=== PATIENT | female | born 1960 | race Two or more races ===

== ENCOUNTER → 2024-05-11 | Outpatient (CLI) | payer OTHER, SELFPAY ==
[2024-05-11 16:36] LABS: Basophils # (Auto) 0.1 Thou/mm3 (0.0-0.2); Basophils % (Auto) 1 % (0-2.5); Eosinophils # (Auto) 0.2 Thou/mm3 (0.0-0.5); Eosinophils % (Auto) 2 % (0-10); Hematocrit 41.9 % (36.0-46.0); Hemoglobin 13.6 g/dL (12.0-16.0); Immature Granulocytes % (Auto) 1 % (0-0); Immature Granulocytes Auto 0.07 Thou/mm3 (0.00-0.00); Lymphocytes # (Auto) 2.7 Thou/mm3 (1.0-4.8); Lymphocytes % (Auto) 23 % (10-50); Mean Corpuscular HGB Conc 32.5 g/dl (31.0-37.0); Mean Corpuscular Hemoglobin 28.9 pg (25.0-35.0); Mean Corpuscular Volume 89 fL (80-100); Monocytes # (Auto) 1.1 Thou/mm3 (0.0-0.8); Monocytes % (Auto) 9 % (0-12); Neutrophils # (Auto) 7.7 Thou/mm3 (1.8-7.7); Neutrophils % (Auto) 65 % (37-80); Nucleated Red Blood Cell % 0 /100 WBC (0); RDW Standard Deviation 48.3 fL (36.4-46.3); Red Blood Count 4.71 Miln/mm3 (4.00-5.20); White Blood Count 11.8 Thou/mm3 (3.6-11.0)
[2024-05-11 16:53] LABS: Alanine Aminotransferase 29 U/L (10-49); Albumin, Serum 4.3 gm/dL (3.4-4.8); Albumin/Globulin Ratio 2.4 (1.2-2.2); Alkaline Phosphatase 124 U/L (46-116); Anion Gap 7 (7-16); Aspartate Amino Transferase 22 U/L (0-34); BUN/Creatinine Ratio 18 Ratio (12-20); Bilirubin,Total 0.4 mg/dL (0.3-1.2); Blood Urea Nitrogen 16 mg/dL (9-23); Carbon Dioxide 27.3 mMol/L (20.0-31.0); Chloride 108 mMol/L (98-107); Creatinine (Component) 0.9 mg/dL (0.6-1.3); Globulin 1.8 gm/dL (2.3-3.5); Glucose 113 mg/dL (74-106); Osmolality,Calculated 285 (275-295); Potassium 3.5 mMol/L (3.4-5.1); Sodium 142 mMol/L (136-145); Total Protein 6.1 gm/dL (5.7-8.2); eGFR > 60 See Note
[2024-05-11 17:01] LABS: Platelet Count 22 Thou/mm3 (140-440)
[2024-05-11 17:27] LABS: Slide Review Platelets confirmed
[2024-05-25 22:02] LABS: Alpha-1-Globulin 0.3 g/dL (0.2-0.3); Alpha-2-Globulin 0.6 g/dL (0.5-0.9); Beta-1-Globulin 0.4 g/dL (0.4-0.6); Beta-2-globulin 0.2 g/dL (0.2-0.5); Gamma Globulin 0.6 g/dL (0.8-1.7); Immunoglobulin A 72 mg/dL (70-320); Immunoglobulin G 684 mg/dL (600-1540)
[2024-05-26 06:43] LABS: Immunoglobulin M 44 mg/dL (50-300)
== END | disposition home or self-care (01) ==
LOC: SCTO 15:45
PROVIDERS: PCP Nurse Practitioner Family; Referring Provider Internal Medicine Hematology & Oncology; Visit Provider Internal Medicine Hematology & Oncology
DX: D69.6 Thrombocytopenia, unspecified (principal)
CPT/HCPCS: 36415; 80053; 82784; 84155; 84165; 85025; 86334

== ENCOUNTER → 2024-05-22 | Outpatient (CLI) | payer OTHER, SELFPAY ==
[2024-05-22 15:41] LABS: Basophils # (Auto) 0.1 Thou/mm3 (0.0-0.2); Basophils % (Auto) 1 % (0-2.5); Eosinophils # (Auto) 0.2 Thou/mm3 (0.0-0.5); Eosinophils % (Auto) 1 % (0-10); Hematocrit 41.9 % (36.0-46.0); Hemoglobin 13.6 g/dL (12.0-16.0); Immature Granulocytes % (Auto) 1 % (0-0); Immature Granulocytes Auto 0.16 Thou/mm3 (0.00-0.00); Lymphocytes # (Auto) 3.7 Thou/mm3 (1.0-4.8); Lymphocytes % (Auto) 26 % (10-50); Mean Corpuscular HGB Conc 32.5 g/dl (31.0-37.0); Mean Corpuscular Hemoglobin 29.6 pg (25.0-35.0); Mean Corpuscular Volume 91 fL (80-100); Monocytes # (Auto) 1.8 Thou/mm3 (0.0-0.8); Monocytes % (Auto) 13 % (0-12); Neutrophils # (Auto) 8.2 Thou/mm3 (1.8-7.7); Neutrophils % (Auto) 58 % (37-80); Nucleated Red Blood Cell % 0 /100 WBC (0); Platelet Count 167 Thou/mm3 (140-440); RDW Standard Deviation 52.7 fL (36.4-46.3); Red Blood Count 4.59 Miln/mm3 (4.00-5.20)
[2024-05-22 15:58] LABS: Alanine Aminotransferase 25 U/L (10-49); Albumin, Serum 4.2 gm/dL (3.4-4.8); Albumin/Globulin Ratio 2.6 (1.2-2.2); Alkaline Phosphatase 128 U/L (46-116); Anion Gap 9 (7-16); Aspartate Amino Transferase 19 U/L (0-34); BUN/Creatinine Ratio 24 Ratio (12-20); Bilirubin,Total 0.5 mg/dL (0.3-1.2); Blood Urea Nitrogen 22 mg/dL (9-23); Calcium 9.3 mg/dL (8.3-10.6); Calcium (Corrected) 9.3 mg/dL (8.5-10.1); Carbon Dioxide 28.4 mMol/L (20.0-31.0); Chloride 105 mMol/L (98-107); Creatinine (Component) 0.9 mg/dL (0.6-1.3); Globulin 1.6 gm/dL (2.3-3.5); Glucose 104 mg/dL (74-106); Osmolality,Calculated 286 (275-295); Potassium 3.9 mMol/L (3.4-5.1); Sodium 142 mMol/L (136-145); Total Protein 5.8 gm/dL (5.7-8.2); eGFR > 60 See Note
== END | disposition home or self-care (01) ==
LOC: SCTO 14:54
PROVIDERS: PCP Nurse Practitioner Family; Referring Provider Internal Medicine Hematology & Oncology; Visit Provider Internal Medicine Hematology & Oncology
DX: D69.3 Immune thrombocytopenic purpura (principal); D05.12 Intraductal carcinoma in situ of left breast
CPT/HCPCS: 36415; 80053; 85025

== ENCOUNTER → 2024-06-16 | Outpatient (CLI) | payer OTHER, SELFPAY ==
[2024-06-16 17:31] LABS: Basophils # (Auto) 0.1 Thou/mm3 (0.0-0.2); Basophils % (Auto) 1 % (0-2.5); Eosinophils # (Auto) 0.1 Thou/mm3 (0.0-0.5); Eosinophils % (Auto) 1 % (0-10); Hematocrit 40.9 % (36.0-46.0); Hemoglobin 13.5 g/dL (12.0-16.0); Immature Granulocytes % (Auto) 2 % (0-0); Immature Granulocytes Auto 0.22 Thou/mm3 (0.00-0.00); Lymphocytes # (Auto) 3.9 Thou/mm3 (1.0-4.8); Lymphocytes % (Auto) 31 % (10-50); Mean Corpuscular Hemoglobin 30.5 pg (25.0-35.0); Mean Corpuscular Volume 93 fL (80-100); Monocytes # (Auto) 1.6 Thou/mm3 (0.0-0.8); Monocytes % (Auto) 12 % (0-12); Neutrophils # (Auto) 6.7 Thou/mm3 (1.8-7.7); Neutrophils % (Auto) 53 % (37-80); Nucleated Red Blood Cell % 0 /100 WBC (0); Platelet Count 182 Thou/mm3 (140-440); RDW Standard Deviation 54.4 fL (36.4-46.3); Red Blood Count 4.42 Miln/mm3 (4.00-5.20); White Blood Count 12.6 Thou/mm3 (3.6-11.0)
[2024-06-16 17:49] LABS: Alanine Aminotransferase 14 U/L (10-49); Albumin, Serum 4.2 gm/dL (3.4-4.8); Albumin/Globulin Ratio 2.5 (1.2-2.2); Alkaline Phosphatase 111 U/L (46-116); Anion Gap 5 (7-16); Aspartate Amino Transferase 13 U/L (0-34); BUN/Creatinine Ratio 20 Ratio (12-20); Bilirubin,Total 0.4 mg/dL (0.3-1.2); Blood Urea Nitrogen 20 mg/dL (9-23); Calcium 8.8 mg/dL (8.3-10.6); Calcium (Corrected) 8.8 mg/dL (8.5-10.1); Chloride 107 mMol/L (98-107); Globulin 1.7 gm/dL (2.3-3.5); Glucose 102 mg/dL (74-106); Osmolality,Calculated 283 (275-295); Potassium 3.6 mMol/L (3.4-5.1); Sodium 141 mMol/L (136-145); Total Protein 5.9 gm/dL (5.7-8.2); eGFR > 60 See Note
== END | disposition home or self-care (01) ==
LOC: SCTO 15:28
PROVIDERS: PCP Nurse Practitioner Family; Referring Provider Internal Medicine Hematology & Oncology; Visit Provider Internal Medicine Hematology & Oncology
DX: D69.3 Immune thrombocytopenic purpura (principal); D05.12 Intraductal carcinoma in situ of left breast
CPT/HCPCS: 36415; 80053; 85025

== ENCOUNTER 2024-07-05 14:14 | Outpatient (RCR) | payer OTHER, MEDICARE, MEDICAID, SELFPAY ==
--- NOTE | 2024-07-05 15:31 | CTCFLWUP_ITS ---
Patient: LIZ KELLY : 1960 Page 2 of 2 FOLLOW UP NOTE DATE OF SERVICE: 07/05/2024 NAME: LIZ KELLY ACCOUNT: [id number] : 1960 AGE: 63 INTERVAL HISTORY: Patient is here for follow-up. She has completed bone marrow biopsy with a Dr. Mujica about a week earlier and is scheduled to discuss the results. Patient otherwise doing well and have no bleeding or bruising. ONCOLOGY HISTORY: DIAGNOSIS: Thrombocytopenia, unspecified [ICD10] D69.6; Intraductal carcinoma in situ of left breast [ICD10] D05 .12 DATE OF DIAGNOSIS: 03/08/2015 STAGE/TNM: TREATMENT HISTORY: Care?Plan Start?Date Cycle Day Intent Rituximab?375?mg/m*2?-?1st?Line?or?Rel,?Ref 06/17/2016 1 28 Curative?(primary) VENOfer?200mg?IV?wkly 03/18/2020 1 70 Palliative cyclophosphamide 06/03/2020 1 21 Palliative Rituximab?375mg/m*2?weekly?x?4?version?1 04/22/2022 1 7 Palliative Immune?Globulin?ITP?1?day 04/29/2023 1 28 Palliative Gammagard 09/22/2023 1 28 Palliative HISTORY OF PRESENT ILLNESS: Liz Kelly is a 63-year-old Hebrew-speaking female with history of ITP. 07/06/2014: She was diagnosed with ITP and treated with prednisone and responded well. 03/08/2015: Left breast mass excision. DCIS. Status post radiation therapy and 5 years of letrozole. 06/24/2016: Patient was treated with Rituxan due to relapse of her ITP. She received Rituxan from 2016 through 08/19/2016. Patient received a total of 8 doses. 01/12/2017: Due to relapse of her ITP patient had splenectomy. 06/24/2017 due to relapse of ITP she was started on Promacta 50 mg. Since then her platelet counts hav e been heavily fluctuating. Promacta was increased to 75 mg p.o. daily. 01/27/2018: Her platelet count was 914,000 02/04/2018 her platelet counts were decreased to 5. Patient started herself on prednisone 60 mg p.o. daily in addition to Promacta 75 mg p.o. daily 02/07/2018: Today her platelet count is l Less than 5. She has petechia on her chest as well as lower extremities. She has a small hematoma sub-submucosally on the right buccal area. Patient was admitted to the hospital. 04/26/2018: Oh 2 weeks ago patient had another relapse of her ITP while she was on Promacta 75 mg p.o. daily. Her platelet counts were less than 5000. She was admitted to the hospital treated with a platelet transf usion, IVIG as well as N-plate she received 2 injections 1 week apart and platelet counts have improved. After that she was discharged home. She is in the clinic today with repeat CBC drawn last night. Her platelet count is 17,000's. This afternoon she does have blood blisters in the mouth she also has feeding subcutaneous hemorrhages in the lower extr emities. Recent CT scans done on 04/09/2018 did not show any evidence of accessory spleens. However nuclear medicine liver and spleen study did show small splenule. 05/10/2018: Patient is in the clinic today with repeat CBC. She denies any bleeding from the nose gu ms blood in the urine or stool. She is currently on N-plate 75 mcg on a q. weekly regimen. She i s also on prednisone 40 mg p.o. daily. 06/01/2018:. Since last visit patient is tapered off on prednisone. Currently she is getting N-plat e 75 mcg subcu weekly. CBC drawn today showed her platelet counts to be 145,000. She complains of generalized body aches st uffiness in the ears as well as worsening tremors. Patient has tremors prior to endplate however they seem to be wor sening at this time. Patient is becoming more anxious. She denies any chest pain palpitations abdominal pain or le g cramps. 06/16/2018: Over the last 2 weeks her N-plate doses were decreased due to persistent dizziness as wel l as arthralgias and myalgias. Last week she had 65mcg subcu. Today she complains of persistent dizziness and pluggi ng of the ears which she attributes to endplate. She is also worried that she might have bled in the brain during h er hospital stay few weeks ago when she had severely low platelet count. Her platelet count today is 30,000. She denies any bleeding from nose gums blood in the urine or stool. 06/29/2018: Last week patient was admitted to the hospital with a platelet count of less than 5. She r eceived platelet transfusion, prednisone as well as IVIG. She responded very well and was discharged home. She is in the clinic today with repeat CBC drawn yesterday. She is currently taking prednisone 100 mg p.o. daily along with vickers toprazole. Her platelet count yesterday is 484,000. She denies any bleeding from the nose gums blood in the urine o r stool. Her last endplate injection was about 2 weeks ago. Patient was having all kinds of side effects from N-plate. She is approved for Fostamatinib by her insurance company. She is awaiting for the prescription to be mailed to her home . 07/21/2018: Patient has been taking Fostamatinib 100 mg p.o. twice daily for last 1 week. She stopped taking prednisone. She also saw Dr. Chadwick of [facility] on June 30, 2018 for possible laparoscopic surgery for the splenule. He is planning on doing the surgery in August. She had labs drawn on 2018. Platelet counts have improved to 65,000's. She denies any bleeding from the nose gums blood i n the urine or stool. Previously she had skin panel drawn on 06/22/2018 which showed her potassium to be 2.8. Currently she is on one potassium tablet p.o. daily. 06/16/2018: Fostamatinib 100 mg p.o. twice daily prescription written. 09/14/2017: Patient had accessory spleen removal at [facility]. 09/29/2018: Patient was started back on Romiplostim. She decided not to take the Fostamatinib due to what appears to be side effects. 10/06/2018?01/02/2019: Patient was treated with N-plate. Due to recurrent thrombocytopenia N-plate was discontinued. 01/07/2019: Promacta 62.5 mg p.o. daily restarted. 03/07/2019: Promacta discontinued due to recurrence of ITP. 02/16/2019: Patient was started on Imuran 50 mg p.o. twice daily. 07/18/2019: Platelet count 56,000's. Imuran increased 100 mg p.o. twice daily [place] [facility] [place]/25/2019: Platelet count 30,000. 07/26/2019: Imuran discontinued due to rash in the neck more so on the left side. 08/02/2019: Platelet count 494,000's. Currently patient is on prednisone 10 mg p.o. daily as well as Promacta 50 mg p.o. daily. 08/06/2019: Patient stopped taking prednisone. She continued on Promacta 50 mg p.o. daily. 08/09/2019: Platelet count 971,000. 08/14/2019: Platelet count 719,000. 08/21/2019: Platelet count 19,000. 08/24/2019: Platelet count less than 5. Her platelet counts dropped while she was on Promacta. Kenya portillo was admitted to the hospital received platelet transfusion, prednisone as well as IVIG. 09/04/2019: Platelet count 378,000. Patient is on prednisone 5 mg as well as Promacta 50 mg p.o. dayo y. 09/26/2019: Platelet count 181,000. Patient is on Promacta 75 mg p.o. daily and prednisone 10 mg p.o. daily. She is slowly tapering of the prednisone. 10/17/2019: Platelet count 11,000. 10/19/2019: Patient discontinued Promacta 75 mg p.o. daily and started avatrombopag 20 mg p.o. daily a long with tapering doses of prednisone. 10/27/2019: Platelet count 383,000. 11/16/2019: Patient had CBC drawn. Platelet count was 7000, WBC 8.3, hemoglobin 12.9. Patient was on avatrombopag. I have advised Ms. Kelly to go to the emergency room and platelet transfusion and I VIG infusion. 01/12/2020: Platelet count 6000, WBC 21.2, hemoglobin 11.0. Patient was treated with 2 units of plate lets as well as IVIG. 01/13/2020: EGD? 01/22/2020: WBC 19.2, hemoglobin 10.3, platelets 422,000. 01/22/2020: Patient started Imuran 50 mg p.o. twice daily. 02/19 2020 platelet count 41,000. Patient started prednisone 10 mg p.o. daily. 04/08/2020: CBC showed a platelet count of 47,000. Patient started taking prednisone 10 mg p.o. dayo y 04/16/2003. CBC done on 04/17/2020 showed her platelet count to be 251,000. 05/22/2020: Platelet count less than 5, WBC 5.8, hemoglobin 12.5. 05/23/2020: Imuran discontinued. 06/03/2020: In spite of recommendation to stop Imuran patient continued Imuran 100 mg p.o. daily. Amadou horn was also started taking prednisone 20 mg p.o. daily for last few days. Her platelet count was arou nd 168,000. I have advised her to continue taking the Imuran and slowly taper off the prednisone. 06/17/2020: Patient developed Covid infection with pneumonia. She was treated with 2 rounds of antib iotics. She was also treated with steroids for about 10 days. 07/09/2020: Platelet count 537,000, hemoglobin 11.4, WBC 6.7. 08/14/2020: Platelet count 235,000, hemoglobin 12.8, WBC 8.9. 08/19/2020: Patient decided to stop Imuran on her own. She did not inform our office that she is stopp ing prednisone. 09/30/2020: Platelet counts 21,000, hemoglobin 11.2, WBC 9.5. Patient decided to start Imuran 50 mg p .o. twice daily on her own. 10/15/2020: Platelet count 12,000. 12/29/2021: Platelet count 245,000, WBC 10.4, ANC 8.3, hemoglobin 13.4, MCV 105. 03/31/2022: Platelet count less than 5000, hemoglobin 13.8, MCV 101, WBC 6.3, LILLY 3.0. Ms. Kelly s topped taking Imuran. 04/22/2022 - 05/18/2022: Ms. Kelly was treated with 4 weekly doses of rituximab. 06/01/2022: Platelet count 81,000. 09/15/2022: Platelet count 208,000, WBC 6.9, ANC 2.3, hemoglobin 12.9. 12/10/2022: platelet count 191,000, WBC 6.2, ANC 2.9, hemoglobin 13.3 12/14/2022: MRI breast BI wo/w contrast 02/27/2023: Platelet count less than 5000. Ms. Kelly received 1 dose of IVIG 03/04/2023: Platelet count 190,000. 03/25/2023: CT scan of the abdomen with IV contrast negative for splenomegaly or accessory spleens. 04/14/2023: Platelet count 90,000. 04/26/2023: Platelet count 31,000, WBC 11.0, ANC 6.5, hemoglobin 12.9, MCV 95. 04/27/2023: Cellcept 1 g p.o. daily prescribed. 06/25/2023: Ms. Kelly received platelet transfusion. 07/07/2023: Ms. Kelly again received platelet transfusions. 08/19/2023: Platelet count is 154,000, WBC is 13.4, ANC 7.9, hemoglobin 14.2. 09/14/2023: Platelets less than 5000. 09/22/2023: Ms. Kelly received 26 g of IVIG. Platelet count on the day was 26,000. 09/30/2023: Platelet count 6000. Ms. Kelly received 2 units of platelets. 10/04/2023: Platelet count 172,000. 10/27/2023. Patient received IVIG infusion.. Platelet count 22,000. 11/02/2023: Platelet count 57,000. 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 benztropine - 1 mg 1 tab Daily 2. Cymbalta - 20 mg 1 Capsule Daily 3. dexAMETHasone - 20 mg 2 tab Daily 4. Flexeril - 5 mg 1 tab Three times a day 5. gabapentin - 600 mg 1 tab Three times a day 6. Norvasc - 10 mg Daily 7. pantoprazole - 40 mg 1 Daily 8. prednisone - 10 mg 1 - 4 tab Daily 9. Zocor - 20 mg 1 tab Every day before sleep Medications Last Reconciled by Ida Pleitez MA on 07/05/2024 ALLERGIES: PENICILLAMINE REVIEW OF SYSTEMS: A complete 14-point review of systems was performed and is negative except as noted in interval histo ry. PHYSICAL EXAMINATION: VITAL SIGNS: Temperature?99.1, B/P?162/84, Oxygen?Saturation?86% Weight?162.4?lbs PAIN: 0 - No pain ECOG Performance Status: 0 - Asymptomatic and fully active GENERAL APPEARANCE: Appears well, in no apparent distress, appropriately interactive. HEENT: Normocephalic, no temporal wasting, normal conjunctiva, no scleral icterus, normal hearing, li ps without lesions, neck normal range of motion. CARDIOVASCULAR: Not assessed. PULMONARY: Normal respiratory effort, no respiratory distress or use of accessory muscles, speaking i n full sentences, no tachypnea. EXTREMITIES: No pedal edema or cyanosis. SKIN: Normal skin appearance. NEUROLOGIC: Alert and oriented x4. PSHYCHIATRIC: Appropriate affect, mood normal, behavior normal, intact thought and speech. LABORATORY DATA: I have personally reviewed and interpreted each of the patient?s relevant lab tests, abnormal finding s are below: Date 07/05/24 ??LDH,?TOTAL?(Unit/L) 179 ASSESSMENT/PLAN: ITP Patient's CBC today revealed normal platelets at 167 Patient normally have a chronic thrombocytopenia Patient had a PET scan which is reviewed with her today. PET CT scan do not show any lymphadenopathy . There is a small 3 mm nodule which we will follow in 6 months. Patient is a non-smoker. Patient received last IVIG in October 2023 Patient received last rituximab which was weekly for total 12 doses in November 2023 In the past patient has receivedprednisone, splenectomy, rituximab, Nplate,Promacta, Fostamatinib and avatrombopag. Patient was not able to tolerate Imuran 100 mg p.o. twice daily. Patient is not on any therapy Advised to follow-up with the Dr. Mujica for her bone marrow biopsy results I will repeat labs and follow-up bone marrow biopsy in 4 weeks CBC standing orders placed Patient very well aware and counseled to do CBC if she has any bleeding bruising or any concern for l ow platelets ORDERS: Standing orders for CBC Obtain bone marrow biopsy results RETURN TO CLINIC: Video appointment in 4 weeks BILLING AND COMPLIANCE: I reviewed external records from providers outside my specialty as summarized above. I spent a total of 50 minutes on this patient?s care on the day of their visit excluding time spent related to any bi lled procedures. This time includes time spent with the patient as well as time spent documenting in the medical record, reviewing patients records and tests, obtaining history, placing orders, communi cating with other healthcare professionals, counseling the patient, family or caregiver, and/or care coordination for the diagnoses above. Electronically Signed by: Demetrius Ley MD T: 3:29 PM CC: Pavel?Izyz,? PCP: Trudi Danielle Referring: Trudi Danielle This document was completed utilizing speech recognition software. Grammatical errors, random word in sertions, pronoun errors, and incomplete sentences are an occasional consequence of this system due t o software limitations, ambient noise, and hardware issues. Any formal questions or concerns about th e content, text or information contained within the body of this dictation should be directly address ed to the provider for clarification.
== END 2024-07-21 23:59 | disposition home or self-care (01) ==
LOC: SCTC 14:14
PROVIDERS: PCP Nurse Practitioner Family; Referring Provider Nurse Practitioner Family; Visit Provider Internal Medicine Hematology & Oncology
DX: D69.3 Immune thrombocytopenic purpura (principal); Z86.000 Personal history of in-situ neoplasm of breast; R91.1 Solitary pulmonary nodule; Z90.81 Acquired absence of spleen
CPT/HCPCS: 99212; G0463

== ENCOUNTER → 2024-07-05 | Outpatient (CLI) | payer OTHER, MEDICARE, MEDICAID, SELFPAY ==
[2024-07-05 14:09] LABS: LDH (Lactate Dehydrogenase) 179 U/L (120-246)
[2024-07-14 06:57] LABS: Haptoglobin* 108 mg/dL (43-212)
== END | disposition home or self-care (01) ==
PROVIDERS: PCP Nurse Practitioner Family; Referring Provider Internal Medicine Hematology & Oncology; Visit Provider Internal Medicine Hematology & Oncology
DX: D05.12 Intraductal carcinoma in situ of left breast (principal); D69.3 Immune thrombocytopenic purpura
CPT/HCPCS: 36415; 83010; 83615

== ENCOUNTER → 2024-07-17 | Outpatient (BNVA) | payer OTHER, MEDICARE, MEDICAID, SELFPAY | END | disposition home or self-care (01) | PROVIDERS: PCP Nurse Practitioner Family; Referring Provider Nurse Practitioner Family; Visit Provider Urology | DX: R31.29 Other microscopic hematuria (principal); D69.6 Thrombocytopenia, unspecified; Z87.440 Personal history of urinary (tract) infections; I10 Essential (primary) hypertension; G20.A1 Parkinson's disease without dyskinesia, without mention of fluctuations; K21.9 Gastro-esophageal reflux disease without esophagitis | CPT/HCPCS: 81003; 99212; G0463 ==

== ENCOUNTER → 2024-08-01 | Outpatient (CLI) | payer OTHER, MEDICARE, MEDICAID, SELFPAY ==
[2024-08-01 15:38] LABS: Basophils # (Auto) 0.1 Thou/mm3 (0.0-0.2); Basophils % (Auto) 1 % (0-2.5); Eosinophils # (Auto) 0.2 Thou/mm3 (0.0-0.5); Eosinophils % (Auto) 3 % (0-10); Hematocrit 40.9 % (36.0-46.0); Hemoglobin 13.3 g/dL (12.0-16.0); Immature Granulocytes % (Auto) 0 % (0-0); Immature Granulocytes Auto 0.03 Thou/mm3 (0.00-0.00); Lymphocytes # (Auto) 2.2 Thou/mm3 (1.0-4.8); Lymphocytes % (Auto) 33 % (10-50); Mean Corpuscular HGB Conc 32.5 g/dl (31.0-37.0); Mean Corpuscular Hemoglobin 30.2 pg (25.0-35.0); Mean Corpuscular Volume 93 fL (80-100); Monocytes % (Auto) 14 % (0-12); Neutrophils # (Auto) 3.3 Thou/mm3 (1.8-7.7); Neutrophils % (Auto) 49 % (37-80); Nucleated Red Blood Cell % 0 /100 WBC (0); Platelet Count 95 Thou/mm3 (140-440); RDW Standard Deviation 51.8 fL (36.4-46.3); Red Blood Count 4.41 Miln/mm3 (4.00-5.20); White Blood Count 6.8 Thou/mm3 (3.6-11.0)
[2024-08-01 15:46] LABS: Alanine Aminotransferase 25 U/L (10-49); Albumin/Globulin Ratio 2.4 (1.2-2.2); Alkaline Phosphatase 122 U/L (46-116); Anion Gap 4 (7-16); Aspartate Amino Transferase 25 U/L (0-34); BUN/Creatinine Ratio 19 Ratio (12-20); Bilirubin,Total 0.4 mg/dL (0.3-1.2); Blood Urea Nitrogen 15 mg/dL (9-23); Calcium 9.1 mg/dL (8.3-10.6); Calcium (Corrected) 9.1 mg/dL (8.5-10.1); Carbon Dioxide 28.1 mMol/L (20.0-31.0); Chloride 113 mMol/L (98-107); Creatinine (Component) 0.8 mg/dL (0.6-1.3); Globulin 1.7 gm/dL (2.3-3.5); Glucose 105 mg/dL (74-106); Osmolality,Calculated 289 (275-295); Potassium 3.5 mMol/L (3.4-5.1); Sodium 145 mMol/L (136-145); Total Protein 5.7 gm/dL (5.7-8.2); eGFR > 60 See Note
[2024-08-08 15:34] LABS: Albumin 3.8 g/dL (3.8-4.8); Alpha-1-Globulin 0.3 g/dL (0.2-0.3); Alpha-2-Globulin 0.6 g/dL (0.5-0.9); Beta-1-Globulin 0.4 g/dL (0.4-0.6); Beta-2-globulin 0.3 g/dL (0.2-0.5); Gamma Globulin 0.5 g/dL (0.8-1.7); Immunoglobulin A 73 mg/dL (70-320); Immunoglobulin G 583 mg/dL (600-1540)
[2024-08-09 06:21] LABS: Immunoglobulin M 30 mg/dL (50-300); Protein, total, serum 5.8 g/dL (6.1-8.1)
== END | disposition home or self-care (01) ==
PROVIDERS: PCP Nurse Practitioner Family; Referring Provider Internal Medicine Hematology & Oncology; Visit Provider Internal Medicine Hematology & Oncology
DX: D69.6 Thrombocytopenia, unspecified (principal)
CPT/HCPCS: 36415; 80053; 82784; 84155; 84165; 85025; 86334

== ENCOUNTER → 2024-08-09 | Outpatient (CLI) | payer OTHER, MEDICARE, MEDICAID, SELFPAY ==
[2024-08-09 12:21] LABS: Basophils # (Auto) 0.1 Thou/mm3 (0.0-0.2); Basophils % (Auto) 1 % (0-2.5); Eosinophils # (Auto) 0.2 Thou/mm3 (0.0-0.5); Eosinophils % (Auto) 2 % (0-10); Hematocrit 40.2 % (36.0-46.0); Hemoglobin 13.4 g/dL (12.0-16.0); Immature Granulocytes % (Auto) 1 % (0-0); Immature Granulocytes Auto 0.05 Thou/mm3 (0.00-0.00); Lymphocytes # (Auto) 2.8 Thou/mm3 (1.0-4.8); Lymphocytes % (Auto) 32 % (10-50); Mean Corpuscular HGB Conc 33.3 g/dl (31.0-37.0); Mean Corpuscular Hemoglobin 30.7 pg (25.0-35.0); Mean Corpuscular Volume 92 fL (80-100); Monocytes # (Auto) 1.4 Thou/mm3 (0.0-0.8); Monocytes % (Auto) 17 % (0-12); Neutrophils # (Auto) 4.1 Thou/mm3 (1.8-7.7); Neutrophils % (Auto) 48 % (37-80); Nucleated Red Blood Cell % 0 /100 WBC (0); RDW Standard Deviation 50.4 fL (36.4-46.3); Red Blood Count 4.36 Miln/mm3 (4.00-5.20); White Blood Count 8.6 Thou/mm3 (3.6-11.0)
[2024-08-09 12:22] LABS: Glucose Estimated Average 111 mg/dL (80-131); Hemoglobin A1C 5.5 % Hgb (4.8-6.0)
[2024-08-09 12:23] LABS: Platelet Count 45 Thou/mm3 (140-440)
[2024-08-09 12:37] LABS: Alanine Aminotransferase 23 U/L (10-49); Albumin, Serum 3.9 gm/dL (3.4-4.8); Albumin/Globulin Ratio 2.3 (1.2-2.2); Alkaline Phosphatase 116 U/L (46-116); Anion Gap 9 (7-16); Aspartate Amino Transferase 30 U/L (0-34); BUN/Creatinine Ratio 21 Ratio (12-20); Bilirubin,Total 0.7 mg/dL (0.3-1.2); Blood Urea Nitrogen 15 mg/dL (9-23); Calcium 9.1 mg/dL (8.3-10.6); Calcium (Corrected) 9.2 mg/dL (8.5-10.1); Carbon Dioxide 26.3 mMol/L (20.0-31.0); Cardiac Risk Estimate 2.2 RATIO (3.7-5.6); Chloride 109 mMol/L (98-107); Cholesterol 165 mg/dL (132-200); Creatinine (Component) 0.7 mg/dL (0.6-1.3); Globulin 1.7 gm/dL (2.3-3.5); Glucose 98 mg/dL (74-106); HDL Cholesterol 74 mg/dL (40-60); LDL Cholesterol,Calculated 71 mg/dL (0-130); Osmolality,Calculated 287 (275-295); Potassium 4.1 mMol/L (3.4-5.1); Sodium 144 mMol/L (136-145); Thyroid Stimulating Hormone 0.71 uIU/mL (0.55-4.78); Total Protein 5.6 gm/dL (5.7-8.2); Triglycerides 99 mg/dL (30-150); eGFR > 60 See Note
[2024-08-09 13:57] LABS: Slide Review Platelets confirmed
== END | disposition home or self-care (01) ==
LOC: SCTO 11:23
PROVIDERS: PCP Nurse Practitioner Family; Referring Provider Internal Medicine Hematology & Oncology; Visit Provider Internal Medicine Hematology & Oncology
DX: F33.9 Major depressive disorder, recurrent, unspecified (principal); M54.50 Low back pain, unspecified; D05.12 Intraductal carcinoma in situ of left breast; D69.3 Immune thrombocytopenic purpura
CPT/HCPCS: 36415; 80053; 80061; 83036; 84443; 85025

== ENCOUNTER 2024-08-17 16:01 | Outpatient (RCR) | payer OTHER, MEDICARE, MEDICAID, SELFPAY | END 2024-08-18 23:59 | disposition home or self-care (01) | LOC: SCTC 16:01 | PROVIDERS: PCP Nurse Practitioner Family; Referring Provider Nurse Practitioner Family; Visit Provider Nurse Practitioner Family | DX: D69.3 Immune thrombocytopenic purpura (principal); R91.1 Solitary pulmonary nodule | CPT/HCPCS: 99212; G0463 ==

== ENCOUNTER → 2024-08-17 | Outpatient (CLI) | payer OTHER, MEDICARE, MEDICAID, SELFPAY ==
[2024-08-17 15:04] LABS: Basophils # (Auto) 0.1 Thou/mm3 (0.0-0.2); Basophils % (Auto) 1 % (0-2.5); Eosinophils # (Auto) 0.1 Thou/mm3 (0.0-0.5); Eosinophils % (Auto) 2 % (0-10); Hematocrit 39.7 % (36.0-46.0); Hemoglobin 13.1 g/dL (12.0-16.0); Immature Granulocytes % (Auto) 0 % (0-0); Immature Granulocytes Auto 0.03 Thou/mm3 (0.00-0.00); Lymphocytes % (Auto) 31 % (10-50); Mean Corpuscular Hemoglobin 30.4 pg (25.0-35.0); Mean Corpuscular Volume 92 fL (80-100); Monocytes # (Auto) 1.6 Thou/mm3 (0.0-0.8); Monocytes % (Auto) 17 % (0-12); Neutrophils # (Auto) 4.7 Thou/mm3 (1.8-7.7); Neutrophils % (Auto) 49 % (37-80); Nucleated Red Blood Cell % 0 /100 WBC (0); RDW Standard Deviation 49.3 fL (36.4-46.3); Red Blood Count 4.31 Miln/mm3 (4.00-5.20); White Blood Count 9.5 Thou/mm3 (3.6-11.0)
[2024-08-17 15:08] LABS: Platelet Count 59 Thou/mm3 (140-440)
[2024-08-17 15:39] LABS: Slide Review Platelets confirmed
== END | disposition home or self-care (01) ==
PROVIDERS: PCP Family Medicine; Referring Provider Nurse Practitioner Family; Visit Provider Nurse Practitioner Family
DX: D69.3 Immune thrombocytopenic purpura (principal); D05.12 Intraductal carcinoma in situ of left breast
CPT/HCPCS: 36415; 85025

== ENCOUNTER 2024-09-05 16:45 | Emergency (ER) | payer OTHER, MEDICARE, MEDICAID, SELFPAY ==
[2024-09-05] VITALS (8 sets, daily range): BP systolic 143–176; BP diastolic 82–91; PULSE 74–85; RESP 16–19; TEMP 36.6–36.8; O2SAT 95–98; BMI 25.7
--- NOTE | 2024-09-05 17:14 | PD.EDRME ---
Rapid Medical Screening Exam RME Arrival date/time: 09/05/24 16:45 63-year-old female with history of ITP and low platelets presents stating that her platelets are low patient had outpatient labs today Chief Complaint: General Adult/Misc Complain Time Seen by Provider: 09/05/24 17:07 Vital signs: Vital Signs Temperature 98.1 F 09/05/24 17:09 Pulse Rate 76 09/05/24 17:09 Respiratory Rate 16 09/05/24 17:09 Blood Pressure 143/82 H 09/05/24 17:09 Pulse Oximetry (%) 97 09/05/24 17:09 Oxygen Delivery Method Room Air 09/05/24 17:09
--- NOTE | 2024-09-05 20:08 | PD.EDADULT ---
ED General RME/HPI General Chief complaint: General Adult/Misc Complain Stated complaint: [facility] SENT PT DUE TO LOW PLATELETS Time Seen by Provider: 09/05/24 17:07 Arrival date/time: 09/05/24 16:45 RME / HPI RME / HPI narrative: 09/05/24 16:45 63-year-old female with history of ITP and low platelets presents stating that her platelets are low patient had outpatient labs today -------- Dr. Herrera?s Main ED Evaluation: 63yo female with a history of ITP presents to the ED for a chief complaint of abnormal labs. Patient states she had routine outpatient labs done today and received a call from the CTC stating her platelets were low, and was told to come in for evaluation. Patient denies any abnormal bruising or bleeding. She denies any hematuria, bloody/black stools or any other associated symptoms. Related Data Home Medications ?Medication ?Instructions ?Recorded ?Confirmed amlodipine 10 mg tablet (Norvasc) 10 mg PO QDAY #0 tabs 07/17/17 07/17/24 pantoprazole 40 mg tablet,delayed 40 mg PO DAILY 11/10/18 07/17/24 release gabapentin 600 mg tablet 600 mg PO TID 11/11/18 07/17/24 duloxetine 60 mg capsule,delayed 30 mg PO DAILY 01/12/20 07/17/24 release (Cymbalta) benztropine 0.5 mg tablet 0.5 mg PO QDAY 02/28/23 07/17/24 cyclobenzaprine 5 mg tablet 5 mg PO TID PRN Muscle Spasm 02/28/23 07/17/24 simvastatin 20 mg tablet (Zocor) 20 mg PO QPM 02/28/23 07/17/24 amoxicillin 500 mg tablet 500 mg PO TID 10/04/23 07/17/24 Previous Rx's ?Medication ?Instructions ?Recorded albuterol sulfate 90 mcg/actuation 2 puff inhalation QID PRN 06/27/20 aerosol inhaler shortness of breath or wheezing #18 grams Allergies Allergy/AdvReac Type Severity Reaction Status Date / Time Penicillins Allergy Severe RASH Verified 09/05/24 16:48 Review of Systems Review of Systems Systems Reviewed: All systems reviewed, normal except as documented Past Medical History Past Medical History NEUROLOGIC: Positive Neurological Disorders, Parkinson's Disease and Peripheral Neuropathy; Negative Seizures CARDIAC: Positive Cardiac Disorders, Heart Murmur and Hypertension; Negative Myocardial Infarction, Cardiac Arrhythmia, Atrial Fibrillation, Angina, Coronary Artery Disease, Atherosclerotic Heart Disease, Peripheral Vascular Disease, Hypercholesterolemia, Aneurysm, Congestive Heart Failure, Congenital Heart Disease, Valvular Heart Disease, Rheumatic Fever, Cardiomyopathy, Edema, Pericarditis, Cellulitis, Deep Vein Thrombosis, Hypotension or Varicose Veins RESPIRATORY: Positive Asthma, Bronchitis and Pneumonia; Negative Chronic Obstructive Pulmonary Disease (COPD) GASTROINTESTINAL: Positive Gastrointestinal Disorders, Gastrointestinal Bleed and Gastroesophageal Reflux Disease; Negative Hepatitis GENITOURINARY: Negative Genitourinary Disorders or Renal Disease REPRODUCTIVE: Positive Breast Cancer, Pelvic Inflammatory Disease and Uterine Prolapse MUSCULOSKELETAL: Positive Musculoskeletal Disorders, Arthritis and Rheumatoid Arthritis ENT: Positive Ear Infection; Negative Cataracts, Glaucoma, Blind, Retinal Detachment, Macular Degeneration or Deafness ENDOCRINE: Negative Endocrine Disorders, Diabetes Mellitus Type 1, Diabetes Mellitus Type 2, Hypoglycemia, Providence's Syndrome, Christiana's Disease, Hyperthyroidism, Hypothyroidism, Parathyroid Disease, Pituitary Disease, Systemic Lupus Erythematosus, Syndrome of Inappropriate Antidiuretic Hormone (SIADH), Adrenal Disease or Graves' Disease HEMATOLOGIC: Positive Blood Disorders and Clotting Problems; Negative Sickle Cell Disease PSYCHO/SOCIAL: Positive Depression and Anxiety OTHER HISTORY: Positive Autoimmune Disease, Shingles, Blood Transfusions, Radiation Therapy, Chicken Pox and Breast Cancer; Negative Blood Transfusion Reaction, Anesthesia Reactions, MRSA, VRSA, Vancomycin-Resistant Enterococci, Human Immunodeficiency Virus (HIV), Measles, Mumps, Rubella ([place] Measles), Pertussis or Clostridium Difficile Family History FAMILY HISTORY: Negative Family Psychiatric Problems, Family Respiratory Disorders, Family Cardiac Disorders, Family Gastrointestinal Problems, Family Cancer, Family Surgery or Family Anesthesia Reaction Surgical History SURGICAL: Positive Hysterectomy and Section; Negative Cardiac Surgery, Pacemaker, Endocrine Surgery, Ear Surgery, Tympanostomy Tube, Abdominal Surgery, Nephrectomy, Joint Replacement or Neurologic Surgery Social History SMOKING STATUS: Never smoker SECOND HAND EXPOSURE: No SUBSTANCE USE: does not use ED Exam Narrative Physical exam: GENERAL APPEARANCE: alert and oriented x 4, well-developed, well-nourished, no acute distress VITALS: All vitals were reviewed and the pulse ox is 97% on room air, which is normal according to my interpretation. HEENT: Normocephalic, atraumatic; pupils equal, round, reactive to light; EOMI; mucous membranes pink, moist; oropharynx clear NECK: Supple LUNGS: CTABL; no wheezes, no rales, no rhonchi HEART: Regular rate, regular rhythm; normal S1, S2; no murmurs ABDOMEN: non distended; normal BS; soft, no tenderness, no guarding, no rebound; no masses, no organomegaly, no hernia BACK: no CVA tenderness EXTREMITIES: atraumatic; no edema NEUROLOGIC: awake; alert and oriented x4; cranial nerves II-XII grossly intact; no focal sensory or motor deficits PSYCHIATRIC: appropriate mood and affect SKIN: warm, dry, normal color; no rashes Course Quality Measures none Orders Category Date Time Status IV [Insert IV] NOW Care 09/05/24 20:06 Active Transfuse,blood/blood products NOW Care 09/05/24 20:39 Active CBC Stat Lab 09/05/24 19:53 Completed PLATELETS [Pheresis Platelets] Stat Lab 09/05/24 17:36 Results Type and Screen Stat Lab 09/05/24 17:36 Results MethylPREDNISolone.* [SoluMEDROL Inj] 250 mg Med 09/05/24 20:15 Discontinued Sodium Chloride 0.9% [Ns] 100 ml IV X1 MethylPREDNISolone.* [SoluMEDROL Inj] 250 mg Med 09/05/24 20:45 Discontinued MethylPREDNISolone. [SoluMEDROL Inj] 500 mg Sodium Chloride 0.9% [Ns] 100 ml IV X1 Vital Signs Vital signs: Vital Signs Temperature 98.1 F 09/05/24 17:09 Pulse Rate 76 09/05/24 17:09 Respiratory Rate 16 09/05/24 17:09 Blood Pressure 143/82 H 09/05/24 17:09 Pulse Oximetry (%) 97 09/05/24 17:09 Oxygen Delivery Method Room Air 09/05/24 17:09 [facility] Patient data External records reviewed:: [facility] previous records (Per chart review, patient was seen here on 09/30/23 for chronic ITP.) Clinical information provided by:: patient Social determinants that could affect healthcare access:: none Patient has the following chronic illnesses:: ITP How is presenting disease/condition affected by chronic disease/condition?: caused by Evaluation data The following diagnostics were reviewed and interpreted by me:: lab results Lab and/or radiology exams considered but not ordered:: none Interpretation Summary: Outpatient CBC done today reviewed by me and showed the platelets are low at 5. Medications Medications considered but not ordered:: none Medication administrations:: Medication Administration History Discontinued Medications Methylprednisolone Sodium Succinate 250 mg/ Sodium Chloride 104 mls @ 208 mls/hr IV X1 ONE Stop: 09/05/24 20:44 Last Admin: 09/05/24 21:35 Dose: 208 mls/hr Documented By: RUBINA Methylprednisolone Sodium Succinate 250 mg/Methylprednisolone Sodium Succinate 500 mg/ Sodium Chloride 112 mls @ 224 mls/hr IV X1 ONE Stop: 09/05/24 21:14 Last Admin: 09/05/24 22:15 Dose: Not Given Documented By: RUBINA Non-Admin Reason: Discontinued see above Consultations Consultation(s) initiated? (list below): No Diagnosis Differential Diagnosis ED Complaint MDM: ITP, Thrombocytopenia without bleeding, Pancytopenia Most likely diagnosis given after review of the tests above:: Thrombocytopenia, Chronic idiopathic thrombocytopenic purpura Admission Indicated Admission indicated?: not indicated Explain why admission is indicated or not indicated:: No significant findings Admission Request Was there a request for admission?: No Disposition Plan Disposition Plan: Discharge Discharge Attestation Discharge Attestation: The patient and all family members were given an opportunity to ask questions and understood the discharge instructions. Discharge instructions specifically effects, indications for sooner follow up or return to the emergency department, and the expected course of current diagnosis. Patient condition: Stable Medical Decision Making MDM Narrative MDM Narrative: 2033: Spoke with Dr. 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 929: Spoke with the patient at bedside, who states she does not want the full 1g of Solumedrol as recommended by Dr. Christopher due to it making her feel anxious. Patient was informed of the risks and recommendations. She verbalized understanding. Solumedrol 250mg to be given. 0204: Repeat Plt Count is 118. Vital signs reviewed and patient re-evaluated. Stable for discharge. Discharge precautions discussed with patient who is amendable to plan. Scribe Attestation: 09/05/24 - Nikolas, Aminata Mata am scribing for and in the presence of Dr. Herrera. Differential Diagnosis Differential Diagnosis: ITP, Thrombocytopenia without bleeding, Pancytopenia Lab Data 09/06/24 01:15 Labs: Lab Results 09/05/24 09/06/24 Range/Units 17:36 01:15 WBC 10.9 (3.6-11.0) Thou/mm3 RBC 4.58 (4.00-5.20) Miln/mm3 Hgb 14.2 (12.0-16.0) g/dL Hct 43.0 (36.0-46.0) % MCV 94 (80-100) fL MCH 31.0 (25.0-35.0) pg MCHC 33.0 (31.0-37.0) g/dl RDW Std Deviation 47.1 H (36.4-46.3) fL Plt Count 118 L D (140-440) Thou/mm3 Neut % (Auto) 91 H (37-80) % Lymph % (Auto) 7 L (10-50) % [place] % (Auto) 1 (0-12) % Eos % (Auto) 0 (0-10) % Baso % (Auto) 0 (0-2.5) % Neut # (Auto) 10.0 H (1.8-7.7) Thou/mm3 Lymph # (Auto) 0.8 L (1.0-4.8) Thou/mm3 [place] # (Auto) 0.1 (0.0-0.8) Thou/mm3 Eos # (Auto) 0.0 (0.0-0.5) Thou/mm3 Baso # (Auto) 0.0 (0.0-0.2) Thou/mm3 Immature Gran # (Auto) 0.08 H (0.00-0.00) Thou/mm3 Absolute Nucleated RBC 0.00 (0.00-0.00) Thou/mm3 Immature Gran % 1 H (0-0) % Nucleated RBC % 0 (0) /100 WBC Blood Type B Positive Antibody Screen NEGATIVE Blood Bank Wristband ID Yes Blood Bank Comment PLATP Ready Discharge Plan Plan Patient Disposition: HOME (Self Care) Disposition Comment: Stable for discharge Patient condition on transfer: Stable Prescriptions/Referrals Prescriptions/Med Rec: No Action amoxicillin 500 mg tablet 500 mg PO TID amlodipine [Norvasc] 10 MG tablet 10 mg PO QDAY Qty: 0 albuterol sulfate 90 mcg/actuation HFA aerosol inhaler 2 puff inhalation QID PRN (Reason: shortness of breath or wheezing) Qty: 18 0RF pantoprazole 40 mg tablet,delayed release (DR/EC) 40 mg PO DAILY gabapentin 600 mg Tablet 600 mg PO TID duloxetine [Cymbalta] 60 mg Capsule,Delayed Release(Dr/Ec) 30 mg PO DAILY benztropine 0.5 mg Tablet 0.5 mg PO QDAY simvastatin [Zocor] 20 mg Tablet 20 mg PO QPM cyclobenzaprine 5 mg Tablet 5 mg PO TID PRN (Reason: Muscle Spasm) Referrals: Demetrius Ley MD [Physician] - In 1 week Problem List Clinical Impression: Thrombocytopenia, Chronic idiopathic thrombocytopenic purpura Patient/Caregiver Discharge Instructions Discharge Activity: activity as tolerated Education Materials: Thrombocytopenia, Discharge Instructions for Immune ... Additional Instructions: Please return to the emergency department if you have any worsening or any further medical problems and we will help you. Otherwise you should follow-up with your primary care doctor and your gear grinding machine operator within the next several days When you came to the ER this evening your platelet level was 5. Now your level is 118. Print Language: Kinyarwanda Stand Alone Forms: [facility] Award Info., Patient Portal Info Letter
--- NOTE | 2024-09-05 20:47 | PC.NURSE ---
Initial contract with pt. Awake, no distress notec. Ambulated to BR without any problem.
--- NOTE | 2024-09-05 21:28 | PC.NURSE ---
Pt refused Solumedrol [address] Herrera at bedside talking to pt with regards to dosage of solumedrol.
[2024-09-05] MEDS: METHYLPREDNISOLONE IV (21:35)
[2024-09-05] MEDS: SODIUM CHLORIDE 0.9% IV (21:35)
--- NOTE | 2024-09-05 22:22 | PC.NURSE ---
Called lab, shantelle no available, coming from [place] per lab.
--- NOTE | 2024-09-05 22:55 | PC.NURSE ---
Platelet infusing well, without adverse reaction noted.
[2024-09-06] VITALS: BP 154/85; PULSE 82; RESP 18; TEMP 36.9; O2SAT 98
[2024-09-06 00:22] VITALS: BP 154/80; PULSE 75; RESP 18; TEMP 36.9; O2SAT 98
--- NOTE | 2024-09-06 01:04 | PC.NURSE ---
Lab informed, platelet is done.
[2024-09-06 01:47] LABS: Basophils % (Auto) 0 % (0-2.5); Eosinophils % (Auto) 0 % (0-10); Hemoglobin 14.2 g/dL (12.0-16.0); Immature Granulocytes % (Auto) 1 % (0-0); Immature Granulocytes Auto 0.08 Thou/mm3 (0.00-0.00); Lymphocytes # (Auto) 0.8 Thou/mm3 (1.0-4.8); Lymphocytes % (Auto) 7 % (10-50); Mean Corpuscular Volume 94 fL (80-100); Monocytes # (Auto) 0.1 Thou/mm3 (0.0-0.8); Monocytes % (Auto) 1 % (0-12); Neutrophils % (Auto) 91 % (37-80); Nucleated Red Blood Cell % 0 /100 WBC (0); Platelet Count 118 Thou/mm3 (140-440); RDW Standard Deviation 47.1 fL (36.4-46.3); Red Blood Count 4.58 Miln/mm3 (4.00-5.20); White Blood Count 10.9 Thou/mm3 (3.6-11.0)
[2024-09-06 03:22] VITALS: BP 160/93; PULSE 93; RESP 18; O2SAT 96
== END 2024-09-06 03:23 | disposition home or self-care (01) ==
PROVIDERS: Emergency Provider Emergency Medicine
DX: D69.3 Immune thrombocytopenic purpura (principal)
CPT/HCPCS: 36415; 36430; 85025; 85049; 86850; 86900; 86901; 86965; 96365; 99285; J2919; J7050; P9035

== ENCOUNTER → 2024-09-05 | Outpatient (CLI) | payer OTHER, MEDICARE, MEDICAID, SELFPAY ==
[2024-09-05 15:33] LABS: Basophils # (Auto) 0.1 Thou/mm3 (0.0-0.2); Basophils % (Auto) 1 % (0-2.5); Eosinophils # (Auto) 0.2 Thou/mm3 (0.0-0.5); Eosinophils % (Auto) 2 % (0-10); Hematocrit 42.3 % (36.0-46.0); Hemoglobin 14.1 g/dL (12.0-16.0); Immature Granulocytes % (Auto) 1 % (0-0); Immature Granulocytes Auto 0.11 Thou/mm3 (0.00-0.00); Lymphocytes # (Auto) 3.2 Thou/mm3 (1.0-4.8); Lymphocytes % (Auto) 28 % (10-50); Mean Corpuscular HGB Conc 33.3 g/dl (31.0-37.0); Mean Corpuscular Hemoglobin 30.7 pg (25.0-35.0); Mean Corpuscular Volume 92 fL (80-100); Monocytes # (Auto) 1.4 Thou/mm3 (0.0-0.8); Monocytes % (Auto) 12 % (0-12); Neutrophils # (Auto) 6.6 Thou/mm3 (1.8-7.7); Neutrophils % (Auto) 57 % (37-80); Nucleated Red Blood Cell % 0 /100 WBC (0); RDW Standard Deviation 48.1 fL (36.4-46.3); Red Blood Count 4.59 Miln/mm3 (4.00-5.20); White Blood Count 11.7 Thou/mm3 (3.6-11.0)
[2024-09-05 15:39] LABS: Platelet Count 5 Thou/mm3 (140-440)
[2024-09-05 15:48] LABS: Alanine Aminotransferase 13 U/L (10-49); Albumin, Serum 3.9 gm/dL (3.4-4.8); Alkaline Phosphatase 115 U/L (46-116); Anion Gap 9 (7-16); Aspartate Amino Transferase 12 U/L (0-34); BUN/Creatinine Ratio 19 Ratio (12-20); Bilirubin,Total 0.4 mg/dL (0.3-1.2); Blood Urea Nitrogen 17 mg/dL (9-23); Calcium 9.1 mg/dL (8.3-10.6); Calcium (Corrected) 9.2 mg/dL (8.5-10.1); Chloride 107 mMol/L (98-107); Creatinine (Component) 0.9 mg/dL (0.6-1.3); Glucose 110 mg/dL (74-106); Osmolality,Calculated 287 (275-295); Potassium 3.8 mMol/L (3.4-5.1); Sodium 143 mMol/L (136-145); Total Protein 5.9 gm/dL (5.7-8.2); eGFR > 60 See Note
[2024-09-05 17:12] LABS: Slide Review Platelets confirmed
[2024-09-06 08:58] LABS: Path Review Blood Smear Sent to Pathologist
== END | disposition home or self-care (01) ==
LOC: SCTO 14:09
PROVIDERS: PCP Physician Assistant; Referring Provider Nurse Practitioner Family; Visit Provider Nurse Practitioner Family
DX: D05.12 Intraductal carcinoma in situ of left breast (principal); D69.3 Immune thrombocytopenic purpura; D69.6 Thrombocytopenia, unspecified
CPT/HCPCS: 36415; 80053; 85025

== ENCOUNTER → 2024-09-13 | Outpatient (CLI) | payer OTHER, MEDICARE, MEDICAID, SELFPAY ==
[2024-09-13 14:22] LABS: Basophils # (Auto) 0.1 Thou/mm3 (0.0-0.2); Basophils % (Auto) 0 % (0-2.5); Eosinophils # (Auto) 0.1 Thou/mm3 (0.0-0.5); Eosinophils % (Auto) 1 % (0-10); Hematocrit 42.4 % (36.0-46.0); Hemoglobin 14.4 g/dL (12.0-16.0); Immature Granulocytes % (Auto) 3 % (0-0); Lymphocytes # (Auto) 3.8 Thou/mm3 (1.0-4.8); Lymphocytes % (Auto) 22 % (10-50); Mean Corpuscular Volume 91 fL (80-100); Monocytes % (Auto) 12 % (0-12); Neutrophils # (Auto) 10.7 Thou/mm3 (1.8-7.7); Neutrophils % (Auto) 63 % (37-80); Nucleated Red Blood Cell % 0 /100 WBC (0); Platelet Count 267 Thou/mm3 (140-440); RDW Standard Deviation 48.1 fL (36.4-46.3); Red Blood Count 4.65 Miln/mm3 (4.00-5.20); White Blood Count 17.1 Thou/mm3 (3.6-11.0)
[2024-09-13 14:35] LABS: Alanine Aminotransferase 18 U/L (10-49); Albumin, Serum 3.9 gm/dL (3.4-4.8); Albumin/Globulin Ratio 2.2 (1.2-2.2); Alkaline Phosphatase 112 U/L (46-116); Anion Gap 9 (7-16); Aspartate Amino Transferase 15 U/L (0-34); BUN/Creatinine Ratio 26 Ratio (12-20); Bilirubin,Total 0.6 mg/dL (0.3-1.2); Blood Urea Nitrogen 26 mg/dL (9-23); Calcium 9.2 mg/dL (8.3-10.6); Calcium (Corrected) 9.3 mg/dL (8.5-10.1); Chloride 106 mMol/L (98-107); Globulin 1.8 gm/dL (2.3-3.5); Glucose 83 mg/dL (74-106); Osmolality,Calculated 286 (275-295); Potassium 3.4 mMol/L (3.4-5.1); Sodium 142 mMol/L (136-145); Total Protein 5.7 gm/dL (5.7-8.2); eGFR > 60 See Note
== END | disposition home or self-care (01) ==
PROVIDERS: PCP Family Medicine; Referring Provider Nurse Practitioner Family; Visit Provider Nurse Practitioner Family
DX: D69.3 Immune thrombocytopenic purpura (principal); D05.12 Intraductal carcinoma in situ of left breast
CPT/HCPCS: 36415; 80053; 85025

== ENCOUNTER → 2024-09-25 | Outpatient (CLI) | payer OTHER, MEDICARE, MEDICAID, SELFPAY ==
[2024-09-25 15:26] LABS: Basophils # (Auto) 0.1 Thou/mm3 (0.0-0.2); Basophils % (Auto) 0 % (0-2.5); Eosinophils # (Auto) 0.1 Thou/mm3 (0.0-0.5); Eosinophils % (Auto) 1 % (0-10); Hematocrit 43.6 % (36.0-46.0); Hemoglobin 14.6 g/dL (12.0-16.0); Immature Granulocytes % (Auto) 5 % (0-0); Immature Granulocytes Auto 0.81 Thou/mm3 (0.00-0.00); Lymphocytes # (Auto) 3.3 Thou/mm3 (1.0-4.8); Lymphocytes % (Auto) 21 % (10-50); Mean Corpuscular HGB Conc 33.5 g/dl (31.0-37.0); Mean Corpuscular Hemoglobin 31.3 pg (25.0-35.0); Mean Corpuscular Volume 93 fL (80-100); Monocytes # (Auto) 1.3 Thou/mm3 (0.0-0.8); Monocytes % (Auto) 8 % (0-12); Neutrophils # (Auto) 10.2 Thou/mm3 (1.8-7.7); Neutrophils % (Auto) 65 % (37-80); Nucleated Red Blood Cell % 0 /100 WBC (0); RDW Standard Deviation 50.5 fL (36.4-46.3); Red Blood Count 4.67 Miln/mm3 (4.00-5.20); White Blood Count 15.8 Thou/mm3 (3.6-11.0)
[2024-09-25 15:33] LABS: Platelet Count 69 Thou/mm3 (140-440)
[2024-09-25 15:36] LABS: Alanine Aminotransferase 24 U/L (10-49); Albumin/Globulin Ratio 2.1 (1.2-2.2); Alkaline Phosphatase 108 U/L (46-116); Anion Gap 11 (7-16); Aspartate Amino Transferase 20 U/L (0-34); BUN/Creatinine Ratio 29 Ratio (12-20); Bilirubin,Total 0.8 mg/dL (0.3-1.2); Blood Urea Nitrogen 26 mg/dL (9-23); Calcium 8.8 mg/dL (8.3-10.6); Calcium (Corrected) 8.8 mg/dL (8.5-10.1); Carbon Dioxide 23.5 mMol/L (20.0-31.0); Chloride 108 mMol/L (98-107); Creatinine (Component) 0.9 mg/dL (0.6-1.3); Globulin 1.9 gm/dL (2.3-3.5); Glucose 147 mg/dL (74-106); Osmolality,Calculated 290 (275-295); Potassium 4.4 mMol/L (3.4-5.1); Sodium 142 mMol/L (136-145); Total Protein 5.9 gm/dL (5.7-8.2); eGFR > 60 See Note
[2024-09-25 16:01] LABS: Slide Review Platelets confirmed
== END | disposition home or self-care (01) ==
LOC: SCTO 14:03
PROVIDERS: PCP Family Medicine; Referring Provider Nurse Practitioner Family; Visit Provider Nurse Practitioner Family
DX: D05.12 Intraductal carcinoma in situ of left breast (principal); D69.3 Immune thrombocytopenic purpura
CPT/HCPCS: 36415; 80053; 85025

== ENCOUNTER → 2024-10-05 | Outpatient (CLI) | payer OTHER, MEDICARE, MEDICAID, SELFPAY ==
[2024-10-11 06:27] LABS: IgG, Serum* 647 mg/dL (600-1540)
== END | disposition home or self-care (01) ==
LOC: SCTO 13:58
PROVIDERS: PCP Family Medicine; Referring Provider Nurse Practitioner Family; Visit Provider Nurse Practitioner Family
DX: D69.3 Immune thrombocytopenic purpura (principal); D05.12 Intraductal carcinoma in situ of left breast
CPT/HCPCS: 36415; 82784

== ENCOUNTER → 2024-10-24 | Outpatient (CLI) | payer OTHER, MEDICARE, MEDICAID, SELFPAY ==
[2024-10-24 12:20] LABS: Basophils # (Auto) 0.1 Thou/mm3 (0.0-0.2); Basophils % (Auto) 1 % (0-2.5); Eosinophils # (Auto) 0.1 Thou/mm3 (0.0-0.5); Eosinophils % (Auto) 1 % (0-10); Hematocrit 43.3 % (36.0-46.0); Hemoglobin 14.9 g/dL (12.0-16.0); Immature Granulocytes % (Auto) 8 % (0-0); Immature Granulocytes Auto 1.17 Thou/mm3 (0.00-0.00); Lymphocytes # (Auto) 2.2 Thou/mm3 (1.0-4.8); Lymphocytes % (Auto) 16 % (10-50); Mean Corpuscular HGB Conc 34.4 g/dl (31.0-37.0); Mean Corpuscular Hemoglobin 30.7 pg (25.0-35.0); Mean Corpuscular Volume 89 fL (80-100); Monocytes # (Auto) 1.2 Thou/mm3 (0.0-0.8); Monocytes % (Auto) 9 % (0-12); Neutrophils # (Auto) 9.5 Thou/mm3 (1.8-7.7); Neutrophils % (Auto) 66 % (37-80); Nucleated Red Blood Cell % 0 /100 WBC (0); RDW Standard Deviation 47.3 fL (36.4-46.3); Red Blood Count 4.86 Miln/mm3 (4.00-5.20); White Blood Count 14.3 Thou/mm3 (3.6-11.0)
[2024-10-24 12:22] LABS: Platelet Count 53 Thou/mm3 (140-440); Slide Review Platelets confirmed
[2024-10-24 12:32] LABS: Alanine Aminotransferase 17 U/L (10-49); Albumin, Serum 4.6 gm/dL (3.4-4.8); Albumin/Globulin Ratio 2.3 (1.2-2.2); Alkaline Phosphatase 99 U/L (46-116); Anion Gap 7 (7-16); Aspartate Amino Transferase 23 U/L (0-34); BUN/Creatinine Ratio 15 Ratio (12-20); Bilirubin,Total 0.5 mg/dL (0.3-1.2); Blood Urea Nitrogen 15 mg/dL (9-23); Calcium 9.5 mg/dL (8.3-10.6); Calcium (Corrected) 9.5 mg/dL (8.5-10.1); Carbon Dioxide 28.7 mMol/L (20.0-31.0); Chloride 106 mMol/L (98-107); Glucose 95 mg/dL (74-106); Osmolality,Calculated 283 (275-295); Potassium 3.5 mMol/L (3.4-5.1); Sodium 142 mMol/L (136-145); Total Protein 6.6 gm/dL (5.7-8.2); eGFR > 60 See Note
== END | disposition home or self-care (01) ==
LOC: SCTO 11:08
PROVIDERS: PCP Family Medicine; Referring Provider Nurse Practitioner Family; Visit Provider Nurse Practitioner Family
DX: D69.3 Immune thrombocytopenic purpura (principal); D05.12 Intraductal carcinoma in situ of left breast
CPT/HCPCS: 36415; 80053; 85025

== ENCOUNTER → 2024-11-07 | Outpatient (CLI) | payer OTHER, MEDICARE, MEDICAID, SELFPAY ==
[2024-11-07 14:47] LABS: Basophils # (Auto) 0.1 Thou/mm3 (0.0-0.2); Basophils % (Auto) 1 % (0-2.5); Eosinophils # (Auto) 0.1 Thou/mm3 (0.0-0.5); Eosinophils % (Auto) 1 % (0-10); Hematocrit 43.7 % (36.0-46.0); Hemoglobin 14.4 g/dL (12.0-16.0); Immature Granulocytes % (Auto) 10 % (0-0); Immature Granulocytes Auto 2.46 Thou/mm3 (0.00-0.00); Lymphocytes # (Auto) 3.2 Thou/mm3 (1.0-4.8); Lymphocytes % (Auto) 13 % (10-50); Mean Corpuscular Hemoglobin 30.8 pg (25.0-35.0); Mean Corpuscular Volume 94 fL (80-100); Monocytes # (Auto) 1.7 Thou/mm3 (0.0-0.8); Monocytes % (Auto) 7 % (0-12); Neutrophils % (Auto) 68 % (37-80); Nucleated Red Blood Cell % 0 /100 WBC (0); Platelet Count 150 Thou/mm3 (140-440); RDW Standard Deviation 52.1 fL (36.4-46.3); Red Blood Count 4.67 Miln/mm3 (4.00-5.20); White Blood Count 23.6 Thou/mm3 (3.6-11.0)
== END | disposition home or self-care (01) ==
PROVIDERS: PCP Family Medicine; Referring Provider Nurse Practitioner Family; Visit Provider Nurse Practitioner Family
DX: D05.12 Intraductal carcinoma in situ of left breast (principal); D69.3 Immune thrombocytopenic purpura
CPT/HCPCS: 36415; 85025

== ENCOUNTER 2024-11-10 08:00 | Outpatient (RCR) | payer OTHER, MEDICARE, MEDICAID, SELFPAY | END 2024-11-18 23:59 | disposition home or self-care (01) | LOC: SCTC 08:00 | PROVIDERS: PCP Family Medicine; Referring Provider Family Medicine; Visit Provider Radiology Therapeutic Radiology | DX: D69.3 Immune thrombocytopenic purpura (principal); Z86.000 Personal history of in-situ neoplasm of breast | CPT/HCPCS: 99212; G0463 ==

== ENCOUNTER → 2024-11-16 | Outpatient (CLI) | payer OTHER, MEDICARE, MEDICAID, SELFPAY ==
[2024-11-16 14:46] LABS: Basophils # (Auto) 0.1 Thou/mm3 (0.0-0.2); Basophils % (Auto) 1 % (0-2.5); Eosinophils # (Auto) 0.2 Thou/mm3 (0.0-0.5); Eosinophils % (Auto) 1 % (0-10); Hematocrit 42.7 % (36.0-46.0); Hemoglobin 14.4 g/dL (12.0-16.0); Immature Granulocytes % (Auto) 7 % (0-0); Immature Granulocytes Auto 1.27 Thou/mm3 (0.00-0.00); Lymphocytes # (Auto) 4.6 Thou/mm3 (1.0-4.8); Lymphocytes % (Auto) 24 % (10-50); Mean Corpuscular HGB Conc 33.7 g/dl (31.0-37.0); Mean Corpuscular Hemoglobin 30.8 pg (25.0-35.0); Mean Corpuscular Volume 91 fL (80-100); Monocytes # (Auto) 1.7 Thou/mm3 (0.0-0.8); Monocytes % (Auto) 9 % (0-12); Neutrophils # (Auto) 11.1 Thou/mm3 (1.8-7.7); Neutrophils % (Auto) 59 % (37-80); Nucleated Red Blood Cell % 0 /100 WBC (0); RDW Standard Deviation 50.2 fL (36.4-46.3); Red Blood Count 4.68 Miln/mm3 (4.00-5.20); White Blood Count 18.9 Thou/mm3 (3.6-11.0)
[2024-11-16 15:09] LABS: Platelet Count 39 Thou/mm3 (140-440)
[2024-11-16 15:11] LABS: Alanine Aminotransferase 19 U/L (10-49); Albumin, Serum 4.2 gm/dL (3.4-4.8); Albumin/Globulin Ratio 2.8 (1.2-2.2); Alkaline Phosphatase 91 U/L (46-116); Anion Gap 12 (7-16); Aspartate Amino Transferase 25 U/L (0-34); BUN/Creatinine Ratio 23 Ratio (12-20); Bilirubin,Total 0.6 mg/dL (0.3-1.2); Blood Urea Nitrogen 21 mg/dL (9-23); Chloride 107 mMol/L (98-107); Creatinine (Component) 0.9 mg/dL (0.6-1.3); Globulin 1.5 gm/dL (2.3-3.5); Glucose 88 mg/dL (74-106); Osmolality,Calculated 296 (275-295); Sodium 148 mMol/L (136-145); Total Protein 5.7 gm/dL (5.7-8.2); eGFR > 60 See Note
[2024-11-16 15:27] LABS: Slide Review Platelets confirmed
== END | disposition home or self-care (01) ==
LOC: SCTO 14:04
PROVIDERS: PCP Family Medicine; Referring Provider Nurse Practitioner Family; Visit Provider Nurse Practitioner Family
DX: D05.12 Intraductal carcinoma in situ of left breast (principal); D69.3 Immune thrombocytopenic purpura; D69.6 Thrombocytopenia, unspecified
CPT/HCPCS: 36415; 80053; 85025

== ENCOUNTER → 2024-11-29 | Outpatient (CLI) | payer OTHER, MEDICARE, MEDICAID, SELFPAY ==
[2024-11-29 13:13] LABS: Basophils # (Auto) 0.1 Thou/mm3 (0.0-0.2); Basophils % (Auto) 1 % (0-2.5); Eosinophils # (Auto) 0.3 Thou/mm3 (0.0-0.5); Eosinophils % (Auto) 3 % (0-10); Hematocrit 43.7 % (36.0-46.0); Hemoglobin 14.2 g/dL (12.0-16.0); Immature Granulocytes % (Auto) 4 % (0-0); Lymphocytes # (Auto) 2.6 Thou/mm3 (1.0-4.8); Lymphocytes % (Auto) 25 % (10-50); Mean Corpuscular HGB Conc 32.5 g/dl (31.0-37.0); Mean Corpuscular Hemoglobin 30.8 pg (25.0-35.0); Mean Corpuscular Volume 95 fL (80-100); Monocytes # (Auto) 1.6 Thou/mm3 (0.0-0.8); Monocytes % (Auto) 15 % (0-12); Neutrophils # (Auto) 5.5 Thou/mm3 (1.8-7.7); Neutrophils % (Auto) 53 % (37-80); Nucleated Red Blood Cell # 0.02 Thou/mm3 (0.00-0.00); Nucleated Red Blood Cell % 0 /100 WBC (0); Platelet Count 697 Thou/mm3 (140-440); RDW Standard Deviation 54.2 fL (36.4-46.3); Red Blood Count 4.61 Miln/mm3 (4.00-5.20); White Blood Count 10.5 Thou/mm3 (3.6-11.0)
[2024-12-04 19:49] LABS: Immunoglobulin A 80 mg/dL (70-320); Immunoglobulin G 547 mg/dL (600-1540)
[2024-12-05 07:07] LABS: Immunoglobulin M 31 mg/dL (50-300)
== END | disposition home or self-care (01) ==
LOC: SCTO 12:37
PROVIDERS: PCP Family Medicine; Referring Provider Nurse Practitioner Family; Visit Provider Nurse Practitioner Family
DX: D05.12 Intraductal carcinoma in situ of left breast (principal); D69.3 Immune thrombocytopenic purpura
CPT/HCPCS: 36415; 82784; 85025

== ENCOUNTER → 2024-12-07 | Outpatient (CLI) | payer OTHER, MEDICARE, MEDICAID, SELFPAY ==
[2024-12-07 15:45] LABS: Basophils # (Auto) 0.1 Thou/mm3 (0.0-0.2); Basophils % (Auto) 1 % (0-2.5); Eosinophils # (Auto) 0.3 Thou/mm3 (0.0-0.5); Eosinophils % (Auto) 2 % (0-10); Hematocrit 40.5 % (36.0-46.0); Hemoglobin 13.6 g/dL (12.0-16.0); Immature Granulocytes % (Auto) 1 % (0-0); Immature Granulocytes Auto 0.13 Thou/mm3 (0.00-0.00); Lymphocytes # (Auto) 2.8 Thou/mm3 (1.0-4.8); Lymphocytes % (Auto) 27 % (10-50); Mean Corpuscular HGB Conc 33.6 g/dl (31.0-37.0); Mean Corpuscular Hemoglobin 30.8 pg (25.0-35.0); Mean Corpuscular Volume 92 fL (80-100); Monocytes # (Auto) 1.8 Thou/mm3 (0.0-0.8); Monocytes % (Auto) 17 % (0-12); Neutrophils # (Auto) 5.4 Thou/mm3 (1.8-7.7); Neutrophils % (Auto) 51 % (37-80); Nucleated Red Blood Cell # 0.02 Thou/mm3 (0.00-0.00); Nucleated Red Blood Cell % 0 /100 WBC (0); Platelet Count 724 Thou/mm3 (140-440); RDW Standard Deviation 51.9 fL (36.4-46.3); Red Blood Count 4.42 Miln/mm3 (4.00-5.20); White Blood Count 10.6 Thou/mm3 (3.6-11.0)
== END | disposition home or self-care (01) ==
LOC: SCTO 14:38
PROVIDERS: PCP Family Medicine; Referring Provider Nurse Practitioner Family; Visit Provider Nurse Practitioner Family
DX: D05.12 Intraductal carcinoma in situ of left breast (principal); D69.3 Immune thrombocytopenic purpura; D69.6 Thrombocytopenia, unspecified
CPT/HCPCS: 36415; 85025

== ENCOUNTER 2024-12-12 18:10 | Emergency (ER) | payer OTHER, MEDICARE, MEDICAID, SELFPAY ==
[2024-12-12 18:12] VITALS: BMI 28.3
[2024-12-12 18:36] VITALS: BP 135/79; PULSE 100; RESP 18; TEMP 36.6; O2SAT 95
--- NOTE | 2024-12-12 18:46 | PD.EDRME ---
Rapid Medical Screening Exam E Arrival date/time: 12/12/24 18:10 64F with history of ITP and small breast cancer presents to ED with petechiae and spontaneous nosebleed. Chief Complaint: General Adult/Misc Complain Vital signs: Vital Signs Temperature 98 F 12/12/24 18:36 Pulse Rate 100 12/12/24 18:36 Respiratory Rate 18 12/12/24 18:36 Blood Pressure 135/79 H 12/12/24 18:36 Pulse Oximetry (%) 95 12/12/24 18:36 Oxygen Delivery Method Room Air 12/12/24 18:36
[2024-12-12 19:10] LABS: Basophils # (Auto) 0.1 Thou/mm3 (0.0-0.2); Basophils % (Auto) 1 % (0-2.5); Eosinophils # (Auto) 0.1 Thou/mm3 (0.0-0.5); Eosinophils % (Auto) 1 % (0-10); Hematocrit 41.7 % (36.0-46.0); Hemoglobin 13.9 g/dL (12.0-16.0); Immature Granulocytes % (Auto) 1 % (0-0); Immature Granulocytes Auto 0.07 Thou/mm3 (0.00-0.00); Lymphocytes # (Auto) 1.2 Thou/mm3 (1.0-4.8); Lymphocytes % (Auto) 11 % (10-50); Mean Corpuscular HGB Conc 33.3 g/dl (31.0-37.0); Mean Corpuscular Hemoglobin 30.5 pg (25.0-35.0); Mean Corpuscular Volume 91 fL (80-100); Monocytes # (Auto) 0.5 Thou/mm3 (0.0-0.8); Monocytes % (Auto) 5 % (0-12); Neutrophils # (Auto) 9.1 Thou/mm3 (1.8-7.7); Neutrophils % (Auto) 83 % (37-80); Nucleated Red Blood Cell % 0 /100 WBC (0); RDW Standard Deviation 50.1 fL (36.4-46.3); Red Blood Count 4.56 Miln/mm3 (4.00-5.20); White Blood Count 10.9 Thou/mm3 (3.6-11.0)
[2024-12-12 19:18] LABS: Partial Thromboplastin Time 28.4 Seconds (22.0-36.0); Prothrombin Time 10.9 Seconds (9.0-12.2)
[2024-12-12 19:19] LABS: Platelet Count < 5 Thou/mm3 (140-440)
[2024-12-12 19:23] LABS: Alanine Aminotransferase 30 U/L (10-49); Albumin, Serum 4.6 gm/dL (3.4-4.8); Albumin/Globulin Ratio 3.1 (1.2-2.2); Alkaline Phosphatase 89 U/L (46-116); Anion Gap 8 (7-16); Aspartate Amino Transferase 37 U/L (0-34); BUN/Creatinine Ratio 13 Ratio (12-20); Bilirubin,Total 0.5 mg/dL (0.3-1.2); Blood Urea Nitrogen 15 mg/dL (9-23); Calcium 10.1 mg/dL (8.3-10.6); Calcium (Corrected) 10.1 mg/dL (8.5-10.1); Carbon Dioxide 25.8 mMol/L (20.0-31.0); Chloride 107 mMol/L (98-107); Creatinine (Component) 1.2 mg/dL (0.6-1.3); Estimated Creatinine Clearance 45.7 mL/min (>60); Globulin 1.5 gm/dL (2.3-3.5); Glucose 131 mg/dL (74-106); Osmolality,Calculated 284 (275-295); Potassium 3.9 mMol/L (3.4-5.1); Sodium 141 mMol/L (136-145); Total Protein 6.1 gm/dL (5.7-8.2); eGFR 50 See Note
[2024-12-12 20:19] LABS: Slide Review Platelets confirmed
[2024-12-12 22:12] VITALS: BP 171/118; PULSE 85; RESP 16; TEMP 36.6; O2SAT 98
--- NOTE | 2024-12-12 22:25 | PC.NURSE ---
THIS RN INFORMED PROVIDER YESENIA PATIENT PLATELET LEVEL <5 CRITICAL REPORT FROM LAB. LAB WANTING TO KNOW IF PLATELETS WERE NEEDING TO BE ORDERED FOR PATIENT. PER PROVIDER I HAVENT SEEN THE PATIENT OR LOOKED THROUGH HER CHART TO ORDER ANYTHING . NO ORDERS RECEIVED FROM PROVIDER.
--- NOTE | 2024-12-12 23:40 | PC.NURSE ---
PATIENT EXPRESSING CONCERN FOR WEIGHT TIME TO THIS RN. THIS RN INFORMED PROVIDER YESENIA OF PATIENTS CONCERN OF WEIGHT TIME. NO ORDERS RECEIVED FROM PROVIDER YESENIA.
[2024-12-13] VITALS (11 sets, daily range): BP systolic 138–181; BP diastolic 79–107; PULSE 79–112; RESP 16–19; TEMP 36.3–37.1; O2SAT 94–98
--- NOTE | 2024-12-13 01:20 | PC.NURSE ---
THIS RN ENTERED PATIENT ROOM TO ANSWER CALL LIGHT. PER PATIENT DO YOU KNOW HOW MUCH LONGER THE DOCTOR IS GOING TO BE? I HAVE BEEN WAITING HOURS TO BE SEEN AND I AM WORRIED THAT I AM VERY SICK. . THIS RN INFORMED THE PATIENT THAT PROVIDER YESENIA HAS BEEN NOTIFIED OF PATIENTS LAB RESULTS AND EXPRESSING CONCERN FOR WAIT TIME. PER PATIENT I AM AT THE POINT WHERE I AM WORRIED FOR MY LIFE THAT I AM NOT BEING HELPED AND SOMETHING BAD IS GOING TO HAPPEN TO ME. IF I SIT HERE ANOTHER THREE HOURS WHAT IS GOING TO HAPPEN TO ME AM I GOING TO OR IS SOMETHING BAD GOING TO HAPPEN TO ME? . THIS RN INFORMED PATIENT THAT I HAVE NO KNOWLEDGE AND CANNOT PREDICT WHAT WILL OCCUR IN THREE HOURS. PER PATIENT OKAY I AM GOING TO WRITE TO MY FAMILY AND LET THEM KNOW I AM NOT BEING ATTENDED AND IF SOMETHING HAPPENS TO ME IT IS BECAUSE YOU GUYS ARE NOT DOING ANYTHING FOR ME. . THIS RN INFORMED THE PATIENT SHE HAS THE RIGHT TO INFORM WHOEVER SHE WOULD LIKE OF HER CONCERNS. PATIENT RESPONDED YOU ARE THE NURSE. YOU ARE SUPPOSED TO BE HELPING ME. YOU ARE THE MIDDLE MAN BETWEEN THE DOCTOR AND I . THIS RN INFORMED THE PATIENT THAT I HAVE NOTIFIED THE PROVIDER OF THE PATIENTS LAB RESULTS AND THAT SHE HAS PREVIOUSLY EXPRESSED CONCERNS OF WAIT TIMES AND CARE RECEIVING A [facility]. HOWEVER THIS RN DOES NOT HAVE CONTROL OVER THE DOCTORS DECISION OF WHEN SHE WILL ENTER THE ROOM. THIS RN REASSURED PATIENT THAT THE PROVIDER WILL BE INFORMED AGAIN OF PATIENTS CONCERN.
--- NOTE | 2024-12-13 01:32 | PC.NURSE ---
THIS RN INFORMED PATIENT YESENIA OF PATIENT EXPRESSING CONCERNS OF CARE BEING RECEIVED AND WAIT TIMES. PER PROVIDER I AM IN THE PATIENTS CHART RIGHT NOW. I WILL GO SEE HER. . NO ORDERS RECEIVED FROM PROVIDER.
[2024-12-13] MEDS: SODIUM CHLORIDE 0.9% IV (01:56)
[2024-12-13] MEDS: METHYLPREDNISOLONE IV (01:56)
--- NOTE | 2024-12-13 02:22 | PD.EDEPIST ---
ED Epistaxis RME/HPI General Chief complaint: General Adult/Misc Complain Stated complaint: PETECHIAE ALL OVER ARMS, NOSE BLEEDS Arrival date/time: 12/12/24 18:10 RME / HPI RME / HPI Narrative: 12/12/24 18:10 64F with history of ITP and small breast cancer presents to ED with petechiae and spontaneous nosebleed. 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 She was seen by Dr. Camara for her ITP, but is now seen by Dr. Ley. Patient was advised when she has petechiae to come to ED for platelet transfusion. No other concerns or complaints expressed at this time. Related Data Home Medications ?Medication ?Instructions ?Recorded ?Confirmed amlodipine 10 mg tablet (Norvasc) 10 mg PO QDAY #0 tabs 07/17/17 07/17/24 pantoprazole 40 mg tablet,delayed 40 mg PO DAILY 11/10/18 07/17/24 release gabapentin 600 mg tablet 600 mg PO TID 11/11/18 07/17/24 duloxetine 60 mg capsule,delayed 30 mg PO DAILY 01/12/20 07/17/24 release (Cymbalta) benztropine 0.5 mg tablet 0.5 mg PO QDAY 02/28/23 07/17/24 cyclobenzaprine 5 mg tablet 5 mg PO TID PRN Muscle Spasm 02/28/23 07/17/24 simvastatin 20 mg tablet (Zocor) 20 mg PO QPM 02/28/23 07/17/24 amoxicillin 500 mg tablet 500 mg PO TID 10/04/23 07/17/24 Previous Rx's ?Medication ?Instructions ?Recorded albuterol sulfate 90 mcg/actuation 2 puff inhalation QID PRN 06/27/20 aerosol inhaler shortness of breath or wheezing #18 grams Allergies Allergy/AdvReac Type Severity Reaction Status Date / Time Penicillins Allergy Severe RASH Verified 12/12/24 18:14 Past Medical History Past Medical History NEUROLOGIC: Positive Neurological Disorders, Parkinson's Disease and Peripheral Neuropathy RESPIRATORY: Positive Asthma, Bronchitis and Pneumonia GASTROINTESTINAL: Positive Gastrointestinal Disorders, Gastrointestinal Bleed and Gastroesophageal Reflux Disease REPRODUCTIVE: Positive Breast Cancer, Pelvic Inflammatory Disease and Uterine Prolapse MUSCULOSKELETAL: Positive Musculoskeletal Disorders, Arthritis and Rheumatoid Arthritis ENT: Positive Ear Infection HEMATOLOGIC: Positive Blood Disorders and Clotting Problems PSYCHO/SOCIAL: Positive Depression and Anxiety OTHER HISTORY: Positive Autoimmune Disease, Shingles, Blood Transfusions, Radiation Therapy, Chicken Pox and Breast Cancer Surgical History SURGICAL: Positive Hysterectomy and Section ED Exam Narrative Physical exam: GENERAL APPEARANCE: alert and oriented x 4, well-developed, well-nourished, no acute distress VITALS: All vitals were reviewed and the pulse ox is 96% on room air, which is normal according to my interpretation. HEENT: Normocephalic, atraumatic; pupils equal, round, reactive to light; EOMI; mucous membranes pink, moist; oropharynx clear NECK: Supple LUNGS: CTABL; no wheezes, no rales, no rhonchi HEART: Regular rate, regular rhythm; normal S1, S2; no murmurs ABDOMEN: non distended; normal BS; soft, no tenderness, no guarding, no rebound; no masses, no organomegaly, no hernia BACK: no CVA tenderness EXTREMITIES: atraumatic; no edema NEUROLOGIC: awake; alert and oriented x4; cranial nerves II-XII grossly intact; no focal sensory or motor deficits PSYCHIATRIC: appropriate mood and affect SKIN: warm, dry, no rash, diffused petechiae, no sign of active bleeding Course Quality Measures none Orders Category Date Time Status Transfuse,blood/blood products NOW Care 12/13/24 01:38 Active CBC Stat Lab 12/12/24 18:53 Completed CMP [Comprehensive Metabolic Panel] Stat Lab 12/12/24 18:53 Completed INR [Prothrombin Time with INR] Stat Lab 12/12/24 18:53 Completed PTT [Partial Thromboplastin Time] Stat Lab 12/12/24 18:53 Completed Pheresis Platelets Stat Lab 12/13/24 01:32 Results Type and Screen Stat Lab 12/12/24 19:49 Results MethylPREDNISolone. [SoluMEDROL Inj] 1,000 mg Med 12/13/24 01:45 Discontinued Sodium Chloride 0.9% [Ns] 100 ml IV X1 MethylPREDNISolone.* [SoluMEDROL Inj] Med 12/13/24 01:33 Discontinued 1,000 mg IVP X1 ONE Vital Signs Vital signs: Vital Signs Temperature 98 F 12/12/24 18:36 Pulse Rate 100 12/12/24 18:36 Respiratory Rate 18 12/12/24 18:36 Blood Pressure 135/79 H 12/12/24 18:36 Pulse Oximetry (%) 95 12/12/24 18:36 Oxygen Delivery Method Room Air 12/12/24 18:36 Epistaxis MDM Narrative MDM Narrative:: Scribe Attestation: I, Jessica Martinez, am scribing for and in the presence of Dr. Crabtree. Provider Notation: Although this document has been carefully reviewed, there may still be some phonetic and other typographical errors.? These errors are purely grammatical due to imperfections in the software program and should not be construed in any way to? compromise the substance of the patient's medical care during this visit. Patient data External records reviewed:: [facility] previous records (Reviewed prior ED records from 09/05/24. Patient was seen for Chronic idiopathic thrombocytopenic purpura.) Clinical information provided by:: patient Social determinants that could affect healthcare access:: none Patient has the following chronic illnesses:: Parkinson's Disease, Peripheral Neuropathy, Asthma, Gastrointestinal Bleed, Gastroesophageal Reflux Disease, Breast Cancer, Pelvic Inflammatory Disease and Uterine Prolapse, Arthritis, Rheumatoid Arthritis, Chronic idiopathic thrombocytopenic purpura, Depression and Anxiety How is presenting disease/condition affected by chronic disease/condition?: exacerbated by Evaluation data The following diagnostics were reviewed and interpreted by me:: lab results Lab and/or radiology exams considered but not ordered:: None Interpretation Summary: See above. Medications / Prescriptions Medications or Prescriptions considered but not ordered:: None Medication administrations:: Medication Administration History Discontinued Medications Methylprednisolone Sodium Succinate 1,000 mg/ Sodium Chloride 116 mls @ 232 mls/hr IV X1 ONE Stop: 12/13/24 02:14 Last Infusion: 12/13/24 02:46 Dose: Infused Documented By: Admin: 12/13/24 01:56 Dose: 232 mls/hr Documented By: CORDELIA Methylprednisolone Sodium Succinate (Methylprednisolone Sod Succ 62.5 Mg/Ml 2ml Vial) 1,000 mg IVP X1 ONE Stop: 12/13/24 01:34 Last Admin: 12/13/24 01:56 Dose: Not Given Documented By: TIFFANIE Non-Admin Reason: Cancelled by Provider See above if any. Consultations Consultation(s) initiated? (list below): No Diagnosis Epistaxis Differential Diagnosis: nasal bone fracture, anterior epistaxis, posterior epistaxis and other Most likely diagnosis given after review of the tests above:: Thrombocytopenia Admission Indicated Admission indicated?: not indicated Explain why admission is indicated or not indicated:: Does not meet admission criteria. Admission Request Was there a request for admission?: No Disposition Plan Disposition Plan: Discharge Discharge Attestation Discharge Attestation: The patient and all family members were given an opportunity to ask questions and understood the discharge instructions. Discharge instructions specifically effects, indications for sooner follow up or return to the emergency department, and the expected course of current diagnosis. Patient condition: Stable Discharge Plan Plan Patient Disposition: HOME (Self Care) Prescriptions/Referrals Prescriptions/Med Rec: No Action amoxicillin 500 mg tablet 500 mg PO TID amlodipine [Norvasc] 10 MG tablet 10 mg PO QDAY Qty: 0 albuterol sulfate 90 mcg/actuation HFA aerosol inhaler 2 puff inhalation QID PRN (Reason: shortness of breath or wheezing) Qty: 18 0RF pantoprazole 40 mg tablet,delayed release (DR/EC) 40 mg PO DAILY gabapentin 600 mg Tablet 600 mg PO TID duloxetine [Cymbalta] 60 mg Capsule,Delayed Release(Dr/Ec) 30 mg PO DAILY benztropine 0.5 mg Tablet 0.5 mg PO QDAY simvastatin [Zocor] 20 mg Tablet 20 mg PO QPM cyclobenzaprine 5 mg Tablet 5 mg PO TID PRN (Reason: Muscle Spasm) Referrals: No Primary/Family,Physician [Primary Care Provider] - In 1 week Problem List Clinical Impression: Thrombocytopenia Patient/Caregiver Discharge Instructions Print Language: Dutch Stand Alone Forms: [facility] Award Info., Patient Portal Info Letter
--- NOTE | 2024-12-13 07:26 | PC.NURSE ---
Report received from pm nurse, patient lying in rney queitly, with platlets running via 20g to right forearm, patient denies adverse affects, skin is warm dry and pink, patient to er with c/o petechiae that started yest. morning, patient states that's when i know my platlets are low patient also c/o 5/10 generalized h/a and states it is tolerable at this time. Patient has 2nd unit of platelets running and states that is all she usually gets, informed patient that provider orders a 3rd unit, patient states she does not want the 3rd unit, patient educated on risks if she does not get 3rd unit and patient verbalized understating and states i will talk with my Dr, and she can tell me what to do will notify provider. Patient has no other needs at this time.
== END 2024-12-13 08:35 | disposition left against medical advice (07) ==
PROVIDERS: Physician Assistant; Emergency Provider Emergency Medicine
DX: D69.3 Immune thrombocytopenic purpura (principal)
CPT/HCPCS: 36415; 36430; 80053; 85025; 85610; 85730; 86850; 86900; 86901; 86965; 96374; 99285; J2919; J7050; P9035

== ENCOUNTER 2024-12-13 15:30 | Outpatient (RCR) | payer OTHER, MEDICARE, MEDICAID, SELFPAY | END 2024-12-18 23:59 | disposition home or self-care (01) | LOC: SCTC 15:30 | PROVIDERS: PCP Family Medicine; Referring Provider Nurse Practitioner Family; Visit Provider Nurse Practitioner Family | DX: D69.6 Thrombocytopenia, unspecified (principal); Z86.000 Personal history of in-situ neoplasm of breast; Z90.12 Acquired absence of left breast and nipple; Z92.3 Personal history of irradiation | CPT/HCPCS: 99212; G0463 ==

== ENCOUNTER → 2024-12-19 | Outpatient (CLI) | payer OTHER, MEDICARE, MEDICAID, SELFPAY ==
[2024-12-19 15:54] LABS: Basophils # (Auto) 0.1 Thou/mm3 (0.0-0.2); Basophils % (Auto) 1 % (0-2.5); Eosinophils # (Auto) 0.1 Thou/mm3 (0.0-0.5); Eosinophils % (Auto) 1 % (0-10); Hematocrit 41.4 % (36.0-46.0); Hemoglobin 13.9 g/dL (12.0-16.0); Immature Granulocytes Auto 1.58 Thou/mm3 (0.00-0.00); Lymphocytes # (Auto) 4.2 Thou/mm3 (1.0-4.8); Lymphocytes % (Auto) 22 % (10-50); Mean Corpuscular HGB Conc 33.6 g/dl (31.0-37.0); Mean Corpuscular Hemoglobin 30.6 pg (25.0-35.0); Mean Corpuscular Volume 91 fL (80-100); Monocytes # (Auto) 2.6 Thou/mm3 (0.0-0.8); Monocytes % (Auto) 13 % (0-12); Neutrophils # (Auto) 10.5 Thou/mm3 (1.8-7.7); Neutrophils % (Auto) 55 % (37-80); Nucleated Red Blood Cell # 0.06 Thou/mm3 (0.00-0.00); Nucleated Red Blood Cell % 0 /100 WBC (0); Platelet Count 219 Thou/mm3 (140-440); RDW Standard Deviation 52.3 fL (36.4-46.3); Red Blood Count 4.54 Miln/mm3 (4.00-5.20); White Blood Count 19.2 Thou/mm3 (3.6-11.0)
[2024-12-27 06:18] LABS: IgG, Serum* 592 mg/dL (600-1540)
== END | disposition home or self-care (01) ==
LOC: SCTO 14:11
PROVIDERS: PCP Family Medicine; Referring Provider Nurse Practitioner Family; Visit Provider Nurse Practitioner Family
DX: D69.3 Immune thrombocytopenic purpura (principal); D05.12 Intraductal carcinoma in situ of left breast
CPT/HCPCS: 36415; 82784; 85025

== ENCOUNTER → 2025-01-02 | Outpatient (CLI) | payer OTHER, MEDICARE, MEDICAID, SELFPAY ==
[2025-01-02 15:40] LABS: Basophils # (Auto) 0.1 Thou/mm3 (0.0-0.2); Basophils % (Auto) 1 % (0-2.5); Eosinophils # (Auto) 0.4 Thou/mm3 (0.0-0.5); Eosinophils % (Auto) 5 % (0-10); Hematocrit 36.6 % (36.0-46.0); Hemoglobin 12.2 g/dL (12.0-16.0); Immature Granulocytes Auto 0.06 Thou/mm3 (0.00-0.00); Lymphocytes # (Auto) 2.2 Thou/mm3 (1.0-4.8); Lymphocytes % (Auto) 24 % (10-50); Mean Corpuscular HGB Conc 33.3 g/dl (31.0-37.0); Mean Corpuscular Hemoglobin 31.0 pg (25.0-35.0); Mean Corpuscular Volume 93 fL (80-100); Monocytes # (Auto) 1.2 Thou/mm3 (0.0-0.8); Monocytes % (Auto) 12 % (0-12); Neutrophils # (Auto) 5.5 Thou/mm3 (1.8-7.7); Neutrophils % (Auto) 59 % (37-80); Nucleated Red Blood Cell # 0.00 Thou/mm3 (0.00-0.00); Nucleated Red Blood Cell % 0 /100 WBC (0); Platelet Count 431 Thou/mm3 (140-440); RDW Standard Deviation 53.7 fL (36.4-46.3); Red Blood Count 3.93 Miln/mm3 (4.00-5.20); White Blood Count 9.4 Thou/mm3 (3.6-11.0)
[2025-01-02 15:48] LABS: Alanine Aminotransferase 17 U/L (10-49); Albumin, Serum 3.9 gm/dL (3.4-4.8); Albumin/Globulin Ratio 2.0 (1.2-2.2); Alkaline Phosphatase 94 U/L (46-116); Anion Gap 11 (7-16); Aspartate Amino Transferase 22 U/L (0-34); BUN/Creatinine Ratio 14 Ratio (12-20); Bilirubin,Total 0.4 mg/dL (0.3-1.2); Blood Urea Nitrogen 13 mg/dL (9-23); Calcium 8.7 mg/dL (8.3-10.6); Calcium (Corrected) 8.8 mg/dL (8.5-10.1); Carbon Dioxide 25.4 mMol/L (20.0-31.0); Chloride 111 mMol/L (98-107); Creatinine (Component) 0.9 mg/dL (0.6-1.3); Globulin 2.0 gm/dL (2.3-3.5); Glucose 126 mg/dL (74-106); Osmolality,Calculated 294 (275-295); Potassium 4.1 mMol/L (3.4-5.1); Sodium 147 mMol/L (136-145); Total Protein 5.9 gm/dL (5.7-8.2); eGFR > 60 See Note
== END | disposition home or self-care (01) ==
LOC: SCTO 14:16
PROVIDERS: PCP Family Medicine; Referring Provider Nurse Practitioner Family; Visit Provider Nurse Practitioner Family
DX: D69.3 Immune thrombocytopenic purpura (principal); D05.12 Intraductal carcinoma in situ of left breast
CPT/HCPCS: 36415; 80053; 85025

== ENCOUNTER → 2025-01-08 | Outpatient (CLI) | payer OTHER, MEDICARE, MEDICAID, SELFPAY ==
--- NOTE | 2025-01-08 15:00 | XR_ITS ---
Examination: CT chest with intravenous contrast CT chest without intravenous contrast 2-D reconstructions Date and time of exam:January 08, 2025 1516 hours, comparison PET/CT scan April 20, 2024 INDICATIONS: Diagnosis intermittent thrombocytopenia purpura CTDI:vol (mGy) 22.6 DLP: (mGycm) 8.52 Technique: Multiple axial sections of the thorax have been obtained. 3 mm slice thickness, from the hemidiaphragms to above the apices of the lungs. Mediastinal and lung density settings have been obtained. Intravenous contrast administered 60 cc Isovue-370. Noncontrast images have also been obtained. 2-D sagittal coronal images obtained. Low dose protocols were performed. One or more of the following dose reduction techniques were used; automated exposure control, adjustment of the mA and/or KV according to patient size, use of iterative reconstruction technique. Findings: 8 mm left thyroid nodule No thoracic aortic aneurysmal dilatation No pulmonary artery filling defects No paratracheal tracheobronchial or bronchopulmonary adenopathy 4 mm pulmonary nodule right upper lobe image 101 2 mm pulmonary nodule right upper lobe image 125 2 mm pulmonary nodule right upper lobe image 127 4 mm pulmonary nodule right upper lobe image 172 No pneumonia or pulmonary edema No visualized liver lesion Spleen is not identified Contracted gallbladder Moderate osteopenia IMPRESSION: 8 mm left thyroid nodule No mediastinal lymphadenopathy Multiple subcentimeter pulmonary nodules, with this study as baseline recommend 6 month follow-up CT chest without contrast
== END | disposition home or self-care (01) ==
PROVIDERS: PCP Family Medicine; Referring Provider Nurse Practitioner Family; Visit Provider Nurse Practitioner Family
DX: E04.1 Nontoxic single thyroid nodule (principal); R91.8 Other nonspecific abnormal finding of lung field
CPT/HCPCS: 71270; A4649; Q9967

== ENCOUNTER 2025-01-11 15:43 | Outpatient (RCR) | payer OTHER, MEDICARE, MEDICAID, SELFPAY | END 2025-01-18 23:59 | disposition home or self-care (01) | LOC: SCTC 15:43 | PROVIDERS: PCP Family Medicine; Referring Provider Family Medicine; Visit Provider Nurse Practitioner Family | DX: D69.6 Thrombocytopenia, unspecified (principal); E04.1 Nontoxic single thyroid nodule; R91.8 Other nonspecific abnormal finding of lung field; Z86.000 Personal history of in-situ neoplasm of breast; Z90.12 Acquired absence of left breast and nipple; Z92.3 Personal history of irradiation | CPT/HCPCS: 99212; G0463 ==

== ENCOUNTER → 2025-01-11 | Outpatient (CLI) | payer OTHER, MEDICARE, MEDICAID, SELFPAY ==
[2025-01-11 14:17] LABS: Basophils # (Auto) 0.1 Thou/mm3 (0.0-0.2); Basophils % (Auto) 1 % (0-2.5); Eosinophils # (Auto) 0.4 Thou/mm3 (0.0-0.5); Eosinophils % (Auto) 5 % (0-10); Hematocrit 40.7 % (36.0-46.0); Hemoglobin 13.5 g/dL (12.0-16.0); Immature Granulocytes Auto 0.15 Thou/mm3 (0.00-0.00); Lymphocytes # (Auto) 2.4 Thou/mm3 (1.0-4.8); Lymphocytes % (Auto) 26 % (10-50); Mean Corpuscular HGB Conc 33.2 g/dl (31.0-37.0); Mean Corpuscular Hemoglobin 31.3 pg (25.0-35.0); Mean Corpuscular Volume 94 fL (80-100); Monocytes # (Auto) 1.3 Thou/mm3 (0.0-0.8); Monocytes % (Auto) 15 % (0-12); Neutrophils # (Auto) 4.8 Thou/mm3 (1.8-7.7); Neutrophils % (Auto) 52 % (37-80); Nucleated Red Blood Cell # 0.00 Thou/mm3 (0.00-0.00); Nucleated Red Blood Cell % 0 /100 WBC (0); RDW Standard Deviation 53.4 fL (36.4-46.3); Red Blood Count 4.32 Miln/mm3 (4.00-5.20); White Blood Count 9.1 Thou/mm3 (3.6-11.0)
[2025-01-11 14:34] LABS: Platelet Count 22 Thou/mm3 (140-440)
[2025-01-11 14:35] LABS: Alanine Aminotransferase 32 U/L (10-49); Albumin, Serum 4.2 gm/dL (3.4-4.8); Albumin/Globulin Ratio 2.1 (1.2-2.2); Alkaline Phosphatase 90 U/L (46-116); Anion Gap 11 (7-16); Aspartate Amino Transferase 40 U/L (0-34); BUN/Creatinine Ratio 14 Ratio (12-20); Bilirubin,Total 0.4 mg/dL (0.3-1.2); Blood Urea Nitrogen 14 mg/dL (9-23); Calcium 9.2 mg/dL (8.3-10.6); Calcium (Corrected) 9.2 mg/dL (8.5-10.1); Carbon Dioxide 25.5 mMol/L (20.0-31.0); Chloride 110 mMol/L (98-107); Creatinine (Component) 1.0 mg/dL (0.6-1.3); Globulin 2.0 gm/dL (2.3-3.5); Glucose 121 mg/dL (74-106); Osmolality,Calculated 292 (275-295); Potassium 3.8 mMol/L (3.4-5.1); Sodium 146 mMol/L (136-145); Total Protein 6.2 gm/dL (5.7-8.2); eGFR > 60 See Note
[2025-01-11 14:37] LABS: Collection Type, Urine Clean Catch
[2025-01-11 14:39] LABS: Slide Review Platelets confirmed
[2025-01-11 15:09] LABS: Bilirubin,Urine Negative (Negative); Blood,Urine 1+ (Negative); Clarity,Urine Clear (Clear/Hazy); Color,Urine Yellow (Lt Yel-Yel); Glucose, Urine Negative (Negative); Hyaline Casts,Urine < 1 /hpf (0-1); Ketones,Urine Negative (Negative); Leukocyte Esterase,Urine Positive (Negative); Nitrite,Urine Negative (Negative); PH,Urine 6.0 (5.0-7.0); Protein,Urine Negative (Neg - Trace); RBC,Urine 3 /hpf (0-3); Specific Gravity,Urine 1.013 (1.001-1.035); Squamous Epithelial Cell,Urine 7 /hpf (0-5); Urobilinogen,Urine Negative mg/dL (0.0-1.0); WBC,Urine 18 /hpf (0-5)
== END | disposition home or self-care (01) ==
LOC: COPL 13:52
PROVIDERS: PCP Family Medicine; Referring Provider Urology; Visit Provider Nurse Practitioner Family
DX: R31.1 Benign essential microscopic hematuria (principal); D05.12 Intraductal carcinoma in situ of left breast; D69.3 Immune thrombocytopenic purpura
CPT/HCPCS: 36415; 80053; 81001; 85025

== ENCOUNTER → 2025-01-15 | Outpatient (BNVA) | payer OTHER, MEDICARE, MEDICAID, SELFPAY | END | disposition home or self-care (01) | PROVIDERS: PCP Nurse Practitioner Family; Referring Provider Nurse Practitioner Family; Visit Provider Urology | DX: R32 Unspecified urinary incontinence (principal); D69.6 Thrombocytopenia, unspecified; E66.9 Obesity, unspecified; Z68.28 Body mass index [BMI] 28.0-28.9, adult; G20.A1 Parkinson's disease without dyskinesia, without mention of fluctuations; K21.9 Gastro-esophageal reflux disease without esophagitis | CPT/HCPCS: 81003; 99212; G0463 ==

== ENCOUNTER → 2025-01-30 | Outpatient (CLI) | payer OTHER, MEDICARE, MEDICAID, SELFPAY ==
[2025-01-30 16:42] LABS: Basophils # (Auto) 0.1 Thou/mm3 (0.0-0.2); Basophils % (Auto) 1 % (0-2.5); Eosinophils # (Auto) 0.3 Thou/mm3 (0.0-0.5); Eosinophils % (Auto) 3 % (0-10); Hematocrit 39.6 % (36.0-46.0); Hemoglobin 12.9 g/dL (12.0-16.0); Immature Granulocytes Auto 0.10 Thou/mm3 (0.00-0.00); Lymphocytes # (Auto) 1.9 Thou/mm3 (1.0-4.8); Lymphocytes % (Auto) 16 % (10-50); Mean Corpuscular HGB Conc 32.6 g/dl (31.0-37.0); Mean Corpuscular Hemoglobin 31.0 pg (25.0-35.0); Mean Corpuscular Volume 95 fL (80-100); Monocytes # (Auto) 2.2 Thou/mm3 (0.0-0.8); Monocytes % (Auto) 19 % (0-12); Neutrophils # (Auto) 7.1 Thou/mm3 (1.8-7.7); Neutrophils % (Auto) 61 % (37-80); Nucleated Red Blood Cell # 0.02 Thou/mm3 (0.00-0.00); Nucleated Red Blood Cell % 0 /100 WBC (0); RDW Standard Deviation 53.7 fL (36.4-46.3); Red Blood Count 4.16 Miln/mm3 (4.00-5.20); White Blood Count 11.8 Thou/mm3 (3.6-11.0)
[2025-01-30 16:58] LABS: Platelet Count < 5 Thou/mm3 (140-440)
[2025-01-30 17:04] LABS: Alanine Aminotransferase 22 U/L (10-49); Albumin, Serum 3.9 gm/dL (3.4-4.8); Albumin/Globulin Ratio 2.2 (1.2-2.2); Alkaline Phosphatase 81 U/L (46-116); Anion Gap 9 (7-16); Aspartate Amino Transferase 32 U/L (0-34); BUN/Creatinine Ratio 11 Ratio (12-20); Bilirubin,Total 0.4 mg/dL (0.3-1.2); Blood Urea Nitrogen 10 mg/dL (9-23); Calcium 8.9 mg/dL (8.3-10.6); Calcium (Corrected) 9.0 mg/dL (8.5-10.1); Carbon Dioxide 24.2 mMol/L (20.0-31.0); Chloride 109 mMol/L (98-107); Creatinine (Component) 0.9 mg/dL (0.6-1.3); Globulin 1.8 gm/dL (2.3-3.5); Glucose 93 mg/dL (74-106); Osmolality,Calculated 282 (275-295); Potassium 3.3 mMol/L (3.4-5.1); Sodium 142 mMol/L (136-145); Thyroid Stimulating Hormone 1.04 uIU/mL (0.55-4.78); Total Protein 5.7 gm/dL (5.7-8.2); eGFR > 60 See Note
[2025-01-30 18:52] LABS: Slide Review Platelets confirmed
== END | disposition home or self-care (01) ==
LOC: COPL 15:06
PROVIDERS: Referring Provider Internal Medicine Hematology & Oncology; Visit Provider Internal Medicine Hematology & Oncology
DX: D69.3 Immune thrombocytopenic purpura (principal); D35.2 Benign neoplasm of pituitary gland; D05.12 Intraductal carcinoma in situ of left breast
CPT/HCPCS: 36415; 80053; 84443; 85025; 86880

== ENCOUNTER → 2025-02-08 | Outpatient (CLI) | payer OTHER, MEDICARE, MEDICAID, SELFPAY ==
--- NOTE | 2025-02-08 09:30 | XR_ITS ---
Examination: Thyroid sonography complete TECHNIQUE: Grayscale sonographic images thyroid lobes Date and time: February 08, 2025 0930 hours INDICATIONS: 8mm thyroid nodule, left thyroid on CT examination January 08, 2025 FINDINGS: Right thyroid 4.9 cm Multiple thyroid nodules, the largest in the lower poles 8 x 8 mm Left thyroid 4.8 cm Multiple thyroid nodules, the largest in the midpole 11 x 11 mm lower pole left by 11 mm IMPRESSION: Multiple thyroid nodules
[2025-02-08 09:57] LABS: Quantiferon-TB* See Sep Rpt
== END | disposition home or self-care (01) ==
LOC: CDIM 09:18 → COPL 09:47
PROVIDERS: Referring Provider Nurse Practitioner Family; Visit Provider Radiology Diagnostic Radiology
DX: E04.1 Nontoxic single thyroid nodule (principal); D69.3 Immune thrombocytopenic purpura; D35.2 Benign neoplasm of pituitary gland; D05.12 Intraductal carcinoma in situ of left breast
CPT/HCPCS: 76536; 86480

== ENCOUNTER → 2025-02-13 | Outpatient (CLI) | payer OTHER, MEDICARE, MEDICAID, SELFPAY ==
[2025-02-13 15:17] LABS: Basophils # (Auto) 0.1 Thou/mm3 (0.0-0.2); Basophils % (Auto) 1 % (0-2.5); Eosinophils # (Auto) 0.5 Thou/mm3 (0.0-0.5); Eosinophils % (Auto) 4 % (0-10); Hematocrit 41.2 % (36.0-46.0); Hemoglobin 13.6 g/dL (12.0-16.0); Immature Granulocytes Auto 0.23 Thou/mm3 (0.00-0.00); Lymphocytes # (Auto) 2.5 Thou/mm3 (1.0-4.8); Lymphocytes % (Auto) 20 % (10-50); Mean Corpuscular HGB Conc 33.0 g/dl (31.0-37.0); Mean Corpuscular Hemoglobin 31.4 pg (25.0-35.0); Mean Corpuscular Volume 95 fL (80-100); Monocytes # (Auto) 1.8 Thou/mm3 (0.0-0.8); Monocytes % (Auto) 15 % (0-12); Neutrophils # (Auto) 7.3 Thou/mm3 (1.8-7.7); Neutrophils % (Auto) 59 % (37-80); Nucleated Red Blood Cell # 0.00 Thou/mm3 (0.00-0.00); Nucleated Red Blood Cell % 0 /100 WBC (0); Platelet Count 111 Thou/mm3 (140-440); RDW Standard Deviation 55.8 fL (36.4-46.3); Red Blood Count 4.33 Miln/mm3 (4.00-5.20); White Blood Count 12.4 Thou/mm3 (3.6-11.0)
[2025-02-13 15:32] LABS: Alanine Aminotransferase 23 U/L (10-49); Albumin, Serum 4.2 gm/dL (3.4-4.8); Albumin/Globulin Ratio 2.1 (1.2-2.2); Alkaline Phosphatase 107 U/L (46-116); Anion Gap 13 (7-16); Aspartate Amino Transferase 34 U/L (0-34); BUN/Creatinine Ratio 11 Ratio (12-20); Bilirubin,Total 0.4 mg/dL (0.3-1.2); Blood Urea Nitrogen 11 mg/dL (9-23); Calcium 10.1 mg/dL (8.3-10.6); Calcium (Corrected) 10.1 mg/dL (8.5-10.1); Carbon Dioxide 25.2 mMol/L (20.0-31.0); Chloride 110 mMol/L (98-107); Creatinine (Component) 1.0 mg/dL (0.6-1.3); Globulin 2.0 gm/dL (2.3-3.5); Glucose 139 mg/dL (74-106); Osmolality,Calculated 295 (275-295); Potassium 4.0 mMol/L (3.4-5.1); Sodium 148 mMol/L (136-145); Total Protein 6.2 gm/dL (5.7-8.2); eGFR > 60 See Note
== END | disposition home or self-care (01) ==
LOC: COPL 14:29
PROVIDERS: Referring Provider Internal Medicine Hematology & Oncology; Visit Provider Internal Medicine Hematology & Oncology
DX: D69.3 Immune thrombocytopenic purpura (principal); D35.2 Benign neoplasm of pituitary gland
CPT/HCPCS: 36415; 80053; 85025

== ENCOUNTER → 2025-02-21 | Outpatient (CLI) | payer OTHER, MEDICARE, MEDICAID, SELFPAY ==
[2025-02-21 14:41] LABS: Basophils # (Auto) 0.1 Thou/mm3 (0.0-0.2); Basophils % (Auto) 1 % (0-2.5); Eosinophils # (Auto) 0.3 Thou/mm3 (0.0-0.5); Eosinophils % (Auto) 3 % (0-10); Hematocrit 41.4 % (36.0-46.0); Hemoglobin 13.5 g/dL (12.0-16.0); Immature Granulocytes Auto 0.13 Thou/mm3 (0.00-0.00); Lymphocytes # (Auto) 3.1 Thou/mm3 (1.0-4.8); Lymphocytes % (Auto) 32 % (10-50); Mean Corpuscular HGB Conc 32.6 g/dl (31.0-37.0); Mean Corpuscular Hemoglobin 31.0 pg (25.0-35.0); Mean Corpuscular Volume 95 fL (80-100); Monocytes # (Auto) 1.2 Thou/mm3 (0.0-0.8); Monocytes % (Auto) 12 % (0-12); Neutrophils # (Auto) 4.8 Thou/mm3 (1.8-7.7); Neutrophils % (Auto) 50 % (37-80); Nucleated Red Blood Cell # 0.00 Thou/mm3 (0.00-0.00); Nucleated Red Blood Cell % 0 /100 WBC (0); Platelet Count 132 Thou/mm3 (140-440); RDW Standard Deviation 54.4 fL (36.4-46.3); Red Blood Count 4.36 Miln/mm3 (4.00-5.20); White Blood Count 9.6 Thou/mm3 (3.6-11.0)
[2025-02-21 14:55] LABS: Alanine Aminotransferase 27 U/L (10-49); Albumin, Serum 4.1 gm/dL (3.4-4.8); Albumin/Globulin Ratio 2.0 (1.2-2.2); Alkaline Phosphatase 105 U/L (46-116); Anion Gap 14 (7-16); Aspartate Amino Transferase 40 U/L (0-34); BUN/Creatinine Ratio 16 Ratio (12-20); Bilirubin,Total 0.3 mg/dL (0.3-1.2); Blood Urea Nitrogen 14 mg/dL (9-23); Calcium 10.2 mg/dL (8.3-10.6); Calcium (Corrected) 10.2 mg/dL (8.5-10.1); Carbon Dioxide 26.5 mMol/L (20.0-31.0); Chloride 110 mMol/L (98-107); Creatinine (Component) 0.9 mg/dL (0.6-1.3); Globulin 2.1 gm/dL (2.3-3.5); Glucose 134 mg/dL (74-106); Osmolality,Calculated 300 (275-295); Potassium 3.9 mMol/L (3.4-5.1); Sodium 150 mMol/L (136-145); Total Protein 6.2 gm/dL (5.7-8.2); eGFR > 60 See Note
== END | disposition home or self-care (01) ==
LOC: COPL 13:46
PROVIDERS: Referring Provider Internal Medicine Hematology & Oncology; Visit Provider Internal Medicine Hematology & Oncology
DX: D69.3 Immune thrombocytopenic purpura (principal); D05.12 Intraductal carcinoma in situ of left breast
CPT/HCPCS: 36415; 80053; 85025

== ENCOUNTER → 2025-02-28 | Outpatient (CLI) | payer OTHER, MEDICARE, MEDICAID, SELFPAY ==
--- NOTE | 2025-02-28 14:56 | XR_ITS ---
Examination: PA lateral chest 2 views TECHNIQUE: Upright PA lateral chest 2 views Date and time: February 28, 2025 1506 hours, comparison 02/27/2023 INDICATIONS: Coughing 3 weeks, TB screening. FINDINGS: Breast implants overlie the lower lung zones Normal heart size Scarring in the lingular segment No pneumonia or pulmonary edema IMPRESSION: No pneumonia or pulmonary edema No radiographic findings of tuberculosis
[2025-02-28 16:51] LABS: Basophils # (Auto) 0.1 Thou/mm3 (0.0-0.2); Basophils % (Auto) 0 % (0-2.5); Eosinophils # (Auto) 0.2 Thou/mm3 (0.0-0.5); Eosinophils % (Auto) 1 % (0-10); Hematocrit 35.5 % (36.0-46.0); Hemoglobin 11.8 g/dL (12.0-16.0); Immature Granulocytes Auto 0.18 Thou/mm3 (0.00-0.00); Lymphocytes # (Auto) 2.2 Thou/mm3 (1.0-4.8); Lymphocytes % (Auto) 15 % (10-50); Mean Corpuscular HGB Conc 33.2 g/dl (31.0-37.0); Mean Corpuscular Hemoglobin 30.5 pg (25.0-35.0); Mean Corpuscular Volume 92 fL (80-100); Monocytes # (Auto) 2.4 Thou/mm3 (0.0-0.8); Monocytes % (Auto) 16 % (0-12); Neutrophils # (Auto) 9.9 Thou/mm3 (1.8-7.7); Neutrophils % (Auto) 66 % (37-80); Nucleated Red Blood Cell # 0.00 Thou/mm3 (0.00-0.00); Nucleated Red Blood Cell % 0 /100 WBC (0); Platelet Count 341 Thou/mm3 (140-440); RDW Standard Deviation 51.5 fL (36.4-46.3); Red Blood Count 3.87 Miln/mm3 (4.00-5.20); White Blood Count 15.0 Thou/mm3 (3.6-11.0)
[2025-02-28 17:01] LABS: Alanine Aminotransferase 26 U/L (10-49); Albumin, Serum 4.1 gm/dL (3.4-4.8); Albumin/Globulin Ratio 1.9 (1.2-2.2); Alkaline Phosphatase 143 U/L (46-116); Anion Gap 11 (7-16); Aspartate Amino Transferase 39 U/L (0-34); BUN/Creatinine Ratio 11 Ratio (12-20); Bilirubin,Total 0.5 mg/dL (0.3-1.2); Blood Urea Nitrogen 9 mg/dL (9-23); Calcium 9.2 mg/dL (8.3-10.6); Calcium (Corrected) 9.2 mg/dL (8.5-10.1); Carbon Dioxide 26.5 mMol/L (20.0-31.0); Chloride 105 mMol/L (98-107); Creatinine (Component) 0.8 mg/dL (0.6-1.3); Globulin 2.2 gm/dL (2.3-3.5); Glucose 105 mg/dL (74-106); Osmolality,Calculated 281 (275-295); Potassium 3.2 mMol/L (3.4-5.1); Sodium 142 mMol/L (136-145); Total Protein 6.3 gm/dL (5.7-8.2); eGFR > 60 See Note
== END | disposition home or self-care (01) ==
LOC: CDIM 15:06 → COPL 15:10
PROVIDERS: Referring Provider Internal Medicine Hematology & Oncology; Visit Provider Radiology Diagnostic Radiology
DX: D69.3 Immune thrombocytopenic purpura (principal); Z22.7 Latent tuberculosis; D05.12 Intraductal carcinoma in situ of left breast
CPT/HCPCS: 36415; 71046; 80053; 85025

== ENCOUNTER 2025-04-19 12:13 | Inpatient (IN) | payer MEDICARE, OTHER, MEDICAID, SELFPAY ==
[2025-04-19 12:14] VITALS: BMI 27.4
[2025-04-19 12:23] VITALS: BP 126/78; PULSE 105; RESP 18; TEMP 36.6; O2SAT 98
--- NOTE | 2025-04-19 12:59 | PD.EDNV ---
Nausea/Vomit./Diarrhea-RME/HPI General Chief complaint: Nausea/Vomiting/Diarrhea Stated complaint: N/V/D X1 DAY Time Seen by Provider: 04/19/25 12:25 Arrival date/time: 04/19/25 12:13 RME / HPI RME / HPI Narrative: See [facility] for Dr. Mckee's HPI documentation. Related Data Home Medications ?Medication ?Instructions ?Recorded ?Confirmed amlodipine 10 mg tablet (Norvasc) 10 mg PO QDAY #0 tabs 07/17/17 01/15/25 pantoprazole 40 mg tablet,delayed 40 mg PO DAILY 11/10/18 01/15/25 release gabapentin 600 mg tablet 600 mg PO TID 11/11/18 01/15/25 duloxetine 60 mg capsule,delayed 30 mg PO DAILY 01/12/20 01/15/25 release (Cymbalta) benztropine 0.5 mg tablet 0.5 mg PO QDAY 02/28/23 01/15/25 cyclobenzaprine 5 mg tablet 5 mg PO TID PRN Muscle Spasm 02/28/23 01/15/25 simvastatin 20 mg tablet (Zocor) 20 mg PO QPM 02/28/23 01/15/25 amoxicillin 500 mg tablet 500 mg PO TID 10/04/23 01/15/25 Previous Rx's ?Medication ?Instructions ?Recorded albuterol sulfate 90 mcg/actuation 2 puff inhalation QID PRN 06/27/20 aerosol inhaler shortness of breath or wheezing #18 grams Allergies Allergy/AdvReac Type Severity Reaction Status Date / Time Penicillins Allergy Severe RASH Verified 01/15/25 14:30 Review of Systems Review of Systems Systems Reviewed: All systems reviewed, normal except as documented Past Medical History Past Medical History NEUROLOGIC: Positive Neurological Disorders, Parkinson's Disease and Peripheral Neuropathy CARDIAC: Positive Cardiac Disorders RESPIRATORY: Positive Asthma, Bronchitis and Pneumonia GASTROINTESTINAL: Positive Gastrointestinal Disorders, Gastrointestinal Bleed and Gastroesophageal Reflux Disease REPRODUCTIVE: Positive Breast Cancer, Pelvic Inflammatory Disease and Uterine Prolapse MUSCULOSKELETAL: Positive Musculoskeletal Disorders, Arthritis and Rheumatoid Arthritis ENT: Positive Ear Infection HEMATOLOGIC: Positive Blood Disorders and Clotting Problems PSYCHO/SOCIAL: Positive Depression and Anxiety OTHER HISTORY: Positive Autoimmune Disease, Shingles, Blood Transfusions, Radiation Therapy, Chicken Pox and Breast Cancer Surgical History SURGICAL: Positive Hysterectomy and Section Social History SMOKING STATUS: Never smoker SECOND HAND EXPOSURE: No SUBSTANCE USE: does not use ED Exam Narrative Physical exam: See [facility] for Dr. Mckee's physical exam documentation. Course Quality Measures none Orders Category Date Time Status Bedside COVID-19 Antigen Test NOW Care 04/19/25 13:[address] Screening NOW Care 04/19/25 15:27 Active Saline [Insert IV] NOW Care 04/19/25 15:31 Active Straight [In and Out Catheter] X1 Care 04/19/25 15:[address] abdomen pelvis w con Stat Exams 04/19/25 15:[address] abdomen pelvis wo con Stat Exams 04/19/25 13:01 Completed US gall bladder Stat Exams 04/19/25 13:01 Completed XR chest 1V portable Stat Exams 04/19/25 13:01 Completed Amylase Stat Lab 04/19/25 13:43 Completed BNP [B-Type Natriuretic Peptide] Stat Lab 04/19/25 13:43 Completed Bilirubin,Direct Stat Lab 04/19/25 13:43 Completed Blood Culture (Lab) Stat Lab 04/19/25 16:30 Received CBC Stat Lab 04/19/25 13:43 Completed CMP [Comprehensive Metabolic Panel] Stat Lab 04/19/25 13:43 Completed CRP [C-Reactive Protein] Stat Lab 04/19/25 15:50 Completed Influenza A & B Rapid Panel Stat Lab 04/19/25 12:59 Ordered Lactate (Lactic Acid) Stat Lab 04/19/25 15:50 Completed Lipase Stat Lab 04/19/25 13:43 Completed Magnesium Stat Lab 04/19/25 13:43 Completed Procalcitonin Stat Lab 04/19/25 15:50 Completed Sed Rate (ESR) Stat Lab 04/19/25 13:43 Completed UA, C/S IF [Urinalysis, C/S if Indicated] Stat Lab 04/19/25 17:05 Received ACETAMINOPHEN w/COD 300-30 [Tylenol w/Cod #3] Med 04/19/25 13:00 Discontinued 1 tab PO X1 ONE Morphine* Inj Med 04/19/25 15:31 Discontinued 4 mg IV X1 ONE Ondansetron Inj [Zofran Inj] Med 04/19/25 15:31 Discontinued 4 mg IVP X1 ONE Ondansetron Odt [Zofran Odt] Med 04/19/25 13:00 Discontinued 4 mg PO X1 ONE Sodium Chloride 0.9% 1000 ml [Ns] 1,000 ml Med 04/19/25 15:31 Discontinued IV 999 mls/hr Vital Signs Vital signs: Vital Signs Temperature 98 F 04/19/25 12:23 Pulse Rate 105 H 04/19/25 12:23 Respiratory Rate 18 04/19/25 12:23 Blood Pressure 126/78 04/19/25 12:23 Pulse Oximetry (%) 98 04/19/25 12:23 Oxygen Delivery Method Room Air 04/19/25 12:23 Pulse ox is 98% on room air which is adequate. Nausea/Vomiting/Diarrhea MDM Narrative MDM Narrative:: This section includes all my notes and documentations, including HPI, PE, and ED course. Miki Mckee MD HPI: 64 year old female here with nausea, vomiting, diarrhea, and abdominal pain since yesterday. No fever. No urinary symptoms. No hematemesis or coffee-ground emesis. No rectal bleeding or tarry stools. No other complaints. ROS: All negative except as documented in HPI. Physical Exam: General: Alert and oriented. Appears uncomfortable. Eyes: Conjunctivae and lids clear. ENT: No nasal congestion. Neck: Supple. Heart: RRR. Lungs: No respiratory distress. Good air movement. No rhonchi, wheezing, rales. Abdomen: Soft with equivocal diffuse tenderness, difficult to localize. Normal bowel sounds. No distension. No rebound or guarding. Back: No CVA tenderness. Skin: Warm and dry. Neuro: Alert and oriented X 3. I reviewed EMS and residential notes. I reviewed all diagnostic test results: My interpretation of the chest x-ray is equivocal infiltrates. My review of the CT abdomen/pelvis report is significant edema in the lower mesentery, recommended repeat CT with IV contrast. My review of the US gallbladder report is: Gallbladder sludge. Blood tests remarkable for WBC 20.3. UA pending. COVID-negative. Influenza pending. At this point, diagnoses include: Abdominal pain Treatment here included: IVF Zofran 4 mg IV Morphine 4 mg IV She felt much better. At 6 PM on 04/19/2025, the care of the patient was transferred to Dr. Sanchez. Miki Mckee MD Patient data External records reviewed:: [facility] previous records Clinical information provided by:: patient Social determinants that could affect healthcare access:: none Patient has the following chronic illnesses:: Chronic idiopathic thrombocytopenic purpura How is presenting disease/condition affected by chronic disease/condition?: uneffected by Evaluation data The following diagnostics were reviewed and interpreted by me:: lab results and radiology exam(s) Lab and/or radiology exams considered but not ordered:: None Interpretation Summary: I reviewed all diagnostic test results: My interpretation of the chest x-ray is equivocal infiltrates. My review of the CT abdomen/pelvis report is significant edema in the lower mesentery, recommended repeat CT with IV contrast. My review of the US gallbladder report is: Gallbladder sludge. Blood tests remarkable for WBC 20.3. UA pending. COVID-negative. Influenza pending. Medications / Prescriptions Medications / Prescriptions considered but not ordered:: None Medication administrations:: Medication Administration History Discontinued Medications Acetaminophen/Codeine Phosphate (Acetaminophen W/Cod 300-30 Tablet) 1 tab PO X1 ONE Stop: 04/19/25 13:01 Last Admin: 04/19/25 13:37 Dose: 1 tab Documented By: IVÁN Sodium Chloride (Ns) 1,000 mls @ 999 mls/hr IV .Q1H1M ONE Stop: 04/19/25 16:31 Last Admin: 04/19/25 17:05 Dose: 999 mls/hr Documented By: ZOYA Morphine Sulfate (Morphine Sulf Inj 4 Mg/Ml Vial) 4 mg IV X1 ONE Stop: 04/19/25 15:32 Last Admin: 04/19/25 17:05 Dose: 4 mg Documented By: ZOYA Ondansetron HCl (Ondansetron Odt 4 Mg Tabrap) 4 mg PO X1 ONE; Protocol Stop: 04/19/25 13:01 Last Admin: 04/19/25 13:36 Dose: 4 mg Documented By: IVÁN Ondansetron HCl (Ondansetron Inj 2 Mg/Ml Inj 2 Ml) 4 mg IVP X1 ONE; Protocol Stop: 04/19/25 15:32 Last Admin: 04/19/25 17:06 Dose: 4 mg Documented By: JA Treatment here included: IVF Zofran 4 mg IV Morphine 4 mg IV Consultations Consultation(s) initiated? (list below): No Diagnosis Nausea Differential Diagnosis: gastroenteritis, drug-induced nausea and vomiting and dehydration Most likely diagnosis given after review of the tests above:: Abdominal pain with unclear etiology, complete diagnostic tests pending. Admission Indicated Admission indicated?: not indicated Explain why admission is indicated or not indicated:: Complete diagnostic tests pending. Admission Request Was there a request for admission?: No Disposition Plan Disposition Plan: other (specify) (Care transferred to Dr. Sanchez at 6PM on 04/19/2025 ) Discharge Plan Prescriptions/Referrals Prescriptions/Med Rec: No Action amoxicillin 500 mg tablet 500 mg PO TID amlodipine [Norvasc] 10 MG tablet 10 mg PO QDAY Qty: 0 albuterol sulfate 90 mcg/actuation HFA aerosol inhaler 2 puff inhalation QID PRN (Reason: shortness of breath or wheezing) Qty: 18 0RF pantoprazole 40 mg tablet,delayed release (DR/EC) 40 mg PO DAILY gabapentin 600 mg Tablet 600 mg PO TID duloxetine [Cymbalta] 60 mg Capsule,Delayed Release(Dr/Ec) 30 mg PO DAILY benztropine 0.5 mg Tablet 0.5 mg PO QDAY simvastatin [Zocor] 20 mg Tablet 20 mg PO QPM cyclobenzaprine 5 mg Tablet 5 mg PO TID PRN (Reason: Muscle Spasm) Referrals: Hina Lopez, [employer]IC [Primary Care Provider] - In 1 week Problem List Clinical Impression: Abdominal pain Patient/Caregiver Discharge Instructions Print Language: Welsh
--- NOTE | 2025-04-19 13:01 | XR_ITS ---
EXAMINATION: PA chest single view TECHNIQUE: Upright PA chest single view Date and time: April 19, 2025, 1337 hours, comparison 02/28/2025 INDICATION: Shortness of breath chest pain beginning today. FINDINGS: Normal heart size Suspicious for early pneumonia left base Right lung clear The osseous structures are intact IMPRESSION: Suspicious for early pneumonia right base
--- NOTE | 2025-04-19 13:01 | XR_ITS ---
Examination: Abdomen sonogram, Limited Date and time of exam: April 19, 2025, 1243 hours INDICATIONS: Right upper abdominal pain beginning 2 days ago Technique: Real-time urbina scale transabdominal sonographic images of the upper abdomen obtained. Findings: Gallbladder sludge No gallstones Gallbladder wall 0.40 cm no edema Common bile duct 0.5 cm Pancreatic head 2.7 cm Liver 13.9 cm fatty infiltration Normal hepatopetal portal venous flow Patent IVC IMPRESSION: Gallbladder sludge, negative for gallstones Borderline thickening gallbladder wall, clinical correlation advised, consider HIDA scan or MRCP follow-up as clinically warranted
--- NOTE | 2025-04-19 13:01 | XR_ITS ---
Examination: CT abdomen and pelvis without contrast. Coronal 3-D reconstructions. Sagittal 2-D reconstructions. Date and time of exam: April 19, 2025, 1327 hours, compared to PET/CT scan April 20, 2024, CT chest January 08, 2025 INDICATIONS: Upper abdominal pain nausea and vomiting today, diagnosis thrombocytopenia. , Multiple pulmonary nodules on CT chest January 08, 2025 CTDI: vol (mGy): 9.36 DLP: (mGycm): 508 Technique: Axial images of the abdomen have been obtained, 3 mm slice thickness Intravenous contrast material has not been administered. Low dose protocols were performed. One or more of the following dose reduction techniques were used; automated exposure control, adjustment of the mA and/or KV according to patient size, use of iterative reconstruction technique. Findings: No visualized liver lesion Spleen is not visualized No extrahepatic biliary tract dilatation Normal pancreas No gallstones No adrenal mass No hydronephrosis Atrophic left kidney Significant edema in the lower mesentery, coronal image 53 Partial visualization of possible normal appendix coronal image 66 Colonic diverticulosis Atrophic uterus Free fluid in the pelvis IMPRESSION: Significant edema in the lower mesentery Recommend repeating the study with intravenous contrast
[2025-04-19] MEDS: ONDANSETRON ODT 4 MG TABRAP PO (13:36)
[2025-04-19] MEDS: ACETAMINOPHEN w/COD 300-30 TABLET 1 TAB PO (13:37)
[2025-04-19 14:10] LABS: Basophils # (Auto) 0.1 Thou/mm3 (0.0-0.2); Basophils % (Auto) 0 % (0-2.5); Eosinophils # (Auto) 0.0 Thou/mm3 (0.0-0.5); Eosinophils % (Auto) 0 % (0-10); Hematocrit 40.6 % (36.0-46.0); Hemoglobin 12.9 g/dL (12.0-16.0); Immature Granulocytes Auto 0.09 Thou/mm3 (0.00-0.00); Lymphocytes # (Auto) 1.7 Thou/mm3 (1.0-4.8); Lymphocytes % (Auto) 8 % (10-50); Mean Corpuscular HGB Conc 31.8 g/dl (31.0-37.0); Mean Corpuscular Hemoglobin 29.2 pg (25.0-35.0); Mean Corpuscular Volume 92 fL (80-100); Monocytes # (Auto) 2.5 Thou/mm3 (0.0-0.8); Monocytes % (Auto) 12 % (0-12); Neutrophils # (Auto) 16.1 Thou/mm3 (1.8-7.7); Neutrophils % (Auto) 79 % (37-80); Nucleated Red Blood Cell # 0.00 Thou/mm3 (0.00-0.00); Nucleated Red Blood Cell % 0 /100 WBC (0); Platelet Count 675 Thou/mm3 (140-440); RDW Standard Deviation 53.1 fL (36.4-46.3); Red Blood Count 4.42 Miln/mm3 (4.00-5.20); White Blood Count 20.3 Thou/mm3 (3.6-11.0)
[2025-04-19 14:26] LABS: B-Type Natriuretic Peptide 66 pg/mL (0-100)
[2025-04-19 14:28] LABS: Alanine Aminotransferase 14 U/L (10-49); Albumin, Serum 4.5 gm/dL (3.4-4.8); Albumin/Globulin Ratio 2.3 (1.2-2.2); Alkaline Phosphatase 132 U/L (46-116); Amylase 37 U/L (30-118); Anion Gap 11 (7-16); Aspartate Amino Transferase 25 U/L (0-34); BUN/Creatinine Ratio 13 Ratio (12-20); Bilirubin,Direct 0.2 mg/dL (0.0-0.3); Bilirubin,Total 0.7 mg/dL (0.3-1.2); Blood Urea Nitrogen 10 mg/dL (9-23); Calcium 9.2 mg/dL (8.3-10.6); Calcium (Corrected) 9.2 mg/dL (8.5-10.1); Carbon Dioxide 24.6 mMol/L (20.0-31.0); Chloride 106 mMol/L (98-107); Creatinine (Component) 0.8 mg/dL (0.6-1.3); Estimated Creatinine Clearance 67.5 mL/min (>60); Globulin 2.0 gm/dL (2.3-3.5); Glucose 117 mg/dL (74-106); Lipase 22 U/L (12-53); Magnesium 1.6 mg/dL (1.6-2.6); Osmolality,Calculated 283 (275-295); Potassium 3.7 mMol/L (3.4-5.1); Sodium 142 mMol/L (136-145); Total Protein 6.5 gm/dL (5.7-8.2); eGFR > 60 See Note
[2025-04-19 15:04] VITALS: BP 147/79; PULSE 93; RESP 21; TEMP 36.7; O2SAT 93
--- NOTE | 2025-04-19 15:27 | XR_ITS ---
Examination: CT abdomen with intravenous contrast CT pelvis with intravenous contrast 2-D coronal reconstructions 2-D sagittal reconstructions Date and time of exam: April 19, 2025, 1830 hours, comparison April 19, [address] abdomen/pelvis study INDICATIONS: Upper abdominal pain nausea vomiting and diarrhea today. CTDI: vol (mGy) 8.64 DLP: (mGycm) 457 Technique: Multiple axial sections of the abdomen and pelvis have been obtained. 64 slice high-resolution scanner used. 3 mm axial sections have been obtained, post intravenous injection 60 cc Isovue-370 2-D sagittal, coronal reconstructions obtained. Low dose protocols were performed. One or more of the following dose reduction techniques were used; automated exposure control, adjustment of the mA and/or KV according to patient size, use of iterative reconstruction technique. Findings: No visualized liver lesion No definite gallstones No common hepatic duct common bile duct stones No pancreatic mass or peripancreatic edema No adrenal mass No renal or ureteral calculi, no hydronephrosis Mild free fluid throughout the abdomen and moderate free fluid in the pelvis with fluid versus edema in the mesentery, axial image 145 Multiple abnormal small bowel loops, for instance axial image 173, with significant wall thickening, edema Uterus is not enlarged Minimal thickening of the urinary bladder wall IMPRESSION: Markedly abnormal small bowel loops with significant wall thickening and edema, with free fluid mild in the abdomen, significant mesenteric edema and moderate free fluid in the pelvis, differential would include severe enteritis such as Crohn's disease, ischemic small bowel Clinical correlation advised, recommend surgical consultation
[2025-04-19 16:01] VITALS: BP 147/73; PULSE 90; RESP 14; TEMP 36.7; O2SAT 96
[2025-04-19 16:11] LABS: Lactate (Lactic Acid) 1.6 mMol/L (0.4-2.0)
[2025-04-19 16:28] LABS: Sed Rate (ESR) 26 mm/hr (0-30)
[2025-04-19 16:50] LABS: C-Reactive Protein 5.1 mg/dL (0.0-0.9); Procalcitonin 0.15 ng/ml (0.0-0.49)
[2025-04-19] MEDS: MORPHINE SULF INJ 4 MG/ML VIAL IV (17:05)
[2025-04-19] MEDS: SODIUM CHLORIDE 0.9% 1000 ML 1,000 ML 999 ML IV (17:05)
[2025-04-19] MEDS: ONDANSETRON INJ 2 MG/ML INJ 2 ML 4 MG IVP (17:06)
[2025-04-19 17:13] LABS: Collection Type, Urine Clean Catch
[2025-04-19 17:31] LABS: Bilirubin,Urine Negative (Negative); Blood,Urine 1+ (Negative); Clarity,Urine Clear (Clear/Hazy); Color,Urine Yellow (Lt Yel-Yel); Culture Indicated,Urine Not Indicated; Glucose, Urine Trace (Negative); Hyaline Casts,Urine < 1 /hpf (0-1); Ketones,Urine Trace (Negative); Leukocyte Esterase,Urine Positive (Negative); Nitrite,Urine Negative (Negative); PH,Urine 6.0 (5.0-7.0); Protein,Urine 1+ (Neg - Trace); RBC,Urine 9 /hpf (0-3); Specific Gravity,Urine 1.024 (1.001-1.035); Squamous Epithelial Cell,Urine 6 /hpf (0-5); Urobilinogen,Urine Negative mg/dL (0.0-1.0); WBC,Urine 8 /hpf (0-5)
--- NOTE | 2025-04-19 18:10 | EDNOTE_ITS ---
Emergency Room Addendum <Aminata Mata - Last Filed: 04/19/25 19:25> Addendum Narrative: 1800: Care assumed from Dr. Mckee, the previous shift emergency physician. Past medical, surgical, social and family history reviewed. Vitals and home medications reviewed. Results and treatment plan discussed. I will assume the care of the patient at this time and will follow the patient. Please refer to the emergency department record for history and examination from initial visit. RADIOLOGY RESULTS: [facility] Report Signed Patient: STACY KELLY. Record#: [id number] Birthdate: 1960 Age/Sex: 64 / F Location: [facility] Attending Dr: Ordering Physician: Miki Mckee MD Date of Service: 04/19/25 Procedure(s): CT abdomen pelvis w con Accession Number(s): [id number] cc: Miki Mckee MD; Dov Jenkins MD; Hina Lopez NP~ Examination: CT abdomen with intravenous contrast CT pelvis with intravenous contrast 2-D coronal reconstructions 2-D sagittal reconstructions Date and time of exam: April 19, 2025, 1830 hours, comparison April 19, [address] abdomen/pelvis study INDICATIONS: Upper abdominal pain nausea vomiting and diarrhea today. CTDI: vol (mGy) 8.64 DLP: (mGycm) 457 Technique: Multiple axial sections of the abdomen and pelvis have been obtained. 64 slice high-resolution scanner used. 3 mm axial sections have been obtained, post intravenous injection 60 cc Isovue-370 2-D sagittal, coronal reconstructions obtained. Low dose protocols were performed. One or more of the following dose reduction techniques were used; automated exposure control, adjustment of the mA and/or KV according to patient size, use of iterative reconstruction technique. Findings: No visualized liver lesion No definite gallstones No common hepatic duct common bile duct stones No pancreatic mass or peripancreatic edema No adrenal mass No renal or ureteral calculi, no hydronephrosis Mild free fluid throughout the abdomen and moderate free fluid in the pelvis with fluid versus edema in the mesentery, axial image 145 Multiple abnormal small bowel loops, for instance axial image 173, with significant wall thickening, edema Uterus is not enlarged Minimal thickening of the urinary bladder wall IMPRESSION: Markedly abnormal small bowel loops with significant wall thickening and edema, with free fluid mild in the abdomen, significant mesenteric edema and moderate free fluid in the pelvis, differential would include severe enteritis such as Crohn's disease, ischemic small bowel Clinical correlation advised, recommend surgical consultation Dictated By: Dov Jenkins MD Signed By: <Electronically signed by Dov Jenkins MD in [place]> 04/19/251911 <Tj Sanchez, DO - Last Filed: 04/19/25 20:15> Addendum Narrative: 1800: Care assumed from Dr. Mckee, the previous shift emergency physician. Past medical, surgical, social and family history reviewed. Vitals and home medications reviewed. Results and treatment plan discussed. I will assume the care of the patient at this time and will follow the patient. Please refer to the emergency department record for history and examination from initial visit. RADIOLOGY RESULTS: [facility] Report Signed Patient: STACY KELLY. Record#: [id number] Birthdate: 1960 Age/Sex: 64 / F Location: [facility] Attending Dr: Ordering Physician: Miki Mckee MD Date of Service: 04/19/25 Procedure(s): CT abdomen pelvis w con Accession Number(s): [id number] cc: Miki Mckee MD; Dov Jenkins MD; Hina Lopez NP~ Examination: CT abdomen with intravenous contrast CT pelvis with intravenous contrast 2-D coronal reconstructions 2-D sagittal reconstructions Date and time of exam: April 19, 2025, 1830 hours, comparison April 19, [address] abdomen/pelvis study INDICATIONS: Upper abdominal pain nausea vomiting and diarrhea today. CTDI: vol (mGy) 8.64 DLP: (mGycm) 457 Technique: Multiple axial sections of the abdomen and pelvis have been obtained. 64 slice high-resolution scanner used. 3 mm axial sections have been obtained, post intravenous injection 60 cc Isovue-370 2-D sagittal, coronal reconstructions obtained. Low dose protocols were performed. One or more of the following dose reduction techniques were used; automated exposure control, adjustment of the mA and/or KV according to patient size, use of iterative reconstruction technique. Findings: No visualized liver lesion No definite gallstones No common hepatic duct common bile duct stones No pancreatic mass or peripancreatic edema No adrenal mass No renal or ureteral calculi, no hydronephrosis Mild free fluid throughout the abdomen and moderate free fluid in the pelvis with fluid versus edema in the mesentery, axial image 145 Multiple abnormal small bowel loops, for instance axial image 173, with significant wall thickening, edema Uterus is not enlarged Minimal thickening of the urinary bladder wall IMPRESSION: Markedly abnormal small bowel loops with significant wall thickening and edema, with free fluid mild in the abdomen, significant mesenteric edema and moderate free fluid in the pelvis, differential would include severe enteritis such as Crohn's disease, ischemic small bowel Clinical correlation advised, recommend surgical consultation Dictated By: Dov Jenkins MD Signed By: <Electronically signed by Dov Jenkins MD in [place]> 04/19/251911 Patient was signed out to me. White count was 20,300. Lactic acid level is not elevated. I went to examine the patient and the patient had mid abdominal tenderness without rebound. CT scan done of the abdomen pelvis with IV contrast showed evidence for enteritis and possible small bowel ischemia. I spoke with general surgeon and presented the case to Dr. Francois who was not impressed with the possibility of bowel ischemia. This is based on the patient not looking toxic with a nonelevated lactic acid level and a physical exam not compatible with ischemic bowel. I spoke with GI specialist, Dr. Najera who agrees with admission to the hospital. He asked that the patient be started on antibiotics. He recommended Zosyn. I could not place the patient on Zosyn because the patient has a penicillin allergy, penicillin causes a rash. Instead of Zosyn, the patient was given Rocephin 1 g IV and Flagyl 500 mg IV. I discussed this case with hospitalist and the patient will be admitted to the hospital for further treatment and evaluation.
[2025-04-19 18:29] LABS: Influenza A Ag Negative; Influenza B Ag Negative
[2025-04-19 18:44] VITALS: BP 130/87; PULSE 101; RESP 14; TEMP 36.7; O2SAT 98
[2025-04-19 19:11] VITALS: BP 135/75; PULSE 92; RESP 15; TEMP 36.7; O2SAT 98
[2025-04-19] MEDS: cefTRIAXone/D5w 1gm IV premix 1 GM/50 ML BAG IV (20:04)
[2025-04-19] MEDS: metroNIDAZOLE/NS 500 MG IVPB 500 MG/100 ML BAG 100 MG IV (20:07)
[2025-04-19 20:39] LABS: Lactate (Lactic Acid) 1.1 mMol/L (0.4-2.0)
[2025-04-19 20:40] LABS: Sed Rate (ESR) 19 mm/hr (0-30)
[2025-04-19] MEDS: CIPROFLOXACIN/D5w 400 MG IVPB 400 MG/200 ML BAG 200 MG IV (22:43)
[2025-04-20] VITALS (9 sets, daily range): BP systolic 135–147; BP diastolic 61–91; PULSE 60–105; RESP 16–18; TEMP 36.1–36.8; O2SAT 94–99; BMI 28.5
--- NOTE | 2025-04-20 00:06 | PD.RESHP ---
Documentation for date of: 04/20/25 [facility] History of Present Illness Chief complaint: Diarrhea History of present illness: This is a 64-year-old female with past medical history of hypertension, hyperlipidemia, ITP presented to the ED with complaints of diarrhea, abdominal pain and nausea. She has been having nonbloody diarrhea approximately 20 episodes going on for 2 days associated with severe abdominal pain. She she describes pain as cramping type in the umbilical and left lumbar regions 8 out of 10 on pain scale. She endorses nausea but denies any vomiting, melena, chest pain, chest tightness, shortness of breath, urinary frequency, urgency, any travel, any outside food intake. Today ED visit vitals: Initial BP 126/78, NH 158, respiratory rate 18, temperature 98F, saturating 98% on room air. Pertinent lab findings are leukocytosis which WBC 20.3, platelets 675, absolute neutrophil count 16.1, ALP 132, C-reactive protein 5.1, lactic acid normal urine leukocyte esterase positive, urine WBC 8. Imaging findings CT abdomen marked thickening and edema of small bowel, significant mesenteric edema and moderate free fluid in pelvis DDx Crohn's versus ischemic small bowel Ultrasound of gallbladder?gallbladder sludge and borderline thickening of gallbladder wall. Chest x-ray showing suspicious for early signs of pneumonia in the left base . Past medical and surgical history: History of breast cancer and underwent lumpectomy, history of pituitary mass and underwent removal, splenectomy, appendectomy, shingles takes gabapentin, GERD takes pantoprazole 40 mg every day Allergy history: Allergic to penicillin gets hives around her neck when she takes 20 Social history: Denies alcohol, smoking or any other drug usage Family history: Noncontributory Review of Systems Review of Systems Systems Reviewed: All systems reviewed, normal except as documented Exam Vital Signs Temp Pulse Resp BP Pulse Ox O2 Del Method 98.1 F 92 15 135/75 H 98 Room Air 04/19/25 19:11 04/19/25 19:11 04/19/25 19:11 04/19/25 19:11 04/19/25 19:11 04/19/25 19:11 Narrative Exam GENERAL: NAD, AAOx3 HEENT: Moist mucosa. Eyes open, symmetrical, & clear CARDIO: Rapid Regular rhythm Noted. No Murmurs. PULM: No noted coughing/dyspnea CTA B/L, no R/W/R GI: Abdomen diffusely Tender, guarding on palpation over the umbilical and left lumbar region SKIN/MSK/EXT: No wounds/rashes/amputations, no pain on palpation.. Pedal pulses present B/L NEURO: AAOx3, no focal neuro deficits, able to move all 4 extremities Results: Labs 04/20/25 04:43 04/20/25 04:43 Labs: Short CBC 04/19/25 Range/Units 13:43 WBC 20.3 H (3.6-11.0) Thou/mm3 Hgb 12.9 (12.0-16.0) g/dL Hct 40.6 (36.0-46.0) % Plt Count 675 H (140-440) Thou/mm3 BMP 04/19/25 13:43 Sodium 142 Potassium 3.7 Chloride 106 Carbon Dioxide 24.6 BUN 10 Creatinine 0.8 Glucose 117 H Calcium 9.2 Liver Function 04/19/25 Range/Units 13:43 Total Bilirubin 0.7 (0.3-1.2) mg/dL Direct Bilirubin 0.2 (0.0-0.3) mg/dL AST 25 (0-34) U/L ALT 14 (10-49) U/L Alkaline Phosphatase 132 H (46-116) U/L Albumin 4.5 (3.4-4.8) gm/dL Urine 04/19/25 Range/Units 17:05 Urine Color Yellow (Lt Yel-Yel) Urine Clarity Clear (Clear/Hazy) Urine pH 6.0 (5.0-7.0) Ur Specific [place] 1.024 (1.001-1.035) Urine Protein 1+ A (Neg - Trace) Urine Glucose (UA) Trace (Negative) Quality Measures Quality Measures VTE prophylaxis Advance care planning discussed with:: patient Medications Home Medications and Allergies Home Medications ?Medication ?Instructions ?Recorded ?Confirmed ?Type amlodipine 10 mg tablet (Norvasc) 10 mg PO QDAY #0 tabs 07/17/17 04/20/25 History pantoprazole 40 mg tablet,delayed 40 mg PO DAILY 11/10/18 04/20/25 History release gabapentin 600 mg tablet 600 mg PO TID 11/11/18 04/20/25 History duloxetine 60 mg capsule,delayed 30 mg PO DAILY 01/12/20 04/20/25 History release (Cymbalta) cyclobenzaprine 5 mg tablet 5 mg PO TID PRN Muscle Spasm 02/28/23 04/20/25 History avatrombopag 20 mg tablet 20 mg PO QDAY 04/20/25 04/20/25 History (Doptelet (10 tab pack)) duloxetine 30 mg capsule,delayed 30 mg PO QDAY 04/20/25 04/20/25 History release simvastatin 20 mg tablet (Zocor) 20 mg PO QDAY 04/20/25 04/20/25 History Allergies Allergy/AdvReac Type Severity Reaction Status Date / Time Penicillins Allergy Severe RASH Verified 01/15/25 14:30 Visit Medications Acetaminophen (Acetaminophen 325 Mg Tablet) 650 mg PO Q6H PRN PRN Reason: Fever >101.5 Stop: 05/19/25 21:50 Acetaminophen (Acetaminophen 325 Mg Tablet) 650 mg PO Q6H PRN PRN Reason: PAIN SCALE 1-3 (mild Stop: 05/19/25 21:50 Ciprofloxacin/Dextrose (Cipro Ivpb) 400 mg in 200 mls @ 200 mls/hr IV Q12HR JOYA Stop: 04/26/25 21:44 Last Admin: 04/19/25 22:41 Dose: Not Given Metronidazole (Flagyl 500 Mg Iv) 500 mg in 100 mls @ 200 mls/hr IV Q8HR JOYA Stop: 04/26/25 21:44 Morphine Sulfate (Morphine Sulf Inj 4 Mg/Ml Vial) 2 mg IVP Q4H PRN PRN Reason: Pain Scale 4-10 (Severe Stop: 04/24/25 21:50 Ondansetron HCl (Ondansetron Inj 2 Mg/Ml Inj 2 Ml) 4 mg IVP Q6H PRN; Protocol PRN Reason: NAUSEA OR VOMITING Stop: 05/19/25 21:50 Discontinued Medications Acetaminophen/Codeine Phosphate (Acetaminophen W/Cod 300-30 Tablet) 1 tab PO X1 ONE Stop: 04/19/25 13:01 Last Admin: 04/19/25 13:37 Dose: 1 tab Sodium Chloride (Ns) 1,000 mls @ 999 mls/hr IV .Q1H1M ONE Stop: 04/19/25 16:31 Last Infusion: 04/19/25 18:18 Dose: Infused Ceftriaxone Sodium/Dextrose (Rocephin/D5w 1gm Iv Premix) 1 gm in 50 mls @ 100 mls/hr IV X1 ONE Stop: 04/19/25 20:24 Last Infusion: 04/19/25 20:41 Dose: Infused Metronidazole (Flagyl 500 Mg Iv) 500 mg in 100 mls @ 100 mls/hr IV X1 ONE Stop: 04/19/25 20:54 Last Infusion: 04/19/25 20:41 Dose: Infused Ciprofloxacin/Dextrose (Cipro Ivpb) 400 mg in 200 mls @ 200 mls/hr IV X1 ONE Stop: 04/19/25 23:44 Last Admin: 04/19/25 22:43 Dose: 200 mls/hr Morphine Sulfate (Morphine Sulf Inj 4 Mg/Ml Vial) 4 mg IV X1 ONE Stop: 04/19/25 15:32 Last Admin: 04/19/25 17:05 Dose: 4 mg Ondansetron HCl (Ondansetron Odt 4 Mg Tabrap) 4 mg PO X1 ONE; Protocol Stop: 04/19/25 13:01 Last Admin: 04/19/25 13:36 Dose: 4 mg Ondansetron HCl (Ondansetron Inj 2 Mg/Ml Inj 2 Ml) 4 mg IVP X1 ONE; Protocol Stop: 04/19/25 15:32 Last Admin: 04/19/25 17:06 Dose: 4 mg Assessment & Plan Plan This is a 64-year-old female with past medical history of hypertension, hyperlipidemia, ITP presented to the ED with complaints of diarrhea, abdominal pain and nausea. She was admitted for findings suggestive of inflammatory versus ischemic small bowel. # Enteritis # R/O ischemic small bowel # Acute diarrhea with intractable abdominal pain 20 episodes of nonbloody diarrhea, severe cramping abdominal pain umbilical and left lumbar area. Diffusely tender and guarding on umbilical and left lumbar palpation WBC 22.3, ANC 16.1, CRP 5.1 CT abdomen showing thickening and edema of small bowel, significant mesenteric edema and moderate free fluid in pelvis DDx Crohn's versus ischemic small bowel. ?Given ceftriaxone and metronidazole, 1 L of NS in ED ?Starting on Ringer lactate at 75 cc/h for her diarrhea. ?Starting on antibiotic ciprofloxacin 400 mg every 12 hours and metronidazole 500 mg every 8 hours to cover gram-negative bacteremia ? IV morphine 2 mg every 4 hours for her severe abdominal pain ?N.p.o. as per Dr. Najera's orders. ?I talked with Dr. Najera and ordered another lab test around 1 AM on 04/20 to see how her labs are trending. ?IV Zofran 4 mg every 4 hours for nausea ?Follow-up with blood culture, stool studies, C. difficile studies # GERD Takes pantoprazole 40 mg at her home ?Continue to monitor # Elevated ALP Gallbladder showing sludge but no stones. ?Continue to monitor # Hx of ITP # History of shingles Continue her home medication gabapentin ?Continue to monitor Discussed this case with my senior Dr. Harp and my attending Dr.Alhalaibeh Ford Johnson MD PGY1 Attending Provider Attestation/Addendum After examination of the patient and review of the clinical data I feel that this patient needs admission to the hospital for further treatment/evaluation. Plan of care discussed with patient and is in agreement. I Aliyah Balderas MD, attest that I was physically present for park portions of evaluation, and examined patient, labs and imagings and plan of care were discussed with IM residents team, and I agree with the findings and plans documented above.
--- NOTE | 2025-04-20 00:21 | PC.NURSE ---
REPORT GIVEN TO FLOOR MASON ELENA
[2025-04-20] MEDS: ACETAMINOPHEN 325 MG TABLET 650 MG PO (00:58)
[2025-04-20] MEDS: RINGERS LACTATED 1000 ML 1,000 ML 75 ML IV ×2 (00:59→14:34)
[2025-04-20 01:42] LABS: Anion Gap 8 (7-16); BUN/Creatinine Ratio 13 Ratio (12-20); Blood Urea Nitrogen 9 mg/dL (9-23); Calcium 8.8 mg/dL (8.3-10.6); Carbon Dioxide 24.5 mMol/L (20.0-31.0); Chloride 107 mMol/L (98-107); Creatinine (Component) 0.7 mg/dL (0.6-1.3); Estimated Creatinine Clearance 78.6 mL/min (>60); Glucose 127 mg/dL (74-106); Osmolality,Calculated 278 (275-295); Potassium 3.6 mMol/L (3.4-5.1); Sodium 139 mMol/L (136-145); eGFR > 60 See Note
--- NOTE | 2025-04-20 04:36 | PC.NURSE ---
dr diaz notified of pt having occasional pac's. Pt is asymptomatic, no new orders at this time.
[2025-04-20] MEDS: metroNIDAZOLE/NS 500 MG IVPB 500 MG/100 ML BAG 200 MG IV ×3 (05:24→22:04)
[2025-04-20] MEDS: ONDANSETRON INJ 2 MG/ML INJ 2 ML 4 MG IVP ×2 (05:44→20:12)
[2025-04-20 06:33] LABS: Basophils # (Auto) 0.1 Thou/mm3 (0.0-0.2); Basophils % (Auto) 0 % (0-2.5); Eosinophils # (Auto) 0.0 Thou/mm3 (0.0-0.5); Eosinophils % (Auto) 0 % (0-10); Hematocrit 38.0 % (36.0-46.0); Hemoglobin 12.3 g/dL (12.0-16.0); Immature Granulocytes Auto 0.18 Thou/mm3 (0.00-0.00); Lymphocytes # (Auto) 1.9 Thou/mm3 (1.0-4.8); Lymphocytes % (Auto) 7 % (10-50); Mean Corpuscular HGB Conc 32.4 g/dl (31.0-37.0); Mean Corpuscular Hemoglobin 30.1 pg (25.0-35.0); Mean Corpuscular Volume 93 fL (80-100); Monocytes # (Auto) 3.0 Thou/mm3 (0.0-0.8); Monocytes % (Auto) 12 % (0-12); Neutrophils # (Auto) 20.1 Thou/mm3 (1.8-7.7); Neutrophils % (Auto) 80 % (37-80); Nucleated Red Blood Cell # 0.00 Thou/mm3 (0.00-0.00); Nucleated Red Blood Cell % 0 /100 WBC (0); Platelet Count 636 Thou/mm3 (140-440); RDW Standard Deviation 54.0 fL (36.4-46.3); Red Blood Count 4.09 Miln/mm3 (4.00-5.20); White Blood Count 25.2 Thou/mm3 (3.6-11.0)
[2025-04-20 06:41] LABS: INR 1.1 (0.9-1.3); Prothrombin Time 11.4 Seconds (9.0-12.2)
[2025-04-20 07:10] LABS: Alanine Aminotransferase 9 U/L (10-49); Albumin, Serum 3.9 gm/dL (3.4-4.8); Albumin/Globulin Ratio 2.3 (1.2-2.2); Alkaline Phosphatase 105 U/L (46-116); Anion Gap 12 (7-16); Aspartate Amino Transferase 16 U/L (0-34); BUN/Creatinine Ratio 13 Ratio (12-20); Bilirubin,Total 0.6 mg/dL (0.3-1.2); Blood Urea Nitrogen 9 mg/dL (9-23); Calcium 8.8 mg/dL (8.3-10.6); Calcium (Corrected) 8.9 mg/dL (8.5-10.1); Carbon Dioxide 22.9 mMol/L (20.0-31.0); Cardiac Risk Estimate 2.1 RATIO (3.7-5.6); Chloride 106 mMol/L (98-107); Cholesterol 192 mg/dL (132-200); Creatinine (Component) 0.7 mg/dL (0.6-1.3); Estimated Creatinine Clearance 78.6 mL/min (>60); Globulin 1.7 gm/dL (2.3-3.5); Glucose 112 mg/dL (74-106); HDL Cholesterol 90 mg/dL (40-60); LDL Cholesterol,Calculated 91 mg/dL (0-130); Magnesium 1.5 mg/dL (1.6-2.6); Osmolality,Calculated 280 (275-295); Phosphorous 3.0 mg/dL (2.4-5.1); Potassium 3.1 mMol/L (3.4-5.1); Sodium 141 mMol/L (136-145); Thyroid Stimulating Hormone 1.96 uIU/mL (0.55-4.78); Total Protein 5.6 gm/dL (5.7-8.2); Triglycerides 56 mg/dL (30-150); eGFR > 60 See Note
[2025-04-20] MEDS: PANTOPRAZOLE 40 MG TABLET PO (08:05)
[2025-04-20] MEDS: CIPROFLOXACIN/D5w 400 MG IVPB 400 MG/200 ML BAG 200 MG IV ×2 (08:08→20:12)
[2025-04-20] MEDS: DULoxetine HCL 30 MG CAPSULE PO (08:08)
[2025-04-20] MEDS: MORPHINE SULF INJ 4 MG/ML VIAL 2 MG IVP ×3 (08:09→20:26)
[2025-04-20] MEDS: POTASSIUM CHLORIDE 10% 20 MEQ/15 ML UDC 40 MEQ PO (09:37)
--- NOTE | 2025-04-20 10:56 | PD.IDPROG ---
Subjective Subjective Interval history: had tb yrs ago in [place]. was treated. imaging noted. no resp sx noted. only abd sx Exam Vital Signs Temp Pulse Resp BP Pulse Ox O2 Del Method 96.9 F 86 18 136/88 H 95 Room Air 04/20/25 08:00 04/20/25 08:00 04/20/25 08:00 04/20/25 08:00 04/20/25 08:00 04/20/25 08:00 Narrative Exam exam benign. no resp findings. abd benign. Objective - Internal Medicine Labs 04/20/25 04:43 04/20/25 04:43 Labs: Laboratory Results - last 24 hr 04/19/25 04/19/25 04/19/25 13:43 15:50 17:05 WBC 20.3 H RBC 4.42 Hgb 12.9 Hct 40.6 MCV 92 MCH 29.2 MCHC 31.8 RDW Std Deviation 53.1 H Plt Count 675 H Neut % (Auto) 79 Lymph % (Auto) 8 L [place] % (Auto) 12 Eos % (Auto) 0 Baso % (Auto) 0 Neut # (Auto) 16.1 H Lymph # (Auto) 1.7 [place] # (Auto) 2.5 H Eos # (Auto) 0.0 Baso # (Auto) 0.1 Immature Gran # (Auto) 0.09 H Absolute Nucleated RBC 0.00 Immature Gran % 0 Nucleated RBC % 0 ESR 26 PT INR Sodium 142 Potassium 3.7 Chloride 106 Carbon Dioxide 24.6 Anion Gap 11 BUN 10 Creatinine 0.8 Estim Creat Clear Calc 67.5 eGFR > 60 BUN/Creatinine Ratio 13 Glucose 117 H Calculated Osmolality 283 Lactic Acid 1.6 Calcium 9.2 Corrected Calcium 9.2 Phosphorus Magnesium 1.6 Total Bilirubin 0.7 Direct Bilirubin 0.2 AST 25 ALT 14 Alkaline Phosphatase 132 H C-Reactive Prot, Quant 5.1 H B-Natriuretic Peptide 66 Total Protein 6.5 Albumin 4.5 Globulin 2.0 L Albumin/Globulin Ratio 2.3 H Triglycerides Cholesterol LDL Cholesterol, Calc HDL Cholesterol Cholesterol/HDL Ratio Amylase 37 Lipase 22 Procalcitonin 0.15 TSH Ur Collection Type Clean Catch Urine Color Yellow Urine Clarity Clear Urine pH 6.0 Ur Specific [place] 1.024 Urine Protein 1+ A Urine Glucose (UA) Trace Urine Ketones Trace Urine Blood 1+ A Urine Nitrite Negative Urine Bilirubin Negative Urine Urobilinogen (Auto) Negative Ur Leukocyte Esterase Positive Urine RBC 9 H Urine WBC 8 H Ur Squamous Epith Cells 6 H Urine Bacteria None Hyaline Casts < 1 Ur Culture Indicated? Not Indicated Influenza A (Rapid) Influenza B (Rapid) 04/19/25 04/19/25 04/20/25 17:40 20:20 01:12 WBC RBC Hgb Hct MCV MCH MCHC RDW Std Deviation Plt Count Neut % (Auto) Lymph % (Auto) [place] % (Auto) Eos % (Auto) Baso % (Auto) Neut # (Auto) Lymph # (Auto) [place] # (Auto) Eos # (Auto) Baso # (Auto) Immature Gran # (Auto) Absolute Nucleated RBC Immature Gran % Nucleated RBC % ESR 19 PT INR Sodium 139 Potassium 3.6 Chloride 107 Carbon Dioxide 24.5 Anion Gap 8 BUN 9 Creatinine 0.7 Estim Creat Clear Calc 78.6 eGFR > 60 BUN/Creatinine Ratio 13 Glucose 127 H Calculated Osmolality 278 Lactic Acid 1.1 Calcium 8.8 Corrected Calcium Phosphorus Magnesium Total Bilirubin Direct Bilirubin AST ALT Alkaline Phosphatase C-Reactive Prot, Quant B-Natriuretic Peptide Total Protein Albumin Globulin Albumin/Globulin Ratio Triglycerides Cholesterol LDL Cholesterol, Calc HDL Cholesterol Cholesterol/HDL Ratio Amylase Lipase Procalcitonin TSH Ur Collection Type Urine Color Urine Clarity Urine pH Ur Specific [place] Urine Protein Urine Glucose (UA) Urine Ketones Urine Blood Urine Nitrite Urine Bilirubin Urine Urobilinogen (Auto) Ur Leukocyte Esterase Urine RBC Urine WBC Ur Squamous Epith Cells Urine Bacteria Hyaline Casts Ur Culture Indicated? Influenza A (Rapid) Negative Influenza B (Rapid) Negative 04/20/25 04:43 WBC 25.2 H RBC 4.09 Hgb 12.3 Hct 38.0 MCV 93 MCH 30.1 MCHC 32.4 RDW Std Deviation 54.0 H Plt Count 636 H D Neut % (Auto) 80 Lymph % (Auto) 7 L [place] % (Auto) 12 Eos % (Auto) 0 Baso % (Auto) 0 Neut # (Auto) 20.1 H Lymph # (Auto) 1.9 [place] # (Auto) 3.0 H Eos # (Auto) 0.0 Baso # (Auto) 0.1 Immature Gran # (Auto) 0.18 H Absolute Nucleated RBC 0.00 Immature Gran % 1 H Nucleated RBC % 0 ESR PT 11.4 INR 1.1 Sodium 141 Potassium 3.1 L D Chloride 106 Carbon Dioxide 22.9 Anion Gap 12 BUN 9 Creatinine 0.7 Estim Creat Clear Calc 78.6 eGFR > 60 BUN/Creatinine Ratio 13 Glucose 112 H Calculated Osmolality 280 Lactic Acid Calcium 8.8 Corrected Calcium 8.9 Phosphorus 3.0 Magnesium 1.5 L Total Bilirubin 0.6 Direct Bilirubin AST 16 ALT 9 L Alkaline Phosphatase 105 D C-Reactive Prot, Quant B-Natriuretic Peptide Total Protein 5.6 L Albumin 3.9 D Globulin 1.7 L Albumin/Globulin Ratio 2.3 H Triglycerides 56 Cholesterol 192 LDL Cholesterol, Calc 91 HDL Cholesterol 90 H Cholesterol/HDL Ratio 2.1 L Amylase Lipase Procalcitonin TSH 1.96 Ur Collection Type Urine Color Urine Clarity Urine pH Ur Specific [place] Urine Protein Urine Glucose (UA) Urine Ketones Urine Blood Urine Nitrite Urine Bilirubin Urine Urobilinogen (Auto) Ur Leukocyte Esterase Urine RBC Urine WBC Ur Squamous Epith Cells Urine Bacteria Hyaline Casts Ur Culture Indicated? Influenza A (Rapid) Influenza B (Rapid) Assessment & Plan A&P Narrative old tb treated yrs ago in [place] abd sx only at this time if cx neg then po rx ok as soon as 48hr after admit. will see wednesday if still here. diarrhea, resolved per pt. Time Spent With Patient Time: Total time spent is greater than 50% in coordination of care (as documented) at patient's floor/unit and/or counseling patient:
--- NOTE | 2025-04-20 11:10 | PC.SS ---
Liz Johnson is a 64-year-old female admitted to [facility] for Diarrhea. SS conducted bedside contact with the patient to complete initial assessment and to discuss discharge planning. Role and reason explained. Patient confirmed demographic information. Patient identifies son Gato Johnson [phone] as her surrogate decision maker. Pt states she is able to complete all ADL?s independently. No need for DME. Pts PCP Dr. Lopez (last visit was 2 weeks ago). Pharmacy of choice is [facility]. Discharge options discussed and the pt wishes to return home.? Family will provide transportation upon DC. No further intervention required at this time, social studies department chair would be available to address any further concerns. DC Plan: Home Contact: Son Address: Confirmed on face sheet PCP: John
--- NOTE | 2025-04-20 12:32 | ESCONSULT_ITS ---
HPI Data of Consult Requesting Physician: Aliyah Balderas MD Admitting Provider: Aliyah Balderas MD Attending Provider: Aliyah Balderas MD Primary Care Provider: Hina Lopez NP Consult Narrative Reason for consult: abdominal pain History of present illness: Ms. Johnson is a 64-year-old woman with past medical history of hypertension, hyperlipidemia, ITP (Followed by remy and alexandra de paz), presented to the ED with complaints of diarrhea, abdominal pain and nausea. She has been having nonbloody diarrhea approximately 20 +episodes going on for 2 days associated with severe abdominal pain that started after dinner. She she describes pain as pressure rather than cramping-esque in the umbilical and lower abdomen. Last BM 04/19 @ 7 PM (described as watery) ROS She endorses nausea but denies any vomiting, melena, chest pain, chest tightness, shortness of breath, urinary frequency, urgency, any travel, any outside food intake. ( she reports having chicken with chile for lunch ) Past medical and surgical history: History of breast cancer and underwent lumpectomy, history of pituitary mass and underwent removal, splenectomy, appendectomy, shingles takes gabapentin, GERD takes pantoprazole 40 mg every day Allergy history: Allergic to penicillin gets hives around her neck when she takes 20 Social history: Denies alcohol, smoking or any other drug usage Family history: Noncontributory ED Course Today ED visit vitals: Initial BP 126/78, MI 158, respiratory rate 18, temperature 98F, saturating 98% on room air. Pertinent lab findings are leukocytosis which WBC 20.3, platelets 675, absolute neutrophil count 16.1, ALP 132, C-reactive protein 5.1, lactic acid normal urine leukocyte esterase positive, urine WBC 8. Imaging findings CT abdomen marked thickening and edema of small bowel, significant mesenteric edema and moderate free fluid in pelvis DDx Crohn's versus ischemic small bowel Ultrasound of gallbladder?gallbladder sludge and borderline thickening of gallbladder wall. Chest x-ray showing suspicious for early signs of pneumonia in the left base . cc:: cc: Aliyah Balderas MD Exam Vital Signs Temp Pulse Resp BP Pulse Ox O2 Del Method 96.9 F 86 18 136/88 H 95 Room Air 04/20/25 08:00 04/20/25 08:00 04/20/25 08:00 04/20/25 08:00 04/20/25 08:00 04/20/25 08:00 Narrative Exam GENERAL: no acute distress, AAO x3, comfortably laying in bed HEENT: Head AT/ NC. Mucous membranes moist. PERRL. NECK: Supple, no lymphadenopathy, no carotid bruits. CARDIOVASCULAR: RRR. Normal S1/S2, No m/r/g. trace edema lower extremities RESPIRATORY: CTAB. No wheezing, rhonchi, crackles. GASTROINTESTINAL: Abdomen moderately obese, firm but soft, non tender no palpable masses. Bowel sounds present, Lower and mid epigastric tenderness. no reboud no guarding. MUSCULOSKELETAL:? No cyanosis or edema, no visible joint swelling. NEUROLOGICAL: CN II-XII grossly intact. No focal deficits. Sensation intact, symmetric. PSYCHIATRIC: Awake and alert, not agitated, normal mood and affect. SKIN: No obvious rashes, no jaundice, normal turgor, no abnormal bruising noted on visual inspection. Results Labs 04/20/25 04:43 04/20/25 04:43 Labs: Short CBC 04/19/25 04/20/25 Range/Units 13:43 04:43 WBC 20.3 H 25.2 H (3.6-11.0) Thou/mm3 Hgb 12.9 12.3 (12.0-16.0) g/dL Hct 40.6 38.0 (36.0-46.0) % Plt Count 675 H 636 H D (140-440) Thou/mm3 BMP 04/19/25 04/20/25 04/20/25 13:43 01:12 04:43 Sodium 142 139 141 Potassium 3.7 3.6 3.1 L D Chloride 106 107 106 Carbon Dioxide 24.6 24.5 22.9 BUN 10 9 9 Creatinine 0.8 0.7 0.7 Glucose 117 H 127 H 112 H Calcium 9.2 8.8 8.8 Liver Function 04/19/25 04/20/25 Range/Units 13:43 04:43 Total Bilirubin 0.7 0.6 (0.3-1.2) mg/dL Direct Bilirubin 0.2 (0.0-0.3) mg/dL AST 25 16 (0-34) U/L ALT 14 9 L (10-49) U/L Alkaline Phosphatase 132 H 105 D (46-116) U/L Albumin 4.5 3.9 D (3.4-4.8) gm/dL Urine 04/19/25 Range/Units 17:05 Urine Color Yellow (Lt Yel-Yel) Urine Clarity Clear (Clear/Hazy) Urine pH 6.0 (5.0-7.0) Ur Specific [place] 1.024 (1.001-1.035) Urine Protein 1+ A (Neg - Trace) Urine Glucose (UA) Trace (Negative) Quality Measures Quality Measures VTE prophylaxis Advance care planning discussed with:: patient Medications Home Medications and Allergies Home Medications ?Medication ?Instructions ?Recorded ?Confirmed ?Type amlodipine 10 mg tablet (Norvasc) 10 mg PO QDAY #0 tab s 07/17/17 04/20/25 History pantoprazole 40 mg tablet,delayed 40 mg PO DAILY 11/1004/20/25 History release gabapentin 600 mg tablet 600 mg PO TID 11/11/1804/20 History duloxetine 60 mg capsule,delayed 30 mg PO DAILY 04/20/25 History release (Cymbalta) cyclobenzaprine 5 mg tablet 5 mg PO TID PRN [place] [place] sm 02/28/23 04/20/25 History avatrombopag 20 mg tablet 20 mg PO QDAY 04/20/2504/20 History (Doptelet (10 tab pack)) duloxetine 30 mg capsule,delayed 30 mg PO QDAY 5 04/20/25 History release simvastatin 20 mg tablet (Zocor) 20 mg PO QDAY 5 04/20/25 History Allergies Allergy/AdvReac Type Severity Reaction Status Date / Time Penicillins Allergy Severe RASH Verified 01/15/25 14:30 Visit Medications Acetaminophen (Acetaminophen 325 Mg Tablet) 650 mg PO Q6H PRN PRN Reason: Fever >101.5 Stop: 05/19/25 21:50 Acetaminophen (Acetaminophen 325 Mg Tablet) 650 mg PO Q6H PRN PRN Reason: PAIN SCALE 1-3 (mild Stop: 05/19/25 21:50 Last Admin: 04/20/25 00:58 Dose: 650 mg Amlodipine Besylate (Amlodipine Besylate 5 Mg Tablet) 10 mg PO QDAY JOYA Stop: 05/20/25 08:59 Last Admin: 04/20/25 08:08 Dose: Not Given Atorvastatin Calcium (Atorvastatin Calcium 10 Mg Tablet) 10 mg PO QDAY [facility]; Protocol Stop: 05/20/25 08:59 Last Admin: 04/20/25 08:08 Dose: Not Given Cyclobenzaprine HCl (Cyclobenzaprine 5 Mg Tablet) 5 mg PO TID PRN PRN Reason: Muscle Spasm Stop: 05/20/25 02:46 Duloxetine HCl (Duloxetine Hcl 30 Mg Capsule) 30 mg PO DAILY [facility] Stop: 05/20/25 08:59 Last Admin: 04/20/25 08:08 Dose: 30 mg Gabapentin (Gabapentin 300 Mg Capsule) 600 mg PO TID [facility] Stop: 05/20/25 05:59 Last Admin: 04/20/25 05:22 Dose: Not Given Metronidazole (Flagyl 500 Mg Iv) 500 mg in 100 mls @ 200 mls/hr IV Q8HR [facility] Stop: 04/27/25 05:59 Last Admin: 04/20/25 05:24 Dose: 200 mls/hr Lactated Ringer's (Lactated Ringers) 1,000 mls @ 75 mls/hr IV .[id number] [facility] Stop: 04/21/25 03:23 Last Admin: 04/20/25 00:59 Dose: 75 mls/hr Ciprofloxacin/Dextrose (Cipro Ivpb) 400 mg in 200 mls @ 200 mls/hr IV Q12HR [facility] Stop: 04/27/25 08:59 Last Admin: 04/20/25 08:08 Dose: 200 mls/hr Morphine Sulfate (Morphine Sulf Inj 4 Mg/Ml Vial) 2 mg IVP Q4H PRN PRN Reason: Pain Scale 4-10 (Severe Stop: 04/24/25 21:50 Last Admin: 04/20/25 08:09 Dose: 2 mg Ondansetron HCl (Ondansetron Inj 2 Mg/Ml Inj 2 Ml) 4 mg IVP Q6H PRN; Protocol PRN Reason: NAUSEA OR VOMITING Stop: 05/19/25 21:50 Last Admin: 04/20/25 05:44 Dose: 4 mg Pantoprazole Sodium (Pantoprazole 40 Mg Tablet) 40 mg PO DAILY [facility] Stop: 05/20/25 08:59 Last Admin: 04/20/25 08:05 Dose: 40 mg Discontinued Medications Acetaminophen/Codeine Phosphate (Acetaminophen W/Cod 300-30 Tablet) 1 tab PO X1 ONE Stop: 04/19/25 13:01 Last Admin: 04/19/25 13:37 Dose: 1 tab Sodium Chloride (Ns) 1,000 mls @ 999 mls/hr IV .Q1H1M ONE Stop: 04/19/25 16:31 Last Infusion: 04/19/25 18:18 Dose: Infused Ceftriaxone Sodium/Dextrose (Rocephin/D5w 1gm Iv Premix) 1 gm in 50 mls @ 100 mls/hr IV X1 ONE Stop: 04/19/25 20:24 Last Infusion: 04/19/25 20:41 Dose: Infused Metronidazole (Flagyl 500 Mg Iv) 500 mg in 100 mls @ 100 mls/hr IV X1 ONE Stop: 04/19/25 20:54 Last Infusion: 04/19/25 20:41 Dose: Infused Ciprofloxacin/Dextrose (Cipro Ivpb) 400 mg in 200 mls @ 200 mls/hr IV Q12HR JOYA Stop: 04/26/25 21:44 Last Admin: 04/19/25 22:41 Dose: Not Given Ciprofloxacin/Dextrose (Cipro Ivpb) 400 mg in 200 mls @ 200 mls/hr IV X1 ONE Stop: 04/19/25 23:44 Last Infusion: 04/20/25 00:12 Dose: Infused Morphine Sulfate (Morphine Sulf Inj 4 Mg/Ml Vial) 4 mg IV X1 ONE Stop: 04/19/25 15:32 Last Admin: 04/19/25 17:05 Dose: 4 mg Non-Formulary Medication (Avatrombopag [Doptelet (10 Tab Pack)]) 20 mg PO QDAY JOYA Stop: 05/20/25 08:59 Ondansetron HCl (Ondansetron Odt 4 Mg Tabrap) 4 mg PO X1 ONE; Protocol Stop: 04/19/25 13:01 Last Admin: 04/19/25 13:36 Dose: 4 mg Ondansetron HCl (Ondansetron Inj 2 Mg/Ml Inj 2 Ml) 4 mg IVP X1 ONE; Protocol Stop: 04/19/25 15:32 Last Admin: 04/19/25 17:06 Dose: 4 mg Potassium Chloride (Potassium Chloride 20 Meq Tabcr) 40 meq PO X1 ONE Stop: 04/20/25 08:54 Last Admin: 04/20/25 09:38 Dose: 40 meq Potassium Chloride (Potassium Chloride 10% 20 Meq/15 Ml Udc) 40 meq PO X1 ONE Stop: 04/20/25 08:54 Last Admin: 04/20/25 09:37 Dose: 40 meq Sodium Chloride (Sodium Chloride Rt 10% 15 Ml Nebu) 5 ml INH X1 ONE Stop: 04/20/25 10:16 Assessment & Plan Plan Ms. Johnson is a 64 year old woman with a hx of hypertension, hyperlipidemia, ITP (followed by Remy and Alexandra de paz) presented to the ED with complaints of diarrhea, abdominal pain and nausea. She has been having nonbloody diarrhea approximately 20 episodes going on for 2 days associated with severe abdominal pain, found to have leukocytosis uptrending to 25, ESR downtrending, and CTAP with thickening of small bowel and mesenteric edema c/f crohns vs ischemic small bowel. abdominal pain improving with fasting. #? Infectious diarrhea #? Ischemic small bowel vs Inflammatory (less likely) vs diverticulitis consider unit secretary vs osmotic diarrhea etiologies, consider medication induced 20 episodes of nonbloody diarrhea, severe cramping abdominal pain umbilical and left lumbar area, now improved with fasting mildly tender and no guarding on umbilical and left lumbar palpation, patient had large diverticulas on 2018 colonoscopy, no blood in the stool however. 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 Given ceftriaxone and metronidazole, 1 L of NS in ED - IV Fluids - IV abx (cipro - IV zofran for nausea - Follow-up with blood culture, stool studies, C. difficil studies - calprotectin (send out) - continue to monitor wbc, and hold off on colonoscopy at this time, favor infectious etiology - clear liquid diet #Hx of TB, ID consulted (not active infection) #GERD #Elevated ALP #?Cholecystitis # ITP # Hypomagnesemia, hypokalemia #urinary incontinence s/p sling (follows with donald) - managment per primary team. Plan discussed with Dr. Reinaldo Holt MD PGY1 Attending Provider Attestation/Addendum Patient evaluated laboratory data and imaging studies reviewed Went over the findings of my internal medicine resident Differential diagnosis include infectious enterocolitis versus inflammatory bowel disease unlikely small bowel ischemia because of the normal bicarbonate and no evidence of any lactic acidosis Patient improving on broad-spectrum antibiotics Hold off doing any invasive GI workup at the moment Will continue to follow Advance to clear liquid diet Complete stool analysis Thank you very much for the opportunity to participate in the care of this patient
--- NOTE | 2025-04-20 13:06 | ESCONSULT_ITS ---
RE: STACY KELLY : 1960 DATE OF CONSULTATION: 04/20/2025 REFERRING PHYSICIAN: Aliyah Balderas MD REASON FOR CONSULTATION: History of TB and with nausea, vomiting, and diarrhea. HISTORY OF PRESENT ILLNESS: There are no other health problems. She has history of TB about 40 years ago when in [place] and was treated there. She has a positive QuantiFERON from a couple of weeks ago. Not sure why it was done. She is 7 para 4. QuantiFERONs stay positive for life so repeating the test is usually a waste of time. So if someone has been treated previously for TB, we do not usually retreat them. QuantiFERONs are not expected to become negative. PAST SURGICAL HISTORY: Includes prior appendectomy and prior . ALLERGIES: PENICILLIN. IMMUNIZATIONS: Last tetanus is about a couple of years ago. She does take a flu shot every year. She has had 4 COVID vaccines and has had pneumococcal vaccination at 63 years of age. FAMILY HISTORY: Noncontributory. SOCIAL HISTORY: She lives at home with her and possibly a son. There is no alcohol or tobacco use at home. PHYSICAL EXAMINATION: The general exam is benign. The patient has a benign abdomen. She does report some diarrhea that seems to have abated. And there is no findings noted otherwise. Rest of her exam is benign. ASSESSMENT: Nonspecific abdominal pain with history of diarrhea that has resolved and leukocytosis. RECOMMENDATIONS: The patient can be transitioned to oral therapy once blood cultures are negative for 48 hours. Usually, we wait about 48 hours on those. If they are negative then I would go ahead but please note that the QuantiFERON will stay positive for life, so repeating that further does not make much sense and there is no need for me to see her in clinic. Her chest imaging is benign. She has no respiratory symptoms. There is no cough or hemoptysis. Her abdominal pain and other symptoms do not seem to be related to any signs of abdominal TB. DT: 11:19:46 TT: 12:08:00 Ref: [id number] - TID: [id number] MTDD
[2025-04-20] MEDS: GABAPENTIN 300 MG CAPSULE 600 MG PO (14:19)
--- NOTE | 2025-04-20 14:28 | PC.NURSE ---
Patient refusing all PO meds since this morning. She is okay with pain medication because its through the vein
--- NOTE | 2025-04-20 14:35 | PC.SS ---
Rounding: Pending colonoscopy, and [place] consult/reccs, on IV ABX
[2025-04-20] MEDS: SODIUM CHLORIDE RT 10% 15 ML NEBU 5 ML INH ×2 (14:54→21:15)
--- NOTE | 2025-04-20 16:41 | PD.RESPRO ---
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 Patient examinded at bedside note to have diffuse abdominal tenderness 5/10. Patient deneid hematochezia or melena in stool. 10 episodes of watery diarrhea over the last two days. Antibiotic use 1 month ago for UTI. Denied history of Crohns or UC disease but given history of auto-immune disease can not be ruled out. denied eating undercook chicken. Patient denied chest pain or shortness of breath. Keep patinet NPO. Pending gastroenterology final recommendations. Exam Vital Signs Temp Pulse Resp BP Pulse Ox O2 Del Method 97.2 F 74 18 144/90 H 99 Room Air 04/20/25 12:00 04/20/25 14:55 04/20/25 14:55 04/20/25 12:00 04/20/25 14:55 04/20/25 12:00 Narrative Exam General Appearance: Alert & Oriented X3, well-nourished female who is lying in bed in no acute distress HEENT: Skull symmetrical and atraumatic. Conjunctivae pin and moist. Pupils equal, round, reactive to light and accommodation (PERRL). External ear without lesion or discharge. Straight, nares patient, mucosa pink, no discharge. No thyroid nodule appreciated. No cervical lymphadenopathy. Cardio: Normal Rate and Rhythm with S1 and S2 heart sounds. No murmurs or extra heart sounds auscultated. No bruits on carotid auscultation. No peripheral edema or cyanosis. Lungs: Symmetric with good expansion. Chest and back non-tender. Breath sounds vesicular without crackles, wheezing or rhonchi Abdomen: Diffuse mild tenderness w/ guarding specifically in left lower quadrant, non distended, and hypoactive bowel sounds. Neuro: Alert, cooperative, oriented to person, place, and time. Speech clear. CN grossly intact. Upper motor strength 5/5 and Lower motor strength 5/5. Sensation intact. Objective Labs 04/21/25 05:44 04/21/25 05:44 Labs: Laboratory Results - last 24 hr 04/19/25 04/19/25 04/19/25 15:50 17:05 17:40 WBC RBC Hgb Hct MCV MCH MCHC RDW Std Deviation Plt Count Neut % (Auto) Lymph % (Auto) [place] % (Auto) Eos % (Auto) Baso % (Auto) Neut # (Auto) Lymph # (Auto) [place] # (Auto) Eos # (Auto) Baso # (Auto) Immature Gran # (Auto) Absolute Nucleated RBC Immature Gran % Nucleated RBC % ESR PT INR Sodium Potassium Chloride Carbon Dioxide Anion Gap BUN Creatinine Estim Creat Clear Calc eGFR BUN/Creatinine Ratio Glucose Calculated Osmolality Lactic Acid Calcium Corrected Calcium Phosphorus Magnesium Total Bilirubin AST ALT Alkaline Phosphatase C-Reactive Prot, Quant 5.1 H Total Protein Albumin Globulin Albumin/Globulin Ratio Triglycerides Cholesterol LDL Cholesterol, Calc HDL Cholesterol Cholesterol/HDL Ratio Procalcitonin 0.15 TSH Ur Collection Type Clean Catch Urine Color Yellow Urine Clarity Clear Urine pH 6.0 Ur Specific [place] 1.024 Urine Protein 1+ A Urine Glucose (UA) Trace Urine Ketones Trace Urine Blood 1+ A Urine Nitrite Negative Urine Bilirubin Negative Urine Urobilinogen (Auto) Negative Ur Leukocyte Esterase Positive Urine RBC 9 H Urine WBC 8 H Ur Squamous Epith Cells 6 H Urine Bacteria None Hyaline Casts < 1 Ur Culture Indicated? Not Indicated Influenza A (Rapid) Negative Influenza B (Rapid) Negative 04/19/25 04/20/25 04/20/25 20:20 01:12 04:43 WBC 25.2 H RBC 4.09 Hgb 12.3 Hct 38.0 MCV 93 MCH 30.1 MCHC 32.4 RDW Std Deviation 54.0 H Plt Count 636 H D Neut % (Auto) 80 Lymph % (Auto) 7 L [place] % (Auto) 12 Eos % (Auto) 0 Baso % (Auto) 0 Neut # (Auto) 20.1 H Lymph # (Auto) 1.9 [place] # (Auto) 3.0 H Eos # (Auto) 0.0 Baso # (Auto) 0.1 Immature Gran # (Auto) 0.18 H Absolute Nucleated RBC 0.00 Immature Gran % 1 H Nucleated RBC % 0 ESR 19 PT 11.4 INR 1.1 Sodium 139 141 Potassium 3.6 3.1 L D Chloride 107 106 Carbon Dioxide 24.5 22.9 Anion Gap 8 12 BUN 9 9 Creatinine 0.7 0.7 Estim Creat Clear Calc 78.6 78.6 eGFR > 60 > 60 BUN/Creatinine Ratio 13 13 Glucose 127 H 112 H Calculated Osmolality 278 280 Lactic Acid 1.1 Calcium 8.8 8.8 Corrected Calcium 8.9 Phosphorus 3.0 Magnesium 1.5 L Total Bilirubin 0.6 AST 16 ALT 9 L Alkaline Phosphatase 105 D C-Reactive Prot, Quant Total Protein 5.6 L Albumin 3.9 D Globulin 1.7 L Albumin/Globulin Ratio 2.3 H Triglycerides 56 Cholesterol 192 LDL Cholesterol, Calc 91 HDL Cholesterol 90 H Cholesterol/HDL Ratio 2.1 L Procalcitonin TSH 1.96 Ur Collection Type Urine Color Urine Clarity Urine pH Ur Specific [place] Urine Protein Urine Glucose (UA) Urine Ketones Urine Blood Urine Nitrite Urine Bilirubin Urine Urobilinogen (Auto) Ur Leukocyte Esterase Urine RBC Urine WBC Ur Squamous Epith Cells Urine Bacteria Hyaline Casts Ur Culture Indicated? Influenza A (Rapid) Influenza B (Rapid) Quality Measures Quality Measures VTE prophylaxis Advance care planning discussed with:: patient Assessment & Plan Assessment Current Active Medications: Generic Name Dose Route Start Last Admin Trade Name Freq PRN Reason Stop Dose Admin Acetaminophen 650 mg 04/19/25 21:51 Acetaminophen 325 Mg Tablet PO 05/19/25 21:50 Q6H PRN Fever >101.5 Acetaminophen 650 mg 04/19/25 21:51 04/20/25 00:58 Acetaminophen 325 Mg Tablet PO 05/19/25 21:50 650 mg Q6H PRN Administration PAIN SCALE 1-3 (mild Amlodipine Besylate 10 mg 04/20/25 09:00 04/20/25 08:08 Amlodipine Besylate 5 Mg Tablet PO 05/20/25 08:59 Not Given QDAY JOYA Atorvastatin Calcium 10 mg 04/20/25 09:00 04/20/25 08:08 Atorvastatin Calcium 10 Mg Tablet PO 05/20/25 08:59 Not Given QDAY [facility] Protocol Cyclobenzaprine HCl 5 mg 04/20/25 02:47 Cyclobenzaprine 5 Mg Tablet PO 05/20/25 02:46 TID PRN Muscle Spasm Duloxetine HCl 30 mg 04/20/25 09:00 04/20/25 08:08 Duloxetine Hcl 30 Mg Capsule PO 05/20/25 08:59 30 mg DAILY JOYA Administration Gabapentin 600 mg 04/20/25 06:00 04/20/25 14:19 Gabapentin 300 Mg Capsule PO 05/20/25 05:59 600 mg TID JOYA Administration Metronidazole 500 mg in 100 mls @ 200 mls/hr 04/20/25 06:00 04/20/25 14:19 Flagyl 500 Mg Iv IV 04/27/25 05:59 200 mls/hr Q8HR JOYA Administration Lactated Ringer's 1,000 mls @ 75 mls/hr 04/20/25 00:44 04/20/25 14:34 Lactated Ringers IV 04/21/25 03:23 75 mls/hr .[id number] JOYA Administration Ciprofloxacin/Dextrose 400 mg in 200 mls @ 200 mls/hr 04/20/25 09:00 04/20/25 08:08 Cipro Ivpb IV 04/27/25 08:59 200 mls/hr Q12HR JOYA Administration Morphine Sulfate 2 mg 04/19/25 21:51 04/20/25 14:33 Morphine Sulf Inj 4 Mg/Ml Vial IVP 04/24/25 21:50 2 mg Q4H PRN Administration Pain Scale 4-10 (Severe Ondansetron HCl 4 mg 04/19/25 21:51 04/20/25 05:44 Ondansetron Inj 2 Mg/Ml Inj 2 Ml IVP 05/19/25 21:50 4 mg Q6H PRN Administration NAUSEA OR VOMITING Protocol Pantoprazole Sodium 40 mg 04/20/25 09:00 04/20/25 08:05 Pantoprazole 40 Mg Tablet PO 05/20/25 08:59 40 mg DAILY JOYA Administration Plan Patient is a 64 year old female who was admitted overnight with past medical history of Hypertension, hyperlipidemia, history Immune Thrombocytopenia s/p splenectomy, Raynaud's Disease w/ peripheral neuropathy, GERD, history of diverticulosis, 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 #Enteritis #Diarrhea #Leukocytosis #Infractable Abdominal Pain #Diffuse Edema of Small Loops #hx of Diveritculosis Patient presented with inflammation of the small bowel loops with 20 episodes of nonbloody diarrhea over the last two days. Paitent denied blood in stool. Concern for infectious process given elevated leukocytosis vs inflammatory bowel disease given history of autoimmune disease vs malignancy vs ischemic bowel less likely as physical exam was not out of porportion and lactic acid within normal limits WBC 22.3, ANC 16.1, CRP 5.1 CT abdomen showing thickening and edema of small bowel, significant mesenteric edema and moderate free fluid in pelvis PLan: ?N.p.o. per recommendation of Gastroenteroloy -ceftriaxone and metronidazole, 1 L of NS in ED 04/19/2025 -Ciprofloxacin 400 mg BID and Metronidazole 500 mg TID IV 04/20/2025 ? IV morphine 2 mg every 4 hours for her severe abdominal pain ?IV Zofran 4 mg every 4 hours for nausea ?Follow-up with blood culture, stool studies, C. difficile studies -Gastroenterology consulted, appreciate recommendations, Dr. Najera. # GERD Takes pantoprazole 40 mg at her home ?Continue to monitor # Elevated ALP Less likely secondary to cholectystisis and given inflammation likely reactive Plan ?Continue to monitor AST/ALP # ITP s/p splenectomy ?Continue to monitor #Raynaud's Disease w/ peripheral neuropathy Patient has a past medical of raynaud's plan -Continue Gabapentin 600 mg TID - The patient's plan was discussed with attending Dr. Mike Salmeron MD PGY2 Internal Medicine Attending Provider Attestation/Addendum I have seen and examined the patient. I was physically present for the park portions of the services provided including history, physical exam, diagnosis, treatment plans and orders. I agree with assessment and plan of care as documented by residents. Patient is a 64 years old female with past medical history of hypertension, hyperlipidemia, ITP who presented to the ED with complaint of diarrhea, abdominal pain and nausea. She was then admitted overnight for management of enteritis, rule out ischemic small bowel, intractable abdominal pain and diarrhea. At bedside this morning, patient states that she continues to have abdominal pain. She has been having more than 10 episodes of watery diarrhea over the last 2 days, had antibiotic use 1 month ago. Continues to be on IV ceftriaxone and metronidazole. Gastroenterology following closely, patient had colonoscopy done in 12/2018 with large diverticulitis and large hemorrhoids, recommended to continue with IV fluid, IV antibiotic and follow-up on stool studies. Patient initially was n.p.o., later on started on clear liquid diet. Antiemetics on board. Even though this this note was carefully revised there may still be minor errors in dx board operator due to voice recognition software. Bryce Mckeon MD
--- NOTE | 2025-04-20 17:18 | PC.NURSE ---
Patient has had no bowel movements while on my shift. I will hand off the specimen collection to power and recovery shift engineer RN and notify them of AF[employer] sputum checks.
[2025-04-20 21:29] LABS: Sed Rate (ESR) 33 mm/hr (0-30)
--- NOTE | 2025-04-20 21:30 | PC.RT ---
Sptum indcution attempted using hypertonic 10% 5ml. Tx given but pt could not produce sputum
[2025-04-20 23:01] LABS: C-Reactive Protein 21.3 mg/dL (0.0-0.9)
[2025-04-21] VITALS (8 sets, daily range): BP systolic 127–146; BP diastolic 65–99; PULSE 84–124; RESP 16–19; TEMP 35.9–36.6; O2SAT 92–98
[2025-04-21] MEDS: CALCIUM CARBONATE 600 MG TABLET PO (00:40)
[2025-04-21] MEDS: MORPHINE SULF INJ 4 MG/ML VIAL 2 MG IVP ×3 (01:25→13:43)
[2025-04-21] MEDS: ONDANSETRON INJ 2 MG/ML INJ 2 ML 4 MG IVP ×2 (02:17→08:19)
[2025-04-21] MEDS: metroNIDAZOLE/NS 500 MG IVPB 500 MG/100 ML BAG 200 MG IV ×3 (05:25→22:14)
[2025-04-21 06:16] LABS: Basophils # (Auto) 0.0 Thou/mm3 (0.0-0.2); Basophils % (Auto) 0 % (0-2.5); Eosinophils # (Auto) 0.0 Thou/mm3 (0.0-0.5); Eosinophils % (Auto) 0 % (0-10); Hematocrit 46.7 % (36.0-46.0); Hemoglobin 15.2 g/dL (12.0-16.0); Immature Granulocytes Auto 0.40 Thou/mm3 (0.00-0.00); Lymphocytes # (Auto) 1.0 Thou/mm3 (1.0-4.8); Lymphocytes % (Auto) 3 % (10-50); Mean Corpuscular HGB Conc 32.5 g/dl (31.0-37.0); Mean Corpuscular Hemoglobin 29.5 pg (25.0-35.0); Mean Corpuscular Volume 91 fL (80-100); Monocytes # (Auto) 2.9 Thou/mm3 (0.0-0.8); Monocytes % (Auto) 9 % (0-12); Neutrophils # (Auto) 28.9 Thou/mm3 (1.8-7.7); Neutrophils % (Auto) 87 % (37-80); Nucleated Red Blood Cell # 0.00 Thou/mm3 (0.00-0.00); Nucleated Red Blood Cell % 0 /100 WBC (0); Platelet Count 661 Thou/mm3 (140-440); RDW Standard Deviation 53.1 fL (36.4-46.3); Red Blood Count 5.16 Miln/mm3 (4.00-5.20); White Blood Count 33.3 Thou/mm3 (3.6-11.0)
[2025-04-21] MEDS: Magnesium Sulfate 4 GM Ivpb 4 GM/50 ML BAG IV (06:24)
[2025-04-21 07:06] LABS: Albumin, Serum 4.2 gm/dL (3.4-4.8); Albumin/Globulin Ratio 2.3 (1.2-2.2); Alkaline Phosphatase 117 U/L (46-116); Aspartate Amino Transferase 17 U/L (0-34); BUN/Creatinine Ratio 10 Ratio (12-20); Bilirubin,Total 0.5 mg/dL (0.3-1.2); Blood Urea Nitrogen 8 mg/dL (9-23); Calcium 9.4 mg/dL (8.3-10.6); Calcium (Corrected) 9.4 mg/dL (8.5-10.1); Carbon Dioxide 19.9 mMol/L (20.0-31.0); Creatinine (Component) 0.8 mg/dL (0.6-1.3); Estimated Creatinine Clearance 68.8 mL/min (>60); Globulin 1.8 gm/dL (2.3-3.5); Glucose 147 mg/dL (74-106); Magnesium 1.6 mg/dL (1.6-2.6); Phosphorous 3.7 mg/dL (2.4-5.1); Total Protein 6.0 gm/dL (5.7-8.2); eGFR > 60 See Note
[2025-04-21 07:20] LABS: Alanine Aminotransferase 7 U/L (10-49); Anion Gap 15 (7-16); Chloride 105 mMol/L (98-107); Osmolality,Calculated 280 (275-295); Potassium 3.7 mMol/L (3.4-5.1); Sodium 140 mMol/L (136-145)
[2025-04-21] MEDS: PANTOPRAZOLE 40 MG TABLET PO (08:20)
[2025-04-21] MEDS: CIPROFLOXACIN/D5w 400 MG IVPB 400 MG/200 ML BAG 200 MG IV ×2 (08:22→21:08)
[2025-04-21 08:48] LABS: INR 1.1 (0.9-1.3); Prothrombin Time 11.7 Seconds (9.0-12.2)
[2025-04-21] MEDS: RINGERS LACTATED 1000 ML 1,000 ML 75 ML IV (09:31)
--- NOTE | 2025-04-21 11:07 | XR_ITS ---
Examination: Abdomen AP single view Technique: AP portable supine abdomen, single view Exam date and time: April 21, 2025, 1125 hours INDICATIONS: Abdominal pain and distention this week. FINDINGS: Multiple air distended small bowel loops in the central abdomen Moderate air and stool in the right colon. Surgical clips upper left abdomen. No free air. IMPRESSION: Small bowel obstruction pattern
[2025-04-21 12:15] LABS: Lactate (Lactic Acid) 3.5 mMol/L (0.4-2.0)
--- NOTE | 2025-04-21 13:26 | ESPR_ITS ---
<Statement entered by Anthony Jones MD - 04/21/25 15:28> Patient is seen and examined at bedside. No acute overnight events. Reported that her diarrheal episodes resolved and no more diarrheal episodes since 2 days, but noted to have abdominal discomfort and vomitings. Vitals are stable. On physical examination, noted to have mild abdominal distention. X-ray abdomen was done and patient was found to have small bowel obstruction pattern. Labs done today showed elevated WBC, platelets and hemoglobin, likely dehydration from poor oral intake. Lactate was ordered and found to be elevated at 3.5. Patient was started on IV fluids, LR at 100 mL/h. Will continue to trend lactate levels. General surgeon, Dr. Francois is consulted and will appreciate his recommendations. NG tube was placed and connected to low intermittent suction. Small bowel series ordered. Contact and droplet precautions are taken off as the patient does not have any more diarrhea episodes and does not suspected to have any TB. Will continue current treatment. # SBO # Lactic acidosis -? Bowel ischemia # Enteritis, resolving # Leukocytosis # History of hypertension # ITP s/p splenectomy # Raynaud's disease with peripheral neuropathy # GERD I have personally seen and examined the patient, agree with residents assessment and plan Patient plan of care was discussed with the attending physician, Dr. Mike Jones, PGY2 Documentation for date of: 04/21/25 Subjective Subjective Interval history: Patient seen and examined at bedside this morning. Reports abdominal pain localized to the lower abdomen, slightly less severe than yesterday but still persistent and associated with abdominal bloating. She vomited dark-colored material overnight and again this morning. Has had no bowel movements or flatus for 2 days. Continues to feel nauseated despite receiving IV antiemetics. Denies chest pain, shortness of breath, dizziness, or dysuria. No new rashes. Reports coldness and mild pain at IV site (likely magnesium infusion) consistent with her history of Raynaud?s disease. KUB performed this morning showed small bowel obstruction pattern. NG tube placed to low intermittent suction. Lactic acid increased to 3.5. General Surgery (Dr. Francois) notified and recommended a small bowel series prior to evaluation. Exam Vital Signs Temp Pulse Resp BP Pulse Ox O2 Del Method 97.0 F 110 H 18 138/94 H 98 Nasal Cannula 04/21/25 08:00 04/21/25 08:21 04/21/25 08:00 04/21/25 08:21 04/21/25 08:00 04/21/25 08:00 Narrative Exam General: Awake, alert, mildly uncomfortable but cooperative. HEENT: MMM, no scleral icterus. Cardiac: Tachycardic, regular rhythm, no murmurs. Respiratory: Clear to auscultation bilaterally, no rales/wheezes. Abdomen: Mildly distended and bloated, diffusely tender, worst in lower quadrants. Guarding present, no rebound. Bowel sounds hypoactive. Extremities: No edema, pulses intact, hands cold to touch (Raynaud?s). Neuro: AOx3, speech clear, no focal deficits. Objective Labs 04/21/25 05:44 04/21/25 05:44 Labs: Laboratory Results - last 24 hr 04/20/25 04/20/25 04/21/25 11:25 21:17 05:44 WBC 33.3 H D RBC 5.16 Hgb 15.2 D Hct 46.7 H MCV 91 MCH 29.5 MCHC 32.5 RDW Std Deviation 53.1 H Plt Count 661 H Neut % (Auto) 87 H Lymph % (Auto) 3 L [place] % (Auto) 9 Eos % (Auto) 0 Baso % (Auto) 0 Neut # (Auto) 28.9 H Lymph # (Auto) 1.0 [place] # (Auto) 2.9 H Eos # (Auto) 0.0 Baso # (Auto) 0.0 Immature Gran # (Auto) 0.40 H Absolute Nucleated RBC 0.00 Immature Gran % 1 H Nucleated RBC % 0 ESR 33 H PT INR Sodium 140 Potassium 3.7 D Chloride 105 Carbon Dioxide 19.9 L Anion Gap 15 BUN 8 L Creatinine 0.8 Estim Creat Clear Calc 68.8 eGFR > 60 BUN/Creatinine Ratio 10 L Glucose 147 H Calculated Osmolality 280 Lactic Acid Calcium 9.4 Corrected Calcium 9.4 Phosphorus 3.7 Magnesium 1.6 Total Bilirubin 0.5 AST 17 ALT 7 L Alkaline Phosphatase 117 H C-Reactive Prot, Quant 21.3 H Total Protein 6.0 Albumin 4.2 Globulin 1.8 L Albumin/Globulin Ratio 2.3 H TB Test (QFT) Cancelled 04/21/25 04/21/25 07:14 11:58 WBC RBC Hgb Hct MCV MCH MCHC RDW Std Deviation Plt Count Neut % (Auto) Lymph % (Auto) [place] % (Auto) Eos % (Auto) Baso % (Auto) Neut # (Auto) Lymph # (Auto) [place] # (Auto) Eos # (Auto) Baso # (Auto) Immature Gran # (Auto) Absolute Nucleated RBC Immature Gran % Nucleated RBC % ESR PT 11.7 INR 1.1 Sodium Potassium Chloride Carbon Dioxide Anion Gap BUN Creatinine Estim Creat Clear Calc eGFR BUN/Creatinine Ratio Glucose Calculated Osmolality Lactic Acid 3.5 H Calcium Corrected Calcium Phosphorus Magnesium Total Bilirubin AST ALT Alkaline Phosphatase C-Reactive Prot, Quant Total Protein Albumin Globulin Albumin/Globulin Ratio TB Test (QFT) Quality Measures Quality Measures VTE prophylaxis Advance care planning discussed with:: patient Assessment & Plan Assessment Current Active Medications: Generic Name Dose Route Start Last Admin Trade Name Freq PRN Reason Stop Dose Admin Acetaminophen 650 mg 04/19/25 21:51 Acetaminophen 325 Mg Tablet PO 05/19/25 21:50 Q6H PRN Fever >101.5 Acetaminophen 650 mg 04/19/25 21:51 04/20/25 00:58 Acetaminophen 325 Mg Tablet PO 05/19/25 21:50 650 mg Q6H PRN Administration PAIN SCALE 1-3 (mild Amlodipine Besylate 10 mg 04/20/25 09:00 04/21/25 08:21 Amlodipine Besylate 5 Mg Tablet PO 05/20/25 08:59 10 mg QDAY JOYA Administration Atorvastatin Calcium 10 mg 04/20/25 09:00 04/21/25 08:22 Atorvastatin Calcium 10 Mg Tablet PO 05/20/25 08:59 Not Given QDAY [facility] Protocol Cyclobenzaprine HCl 5 mg 04/20/25 02:47 Cyclobenzaprine 5 Mg Tablet PO 05/20/25 02:46 TID PRN Muscle Spasm Duloxetine HCl 30 mg 04/20/25 09:00 04/21/25 08:22 Duloxetine Hcl 30 Mg Capsule PO 05/20/25 08:59 Not Given DAILY JOYA Metronidazole 500 mg in 100 mls @ 200 mls/hr 04/20/25 06:00 04/21/25 05:25 Flagyl 500 Mg Iv IV 04/27/25 05:59 200 mls/hr Q8HR JOYA Administration Ciprofloxacin/Dextrose 400 mg in 200 mls @ 200 mls/hr 10/31/25 09:00 04/21/25 08:22 Cipro Ivpb IV 04/27/25 08:59 200 mls/hr Q12HR JOYA Administration Lactated Ringer's 1,000 mls @ 75 mls/hr 04/21/25 08:52 04/21/25 09:31 Lactated Ringers IV 04/21/25 22:11 75 mls/hr .[id number] Administration Morphine Sulfate 2 mg 04/19/25 21:51 04/21/25 06:24 Morphine Sulf Inj 4 Mg/Ml Vial IVP 04/24/25 21:50 2 mg Q4H PRN Administration Pain Scale 4-10 (Severe Ondansetron HCl 4 mg 04/19/25 21:51 04/21/25 08:19 Ondansetron Inj 2 Mg/Ml Inj 2 Ml IVP 05/19/25 21:50 4 mg Q6H PRN Administration NAUSEA OR VOMITING Protocol Pantoprazole Sodium 40 mg 04/20/25 09:00 04/21/25 08:20 Pantoprazole 40 Mg Tablet PO 05/20/25 08:59 40 mg DAILY JOYA Administration Plan 64-year-old female with PMH of HTN, HLD, ITP s/p splenectomy, Raynaud?s, GERD, and DCIS s/p lumpectomy, admitted for intractable abdominal pain and diarrhea with CT showing small bowel thickening and mesenteric edema. Now with new SBO pattern and rising lactate, concerning for possible evolving ischemic small bowel. # Small Bowel Obstruction # Possible Ischemic Component KUB showed SBO pattern, ongoing vomiting, no BM or flatus for 2 days, lactate 3.5, rising WBC 33.3. CT two days ago already raised concern for ischemic small bowel. NG tube now in place with LIS. Plan: * Spoke with Dr. Francois (General Surgery)-> requested small bowel series prior to evaluation. * Ordered small bowel series. * NPO * Continue NGT to LIS, document output. * Maintain NPO, IV LR 75 cc/h for hydration. * Continue IV Cipro 400 mg BID and IV Flagyl 500 mg TID. * Trend lactate q4h and repeat BMP and CBC in AM. * Monitor abdominal exam for peritonitis or worsening distension. # Enteritis # Infectious vs Inflammatory Initially admitted with diffuse enteritis and diarrhea; infectious vs inflammatory etiology. Now complicated by obstruction; diarrhea has resolved. Plan: * Continue IV antibiotics as above. * Continue IV fluids and electrolyte replacement. * Stool studies, C. diff, calprotectin pending. * GI (Dr. Najera) following. # ITP s/p Splenectomy Platelets elevated (661). Plan: * Continue to monitor CBC daily. # Raynaud?s Disease w/ Peripheral Neuropathy Reports cold, painful hands. Plan: * Discontinue Gabapentin as patient has been refusing. * Keep extremities warm; monitor IV site discomfort. # GERD Plan: Continue Pantoprazole 40 mg daily. Health Maintenance Diet: NPO Fluids: LR 75 cc/h DVT prophylaxis: Heparin SQ GI prophylaxis: Pantoprazole Code Status: Full Consults: GI (Dr. Najera), ID (Dr. Avalos), Surgery (Dr. Francois) ----- Plan discussed with attending physician Dr. Mckeon and senior resident Dr. Robert Ruiz MD PGY-1 Internal Medicine Attending Provider Attestation/Addendum I have seen and examined the patient. I was physically present for the park portions of the services provided including history, physical exam, diagnosis, treatment plans and orders. I agree with assessment and plan of care as documented by residents. Patient seen and examined at bedside this morning. States that she has not had any bowel movement since arrival in the hospital. To have abdominal pain improved compared to presentation. Nausea and vomiting. Any passage of gas. Patient had positive QuantiFERON test which was obtained last month but she stated she already had tuberculosis 1 time ago and was treated for it. We will discontinue isolation, since patient does not have any bowel movement anymore, we will remove isolation for C. difficile as well. Started on pantoprazole for heartburn. X-ray KUB was obtained, which showed small bowel pattern, also noted to have elevated WBC, tachycardia and lactic acidosis. There was concern for bowel ischemia the abdomen/pelvis obtained during presentation, will obtain general surgery consult. Continues to be on IV fluids, IV antibiotics. Even though this this note was carefully revised there may still be minor errors in substation manager due to voice recognition software. Bryce Mckeon MD
--- NOTE | 2025-04-21 14:46 | XR_ITS ---
EXAMINATION: AP chest single view TECHNIQUE: AP portable semiupright chest single view Date and time: April 212024, 1534 hours, comparison April 19, 2025 INDICATIONS: Post orogastric tube placement. FINDINGS: Orogastric tube is coiled in the upper esophagus Mild prominence left ventricle Atelectasis versus pneumonia left base Atelectasis right upper lobe Prominent osteopenia IMPRESSION: Recommend removing the orogastric tube completely and reinserting
[2025-04-21 15:12] LABS: Reflex Lactate? Y
--- NOTE | 2025-04-21 16:19 | PD.IMPROG ---
Documentation for date of: 04/21/25 Subjective Subjective Interval history: Abdominal x-ray shows small bowel obstructive pattern with air-fluid levels NGT in place for intermittent suction Diarrhea has resolved Lactic acid 3.5 WBC count is 33.3 Patient does complain of abdominal pain Exam Vital Signs Temp Pulse Resp BP Pulse Ox O2 Del Method 97.3 F 114 H 19 137/66 H 96 Room Air 04/21/25 12:00 04/21/25 12:00 04/21/25 12:00 04/21/25 12:00 04/21/25 12:00 04/21/25 12:00 Objective Labs 04/21/25 05:44 04/21/25 05:44 Labs: Laboratory Results - last 24 hr 04/20/25 04/20/25 04/21/25 11:25 21:17 05:44 WBC 33.3 H D RBC 5.16 Hgb 15.2 D Hct 46.7 H MCV 91 MCH 29.5 MCHC 32.5 RDW Std Deviation 53.1 H Plt Count 661 H Neut % (Auto) 87 H Lymph % (Auto) 3 L [place] % (Auto) 9 Eos % (Auto) 0 Baso % (Auto) 0 Neut # (Auto) 28.9 H Lymph # (Auto) 1.0 [place] # (Auto) 2.9 H Eos # (Auto) 0.0 Baso # (Auto) 0.0 Immature Gran # (Auto) 0.40 H Absolute Nucleated RBC 0.00 Immature Gran % 1 H Nucleated RBC % 0 ESR 33 H PT INR Sodium 140 Potassium 3.7 D Chloride 105 Carbon Dioxide 19.9 L Anion Gap 15 BUN 8 L Creatinine 0.8 Estim Creat Clear Calc 68.8 eGFR > 60 BUN/Creatinine Ratio 10 L Glucose 147 H Calculated Osmolality 280 Lactic Acid Calcium 9.4 Corrected Calcium 9.4 Phosphorus 3.7 Magnesium 1.6 Total Bilirubin 0.5 AST 17 ALT 7 L Alkaline Phosphatase 117 H C-Reactive Prot, Quant 21.3 H Total Protein 6.0 Albumin 4.2 Globulin 1.8 L Albumin/Globulin Ratio 2.3 H TB Test (QFT) Cancelled 04/21/25 04/21/25 07:14 11:58 WBC RBC Hgb Hct MCV MCH MCHC RDW Std Deviation Plt Count Neut % (Auto) Lymph % (Auto) [place] % (Auto) Eos % (Auto) Baso % (Auto) Neut # (Auto) Lymph # (Auto) [place] # (Auto) Eos # (Auto) Baso # (Auto) Immature Gran # (Auto) Absolute Nucleated RBC Immature Gran % Nucleated RBC % ESR PT 11.7 INR 1.1 Sodium Potassium Chloride Carbon Dioxide Anion Gap BUN Creatinine Estim Creat Clear Calc eGFR BUN/Creatinine Ratio Glucose Calculated Osmolality Lactic Acid 3.5 H Calcium Corrected Calcium Phosphorus Magnesium Total Bilirubin AST ALT Alkaline Phosphatase C-Reactive Prot, Quant Total Protein Albumin Globulin Albumin/Globulin Ratio TB Test (QFT) Impressions Impression: Enteritis infectious versus inflammatory Small bowel obstruction pattern most likely due to edema of the small bowel Lactic acidosis Plan N.p.o. NGT to intermittent suction Trend CMP and lactate level Surgery on board Assessment & Plan A&P Narrative old tb treated yrs ago [place] abd sx only at this time if cx neg then po rx ok as soon as 48hr after admit. will see wednesday if still here. diarrhea, resolved per pt. Time Spent With Patient Time: Total time spent is greater than 50% in coordination of care (as documented) at patient's floor/unit and/or counseling patient:
[2025-04-21 16:50] LABS: Lactic Acid, 3 HR 4.7 mMol/L (0.4-2.0)
--- NOTE | 2025-04-21 17:09 | PC.NURSE ---
Dr Najera here to see pt., no new oders received.
--- NOTE | 2025-04-21 17:55 | XR_ITS ---
Examination: CTA abdomen, with intravenous contrast. CTA pelvis, with intravenous contrast. 2-D sagittal and coronal reconstructions. 3-D reconstructions. Date and time of exam: Examination: CTA chest, with intravenous contrast. CTA abdomen, with intravenous contrast. CTA pelvis, with intravenous contrast. 2-D sagittal and coronal reconstructions. 3-D reconstructions. Date and time of exam: ., 2024, 1944 hours INDICATIONS: Abdominal pain and diarrhea today, clinical diagnosis of bowel ischemia CTDI vol (mgy) 24.1 DLP (MGycm) 615 Technique: Multiple CTA images, 2.0 mm slice thickness, obtained abdomen, pelvis, with the high-resolution 64 slice scanner. 100 cc Isovue-370 is administered intravenously. Sagittal and coronal 2-D reconstructions are obtained. 3-D reconstructions, angiographic images are obtained. 3-D postprocessing, including vascular maximum intensity projections. Low dose protocols were performed. One or more of the following dose reduction techniques were used; automated exposure control, adjustment of the mA and/or KV according to patient size, use of iterative reconstruction technique. 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
--- NOTE | 2025-04-21 18:17 | PD.SURCONS ---
HPI Consult details Consult date: 04/21/25 Reason for consultation narrative: Abdominal pain History of present illness: 64-year-old female with history of hypertension, hyperlipidemia, ITP status post splenectomy, DCIS status post breast lumpectomy presented with abdominal pain and diarrhea. Her symptoms started 3 days ago and has been getting progressively worse. Upon presentation a CT scan was obtained that revealed edema of small bowel with some inflammation around the mesentery and mild fluid in the abdomen suspicious for inflammatory bowel disease. She was started on antibiotic and admitted for further management. Currently patient states that her diarrhea has improved and her abdominal pain is slightly better. Repeat CT scan was obtained and revealed dilated loops of small bowel concerning for small bowel obstruction, an NG tube was placed. Review of Systems Constitutional Constitutional: Denies chills, Denies fever(s) and Denies weight loss Cardiovascular Cardiovascular: Denies chest pain Respiratory Respiratory: Denies cough Gastrointestinal Gastrointestinal: Reports abdominal pain and Reports loose stools Hematologic/Lymphatic Hematologic/Lymphatic: Denies easy bleeding and Denies easy bruising Past Medical History Surgical History OTHER SURGICAL HX: Appendectomy, splenectomy, , partial mastectomy, breast implants, abdominoplasty, excision pituitary adenoma Social History SMOKING STATUS: Never smoker SUBSTANCE USE: does not use ALCOHOL: Never Meds Home Medications and Allergies Home Medications ?Medication ?Instructions ?Recorded ?Confirmed ?Type amlodipine 10 mg tablet (Norvasc) 10 mg PO QDAY #0 tabs 07/17/17 04/20/25 History pantoprazole 40 mg tablet,delayed 40 mg PO DAILY 11/10/18 04/20/25 History release gabapentin 600 mg tablet 600 mg PO TID 11/11/18 04/20/25 History duloxetine 60 mg capsule,delayed 30 mg PO DAILY 01/12/20 04/20/25 History release (Cymbalta) cyclobenzaprine 5 mg tablet 5 mg PO TID PRN Muscle Spasm 02/28/23 04/20/25 History avatrombopag 20 mg tablet 20 mg PO QDAY 04/20/25 04/20/25 History (Doptelet (10 tab pack)) duloxetine 30 mg capsule,delayed 30 mg PO QDAY 04/20/25 04/20/25 History release simvastatin 20 mg tablet (Zocor) 20 mg PO QDAY 04/20/25 04/20/25 History Allergies Allergy/AdvReac Type Severity Reaction Status Date / Time Penicillins Allergy Severe RASH Verified 01/15/25 14:30 Exam Vital Signs Temp Pulse Resp BP Pulse Ox O2 Del Method 97.3 F 107 H 19 137/66 H 96 Room Air 04/21/25 12:00 04/21/25 16:00 04/21/25 12:00 04/21/25 12:00 04/21/25 12:00 04/21/25 12:00 Constitutional Constitutional: no acute distress Routine Abdominal Exam Comments: Soft and not distended. TTP over right side of the abdomen, no rebound tenderness or peritonitis at this time Results Results: Laboratory Laboratory results: results reviewed Results: Imaging CT scan - abdomen: report reviewed and image reviewed CT scan - pelvis: report reviewed and image reviewed Assessment & Plan Additional Assessment Additional comments: SBO likely due SB inflammation, not likely to have ischemic bowel Plan Keep NPO with NGT and obtain SBS. Continue IV antibiotics.
[2025-04-21] MEDS: HYDROmorphone INJ 2 MG/ML VIAL 1 MG IVP ×2 (18:19→22:53)
[2025-04-21 18:43] LABS: Albumin, Serum 4.0 gm/dL (3.4-4.8); Anion Gap 17 (7-16); BUN/Creatinine Ratio 12 Ratio (12-20); Blood Urea Nitrogen 19 mg/dL (9-23); Calcium 9.3 mg/dL (8.3-10.6); Calcium (Corrected) 9.3 mg/dL (8.5-10.1); Carbon Dioxide 19.3 mMol/L (20.0-31.0); Chloride 104 mMol/L (98-107); Creatinine (Component) 1.6 mg/dL (0.6-1.3); Estimated Creatinine Clearance 34.4 mL/min (>60); Glucose 183 mg/dL (74-106); Osmolality,Calculated 286 (275-295); Phosphorous 4.7 mg/dL (2.4-5.1); Potassium 5.2 mMol/L (3.4-5.1); Sodium 140 mMol/L (136-145); eGFR 35 See Note
--- NOTE | 2025-04-21 19:59 | XR_ITS ---
EXAMINATION: AP chest single view TECHNIQUE:AP portable upright chest single view Date and time: April 21, 2025, 1826 hours INDICATIONS: Post orogastric tube placement FINDINGS: Orogastric tube in the stomach satisfactory position Pneumonia left base Atelectasis right midlung Mild prominence left ventricle IMPRESSION: Orogastric tube in the stomach satisfactory position
[2025-04-21] MEDS: SODIUM CHLORIDE 0.9% 1000 ML 1,000 ML 100 ML IV (20:01)
--- NOTE | 2025-04-21 20:38 | EKG_ITS ---
[facility] Test Date: 2025-04-21 Pat Name: STACY KELLY [facility] Slip Feeder: [id number] : 1960 Requested By: Yuli Harp Order Number: [id number] Reading MD: Yuli Harp Measurements Intervals [place] Rate: 106 P: 22 [place]: 137 QRS: -9 QRSD: 92 T: -3 QT: 332 QTc: 442 Interpretive Statements SINUS TACHYCARDIA POSSIBLE LEFT ATRIAL ENLARGEMENT POSSIBLE LEFT VENTRICULAR HYPERTROPHY NONSPECIFIC T-WAVE ABNORMALITY Compared to ECG 01/03/2024 14:31:33 Sinus rhythm no longer present T-wave abnormality still present /store/S0/[id number].pdf
[2025-04-21 20:53] LABS: Lactate (Lactic Acid) 3.1 mMol/L (0.4-2.0)
[2025-04-21 20:54] LABS: Base Excess, Venous -5 (-3-3); O2 Saturation, Venous 64 % (96-97); PCO2, Venous 38 mmHg (36-56); PO2, Venous 35 mmHg (15-58); pH, Venous 7.35 (7.33-7.66)
--- NOTE | 2025-04-21 21:19 | PD.SURPROG ---
Documentation for date of: 04/21/25 Subjective Subjective Narrative: Patient is seen and examined. She is resting comfortably, she states that her pain is improving Exam Vital Signs Temp Pulse Resp BP Pulse Ox O2 Del Method 97.8 F 96 19 141/99 H 94 L Room Air 04/21/25 20:00 04/21/25 20:00 04/21/25 20:00 04/21/25 20:00 04/21/25 20:00 04/21/25 20:00 Constitutional Constitutional: no acute distress Routine Abdominal Exam Comments: Abdomen is soft and nondistended. She has tenderness to palpation on the right sided abdomen with guarding, she does not have evidence of diffuse peritonitis at this time Assessment & Plan Assessment Additional comments: CT scan reviewed, celiac axis and SMA arteries appear to be patent, her lactic acid is improving, and exam does not show evidence of diffuse peritonitis at this time Plan Continue NG tube compression, n.p.o. with IV fluid resuscitation and continue IV antibiotics
[2025-04-21] MEDS: SODIUM CHLORIDE 0.9% 1000 ML 1,000 ML 125 ML IV (21:49)
[2025-04-21] MEDS: ALBUTEROL/IPRATROPIUM (Duoneb) RT SOL 3 ML NEBU 5 ML INH (23:46)
[2025-04-21 23:51] LABS: Reflex Lactate? Y
[2025-04-22] VITALS (18 sets, daily range): BP systolic 95–148; BP diastolic 53–87; PULSE 68–117; RESP 14–22; TEMP 36.1–36.6; O2SAT 91–100
[2025-04-22 01:01] LABS: Lactic Acid, 3 HR 3.0 mMol/L (0.4-2.0)
[2025-04-22 03:39] LABS: Lactate (Lactic Acid) 3.0 mMol/L (0.4-2.0)
[2025-04-22] MEDS: HYDROmorphone INJ 2 MG/ML VIAL 1 MG IVP ×3 (04:12→21:36)
[2025-04-22] MEDS: metroNIDAZOLE/NS 500 MG IVPB 500 MG/100 ML BAG 200 MG IV ×3 (05:02→21:25)
[2025-04-22] MEDS: SODIUM CHLORIDE 0.9% 1000 ML 1,000 ML 125 ML IV (05:31)
[2025-04-22 06:24] LABS: Basophils # (Auto) 0.0 Thou/mm3 (0.0-0.2); Basophils % (Auto) 0 % (0-2.5); Eosinophils # (Auto) 0.0 Thou/mm3 (0.0-0.5); Eosinophils % (Auto) 0 % (0-10); Hematocrit 44.5 % (36.0-46.0); Hemoglobin 14.6 g/dL (12.0-16.0); Immature Granulocytes Auto 0.20 Thou/mm3 (0.00-0.00); Lymphocytes # (Auto) 0.7 Thou/mm3 (1.0-4.8); Lymphocytes % (Auto) 3 % (10-50); Mean Corpuscular HGB Conc 32.8 g/dl (31.0-37.0); Mean Corpuscular Hemoglobin 29.3 pg (25.0-35.0); Mean Corpuscular Volume 89 fL (80-100); Monocytes # (Auto) 3.0 Thou/mm3 (0.0-0.8); Monocytes % (Auto) 13 % (0-12); Neutrophils # (Auto) 18.8 Thou/mm3 (1.8-7.7); Neutrophils % (Auto) 83 % (37-80); Nucleated Red Blood Cell # 0.00 Thou/mm3 (0.00-0.00); Nucleated Red Blood Cell % 0 /100 WBC (0); Platelet Count 440 Thou/mm3 (140-440); RDW Standard Deviation 52.6 fL (36.4-46.3); Red Blood Count 4.98 Miln/mm3 (4.00-5.20); White Blood Count 22.7 Thou/mm3 (3.6-11.0)
[2025-04-22 06:37] LABS: Reflex Lactate? Y
[2025-04-22 07:12] LABS: Alanine Aminotransferase 7 U/L (10-49); Albumin, Serum 3.8 gm/dL (3.4-4.8); Albumin/Globulin Ratio 2.0 (1.2-2.2); Alkaline Phosphatase 90 U/L (46-116); Anion Gap 13 (7-16); Aspartate Amino Transferase 27 U/L (0-34); BUN/Creatinine Ratio 9 Ratio (12-20); Bilirubin,Total 0.4 mg/dL (0.3-1.2); Blood Urea Nitrogen 18 mg/dL (9-23); Calcium 8.6 mg/dL (8.3-10.6); Calcium (Corrected) 8.8 mg/dL (8.5-10.1); Carbon Dioxide 18.8 mMol/L (20.0-31.0); Chloride 106 mMol/L (98-107); Creatinine (Component) 2.1 mg/dL (0.6-1.3); Estimated Creatinine Clearance 26.2 mL/min (>60); Globulin 1.9 gm/dL (2.3-3.5); Glucose 144 mg/dL (74-106); Magnesium 2.3 mg/dL (1.6-2.6); Osmolality,Calculated 280 (275-295); Phosphorous 5.1 mg/dL (2.4-5.1); Potassium 4.9 mMol/L (3.4-5.1); Sodium 138 mMol/L (136-145); Total Protein 5.7 gm/dL (5.7-8.2); eGFR 26 See Note
[2025-04-22 07:55] LABS: Lactic Acid, 3 HR 2.5 mMol/L (0.4-2.0)
[2025-04-22 08:14] LABS: INR 1.1 (0.9-1.3); Prothrombin Time 11.9 Seconds (9.0-12.2)
[2025-04-22] MEDS: DULoxetine HCL 30 MG CAPSULE PO (09:28)
[2025-04-22] MEDS: CIPROFLOXACIN/D5w 400 MG IVPB 400 MG/200 ML BAG 200 MG IV ×2 (09:29→20:03)
--- NOTE | 2025-04-22 09:42 | ESPR_ITS ---
Documentation for date of: 04/22/25 Subjective Subjective Narrative: Patient is seen and examined. This morning her pain has increased, she has had increased output from the NG tube that appears brown feculent in appearance. She has not passed flatus or bowel movement and she has been tachycardic Exam Vital Signs Temp Pulse Resp BP Pulse Ox O2 Del Method 97.6 F 109 H 19 148/78 H 91 L Room Air 04/22/25 08:00 04/22/25 09:28 04/22/25 08:00 04/22/25 09:28 04/22/25 08:00 04/22/25 08:00 Constitutional Constitutional: no acute distress Routine Abdominal Exam Comments: Abdomen is mildly distended and firm. She has tenderness to palpation throughout the abdomen with peritonitis Assessment & Plan Assessment Additional comments: Abdominal pain with worsening clinical course Plan Will take patient to the operating room for exploratory laparotomy, possible bowel resection possible ostomy. Risks include but not limited to infection, bleeding, injury to bowel, surround neurovascular structures, abdominal sepsis and or abdominal abscess, need for further procedure and or operation, pneumonia, blood clot, heart attack, stroke and discussed with the patient via recoating machine operator. Benefits and alternatives explained to her, all her questions answered, she agreed and consented to proceed with the operation.
--- NOTE | 2025-04-22 11:43 | ESOP_ITS ---
Date of Procedure 04/22/25 Pre Op Diagnosis Small bowel obstruction Post Op Diagnosis Acute segmental infarction of small bowel Procedure Exploratory laparotomy, partial small bowel resection with anastomosis Findings Infarcted and necrotic approximately 50 cm of distal ileum with significant edema of the mesentery Procedure Description Patient brought into the operating room in supine position. After administration of general endotracheal anesthesia, patient's abdomen prepped and draped in standard surgical manner. A laparotomy incision was made from mid epigastrium, to the right and around the umbilicus and extended to below the umbilicus. Dissection was deepened into soft tissue. Patient appeared to have running suture of Prolene from previous operation, was unclear whether a mesh was placed or not during her abdominoplasty. Anterior abdominal fascia was divided. Upon entering the abdominal cavity yellowish fluid encountered that was suctioned and irrigated. Upon further inspection patient was noted to have necrotic small bowel. The small bowel was eviscerated, proximal small bowel was dilated. Approximately 50 cm of distal ileum, approximately 30 cm proximal to ileocecal junction was necrotic and infarcted. Proximal and distal to the area of infarction where healthy appearing bowel was noted the small bowel was divided. The mesentery was significantly inflamed. The mesentery was ligated with Enseal harmonic device. A [id number], functional end-to-end anastomosis was created between the 2 ends of small bowel. Enterotomy sites were closed with running 2-0 Vicryl and reinforced with 3-0 silk suture in Lembert fashion. The mesenteric defect was closed with interrupted [id number] sutures using 3-0 silk. Abdomen and pelvis copiously and thoroughly washed and irrigated, all the fluids were suctioned and the suction fluid returned clear. The large bowel was inspected, patient was noted to have some left-sided diverticular disease however no obvious tumors or any masses noted. The anterior surface of the liver was palpated, noted to be smooth without nodules or any lesions. Anterior abdominal fascia was closed with running 0 PDS as well as interrupted sutures with #1 Vicryl. The wound was washed and irrigated the incision was closed with marjorie. Sterile dressings applied. Abdominal binder placed. Patient tolerated the procedure well. She was extubated, breathing spontaneously without difficulty and was transferred to postanesthesia care in stable condition. Instruments, needles and sponge counts were reported to be correct x 2. Anesthesia GETA and local Pathology / specimen Other (Partial distal ileum) Estimated Blood Loss 50 Condition Stable Disposition PACU Surgeon Camila Francois MD Surgical Staff Operation Date: 04/22/25 11:15 Case Staff BULL WHEEL WORKER: Yoni Boswell RNtube sizer and cutter operator: Flower Calixto
--- NOTE | 2025-04-22 11:49 | SUR.PHASEI ---
received pt and report from MASON Wellington and OLIVIA Aguilar. Pt arousable to voice. NG tube in place to left nare, green/brown drainage noted in tubing. Dressing to abd in place, no drainage noted. abd binder in place. IV x2 in place, no s/s of infiltration or redness to site. 16 f F/C in place with tea colored urine in urine bag. vss
--- NOTE | 2025-04-22 12:05 | SUR.PHASEI ---
pt recovering well, vss, dressing remains cdi, ng tube still place.
--- NOTE | 2025-04-22 12:12 | SUR.PHASEI ---
received order from Dr. Francois for ivf
[2025-04-22] MEDS: SODIUM CHLORIDE 0.45 % 1,000 ML 100 ML IV (12:15)
--- NOTE | 2025-04-22 12:24 | SUR.PHASEI ---
pt receovering well. Dressing remains CDI, f/c drainage at min, IV x2 intact - no s/s of infiltration or redness, vss, pt denies pain at this time. abd binder in place. Report given to MASON Martino. Pt ready to transfer to room
--- NOTE | 2025-04-22 13:42 | ESPR_ITS ---
<Statement entered by Anthony Jones MD - 04/22/25 15:19> Patient is seen and examined at bedside today. No acute overnight events. Overnight, patient got a CT angio of abdomen and pelvis and noted to have abnormal small bowel loops, fluid distended with significant edema in the mesentery and free fluid throughout the abdomen and pelvis with suspected ischemic small bowel. Also noted to have 7.6 cm right lobe liver lesion with suspected possible hepatic metastasis. Overnight, patient had NG tube in situ and is connected to low intermittent suction and noted to have 200 mL of output since yesterday. Patient is still complaining of abdominal pain with tenderness mainly located in the right lower quadrant. Vitals are stable. Labs done this morning showed WBC 22.7 which is downtrending, lactate improved to 2.5. General surgeon, Dr. Francois is following the patient and recommended exploratory laparotomy in view of worsening clinical findings. Noted to have ischemic small bowel and 50 cm of terminal ileum is removed. Will do pain management and monitor for bowel movements. I have personally seen and examined the patient, agree with residents assessment and plan Patient plan of care was discussed with the attending physician, Dr. Mike Jones, PGY2 Documentation for date of: 04/22/25 Subjective Subjective Interval history: Patient seen and examined at bedside today. No acute overnight events. Overnight, patient underwent CT angiogram of abdomen and pelvis, which showed abnormal small bowel loops fluid-distended with significant mesenteric edema and free fluid throughout the abdomen and pelvis, raising concern for ischemic small bowel. Also noted was a 7.6 cm right hepatic lobe lesion concerning for possible hepatic metastasis. Patient had NG tube connected to low intermittent suction with ~200 mL dark output since yesterday. She continues to complain of abdominal pain with tenderness localized to the right lower quadrant. Vitals stable. Labs this morning show WBC 22.7 (downtrending from 33.3) and lactate improved to 2.5. General Surgery (Dr. Francois) following closely and, in view of worsening clinical findings, proceeded with exploratory laparotomy, intraoperatively confirming ischemic small bowel with resection of 50 cm of terminal ileum. Postoperatively, patient remains hemodynamically stable. Plan for pain management and close monitoring for bowel function recovery. Exam Vital Signs Temp Pulse Resp BP Pulse Ox O2 Del Method O2 Flow Rate 96.9 F 96 17 109/64 91 L Oxy Mask 4 11/02/25 12:37 04/22/25 12:37 04/22/25 12:37 04/22/25 12:37 04/22/25 12:37 04/22/25 12:37 04/22/25 12:20 Narrative Exam General: Awake, alert, mildly uncomfortable but cooperative. HEENT: MMM, no scleral icterus. Cardiac: Tachycardic, regular rhythm, no murmurs. Respiratory: Clear to auscultation bilaterally, no rales/wheezes. Abdomen: Mildly distended and bloated, diffusely tender, worst in lower quadrants. Guarding present, no rebound. Bowel sounds hypoactive. Extremities: No edema, pulses intact, hands cold to touch (Raynaud?s). Neuro: AOx3, speech clear, no focal deficits. Objective Labs 04/22/25 06:03 04/22/25 06:03 Labs: Laboratory Results - last 24 hr 04/21/25 04/21/25 04/21/25 00:42 16:19 20:40 WBC RBC Hgb Hct MCV MCH MCHC RDW Std Deviation Plt Count Neut % (Auto) Lymph % (Auto) [place] % (Auto) Eos % (Auto) Baso % (Auto) Neut # (Auto) Lymph # (Auto) [place] # (Auto) Eos # (Auto) Baso # (Auto) Immature Gran # (Auto) Absolute Nucleated RBC Immature Gran % Nucleated RBC % PT INR VBG pH 7.35 VBG pCO2 38 VBG pO2 35 VBG O2 Sat (Linda) 64 L VBG Base Excess -5 L Sodium 140 Potassium 5.2 H D Chloride 104 Carbon Dioxide 19.3 L Anion Gap 17 H BUN 19 Creatinine 1.6 H D Estim Creat Clear Calc 34.4 L eGFR 35 L BUN/Creatinine Ratio 12 Glucose 183 H Calculated Osmolality 286 Lactic Acid 3.0 H 4.7 H* 3.1 H Calcium 9.3 Corrected Calcium 9.3 Phosphorus 4.7 Magnesium Total Bilirubin AST ALT Alkaline Phosphatase Total Protein Albumin 4.0 Globulin Albumin/Globulin Ratio 04/22/25 04/22/25 04/22/25 03:25 06:03 07:29 WBC 22.7 H D RBC 4.98 Hgb 14.6 Hct 44.5 MCV 89 MCH 29.3 MCHC 32.8 RDW Std Deviation 52.6 H Plt Count 440 D Neut % (Auto) 83 H Lymph % (Auto) 3 L [place] % (Auto) 13 H Eos % (Auto) 0 Baso % (Auto) 0 Neut # (Auto) 18.8 H Lymph # (Auto) 0.7 L [place] # (Auto) 3.0 H Eos # (Auto) 0.0 Baso # (Auto) 0.0 Immature Gran # (Auto) 0.20 H Absolute Nucleated RBC 0.00 Immature Gran % 1 H Nucleated RBC % 0 PT 11.9 INR 1.1 VBG pH VBG pCO2 VBG pO2 VBG O2 Sat (Linda) VBG Base Excess Sodium 138 Potassium 4.9 Chloride 106 Carbon Dioxide 18.8 L Anion Gap 13 BUN 18 Creatinine 2.1 H D Estim Creat Clear Calc 26.2 L eGFR 26 L BUN/Creatinine Ratio 9 L Glucose 144 H Calculated Osmolality 280 Lactic Acid 3.0 H 2.5 H Calcium 8.6 Corrected Calcium 8.8 Phosphorus 5.1 Magnesium 2.3 Total Bilirubin 0.4 AST 27 ALT 7 L Alkaline Phosphatase 90 D Total Protein 5.7 Albumin 3.8 Globulin 1.9 L Albumin/Globulin Ratio 2.0 ABG Interpretation ABG results: 04/21/25 20:40 VBG pH 7.35 VBG pCO2 38 VBG pO2 35 VBG Base Excess -5 L Quality Measures Quality Measures VTE prophylaxis Advance care planning discussed with:: patient Assessment & Plan Assessment Current Active Medications: Generic Name Dose Route Start Last Admin Trade Name Freq PRN Reason Stop Dose Admin Amlodipine Besylate 10 mg 04/20/25 09:00 04/22/25 09:28 Amlodipine Besylate 5 Mg Tablet PO 05/20/25 08:59 10 mg QDAY JOYA Administration Atorvastatin Calcium 10 mg 04/22/25 21:00 Atorvastatin Calcium 10 Mg Tablet PO 05/20/25 08:59 HS JOYA Protocol Cyclobenzaprine HCl 5 mg 04/20/25 02:47 Cyclobenzaprine 5 Mg Tablet PO 05/20/25 02:46 TID PRN Muscle Spasm Duloxetine HCl 30 mg 04/20/25 09:00 04/22/25 09:28 Duloxetine Hcl 30 Mg Capsule PO 05/20/25 08:59 30 mg DAILY JOYA Administration Hydromorphone HCl 1 mg 04/21/25 18:00 04/22/25 04:12 Hydromorphone Inj 2 Mg/Ml Vial IVP 04/26/25 17:59 1 mg Q4HR PRN Administration Pain 6-10 Metronidazole 500 mg in 100 mls @ 200 mls/hr 04/20/25 06:00 04/22/25 13:21 Flagyl 500 Mg Iv IV 04/27/25 05:59 200 mls/hr Q8HR JOYA Administration Ciprofloxacin/Dextrose 400 mg in 200 mls @ 200 mls/hr 04/20/25 09:00 04/22/25 09:29 Cipro Ivpb IV 04/27/25 08:59 200 mls/hr Q12HR JOYA Administration Acetaminophen 1,000 mg in 100 mls @ 250 mls/hr 04/22/25 10:41 Ofirmev Inj IV 04/23/25 10:40 Q6HR PRN PAIN 1-6 (mild-mod Sodium Chloride 1,000 mls @ 100 mls/hr 04/22/25 12:13 04/22/25 12:15 Ns 0.45% IV 05/22/25 12:12 100 mls/hr .Q10H JOYA Administration Ondansetron HCl 4 mg 04/22/25 10:41 Ondansetron Inj 2 Mg/Ml Inj 2 Ml IVP 05/22/25 10:40 Q6HR PRN NAUSEA OR VOMITING Protocol Pantoprazole Sodium 40 mg 04/22/25 09:00 04/22/25 09:30 Pantoprazole Inj 40 Mg Vial IVP 05/22/25 08:59 40 mg QDAY JOYA Administration Plan 64-year-old female with PMH of HTN, HLD, ITP s/p splenectomy, Raynaud?s, GERD, and DCIS s/p lumpectomy, admitted for enteritis complicated by SBO and ischemic small bowel, now s/p exploratory laparotomy with 50 cm terminal ileum resection. # Ischemic Small Bowel # SBO # S/p Exploratory Laparotomy Now postoperative day 0, stable. Lactate improving, WBC downtrending, ongoing abdominal tenderness. Plan: * Continue NPO. * Maintain NGT to LIS, monitor output. * Continue IV Ciprofloxacin 400 mg BID and IV Metronidazole 500 mg TID. * Continue IV fluids * Pain control: IV hydromorphine PRN; monitor for ileus or worsening distension. * Monitor for return of bowel function. * Dr. Francois (Surgery) following for postoperative management. * Canceled small bowel series and stool studies post-resection. # SARBJIT Creatinine increased from 1.6 -> 2.1; Likely multifactorial: could be prerenal from volume depletion/third spacing and intrinsic contrast-induced nephropathy after two contrast studies. Plan: * Continue IV fluids; monitor renal trend closely. * Avoid nephrotoxins and additional contrast. * Adjust antibiotic dosing for renal function. * Strict I&O. * Repeat BMP in AM. # ITP s/p Splenectomy Platelets elevated (661). Plan: * Continue to monitor CBC daily. # Raynaud?s Disease w/ Peripheral Neuropathy Reports cold, painful hands. Plan: * Discontinue Gabapentin as patient has been refusing. * Keep extremities warm; monitor IV site discomfort. # GERD Plan: Continue Pantoprazole 40 mg daily. Health Maintenance Diet: NPO Fluids: Half NS 100 mL/hr DVT prophylaxis: Heparin SQ GI prophylaxis: Pantoprazole Code Status: Full Consults: GI (Dr. Najera), ID (Dr. Avalos), Surgery (Dr. Francois) ----- Plan discussed with attending physician Dr. Mckeon and senior resident Dr. Robert Ruiz MD PGY-1 Internal Medicine Attending Provider Attestation/Addendum I have seen and examined the patient. I was physically present for the park portions of the services provided including history, physical exam, diagnosis, treatment plans and orders. I agree with assessment and plan of care as documented by residents. Patient seen and examined at bedside this morning. Continues to complain of abdominal pain. Tenderness seem to be worsening, mostly on lower abdomen with rebound tenderness. Abdomen also appears more formed compared to yesterday. Patient continues to be tachycardic. WBC count and lactic acidosis has been improving. CTA abdomen/pelvis continues to show a small bowel obstruction pattern but did not find any mesenteric ischemia. NG tube has been producing brown feculent material. Patient underwent exploratory laparotomy and partial small bowel resection with anastomosis with general surgery. Was found to have infarcted and necrotic approximately 50 cm of distal ileum with significant edema of the mesentery. Continues to be on IV antibiotics. Even though this this note was carefully revised there may still be minor errors in web production manager due to voice recognition software. Bryce Mckeon MD
[2025-04-22 13:58] LABS: Lactate (Lactic Acid) 2.2 mMol/L (0.4-2.0)
[2025-04-22] MEDS: ACETAMINOPHEN IVPB 1,000 MG/100 ML VIAL 250 MG IV (16:04)
--- NOTE | 2025-04-22 16:51 | PD.IMPROG ---
Documentation for date of: 04/22/25 Subjective Subjective Interval history: Patient evaluated Status post exploratory laparotomy resection of the infarcted small bowel with primary anastomosis Exam Vital Signs Temp Pulse Resp BP Pulse Ox O2 Del Method O2 Flow Rate 97.6 F 117 H 18 117/74 93 L Oxy Mask 4 04/22/25 16:00 04/22/25 16:00 04/22/25 16:00 04/22/25 16:00 04/22/25 16:00 04/22/25 16:00 04/22/25 12:20 Objective Labs 04/22/25 06:03 04/22/25 06:03 Labs: Laboratory Results - last 24 hr 04/21/25 04/21/25 04/21/25 00:42 16:19 20:40 WBC RBC Hgb Hct MCV MCH MCHC RDW Std Deviation Plt Count Neut % (Auto) Lymph % (Auto) [place] % (Auto) Eos % (Auto) Baso % (Auto) Neut # (Auto) Lymph # (Auto) [place] # (Auto) Eos # (Auto) Baso # (Auto) Immature Gran # (Auto) Absolute Nucleated RBC Immature Gran % Nucleated RBC % PT INR VBG pH 7.35 VBG pCO2 38 VBG pO2 35 VBG O2 Sat (Linda) 64 L VBG Base Excess -5 L Sodium 140 Potassium 5.2 H D Chloride 104 Carbon Dioxide 19.3 L Anion Gap 17 H BUN 19 Creatinine 1.6 H D Estim Creat Clear Calc 34.4 L eGFR 35 L BUN/Creatinine Ratio 12 Glucose 183 H Calculated Osmolality 286 Lactic Acid 3.0 H 3.1 H Calcium 9.3 Corrected Calcium 9.3 Phosphorus 4.7 Magnesium Total Bilirubin AST ALT Alkaline Phosphatase Total Protein Albumin 4.0 Globulin Albumin/Globulin Ratio 04/22/25 04/22/25 04/22/25 03:25 06:03 07:29 WBC 22.7 H D RBC 4.98 Hgb 14.6 Hct 44.5 MCV 89 MCH 29.3 MCHC 32.8 RDW Std Deviation 52.6 H Plt Count 440 D Neut % (Auto) 83 H Lymph % (Auto) 3 L [place] % (Auto) 13 H Eos % (Auto) 0 Baso % (Auto) 0 Neut # (Auto) 18.8 H Lymph # (Auto) 0.7 L [place] # (Auto) 3.0 H Eos # (Auto) 0.0 Baso # (Auto) 0.0 Immature Gran # (Auto) 0.20 H Absolute Nucleated RBC 0.00 Immature Gran % 1 H Nucleated RBC % 0 PT 11.9 INR 1.1 VBG pH VBG pCO2 VBG pO2 VBG O2 Sat (Linda) VBG Base Excess Sodium 138 Potassium 4.9 Chloride 106 Carbon Dioxide 18.8 L Anion Gap 13 BUN 18 Creatinine 2.1 H D Estim Creat Clear Calc 26.2 L eGFR 26 L BUN/Creatinine Ratio 9 L Glucose 144 H Calculated Osmolality 280 Lactic Acid 3.0 H 2.5 H Calcium 8.6 Corrected Calcium 8.8 Phosphorus 5.1 Magnesium 2.3 Total Bilirubin 0.4 AST 27 ALT 7 L Alkaline Phosphatase 90 D Total Protein 5.7 Albumin 3.8 Globulin 1.9 L Albumin/Globulin Ratio 2.0 04/22/25 13:41 WBC RBC Hgb Hct MCV MCH MCHC RDW Std Deviation Plt Count Neut % (Auto) Lymph % (Auto) [place] % (Auto) Eos % (Auto) Baso % (Auto) Neut # (Auto) Lymph # (Auto) [place] # (Auto) Eos # (Auto) Baso # (Auto) Immature Gran # (Auto) Absolute Nucleated RBC Immature Gran % Nucleated RBC % PT INR VBG pH VBG pCO2 VBG pO2 VBG O2 Sat (Linda) VBG Base Excess Sodium Potassium Chloride Carbon Dioxide Anion Gap BUN Creatinine Estim Creat Clear Calc eGFR BUN/Creatinine Ratio Glucose Calculated Osmolality Lactic Acid 2.2 H Calcium Corrected Calcium Phosphorus Magnesium Total Bilirubin AST ALT Alkaline Phosphatase Total Protein Albumin Globulin Albumin/Globulin Ratio Impressions Impression: Small bowel obstruction due to small bowel ischemia requiring exploratory laparotomy with surgical resection of the infarcted small intestine and primary anastomosis Continue current management ABG Interpretation ABG results: 04/21/25 20:40 VBG pH 7.35 VBG pCO2 38 VBG pO2 35 VBG Base Excess -5 L Assessment & Plan A&P Narrative old tb treated yrs ago in [place] abd sx only at this time if cx neg then po rx ok as soon as 48hr after admit. will see wednesday if still here. diarrhea, resolved per pt. Time Spent With Patient Time: Total time spent is greater than 50% in coordination of care (as documented) at patient's floor/unit and/or counseling patient:
[2025-04-22 16:58] LABS: Reflex Lactate? Y
[2025-04-22 17:40] LABS: Lactic Acid, 3 HR 3.0 mMol/L (0.4-2.0)
[2025-04-23] VITALS (8 sets, daily range): BP systolic 90–139; BP diastolic 60–77; PULSE 86–119; RESP 17–94; TEMP 36.6–36.9; O2SAT 91–95; BMI 28.3
[2025-04-23] MEDS: SODIUM CHLORIDE 0.45 % 1,000 ML 100 ML IV (00:17)
[2025-04-23] MEDS: metroNIDAZOLE/NS 500 MG IVPB 500 MG/100 ML BAG 200 MG IV ×3 (05:05→22:10)
[2025-04-23 06:18] LABS: Basophils # (Auto) 0.1 Thou/mm3 (0.0-0.2); Basophils % (Auto) 0 % (0-2.5); Eosinophils # (Auto) 0.0 Thou/mm3 (0.0-0.5); Eosinophils % (Auto) 0 % (0-10); Hematocrit 34.5 % (36.0-46.0); Hemoglobin 11.5 g/dL (12.0-16.0); Immature Granulocytes Auto 0.47 Thou/mm3 (0.00-0.00); Lymphocytes # (Auto) 1.0 Thou/mm3 (1.0-4.8); Lymphocytes % (Auto) 4 % (10-50); Mean Corpuscular HGB Conc 33.3 g/dl (31.0-37.0); Mean Corpuscular Hemoglobin 29.8 pg (25.0-35.0); Mean Corpuscular Volume 89 fL (80-100); Monocytes # (Auto) 3.4 Thou/mm3 (0.0-0.8); Monocytes % (Auto) 13 % (0-12); Neutrophils # (Auto) 20.7 Thou/mm3 (1.8-7.7); Neutrophils % (Auto) 81 % (37-80); Nucleated Red Blood Cell # 0.07 Thou/mm3 (0.00-0.00); Nucleated Red Blood Cell % 0 /100 WBC (0); Platelet Count 492 Thou/mm3 (140-440); RDW Standard Deviation 53.1 fL (36.4-46.3); Red Blood Count 3.86 Miln/mm3 (4.00-5.20); White Blood Count 25.6 Thou/mm3 (3.6-11.0)
[2025-04-23 06:26] LABS: Path Review Blood Smear Sent to Pathologist
[2025-04-23 06:45] LABS: Alanine Aminotransferase < 7 U/L (10-49); Albumin, Serum 3.1 gm/dL (3.4-4.8); Albumin/Globulin Ratio 2.1 (1.2-2.2); Alkaline Phosphatase 70 U/L (46-116); Anion Gap 13 (7-16); Aspartate Amino Transferase 17 U/L (0-34); BUN/Creatinine Ratio 10 Ratio (12-20); Bilirubin,Total 0.3 mg/dL (0.3-1.2); Blood Urea Nitrogen 31 mg/dL (9-23); Calcium 7.6 mg/dL (8.3-10.6); Calcium (Corrected) 8.3 mg/dL (8.5-10.1); Carbon Dioxide 17.3 mMol/L (20.0-31.0); Chloride 107 mMol/L (98-107); Creatinine (Component) 3.2 mg/dL (0.6-1.3); Estimated Creatinine Clearance 17.2 mL/min (>60); Globulin 1.5 gm/dL (2.3-3.5); Glucose 124 mg/dL (74-106); Magnesium 1.9 mg/dL (1.6-2.6); Osmolality,Calculated 281 (275-295); Phosphorous 5.4 mg/dL (2.4-5.1); Potassium 4.7 mMol/L (3.4-5.1); Sodium 137 mMol/L (136-145); Total Protein 4.6 gm/dL (5.7-8.2); eGFR 15 See Note
[2025-04-23] MEDS: HYDROmorphone INJ 2 MG/ML VIAL 1 MG IVP ×2 (07:51→19:38)
--- NOTE | 2025-04-23 08:22 | PD.SURPROG ---
Documentation for date of: 04/23/25 Subjective Subjective Narrative: Patient is seen and examined. She is complaining of incisional pain, controlled with pain medication. She denies nausea or vomiting Exam Vital Signs Temp Pulse Resp BP Pulse Ox O2 Del Method O2 Flow Rate 98.4 F 104 H 20 115/68 92 L Room Air 2 04/23/25 07:00 04/23/25 07:00 04/23/25 07:00 04/23/25 07:00 04/23/25 07:00 04/23/25 07:00 04/22/25 23:23 Constitutional Constitutional: no acute distress Routine Abdominal Exam Comments: Abdomen is soft and mildly distended. No bowel sounds noted today. Incision with dressings clean, dry and intact Assessment & Plan Assessment Additional comments: Postop day #1 status post exploratory laparotomy with partial small bowel resection Plan Keep NPO. Clamp NG tube continue IV fluids. Increase ambulation PROCEDURES: Procedures Exploratory laparotomy, partial small bowel resection with anastomosis
--- NOTE | 2025-04-23 08:56 | ESPR_ITS ---
Subjective Subjective Interval history: day 3-4 cirpo and flagyl, abd issues noted. hx of tb noted. abd tb much less likely, Exam Vital Signs Temp Pulse Resp BP Pulse Ox O2 Del Method O2 Flow Rate 98.4 F 104 H 20 115/68 92 L Room Air 2 04/23/25 07:00 04/23/25 07:00 04/23/25 07:00 04/23/25 07:00 04/23/25 07:00 04/23/25 07:00 04/22/25 23:23 Narrative Exam limited eval today Objective - Internal Medicine Labs 04/23/25 05:26 04/23/25 05:26 Labs: Laboratory Results - last 24 hr 04/22/25 04/22/25 04/23/25 13:41 17:25 05:26 WBC 25.6 H RBC 3.86 L Hgb 11.5 L D Hct 34.5 L MCV 89 MCH 29.8 MCHC 33.3 RDW Std Deviation 53.1 H Plt Count 492 H D Neut % (Auto) 81 H Lymph % (Auto) 4 L [place] % (Auto) 13 H Eos % (Auto) 0 Baso % (Auto) 0 Neut # (Auto) 20.7 H Lymph # (Auto) 1.0 [place] # (Auto) 3.4 H Eos # (Auto) 0.0 Baso # (Auto) 0.1 Immature Gran # (Auto) 0.47 H Absolute Nucleated RBC 0.07 H Immature Gran % 2 H Nucleated RBC % 0 Smear Path Review Sent to Pathologist Sodium 137 Potassium 4.7 Chloride 107 Carbon Dioxide 17.3 L Anion Gap 13 BUN 31 H Creatinine 3.2 H D Estim Creat Clear Calc 17.2 L eGFR 15 L BUN/Creatinine Ratio 10 L Glucose 124 H Calculated Osmolality 281 Lactic Acid 2.2 H 3.0 H Calcium 7.6 L Corrected Calcium 8.3 L Phosphorus 5.4 H Magnesium 1.9 Total Bilirubin 0.3 AST 17 ALT < 7 L Alkaline Phosphatase 70 D Total Protein 4.6 L Albumin 3.1 L D Globulin 1.5 L Albumin/Globulin Ratio 2.1 ABG Interpretation ABG results: 04/21/25 20:40 VBG pH 7.35 VBG pCO2 38 VBG pO2 35 VBG Base Excess -5 L Assessment & Plan A&P Narrative old tb treated yrs ago in [place] abd sx only at this time if cx neg then po rx ok as soon as 48hr after admit. will review brefly on wed flagyl and quinolones are the same iv and po. usual rx is 5d post op ( stop it trial)surgery was Sunday 04/22 so rx thru 04/27 Time Spent With Patient Time: Total time spent is greater than 50% in coordination of care (as documented) at patient's floor/unit and/or counseling patient:
[2025-04-23] MEDS: CIPROFLOXACIN/D5w 400 MG IVPB 400 MG/200 ML BAG 200 MG IV (09:36)
[2025-04-23] MEDS: ALBUMIN HUMAN-KJDA 25% IVPB 25 GM/100 ML BTL IV ×2 (09:36→16:47)
[2025-04-23] MEDS: SODIUM CHLORIDE 0.9% 1000 ML 1,000 ML 125 ML IV ×2 (12:01→19:29)
--- NOTE | 2025-04-23 12:08 | PC.SS ---
SS follow up note; Patient had surgery yesterday, Patient is on IV fluids. Patient will discharge home when medically cleared.
[2025-04-23 12:11] LABS: Lactate (Lactic Acid) 1.8 mMol/L (0.4-2.0)
[2025-04-23 12:36] LABS: Albumin, Serum 3.5 gm/dL (3.4-4.8); Anion Gap 12 (7-16); BUN/Creatinine Ratio 12 Ratio (12-20); Blood Urea Nitrogen 38 mg/dL (9-23); Calcium 7.5 mg/dL (8.3-10.6); Calcium (Corrected) 7.9 mg/dL (8.5-10.1); Carbon Dioxide 16.4 mMol/L (20.0-31.0); Chloride 107 mMol/L (98-107); Creatinine (Component) 3.2 mg/dL (0.6-1.3); Estimated Creatinine Clearance 17.2 mL/min (>60); Glucose 122 mg/dL (74-106); Osmolality,Calculated 280 (275-295); Phosphorous 5.2 mg/dL (2.4-5.1); Potassium 3.9 mMol/L (3.4-5.1); Sodium 135 mMol/L (136-145); eGFR 15 See Note
--- NOTE | 2025-04-23 13:36 | ESPR_ITS ---
<Statement entered by Anthony Jones MD - 04/23/25 17:14> Patient is seen and examined at bedside. Denies any other complaints. Not passing flatus or stool as of now. Noted to have mild abdominal pain but that is well-controlled per patient. Reported that he had 1 episode of vomiting and subsided later. Labs done this morning showed worsening leukocytosis which could be reactive from surgery, worsening renal functions which could be due to contrast. Will continue to monitor renal functions, antibiotics, pain management. I have personally seen and examined the patient, agree with residents assessment and plan Patient plan of care was discussed with the attending physician, Dr. Mike Jones, PGY2 Documentation for date of: 04/23/25 Subjective Subjective Interval history: Patient seen and examined at bedside this morning. Overnight, no acute events were reported. Patient denies fever or chills. Reports incisional pain, which is improving and well-controlled with Dilaudid. No nausea or vomiting. NG tube was clamped overnight due to lack of output. Encouraged ambulation this morning per surgical recommendations. Patient appears clinically improved, alert, and comfortable. No evidence of peritonitis or hemodynamic instability. Exam Vital Signs Temp Pulse Resp BP Pulse Ox O2 Del Method O2 Flow Rate 98.3 F 108 H 20 106/60 92 L Room Air 2 04/23/25 11:04/23/25 11:00 04/23/25 11:04/23/25 11:00 04/23/25 11:04/23/25 11:04/22/25 23:23 Narrative Exam General: Awake, alert, appears comfortable, no acute distress. Cardiac: Tachycardic, regular rhythm, no murmurs. Respiratory: Clear to auscultation bilaterally, no rales/wheezes. Abdomen: Soft, mildly distended. Tenderness near incision, no rebound or guarding. Dressing clean, dry, and intact. No signs of peritonitis. No bowel sounds appreciated. Extremities: No edema, pulses palpable. Neuro: AO?3, speech clear, no focal deficits. Objective Labs 04/24/25 05:48 04/24/25 05:48 Labs: Laboratory Results - last 24 hr 04/22/25 04/22/25 04/23/25 13:41 17:25 05:26 WBC 25.6 H RBC 3.86 L Hgb 11.5 L D Hct 34.5 L MCV 89 MCH 29.8 MCHC 33.3 RDW Std Deviation 53.1 H Plt Count 492 H D Neut % (Auto) 81 H Lymph % (Auto) 4 L [place] % (Auto) 13 H Eos % (Auto) 0 Baso % (Auto) 0 Neut # (Auto) 20.7 H Lymph # (Auto) 1.0 [place] # (Auto) 3.4 H Eos # (Auto) 0.0 Baso # (Auto) 0.1 Immature Gran # (Auto) 0.47 H Absolute Nucleated RBC 0.07 H Immature Gran % 2 H Nucleated RBC % 0 Smear Path Review Sent to Pathologist Sodium 137 Potassium 4.7 Chloride 107 Carbon Dioxide 17.3 L Anion Gap 13 BUN 31 H Creatinine 3.2 H D Estim Creat Clear Calc 17.2 L eGFR 15 L BUN/Creatinine Ratio 10 L Glucose 124 H Calculated Osmolality 281 Lactic Acid 2.2 H 3.0 H Calcium 7.6 L Corrected Calcium 8.3 L Phosphorus 5.4 H Magnesium 1.9 Total Bilirubin 0.3 AST 17 ALT < 7 L Alkaline Phosphatase 70 D Total Protein 4.6 L Albumin 3.1 L D Globulin 1.5 L Albumin/Globulin Ratio 2.1 04/23/25 11:59 WBC RBC Hgb Hct MCV MCH MCHC RDW Std Deviation Plt Count Neut % (Auto) Lymph % (Auto) [place] % (Auto) Eos % (Auto) Baso % (Auto) Neut # (Auto) Lymph # (Auto) [place] # (Auto) Eos # (Auto) Baso # (Auto) Immature Gran # (Auto) Absolute Nucleated RBC Immature Gran % Nucleated RBC % Smear Path Review Sodium 135 L Potassium 3.9 D Chloride 107 Carbon Dioxide 16.4 L Anion Gap 12 BUN 38 H Creatinine 3.2 H Estim Creat Clear Calc 17.2 L eGFR 15 L BUN/Creatinine Ratio 12 Glucose 122 H Calculated Osmolality 280 Lactic Acid 1.8 Calcium 7.5 L Corrected Calcium 7.9 L Phosphorus 5.2 H Magnesium Total Bilirubin AST ALT Alkaline Phosphatase Total Protein Albumin 3.5 Globulin Albumin/Globulin Ratio ABG Interpretation ABG results: 04/21/25 20:40 VBG pH 7.35 VBG pCO2 38 VBG pO2 35 VBG Base Excess -5 L Quality Measures Quality Measures VTE prophylaxis Advance care planning discussed with:: patient Assessment & Plan Assessment Current Active Medications: Generic Name Dose Route Start Last Admin Trade Name Freq PRN Reason Stop Dose Admin Albumin Human 25 gm 04/23/25 08:30 04/23/25 09:36 Albumin Human-Kjda 25% Ivpb 25 Gm/100 Ml Btl IV 04/26/25 08:29 25 gm Q8H JOYA Administration Amlodipine Besylate 10 mg 04/20/25 09:00 04/23/25 09:34 Amlodipine Besylate 5 Mg Tablet PO 05/20/25 08:59 Not Given QDAY JOYA Atorvastatin Calcium 10 mg 04/22/25 21:00 04/22/25 20:12 Atorvastatin Calcium 10 Mg Tablet PO 05/20/25 08:59 Not Given HS JOYA Protocol Cyclobenzaprine HCl 5 mg 04/20/25 02:47 Cyclobenzaprine 5 Mg Tablet PO 05/20/25 02:46 TID PRN Muscle Spasm Duloxetine HCl 30 mg 04/20/25 09:00 04/23/25 09:34 Duloxetine Hcl 30 Mg Capsule PO 05/20/25 08:59 Not Given DAILY JOYA Hydromorphone HCl 1 mg 04/23/25 07:42 04/23/25 07:51 Hydromorphone Inj 2 Mg/Ml Vial IVP 04/26/25 17:59 1 mg Q4HR PRN Administration Pain 7-10 Metronidazole 500 mg in 100 mls @ 200 mls/hr 04/20/25 06:00 04/23/25 05:05 Flagyl 500 Mg Iv IV 04/27/25 05:59 200 mls/hr Q8HR JOYA Administration Ciprofloxacin/Dextrose 400 mg in 200 mls @ 200 mls/hr 04/20/25 09:00 04/23/25 09:36 Cipro Ivpb IV 04/27/25 08:59 200 mls/hr Q12HR JOYA Administration Sodium Chloride 1,000 mls @ 125 mls/hr 04/23/25 11:52 04/23/25 12:01 Ns IV 05/23/25 11:51 125 mls/hr .Q8H JOYA Administration Ondansetron HCl 4 mg 04/22/25 10:41 Ondansetron Inj 2 Mg/Ml Inj 2 Ml IVP 05/22/25 10:40 Q6HR PRN NAUSEA OR VOMITING Protocol Pantoprazole Sodium 40 mg 04/22/25 09:00 04/23/25 09:35 Pantoprazole Inj 40 Mg Vial IVP 05/22/25 08:59 40 mg QDAY JOYA Administration Plan 64-year-old female with PMH of HTN, HLD, ITP s/p splenectomy, Raynaud?s, GERD, and DCIS s/p lumpectomy, admitted for enteritis complicated by SBO and ischemic small bowel, now POD#1 s/p exploratory laparotomy and partial small bowel resection with anastomosis. # Ischemic Small Bowel # SBO # S/p Exploratory Laparotomy POD#1. Pain controlled, afebrile, no peritonitis. Abdomen soft and mildly distended. No NGT output overnight, tube clamped per surgery. WBC remains elevated 25.6 but lactic acid normalized (2.2 -> 3.0-> 1.8), suggesting improved perfusion and no ongoing ischemia. Plan: * Continue NPO. * Clamp NGT as per surgery; monitor for nausea, vomiting, or distension ? unclamp if symptomatic or if emesis occurs. * Continue IV NS 125 cc/h for hydration and perfusion support. * Continue IV Ciprofloxacin 400 mg BID and IV Metronidazole 500 mg TID per surgical team. * Encourage early ambulation and incentive spirometry. * Pain control with IV Dilaudid PRN; monitor for oversedation. * General Surgery (Dr. Francois) following for post-op management. # SARBJIT Creatinine 3.2 (from 2.1) likely due to combination of prerenal factors, contrast exposure from two recent studies, and postoperative stress. Plan: * Continue IV NS 125 mL per hour * Strict I&O; monitor urine output hourly. * Avoid nephrotoxins. * Renally adjust antibiotics. * Repeat BMP in AM; consider nephrology consult if worsening. # Postoperative Ileus No bowel sounds, mild distension, no flatus or BM. Plan: * Continue NPO and early ambulation. * Minimize opioids if tolerated. * Monitor for return of bowel function. # Lactic Acidosis (resolved) Normalized to 1.8. Plan: Continue monitoring q12h; maintain adequate hydration and oxygenation. # ITP s/p Splenectomy Platelets elevated (492). Plan: * Continue to monitor CBC daily. # Raynaud?s Disease w/ Peripheral Neuropathy Reports cold, painful hands. Plan: * Discontinue Gabapentin as patient has been refusing. * Keep extremities warm; monitor IV site discomfort. # GERD Plan: Continue Pantoprazole 40 mg daily. Health Maintenance Diet: NPO Fluids: NS 125 mL/hr DVT prophylaxis: Heparin SQ GI prophylaxis: Pantoprazole Code Status: Full Consults: GI (Dr. Najera), ID (Dr. Avalos), Surgery (Dr. Francois) ----- Plan discussed with attending physician Dr. Mckeon and senior resident Dr. Robert Ruiz MD PGY-1 Internal Medicine Attending Provider Attestation/Addendum I have seen and examined the patient. I was physically present for the park portions of the services provided including history, physical exam, diagnosis, treatment plans and orders. I agree with assessment and plan of care as documented by residents. Even though this this note was carefully revised there may still be minor errors in electroencephalograph technologist due to voice recognition software. Bryce Mckeon MD
[2025-04-23] MEDS: ONDANSETRON INJ 2 MG/ML INJ 2 ML 4 MG IVP (16:47)
--- NOTE | 2025-04-23 17:21 | ESPR_ITS ---
Documentation for date of: 04/23/25 Subjective Subjective Interval history: Status post resection of the distal 50 cm of the necrotic ischemic ileum No nausea vomiting Afebrile No passage of bowel movement Has incisional pain Exam Vital Signs Temp Pulse Resp BP Pulse Ox O2 Del Method O2 Flow Rate 98.3 F 108 H 20 106/60 92 L Room Air 2 04/23/25 11:00 04/23/25 11:00 04/23/25 11:00 04/23/25 11:00 04/23/25 11:00 04/23/25 11:00 04/22/25 23:23 Objective Labs 04/23/25 05:26 04/23/25 11:59 Labs: Laboratory Results - last 24 hr 04/22/25 04/23/25 04/23/25 17:25 05:26 11:59 WBC 25.6 H RBC 3.86 L Hgb 11.5 L D Hct 34.5 L MCV 89 MCH 29.8 MCHC 33.3 RDW Std Deviation 53.1 H Plt Count 492 H D Neut % (Auto) 81 H Lymph % (Auto) 4 L [place] % (Auto) 13 H Eos % (Auto) 0 Baso % (Auto) 0 Neut # (Auto) 20.7 H Lymph # (Auto) 1.0 [place] # (Auto) 3.4 H Eos # (Auto) 0.0 Baso # (Auto) 0.1 Immature Gran # (Auto) 0.47 H Absolute Nucleated RBC 0.07 H Immature Gran % 2 H Nucleated RBC % 0 Smear Path Review Sent to Pathologist Sodium 137 135 L Potassium 4.7 3.9 D Chloride 107 107 Carbon Dioxide 17.3 L 16.4 L Anion Gap 13 12 BUN 31 H 38 H Creatinine 3.2 H D 3.2 H Estim Creat Clear Calc 17.2 L 17.2 L eGFR 15 L 15 L BUN/Creatinine Ratio 10 L 12 Glucose 124 H 122 H Calculated Osmolality 281 280 Lactic Acid 3.0 H 1.8 Calcium 7.6 L 7.5 L Corrected Calcium 8.3 L 7.9 L Phosphorus 5.4 H 5.2 H Magnesium 1.9 Total Bilirubin 0.3 AST 17 ALT < 7 L Alkaline Phosphatase 70 D Total Protein 4.6 L Albumin 3.1 L D 3.5 Globulin 1.5 L Albumin/Globulin Ratio 2.1 Impressions Impression: Small bowel ischemia s/p resection and primary anastomosis Continue supportive postoperative care ABG Interpretation ABG results: 04/21/25 20:40 VBG pH 7.35 VBG pCO2 38 VBG pO2 35 VBG Base Excess -5 L Assessment & Plan A&P Narrative old tb treated y[place] ago [place] abd sx only at this time if cx neg then po rx ok as soon as 48hr after admit. will review brefly on wed flagyl and quinolones are the same iv and po. usual rx is 5d post op ( stop it trial)surgery was Sunday 04/22 so rx thru 04/27 Time Spent With Patient Time: Total time spent is greater than 50% in coordination of care (as documented) at patient's floor/unit and/or counseling patient:
[2025-04-24] VITALS (14 sets, daily range): BP systolic 118–154; BP diastolic 70–86; PULSE 96–120; RESP 18–22; TEMP 36.3–37.4; O2SAT 91–97
[2025-04-24] MEDS: ALBUMIN HUMAN-KJDA 25% IVPB 25 GM/100 ML BTL IV ×3 (00:21→17:06)
[2025-04-24] MEDS: SODIUM CHLORIDE 0.9% 1000 ML 1,000 ML 125 ML IV (04:26)
[2025-04-24] MEDS: metroNIDAZOLE/NS 500 MG IVPB 500 MG/100 ML BAG 200 MG IV ×3 (06:19→21:09)
[2025-04-24 06:26] LABS: Basophils # (Auto) 0.1 Thou/mm3 (0.0-0.2); Basophils % (Auto) 0 % (0-2.5); Eosinophils # (Auto) 0.1 Thou/mm3 (0.0-0.5); Eosinophils % (Auto) 0 % (0-10); Hematocrit 29.0 % (36.0-46.0); Hemoglobin 9.4 g/dL (12.0-16.0); Immature Granulocytes Auto 1.27 Thou/mm3 (0.00-0.00); Lymphocytes # (Auto) 1.4 Thou/mm3 (1.0-4.8); Lymphocytes % (Auto) 5 % (10-50); Mean Corpuscular HGB Conc 32.4 g/dl (31.0-37.0); Mean Corpuscular Hemoglobin 29.2 pg (25.0-35.0); Mean Corpuscular Volume 90 fL (80-100); Monocytes # (Auto) 3.6 Thou/mm3 (0.0-0.8); Monocytes % (Auto) 14 % (0-12); Neutrophils # (Auto) 20.1 Thou/mm3 (1.8-7.7); Neutrophils % (Auto) 76 % (37-80); Nucleated Red Blood Cell # 0.08 Thou/mm3 (0.00-0.00); Nucleated Red Blood Cell % 0 /100 WBC (0); Platelet Count 469 Thou/mm3 (140-440); RDW Standard Deviation 53.7 fL (36.4-46.3); Red Blood Count 3.22 Miln/mm3 (4.00-5.20); White Blood Count 26.6 Thou/mm3 (3.6-11.0)
[2025-04-24] MEDS: HYDROmorphone INJ 2 MG/ML VIAL 1 MG IVP ×2 (06:27→18:00)
[2025-04-24 06:56] LABS: Alanine Aminotransferase < 7 U/L (10-49); Albumin, Serum 4.4 gm/dL (3.4-4.8); Albumin/Globulin Ratio 3.4 (1.2-2.2); Alkaline Phosphatase 58 U/L (46-116); Anion Gap 15 (7-16); Aspartate Amino Transferase 17 U/L (0-34); BUN/Creatinine Ratio 17 Ratio (12-20); Bilirubin,Total 0.4 mg/dL (0.3-1.2); Blood Urea Nitrogen 38 mg/dL (9-23); Calcium 8.7 mg/dL (8.3-10.6); Calcium (Corrected) 8.7 mg/dL (8.5-10.1); Carbon Dioxide 16.8 mMol/L (20.0-31.0); Chloride 110 mMol/L (98-107); Creatinine (Component) 2.2 mg/dL (0.6-1.3); Estimated Creatinine Clearance 25.0 mL/min (>60); Globulin 1.3 gm/dL (2.3-3.5); Glucose 96 mg/dL (74-106); Magnesium 2.4 mg/dL (1.6-2.6); Osmolality,Calculated 292 (275-295); Phosphorous 5.2 mg/dL (2.4-5.1); Potassium 3.8 mMol/L (3.4-5.1); Sodium 142 mMol/L (136-145); Total Protein 5.7 gm/dL (5.7-8.2); eGFR 24 See Note
[2025-04-24] MEDS: ONDANSETRON INJ 2 MG/ML INJ 2 ML 4 MG IVP (08:29)
--- NOTE | 2025-04-24 09:01 | XR_ITS ---
EXAMINATION: AP chest single view TECHNIQUE: AP portable semiupright chest single view Date and time: April 24, 2025, 10:14 a.m. INDICATIONS: Congestion shortness of breath today. FINDINGS: Pneumonia in the left mid and lower lung zone Mild prominence cardiac contour Subsegmental atelectasis right lower lung zone Orogastric tube in the stomach satisfactory position IMPRESSION: Significant left lung pneumonia
[2025-04-24] MEDS: CIPROFLOXACIN/D5w 200 MG IVPB 200 MG/100 ML BAG 100 MG IV (09:44)
[2025-04-24] MEDS: FUROSEMIDE INJ 10 MG/ML 4ML VIAL 40 MG IVP (09:51)
[2025-04-24] MEDS: ACETYLCYSTEINE RT SOL 10% 4 ML NEBU 3 ML INH (09:54)
[2025-04-24] MEDS: ALBUTEROL/IPRATROPIUM (Duoneb) RT SOL 3 ML NEBU INH ×4 (09:54→22:11)
--- NOTE | 2025-04-24 13:16 | PD.SURPROG ---
Documentation for date of: 04/24/25 Subjective Subjective Narrative: Patient is seen and examined. Her pain is well-controlled. She had an episode of emesis, NG tube was connected to suction Exam Vital Signs Temp Pulse Resp BP Pulse Ox O2 Del Method O2 Flow Rate 97.4 F 120 H 20 134/73 H 96 Oxy Mask 3 04/24/25 11:33 04/24/25 11:33 04/24/25 11:33 04/24/25 11:33 04/24/25 11:33 04/24/25 11:33 04/24/25 11:33 Constitutional Constitutional: no acute distress Routine Abdominal Exam Comments: Abdomen is soft and mildly distended. She has hypoactive bowel sounds. Incision with dressings clean, dry and intact Assessment & Plan Assessment Additional comments: Postop day #2 status post exploratory laparotomy with partial small bowel resection. X-ray revealed pneumonia Plan Continue IV antibiotics. NG tube to suction. Patient is advised to increase ambulation and use incentive spirometer. PROCEDURES: Procedures Exploratory laparotomy, partial small bowel resection with anastomosis
[2025-04-24] MEDS: METOCLOPRAMIDE INJ 5 MG/ML VIAL 2 ML 10 MG IVP ×2 (14:15→17:06)
[2025-04-24] MEDS: LEVOFLOXACIN/D5W 500 MG IVPB 500 MG/100 ML BAG 100 MG IV (14:16)
--- NOTE | 2025-04-24 14:34 | ESPR_ITS ---
<Statement entered by Laila Noe MD - 04/25/25 07:53> Patient was seen and examined by me personally. I have directly supervised and reviewed documentation by the team resident and agree with its findings with any exceptions or additional findings as below. Plan of care was discussed with the attending, Dr. Mckeon. Laila Noe, PGY-3 Documentation for date of: 04/24/25 Subjective Subjective Interval history: Patient seen and examined at bedside this morning, postoperative day #2 following exploratory laparotomy with partial small bowel resection and anastomosis for ischemic bowel. This morning, nursing reported oxygen desaturation to 89% and audible crackles. Patient was placed on OxyMask for supplemental oxygen. IV fluids were held pending reassessment. On evaluation, patient reports shortness of breath and congestion with thick phlegm, but denies chest pain or fever. Reports vomiting this morning, treated with antiemetic. Abdominal pain persists but is controlled with Dilaudid. She has not passed gas or had a bowel movement yet. On auscultation, lungs are crackly bilaterally with congestion, abdomen mildly tender at incision, soft, nondistended, no peritonitis. Exam Vital Signs Temp Pulse Resp BP Pulse Ox O2 Del Method O2 Flow Rate 97.4 F 120 H 20 134/73 H 96 Oxy Mask 3 04/24/25 11:33 04/24/25 11:33 04/24/25 11:33 04/24/25 11:33 04/24/25 11:33 04/24/25 11:04/24/25 11:33 Narrative Exam General: Awake, alert, mildly dyspneic but cooperative. Cardiac: Tachycardic, regular rhythm, no murmurs. Respiratory: Bilateral crackles and coarse breath sounds at lung bases, no wheezes; productive cough with thick sputum. Abdomen: Soft, mildly distended, tenderness at incision site, no rebound or guarding. Incision dressing clean, dry, intact. Extremities: No edema, pulses palpable. Neuro: AO?3, no focal deficits. Objective Labs 04/25/25 02:34 04/25/25 02:34 Labs: Laboratory Results - last 24 hr 04/24/25 05:48 WBC 26.6 H RBC 3.22 L Hgb 9.4 L D Hct 29.0 L MCV 90 MCH 29.2 MCHC 32.4 RDW Std Deviation 53.7 H Plt Count 469 H Neut % (Auto) 76 Lymph % (Auto) 5 L [place] % (Auto) 14 H Eos % (Auto) 0 Baso % (Auto) 0 Neut # (Auto) 20.1 H Lymph # (Auto) 1.4 [place] # (Auto) 3.6 H Eos # (Auto) 0.1 Baso # (Auto) 0.1 Immature Gran # (Auto) 1.27 H Absolute Nucleated RBC 0.08 H Immature Gran % 5 H Nucleated RBC % 0 Sodium 142 Potassium 3.8 Chloride 110 H Carbon Dioxide 16.8 L Anion Gap 15 BUN 38 H Creatinine 2.2 H D Estim Creat Clear Calc 25.0 L eGFR 24 L BUN/Creatinine Ratio 17 Glucose 96 Calculated Osmolality 292 Calcium 8.7 Corrected Calcium 8.7 Phosphorus 5.2 H Magnesium 2.4 Total Bilirubin 0.4 AST 17 ALT < 7 L Alkaline Phosphatase 58 Total Protein 5.7 Albumin 4.4 D Globulin 1.3 L Albumin/Globulin Ratio 3.4 H ABG Interpretation ABG results: 04/21/25 20:40 VBG pH 7.35 VBG pCO2 38 VBG pO2 35 VBG Base Excess -5 L Quality Measures Quality Measures VTE prophylaxis Advance care planning discussed with:: patient Assessment & Plan Assessment Current Active Medications: Generic Name Dose Route Start Last Admin Trade Name Freq PRN Reason Stop Dose Admin Albumin Human 25 gm 04/23/25 08:30 04/24/25 09:43 Albumin Human-Kjda 25% Ivpb 25 Gm/100 Ml Btl IV 04/26/25 08:29 25 gm Q8H JOYA Administration Albuterol/Ipratropium 3 ml 04/24/25 11:00 04/24/25 10:23 Albuterol/Ipratropium (Duoneb) Rt Tonya 3 Ml Nebu INH 05/24/25 10:59 Not Given Q4HRRT JOYA Amlodipine Besylate 10 mg 04/20/25 09:00 04/24/25 09:53 Amlodipine Besylate 5 Mg Tablet PO 05/20/25 08:59 Not Given QDAY JOYA Atorvastatin Calcium 10 mg 04/22/25 21:00 04/23/25 21:00 Atorvastatin Calcium 10 Mg Tablet PO 05/20/25 08:59 Not Given HS JOYA Protocol Cyclobenzaprine HCl 5 mg 04/20/25 02:47 Cyclobenzaprine 5 Mg Tablet PO 05/20/25 02:46 TID PRN Muscle Spasm Duloxetine HCl 30 mg 04/20/25 09:00 04/24/25 09:45 Duloxetine Hcl 30 Mg Capsule PO 05/20/25 08:59 Not Given DAILY JOYA Hydromorphone HCl 1 mg 04/23/25 07:42 04/24/25 06:27 Hydromorphone Inj 2 Mg/Ml Vial IVP 04/26/25 17:59 1 mg Q4HR PRN Administration Pain 7-10 Metronidazole 500 mg in 100 mls @ 200 mls/hr 04/20/25 06:00 04/24/25 13:14 Flagyl 500 Mg Iv IV 04/27/25 05:59 200 mls/hr Q8HR JOYA Administration Levofloxacin/Dextrose 500 mg in 100 mls @ 100 mls/hr 04/24/25 13:15 04/24/25 14:16 Levaquin Ivpb IV 05/01/25 13:14 100 mls/hr QDAY JOYA Administration Potassium Acetate 40 meq/ 2,030 mls @ 35 mls/hr 04/24/25 18:00 Multivitamins/Minerals 10 ml/ IV 04/25/25 17:59 Amino Acids .Q24H JOYA Metoclopramide HCl 10 mg 04/24/25 13:15 04/24/25 14:15 Metoclopramide Inj 5 Mg/Ml Vial 2 Ml IVP 05/24/25 13:14 10 mg Q6HR JOYA Administration Protocol Ondansetron HCl 4 mg 04/22/25 10:41 04/24/25 08:29 Ondansetron Inj 2 Mg/Ml Inj 2 Ml IVP 05/22/25 10:40 4 mg Q6HR PRN Administration NAUSEA OR VOMITING Protocol Pantoprazole Sodium 40 mg 04/22/25 09:00 04/24/25 09:44 Pantoprazole Inj 40 Mg Vial IVP 05/22/25 08:59 40 mg QDAY JOYA Administration Plan 64-year-old female with PMH of HTN, HLD, ITP s/p splenectomy, Raynaud?s, GERD, and DCIS s/p lumpectomy, admitted for enteritis complicated by ischemic small bowel, now POD#2 s/p exploratory laparotomy with small bowel resection and anastomosis, presenting with new hypoxia, pulmonary crackles, and vomiting. # Hypoxia # Pulmonary Congestion # Left Lung Pneumonia Likely due to postoperative pulmonary edema vs aspiration pneumonia. CXR shows significant left lower lobe pneumonia with pleural effusion, likely explaining O2 desaturation and crackles. Vomiting this morning increases risk of aspiration. Plan: * Stat chest X-ray shows pneumonia, so switched from Cipro to Levofloxacin 500 mg IV q24h for broader coverage. * Continue OxyMask and titrate to keep O2 >92%. * Lasix 40 mg IV once for suspected fluid overload; monitor urine output and BP. * Start Duoneb (ipratropium/albuterol) nebulizer q6h PRN for congestion. * Incentive spirometry at bedside * Elevate head of bed, maintain aspiration precautions. * Monitor O2 saturation continuously, titrate OxyMask as needed. # Acute Blood Loss Anemia Hgb dropped from 11.5 -> 9.4; may reflect hemodilution vs occult postoperative bleeding. No external bleeding noted. Plan: * Repeat H&H at 2 PM. * Transfuse 1 unit PRBC if Hgb <9 or further drop. * Monitor vitals and abdominal girth for internal bleeding. * Continue serial CBCs. # Ischemic Small Bowel # SBO # S/p Exploratory Laparotomy POD#2. Pain controlled, afebrile, no peritonitis. NGT on LIS with 4 black output Plan: * Continue NPO. * Continue IV Levofloxacin 500 mg q24h for coverage of both enteric and pulmonary concerns. * Continue pain control with Dilaudid PRN. * Encourage ambulation and incentive spirometry per surgical orders. * Monitor abdominal exam q4h. * Surgery (Dr. Francois) following for postoperative care. # SARBJIT Cr improved to 2.2 (from 3.2). Etiology multifactorial; contrast-induced + prerenal. Plan: * Continue to hold fluids temporarily due to pulmonary congestion. * Monitor I&O closely. * Avoid nephrotoxic medications. * Renally adjust antibiotics as appropriate. * Repeat BMP in AM. # Postoperative Ileus No bowel sounds, mild distension, no flatus or BM. Plan: * Continue NPO and early ambulation. * Minimize opioids if tolerated. * Monitor for return of bowel function. # Lactic Acidosis (resolved) Normalized to 1.8. Plan: Continue monitoring q12h; maintain adequate hydration and oxygenation. # ITP s/p Splenectomy Platelets elevated (492). Plan: * Continue to monitor CBC daily. # Raynaud?s Disease w/ Peripheral Neuropathy Reports cold, painful hands. Plan: * Discontinue Gabapentin as patient has been refusing. * Keep extremities warm; monitor IV site discomfort. # GERD Plan: Continue Pantoprazole 40 mg daily. Health Maintenance Diet: NPO Fluids: Albumin DVT prophylaxis: Heparin SQ GI prophylaxis: Pantoprazole Code Status: Full Consults: GI (Dr. Najera), ID (Dr. Avalos), Surgery (Dr. Francois) ----- Plan discussed with attending physician Dr. Mckeon and senior resident Dr. Robert Ruiz MD PGY-1 Internal Medicine Attending Provider Attestation/Addendum I have seen and examined the patient. I was physically present for the park portions of the services provided including history, physical exam, diagnosis, treatment plans and orders. I agree with assessment and plan of care as documented by residents. Patient seen and examined at bedside this morning. Overnight, patient had decreased oxygen saturation and was started on OxyMask. Chest x-ray was obtained shows significant left lung pneumonia and congestion. Started on Lasix 40 mg IV x 1 and switched her ciprofloxacin to Levaquin. Continues to have some abdominal pain but controlled with analgesics. Complained of nausea and had an episode of vomiting. NG tube was reconnected to suction, had significant output. Discussed with general surgery, agreed on awaiting 1 more day before considering TPN if patient continues to be unable to tolerate diet. We will continue to encourage ambulation and incentive spirometry. Even though this this note was carefully revised there may still be minor errors in helper shear operator due to voice recognition software. Bryce Mckeon MD
[2025-04-24 16:57] LABS: Hematocrit 26.4 % (36.0-46.0)
[2025-04-24 17:19] LABS: Hemoglobin 8.7 g/dL (12.0-16.0)
--- NOTE | 2025-04-24 17:45 | PC.PT ---
Patient is safe to stand pivot transfer to a bedside commode with 1 staff assist. RN made aware.
--- NOTE | 2025-04-24 18:51 | ESPR_ITS ---
Documentation for date of: 04/24/25 Subjective Subjective Interval history: Episode of vomiting requiring NGT suction Exam Vital Signs Temp Pulse Resp BP Pulse Ox O2 Del Method O2 Flow Rate 99.2 F 101 H 19 118/75 95 Oxy Mask 2 04/24/25 16:20 04/24/25 18:04 04/24/25 18:04 04/24/25 16:20 04/24/25 18:04 04/24/25 16:20 04/24/25 18:04 Objective Labs 04/24/25 16:20 04/24/25 05:48 Labs: Laboratory Results - last 24 hr 04/24/25 04/24/25 05:48 16:20 WBC 26.6 H RBC 3.22 L Hgb 9.4 L D 8.7 L Hct 29.0 L 26.4 L MCV 90 MCH 29.2 MCHC 32.4 RDW Std Deviation 53.7 H Plt Count 469 H Neut % (Auto) 76 Lymph % (Auto) 5 L [place] % (Auto) 14 H Eos % (Auto) 0 Baso % (Auto) 0 Neut # (Auto) 20.1 H Lymph # (Auto) 1.4 [place] # (Auto) 3.6 H Eos # (Auto) 0.1 Baso # (Auto) 0.1 Immature Gran # (Auto) 1.27 H Absolute Nucleated RBC 0.08 H Immature Gran % 5 H Nucleated RBC % 0 Sodium 142 Potassium 3.8 Chloride 110 H Carbon Dioxide 16.8 L Anion Gap 15 BUN 38 H Creatinine 2.2 H D Estim Creat Clear Calc 25.0 L eGFR 24 L BUN/Creatinine Ratio 17 Glucose 96 Calculated Osmolality 292 Calcium 8.7 Corrected Calcium 8.7 Phosphorus 5.2 H Magnesium 2.4 Total Bilirubin 0.4 AST 17 ALT < 7 L Alkaline Phosphatase 58 Total Protein 5.7 Albumin 4.4 D Globulin 1.3 L Albumin/Globulin Ratio 3.4 H Impressions Impression: Status post exploratory laparotomy Postoperative vomiting requiring NGT suction ABG Interpretation ABG results: 04/21/25 20:40 VBG pH 7.35 VBG pCO2 38 VBG pO2 35 VBG Base Excess -5 L Assessment & Plan A&P Narrative old tb treated y[place] ago [place] abd sx only at this time if cx neg then po rx ok as soon as 48hr after admit. will review brefly on wed flagyl and quinolones are the same iv and po. usual rx is 5d post op ( stop it trial)surgery was Sunday 04/22 so rx thru 04/27 Time Spent With Patient Time: Total time spent is greater than 50% in coordination of care (as documented) at patient's floor/unit and/or counseling patient:
--- NOTE | 2025-04-24 21:54 | PC.NURSE ---
called blood bank tech re follow of prbc 1 unit ordered- Per blood bank tech type and screen does not match prbc ordered. rn reordered 1 unit prbc to match with type and screen.
[2025-04-25] VITALS (13 sets, daily range): BP systolic 128–188; BP diastolic 78–103; PULSE 97–126; RESP 18–22; TEMP 36.2–37.4; O2SAT 93–100
[2025-04-25] MEDS: METOCLOPRAMIDE INJ 5 MG/ML VIAL 2 ML 10 MG IVP ×5 (00:19→23:46)
[2025-04-25] MEDS: ALBUMIN HUMAN-KJDA 25% IVPB 25 GM/100 ML BTL IV ×4 (00:23→23:45)
[2025-04-25] MEDS: HYDROmorphone INJ 2 MG/ML VIAL 1 MG IVP ×5 (01:24→23:45)
[2025-04-25 03:03] LABS: Hematocrit 29.2 % (36.0-46.0); Hemoglobin 9.8 g/dL (12.0-16.0)
[2025-04-25] MEDS: ONDANSETRON INJ 2 MG/ML INJ 2 ML 4 MG IVP ×2 (03:03→10:10)
[2025-04-25] MEDS: ALBUTEROL/IPRATROPIUM (Duoneb) RT SOL 3 ML NEBU INH ×5 (03:18→23:19)
[2025-04-25 03:59] LABS: Basophils # (Auto) 0.2 Thou/mm3 (0.0-0.2); Basophils % (Auto) 1 % (0-2.5); Eosinophils # (Auto) 0.1 Thou/mm3 (0.0-0.5); Eosinophils % (Auto) 0 % (0-10); Hematocrit 29.3 % (36.0-46.0); Hemoglobin 9.9 g/dL (12.0-16.0); Immature Granulocytes Auto 1.49 Thou/mm3 (0.00-0.00); Lymphocytes # (Auto) 1.1 Thou/mm3 (1.0-4.8); Lymphocytes % (Auto) 5 % (10-50); Mean Corpuscular HGB Conc 33.8 g/dl (31.0-37.0); Mean Corpuscular Hemoglobin 29.4 pg (25.0-35.0); Mean Corpuscular Volume 87 fL (80-100); Monocytes # (Auto) 2.9 Thou/mm3 (0.0-0.8); Monocytes % (Auto) 13 % (0-12); Neutrophils # (Auto) 17.6 Thou/mm3 (1.8-7.7); Neutrophils % (Auto) 75 % (37-80); Nucleated Red Blood Cell # 0.09 Thou/mm3 (0.00-0.00); Nucleated Red Blood Cell % 0 /100 WBC (0); Platelet Count 456 Thou/mm3 (140-440); RDW Standard Deviation 51.5 fL (36.4-46.3); Red Blood Count 3.37 Miln/mm3 (4.00-5.20); White Blood Count 23.4 Thou/mm3 (3.6-11.0)
[2025-04-25 04:28] LABS: Alanine Aminotransferase < 7 U/L (10-49); Albumin, Serum 4.8 gm/dL (3.4-4.8); Albumin/Globulin Ratio 4.0 (1.2-2.2); Alkaline Phosphatase 58 U/L (46-116); Anion Gap 15 (7-16); Aspartate Amino Transferase 18 U/L (0-34); BUN/Creatinine Ratio 20 Ratio (12-20); Bilirubin,Total 0.8 mg/dL (0.3-1.2); Blood Urea Nitrogen 30 mg/dL (9-23); Calcium 9.3 mg/dL (8.3-10.6); Calcium (Corrected) 9.3 mg/dL (8.5-10.1); Carbon Dioxide 20.2 mMol/L (20.0-31.0); Chloride 115 mMol/L (98-107); Creatinine (Component) 1.5 mg/dL (0.6-1.3); Estimated Creatinine Clearance 36.7 mL/min (>60); Globulin 1.2 gm/dL (2.3-3.5); Glucose 115 mg/dL (74-106); Magnesium 2.0 mg/dL (1.6-2.6); Osmolality,Calculated 305 (275-295); Phosphorous 4.4 mg/dL (2.4-5.1); Potassium 3.0 mMol/L (3.4-5.1); Sodium 150 mMol/L (136-145); Total Protein 6.0 gm/dL (5.7-8.2); eGFR 38 See Note
[2025-04-25] MEDS: metroNIDAZOLE/NS 500 MG IVPB 500 MG/100 ML BAG 200 MG IV ×3 (05:23→21:11)
--- NOTE | 2025-04-25 05:46 | PC.NURSE ---
purewick external catheter applied.
--- NOTE | 2025-04-25 07:57 | ECHO_ITS ---
Patient Info Name: Liz Johnson Age: 64 years : 1960 Gender: Female Ht: 163 cm Wt: 75 kg BSA: 1.87 m2 BP: 128 / 87 mmHg Heart Rhythm: Tachycardia Exam Date: 04/25/2025 1:06 PM Admit Date: 04/19/2025 Site: [facility] Room Number: 352 Patient Status: I Technical Quality: Poor Exam Type: CA echo doppler limited Set Up Inspector: Margoth Diop Ordering Physician: Susanne Ruiz Study Info Indications diastolic dysfunction/Possible HFrEF - Primary Location: [id number] Left Ventricular Outflow Tract Name Value Normal LVOT 2D LVOT Diameter 2.0 cm Pulmonic Valve Name Value Normal PV Doppler PV Peak Velocity 114 cm/s Tricuspid Valve Name Value Normal TV Regurgitation Doppler TR Peak Velocity 267 cm/s Aortic Valve Name Value Normal AV 2D/MM AV Cusp Sep (MM) 1.6 cm AV Regurgitation 2D LVOT Area 3.1 cm2 Ventricles Name Value Normal LV Dimensions 2D/MM IVS Diastolic Thickness (2D) 1.1 cm 0.6-0.9 LVID Diastole (2D) 5.1 cm 3.8-5.2 LVIW Diastolic Thickness (2D) 1.3 cm 0.6-0.9 LVID Systole (2D) 3.1 cm 2.2-3.5 LVOT Diameter 2.0 cm LV Mass (2D Cubed) 241.23 g 67.00-162.00 LV Mass Index (2D Cubed) 129 g/m2 43-95 Relative Wall Thickness (2D) 0.51 <=0.42 IVS/LVIW Diastolic Thickness (2D) 0.85 0.00-1.50 LV Fractional Shortening/Ejection Fraction 2D/MM LV Fractional Shortening (2D) 39 % 27-45 LV EF (2D Teichholz) 69 % Left Ventricle Left ventricular chamber dimension is normal. Left ventricular systolic function is normal with visually estimated ejection fraction of 60-65%. There is mild concentric hypertrophy noted in the left ventricle. Left ventricular segmental wall motion is normal. There is normal diastolic function in the left ventricle. Right Ventricle Right ventricular chamber dimension is normal. Right ventricular systolic function is normal. Left Atrium Left atrial chamber dimension is normal. Right Atrium Right atrial chamber dimension is normal. Aortic Valve The aortic valve is trileaflet. There is mild aortic valve sclerosis. There is no aortic valve stenosis. There is no aortic valve regurgitation. Pulmonic Valve The pulmonic valve is normal. There is no pulmonic valve stenosis. There is no pulmonic regurgitation. Mitral Valve The mitral valve has thickened leaflets. There is no mitral valve stenosis. There is no mitral valve regurgitation. Tricuspid Valve The tricuspid valve leaflets are normal. There is no tricuspid valve stenosis. There is mild tricuspid valve regurgitation. Pericardium/Pleural The pericardium appears normal. There is no pericardial effusion. No pleural effusion visualized. Aorta The aortic measurements are indexed to age and body surface area. The aortic root at the sinus of Valsalva is not well visualized. The prox ascending aorta is not well visualized. Summary 1. Left ventricle size is normal and systolic function is normal. Estimated ejection fraction is 60-65%. There is normal diastolic function. 2. Right ventricle chamber size is normal and systolic function is normal. 3. There is mild aortic valve sclerosis with no stenosis and no regurgitation. 4. Limited exam due to surgery and open wounds. Report Signatures Finalized by Antonietta Fontaine on 04/28/2025 01:12 AM
[2025-04-25] MEDS: LEVOFLOXACIN/D5W 500 MG IVPB 500 MG/100 ML BAG 100 MG IV (08:20)
[2025-04-25] MEDS: POTASSIUM CHL 10 mEq IVPB 10 MEQ/100 ML BAG 100 MEQ IV ×7 (10:06→18:02)
--- NOTE | 2025-04-25 10:57 | PC.SS ---
SS follow up note; Patient is recovering from surgery. Patient needs to have Bowl movement. Patient will discharge home when medically cleared.
--- NOTE | 2025-04-25 11:51 | ESPR_ITS ---
Documentation for date of: 04/25/25 Subjective Subjective Narrative: Patient is seen and examined. Her pain is controlled. She has not had further episodes of nausea or vomiting. She did have a bowel movement and started passing flatus Exam Vital Signs Temp Pulse Resp BP Pulse Ox O2 Del Method O2 Flow Rate 98.0 F 112 H 18 157/103 H 94 L Oxy Mask 3 04/25/25 07:45 04/25/25 07:45 04/25/25 07:45 04/25/25 07:45 04/25/25 07:45 04/25/25 07:45 04/25/25 07:45 Constitutional Constitutional: no acute distress Routine Abdominal Exam Comments: Abdomen is soft and mildly distended. Incision with dressing clean, dry and int act. Bowel sounds are present Assessment & Plan Assessment Additional comments: Postop day #3 status post exploratory laparotomy with partial small bowel resection. Plan Clamp the NG tube. Patient is advised to increase ambulation and use incentive spirometer PROCEDURES: Procedures Exploratory laparotomy, partial small bowel resection with anastomosis
[2025-04-25 12:45] LABS: Albumin, Serum 5.2 gm/dL (3.4-4.8); Anion Gap 16 (7-16); BUN/Creatinine Ratio 20 Ratio (12-20); Blood Urea Nitrogen 26 mg/dL (9-23); Calcium 9.5 mg/dL (8.3-10.6); Calcium (Corrected) 9.5 mg/dL (8.5-10.1); Carbon Dioxide 20.3 mMol/L (20.0-31.0); Chloride 117 mMol/L (98-107); Creatinine (Component) 1.3 mg/dL (0.6-1.3); Estimated Creatinine Clearance 42.3 mL/min (>60); Glucose 118 mg/dL (74-106); Osmolality,Calculated 309 (275-295); Phosphorous 3.6 mg/dL (2.4-5.1); Potassium 3.3 mMol/L (3.4-5.1); Sodium 153 mMol/L (136-145); eGFR 45 See Note
--- NOTE | 2025-04-25 14:29 | ESPR_ITS ---
<Statement entered by Wellington Killian MD - 05/10/25 07:50> I reviewed above note and agree with findings and plans. I have also personally examined the patient with medicine team and went over assessment and plan with medical team including credit intern and resident physician. <Statement entered by Anthony Jones MD - 04/25/25 15:10> Patient is seen and examined at bedside. No acute overnight events. Noted to have a bowel movement yesterday. Reported that she is having mild abdominal pain which is very well-controlled but otherwise doing well. Vitals are stable. Physical examination remains unchanged labs done this morning showed hyponatremia with sodium of 150. Repeat sodium checks are ordered. Patient was started on D5W. Will continue to monitor sodium levels. General surgeon, Dr. Francois is following and he recommended to clamp NG tube and continue keep the patient NPO. I have personally seen and examined the patient, agree with residents assessment and plan Patient plan of care was discussed with the attending physician, Dr. Constantin Jones, PGY2 Documentation for date of: 04/25/25 Subjective Subjective Interval history: Patient is seen and examined at bedside. No acute overnight events. Noted to have a bowel movement yesterday. Reports mild abdominal pain, well-controlled with current regimen. Denies fever, chills, chest pain, or shortness of breath. Vitals stable. Physical exam unchanged. Labs: Sodium elevated at 150; D5W started. Repeat sodium checks ordered. General surgery (Dr. Francois) following; recommends NG tube clamped and continue NPO. Exam Vital Signs Temp Pulse Resp BP Pulse Ox O2 Del Method O2 Flow Rate 98.0 F 119 H 20 157/103 H 98 Oxy Mask 2 04/25/25 07:45 04/25/25 11:56 04/25/25 11:56 04/25/25 07:45 04/25/25 11:56 04/25/25 07:45 04/25/25 11:56 Narrative Exam General: Awake, alert, mildly dyspneic but cooperative. Cardiac: Tachycardic, regular rhythm, no murmurs. Respiratory: Bilateral crackles and coarse breath sounds at lung bases, no wheezes; productive cough with thick sputum. Abdomen: Soft, mildly distended, tenderness at incision site, no rebound or guarding. Incision dressing clean, dry, intact. Extremities: No edema, pulses palpable. Neuro: AO?3, no focal deficits. Objective Labs 04/25/25 02:34 04/25/25 12:17 Labs: Laboratory Results - last 24 hr 04/24/25 04/24/25 04/25/25 16:20 19:06 02:34 WBC 23.4 H RBC 3.37 L Hgb 8.7 L 9.9 L Hct 26.4 L MCV MCH MCHC RDW Std Deviation Plt Count Neut % (Auto) Lymph % (Auto) [place] % (Auto) Eos % (Auto) Baso % (Auto) Neut # (Auto) Lymph # (Auto) [place] # (Auto) Eos # (Auto) Baso # (Auto) Immature Gran # (Auto) Absolute Nucleated RBC Immature Gran % Nucleated RBC % Sodium Potassium Chloride Carbon Dioxide Anion Gap BUN Creatinine Estim Creat Clear Calc eGFR BUN/Creatinine Ratio Glucose Calculated Osmolality Calcium Corrected Calcium Phosphorus Magnesium Total Bilirubin AST ALT Alkaline Phosphatase Total Protein Albumin Globulin Albumin/Globulin Ratio Blood Type B Positive Antibody Screen NEGATIVE Crossmatch See Detail Blood Bank Wristband ID Yes 04/25/25 04/25/25 04/25/25 02:34 02:34 12:17 WBC RBC Hgb 9.8 L Hct 29.3 L 29.2 L MCV 87 MCH 29.4 MCHC 33.8 RDW Std Deviation 51.5 H Plt Count 456 H Neut % (Auto) 75 Lymph % (Auto) 5 L [place] % (Auto) 13 H Eos % (Auto) 0 Baso % (Auto) 1 Neut # (Auto) 17.6 H Lymph # (Auto) 1.1 [place] # (Auto) 2.9 H Eos # (Auto) 0.1 Baso # (Auto) 0.2 Immature Gran # (Auto) 1.49 H Absolute Nucleated RBC 0.09 H Immature Gran % 6 H Nucleated RBC % 0 Sodium 150 H 153 H Potassium 3.0 L D 3.3 L Chloride 115 H 117 H Carbon Dioxide 20.2 20.3 Anion Gap 15 16 BUN 30 H 26 H Creatinine 1.5 H D 1.3 Estim Creat Clear Calc 36.7 L 42.3 L eGFR 38 L 45 L BUN/Creatinine Ratio 20 20 Glucose 115 H 118 H Calculated Osmolality 305 H 309 H Calcium 9.3 9.5 Corrected Calcium 9.3 9.5 Phosphorus 4.4 3.6 Magnesium 2.0 Total Bilirubin 0.8 AST 18 ALT < 7 L Alkaline Phosphatase 58 Total Protein 6.0 Albumin 4.8 5.2 H Globulin 1.2 L Albumin/Globulin Ratio 4.0 H Blood Type Antibody Screen Crossmatch Blood Bank Wristband ID ABG Interpretation ABG results: 04/21/25 20:40 VBG pH 7.35 VBG pCO2 38 VBG pO2 35 VBG Base Excess -5 L Quality Measures Quality Measures VTE prophylaxis Advance care planning discussed with:: patient Assessment & Plan Assessment Current Active Medications: Generic Name Dose Route Start Last Admin Trade Name Freq PRN Reason Stop Dose Admin Albumin Human 25 gm 04/23/25 08:30 04/25/25 08:11 Albumin Human-Kjda 25% Ivpb 25 Gm/100 Ml Btl IV 04/26/25 08:29 25 gm Q8H JOYA Administration Albuterol/Ipratropium 3 ml 04/24/25 11:00 04/25/25 11:56 Albuterol/Ipratropium (Duoneb) Rt Tonya 3 Ml Nebu INH 05/24/25 10:59 3 ml Q4HRRT JOYA Administration Amlodipine Besylate 10 mg 04/20/25 09:00 04/25/25 08:13 Amlodipine Besylate 5 Mg Tablet PO 05/20/25 08:59 Not Given QDAY JOYA Atorvastatin Calcium 10 mg 04/22/25 21:00 04/24/25 20:22 Atorvastatin Calcium 10 Mg Tablet PO 05/20/25 08:59 Not Given HS JOYA Protocol Cyclobenzaprine HCl 5 mg 04/20/25 02:47 Cyclobenzaprine 5 Mg Tablet PO 05/20/25 02:46 TID PRN Muscle Spasm Duloxetine HCl 30 mg 04/20/25 09:00 04/25/25 08:13 Duloxetine Hcl 30 Mg Capsule PO 05/20/25 08:59 Not Given DAILY JOYA Hydromorphone HCl 1 mg 04/23/25 07:42 04/25/25 08:12 Hydromorphone Inj 2 Mg/Ml Vial IVP 04/26/25 17:59 1 mg Q4HR PRN Administration Pain 7-10 Metronidazole 500 mg in 100 mls @ 200 mls/hr 04/20/25 06:00 04/25/25 14:17 Flagyl 500 Mg Iv IV 04/27/25 05:59 200 mls/hr Q8HR JOYA Administration Levofloxacin/Dextrose 750 mg in 150 mls @ 100 mls/hr 04/25/25 21:00 Levaquin Ivpb IV 05/02/25 20:59 Q48HR@2100 JOYA Dextrose 1,000 mls @ 100 mls/hr 04/25/25 14:15 D5w IV 05/25/25 14:14 .Q10H JOYA Metoclopramide HCl 10 mg 04/24/25 13:15 04/25/25 12:45 Metoclopramide Inj 5 Mg/Ml Vial 2 Ml IVP 05/24/25 13:14 10 mg Q6HR JOYA Administration Protocol Ondansetron HCl 4 mg 04/22/25 10:41 04/25/25 10:10 Ondansetron Inj 2 Mg/Ml Inj 2 Ml IVP 05/22/25 10:40 4 mg Q6HR PRN Administration NAUSEA OR VOMITING Protocol Pantoprazole Sodium 40 mg 04/22/25 09:00 04/25/25 08:13 Pantoprazole Inj 40 Mg Vial IVP 05/22/25 08:59 40 mg QDAY JOYA Administration Plan 64-year-old female with PMH of HTN, HLD, ITP s/p splenectomy, Raynaud?s, GERD, and DCIS s/p lumpectomy admitted for infectious enteritis with ischemic small bowel, now POD#3 s/p resection with improving SARBJIT and pneumonia. # Acute hypoxic respiratory failure # Pulmonary Congestion # Left Lung Pneumonia Likely due to postoperative pulmonary edema vs aspiration pneumonia. CXR shows significant left lower lobe pneumonia with pleural effusion, likely explaining O2 desaturation and crackles. Vomiting on 04/24 increases risk of aspiration. Improving on antibiotics. Plan: * Continue Levofloxacin 750 mg IV daily. * Continue OxyMask, titrate to keep SpO2 >92%. * Duoneb PRN and IS hourly for pulmonary hygiene. # Hypernatremia Na 153 from 142 likely from dehydration / free-water deficit. Plan: * Continue D5W at 100 mL/hr * Monitor serum sodium q4h and adjust rate accordingly. * Assess volume status; avoid rapid correction. # Ischemic Small Bowel # SBO # S/p Exploratory Laparotomy POD#3. Pain controlled, afebrile, no peritonitis. NGT Clamped Plan: * Continue NPO. * Continue IV Levofloxacin 500 mg q24h for coverage of both enteric and pulmonary concerns. * Continue pain control with Dilaudid PRN. * Encourage ambulation and incentive spirometry per surgical orders. * Monitor abdominal exam q4h. * Surgery (Dr. Francois) following for postoperative care. # Hypokalemia K 3.0-> repleted IV, will repeat later today. Plan: * Recheck BMP this afternoon. * Replace as needed; monitor for infusion discomfort. # Acute Blood Loss Anemia Received 1 unit PRBC 04/24; Hgb 9.9, stable. Plan: * Repeat CBC in AM * Transfuse if Hgb <9 or symptomatic. # SARBJIT Cr improved to 1.5 (from 3.2). Etiology multifactorial; contrast-induced + prerenal. Plan: * Monitor I&O closely. * Avoid nephrotoxic medications. * Renally adjust antibiotics as appropriate. * Repeat BMP in AM. # Lactic Acidosis (resolved) Normalized to 1.8. Plan: Continue monitoring q12h; maintain adequate hydration and oxygenation. # ITP s/p Splenectomy Platelets elevated (492). Plan: * Continue to monitor CBC daily. # Raynaud?s Disease w/ Peripheral Neuropathy Reports cold, painful hands. Plan: * Discontinue Gabapentin as patient has been refusing. * Keep extremities warm; monitor IV site discomfort. # GERD Plan: Continue Pantoprazole 40 mg daily. Health Maintenance Diet: NPO Fluids: Albumin DVT prophylaxis: Heparin SQ GI prophylaxis: Pantoprazole Code Status: Full Consults: GI (Dr. Najera), ID (Dr. Avalos), Surgery (Dr. Francois) ----- Plan discussed with attending physician Dr. Killian and senior resident Dr. Robert Ruiz MD PGY-1 Internal Medicine
--- NOTE | 2025-04-25 14:32 | ESPR_ITS ---
Subjective Subjective Interval history: current rx acceptable. usual duration is 7d. Exam Vital Signs Temp Pulse Resp BP Pulse Ox O2 Del Method O2 Flow Rate 98.0 F 119 H 20 157/103 H 98 Oxy Mask 2 04/25/25 07:45 04/25/25 11:56 04/25/25 11:56 04/25/25 07:45 04/25/25 11:56 04/25/25 07:45 04/25/25 11:56 Narrative Exam limited eval today Objective - Internal Medicine Labs 04/25/25 02:34 04/25/25 12:17 Labs: Laboratory Results - last 24 hr 04/24/25 04/24/25 04/25/25 16:20 19:06 02:34 WBC 23.4 H RBC 3.37 L Hgb 8.7 L 9.9 L Hct 26.4 L MCV MCH MCHC RDW Std Deviation Plt Count Neut % (Auto) Lymph % (Auto) [place] % (Auto) Eos % (Auto) Baso % (Auto) Neut # (Auto) Lymph # (Auto) [place] # (Auto) Eos # (Auto) Baso # (Auto) Immature Gran # (Auto) Absolute Nucleated RBC Immature Gran % Nucleated RBC % Sodium Potassium Chloride Carbon Dioxide Anion Gap BUN Creatinine Estim Creat Clear Calc eGFR BUN/Creatinine Ratio Glucose Calculated Osmolality Calcium Corrected Calcium Phosphorus Magnesium Total Bilirubin AST ALT Alkaline Phosphatase Total Protein Albumin Globulin Albumin/Globulin Ratio Blood Type B Positive Antibody Screen NEGATIVE Crossmatch See Detail Blood Bank Wristband ID Yes 04/25/25 04/25/25 04/25/25 02:34 02:34 12:17 WBC RBC Hgb 9.8 L Hct 29.3 L 29.2 L MCV 87 MCH 29.4 MCHC 33.8 RDW Std Deviation 51.5 H Plt Count 456 H Neut % (Auto) 75 Lymph % (Auto) 5 L [place] % (Auto) 13 H Eos % (Auto) 0 Baso % (Auto) 1 Neut # (Auto) 17.6 H Lymph # (Auto) 1.1 [place] # (Auto) 2.9 H Eos # (Auto) 0.1 Baso # (Auto) 0.2 Immature Gran # (Auto) 1.49 H Absolute Nucleated RBC 0.09 H Immature Gran % 6 H Nucleated RBC % 0 Sodium 150 H 153 H Potassium 3.0 L D 3.3 L Chloride 115 H 117 H Carbon Dioxide 20.2 20.3 Anion Gap 15 16 BUN 30 H 26 H Creatinine 1.5 H D 1.3 Estim Creat Clear Calc 36.7 L 42.3 L eGFR 38 L 45 L BUN/Creatinine Ratio 20 20 Glucose 115 H 118 H Calculated Osmolality 305 H 309 H Calcium 9.3 9.5 Corrected Calcium 9.3 9.5 Phosphorus 4.4 3.6 Magnesium 2.0 Total Bilirubin 0.8 AST 18 ALT < 7 L Alkaline Phosphatase 58 Total Protein 6.0 Albumin 4.8 5.2 H Globulin 1.2 L Albumin/Globulin Ratio 4.0 H Blood Type Antibody Screen Crossmatch Blood Bank Wristband ID ABG Interpretation ABG results: 04/21/25 20:40 VBG pH 7.35 VBG pCO2 38 VBG pO2 35 VBG Base Excess -5 L Assessment & Plan A&P Narrative old tb treated yrs ago in [place] abd sx only at this time levaquin and flagyl are the same po as iv usual rx is 5d post op ( stop it trial)surgery was Sunday 04/22 so rx thru 04/27 will see again prn Time Spent With Patient Time: Total time spent is greater than 50% in coordination of care (as documented) at patient's floor/unit and/or counseling patient:
[2025-04-25] MEDS: DEXTROSE 5%-WATER 1,000 ML 100 ML IV (15:07)
--- NOTE | 2025-04-25 19:29 | ESPR_ITS ---
Documentation for date of: 04/25/25 Subjective Subjective Interval history: Patient evaluated Passing flatus and had a bowel movement Exam Vital Signs Temp Pulse Resp BP Pulse Ox O2 Del Method O2 Flow Rate 98.1 F 97 18 161/94 H 94 L Oxy Mask 3 04/25/25 16:31 04/25/25 16:31 04/25/25 16:31 04/25/25 16:31 04/25/25 16:31 04/25/25 16:31 04/25/25 16:31 Objective Labs 04/25/25 02:34 04/25/25 12:17 Labs: Laboratory Results - last 24 hr 04/24/25 04/25/25 04/25/25 19:06 02:34 02:34 WBC 23.4 H RBC 3.37 L Hgb 9.9 L 9.8 L Hct 29.3 L MCV MCH MCHC RDW Std Deviation Plt Count Neut % (Auto) Lymph % (Auto) [place] % (Auto) Eos % (Auto) Baso % (Auto) Neut # (Auto) Lymph # (Auto) [place] # (Auto) Eos # (Auto) Baso # (Auto) Immature Gran # (Auto) Absolute Nucleated RBC Immature Gran % Nucleated RBC % Sodium Potassium Chloride Carbon Dioxide Anion Gap BUN Creatinine Estim Creat Clear Calc eGFR BUN/Creatinine Ratio Glucose Calculated Osmolality Calcium Corrected Calcium Phosphorus Magnesium Total Bilirubin AST ALT Alkaline Phosphatase Total Protein Albumin Globulin Albumin/Globulin Ratio Blood Type B Positive Antibody Screen NEGATIVE Crossmatch See Detail Blood Bank Wristband ID Yes 04/25/25 04/25/25 02:34 12:17 WBC RBC Hgb Hct 29.2 L MCV 87 MCH 29.4 MCHC 33.8 RDW Std Deviation 51.5 H Plt Count 456 H Neut % (Auto) 75 Lymph % (Auto) 5 L [place] % (Auto) 13 H Eos % (Auto) 0 Baso % (Auto) 1 Neut # (Auto) 17.6 H Lymph # (Auto) 1.1 [place] # (Auto) 2.9 H Eos # (Auto) 0.1 Baso # (Auto) 0.2 Immature Gran # (Auto) 1.49 H Absolute Nucleated RBC 0.09 H Immature Gran % 6 H Nucleated RBC % 0 Sodium 150 H 153 H Potassium 3.0 L D 3.3 L Chloride 115 H 117 H Carbon Dioxide 20.2 20.3 Anion Gap 15 16 BUN 30 H 26 H Creatinine 1.5 H D 1.3 Estim Creat Clear Calc 36.7 L 42.3 L eGFR 38 L 45 L BUN/Creatinine Ratio 20 20 Glucose 115 H 118 H Calculated Osmolality 305 H 309 H Calcium 9.3 9.5 Corrected Calcium 9.3 9.5 Phosphorus 4.4 3.6 Magnesium 2.0 Total Bilirubin 0.8 AST 18 ALT < 7 L Alkaline Phosphatase 58 Total Protein 6.0 Albumin 4.8 5.2 H Globulin 1.2 L Albumin/Globulin Ratio 4.0 H Blood Type Antibody Screen Crossmatch Blood Bank Wristband ID Impressions Impression: Resolved nausea vomiting Status post exploratory laparotomy Encourage ambulation and if no nausea vomiting can start the patient on liquid diet ABG Interpretation ABG results: 04/21/25 20:40 VBG pH 7.35 VBG pCO2 38 VBG pO2 35 VBG Base Excess -5 L Assessment & Plan A&P Narrative old tb treated yrs ago in [place] abd sx only at this time levaquin and flagyl are the same po as iv usual rx is 5d post op ( stop it trial)surgery was Sunday 04/22 so rx thru 04/27 will see again prn Time Spent With Patient Time: Total time spent is greater than 50% in coordination of care (as documented) at patient's floor/unit and/or counseling patient:
[2025-04-25 20:15] LABS: Sodium 151 mMol/L (136-145)
[2025-04-25] MEDS: LEVOFLOXACIN/D5W 750MG IVPB 750 MG/150 ML BAG 100 MG IV (21:11)
[2025-04-25] MEDS: ATORVASTATIN CALCIUM 10 MG TABLET PO (21:11)
[2025-04-25 23:55] LABS: Sodium 149 mMol/L (136-145)
[2025-04-26] VITALS (12 sets, daily range): BP systolic 119–162; BP diastolic 77–94; PULSE 81–115; RESP 16–22; TEMP 36.4–36.8; O2SAT 93–99; BMI 28.3
[2025-04-26] MEDS: ALBUTEROL/IPRATROPIUM (Duoneb) RT SOL 3 ML NEBU INH ×6 (02:07→22:40)
[2025-04-26 03:26] LABS: Basophils # (Auto) 0.0 Thou/mm3 (0.0-0.2); Basophils % (Auto) 0 % (0-2.5); Eosinophils # (Auto) 0.1 Thou/mm3 (0.0-0.5); Eosinophils % (Auto) 0 % (0-10); Hematocrit 28.0 % (36.0-46.0); Hemoglobin 9.4 g/dL (12.0-16.0); Immature Granulocytes Auto 2.43 Thou/mm3 (0.00-0.00); Lymphocytes # (Auto) 1.8 Thou/mm3 (1.0-4.8); Lymphocytes % (Auto) 6 % (10-50); Mean Corpuscular HGB Conc 33.6 g/dl (31.0-37.0); Mean Corpuscular Hemoglobin 29.1 pg (25.0-35.0); Mean Corpuscular Volume 87 fL (80-100); Monocytes # (Auto) 3.5 Thou/mm3 (0.0-0.8); Monocytes % (Auto) 12 % (0-12); Neutrophils # (Auto) 22.0 Thou/mm3 (1.8-7.7); Neutrophils % (Auto) 74 % (37-80); Nucleated Red Blood Cell # 0.13 Thou/mm3 (0.00-0.00); Nucleated Red Blood Cell % 0 /100 WBC (0); Platelet Count 426 Thou/mm3 (140-440); RDW Standard Deviation 52.1 fL (36.4-46.3); Red Blood Count 3.23 Miln/mm3 (4.00-5.20); White Blood Count 29.9 Thou/mm3 (3.6-11.0)
[2025-04-26] MEDS: HYDROmorphone INJ 2 MG/ML VIAL 1 MG IVP ×2 (03:49→16:44)
[2025-04-26] MEDS: DEXTROSE 5%-WATER 1,000 ML 100 ML IV ×2 (03:49→12:10)
[2025-04-26 03:59] LABS: Alanine Aminotransferase < 7 U/L (10-49); Albumin, Serum 4.9 gm/dL (3.4-4.8); Albumin/Globulin Ratio 4.5 (1.2-2.2); Alkaline Phosphatase 56 U/L (46-116); Anion Gap 13 (7-16); Aspartate Amino Transferase 15 U/L (0-34); BUN/Creatinine Ratio 18 Ratio (12-20); Bilirubin,Total 0.8 mg/dL (0.3-1.2); Blood Urea Nitrogen 23 mg/dL (9-23); Calcium 9.2 mg/dL (8.3-10.6); Calcium (Corrected) 9.2 mg/dL (8.5-10.1); Carbon Dioxide 21.5 mMol/L (20.0-31.0); Chloride 115 mMol/L (98-107); Creatinine (Component) 1.3 mg/dL (0.6-1.3); Estimated Creatinine Clearance 42.3 mL/min (>60); Globulin 1.1 gm/dL (2.3-3.5); Glucose 145 mg/dL (74-106); Magnesium 1.8 mg/dL (1.6-2.6); Osmolality,Calculated 302 (275-295); Phosphorous 2.7 mg/dL (2.4-5.1); Potassium 3.3 mMol/L (3.4-5.1); Sodium 149 mMol/L (136-145); Total Protein 6.0 gm/dL (5.7-8.2); eGFR 45 See Note
[2025-04-26] MEDS: metroNIDAZOLE/NS 500 MG IVPB 500 MG/100 ML BAG 200 MG IV ×3 (05:53→21:27)
[2025-04-26] MEDS: METOCLOPRAMIDE INJ 5 MG/ML VIAL 2 ML 10 MG IVP ×4 (05:53→23:20)
[2025-04-26] MEDS: POTASSIUM CHL 10 mEq IVPB 10 MEQ/100 ML BAG 100 MEQ IV ×4 (08:29→12:55)
--- NOTE | 2025-04-26 08:32 | PC.NURSE ---
Per Dr. Jones hold fluids and potassium for an 1hr then resume.
[2025-04-26 08:44] LABS: Lactate (Lactic Acid) 1.9 mMol/L (0.4-2.0)
--- NOTE | 2025-04-26 09:55 | PD.SURPROG ---
Documentation for date of: 04/26/25 Subjective Subjective Narrative: Patient is seen and examined. Her pain is improving. Her NG tube has been clamped, she has not had nausea or vomiting. She is passing flatus and had bowel movement Exam Vital Signs Temp Pulse Resp BP Pulse Ox O2 Del Method O2 Flow Rate 97.6 F 99 18 160/81 H 94 L Nasal Cannula 3 04/26/25 08:00 04/26/25 08:00 04/26/25 08:00 04/26/25 08:00 04/26/25 08:00 04/26/25 08:00 04/26/25 08:00 Constitutional Constitutional: no acute distress Routine Abdominal Exam Comments: Abdomen is soft and less distended. Bowel sounds are active and present. Incision is clean, dry and intact Assessment & Plan Assessment Additional comments: Postop day #4 status post exploratory laparotomy with partial small bowel resection. Plan NG tube was removed. Patient will be started on liquid diet PROCEDURES: Procedures Exploratory laparotomy, partial small bowel resection with anastomosis
[2025-04-26 11:06] LABS: Procalcitonin 1.49 ng/ml (0.0-0.49); Sodium 147 mMol/L (136-145)
--- NOTE | 2025-04-26 11:35 | ESPR_ITS ---
<Statement entered by Wellington Killian MD - 05/10/25 07:51> I reviewed above note and agree with findings and plans. I have also personally examined the patient with medicine team and went over assessment and plan with medical team including commercial intern and resident physician. <Statement entered by Anthony Jones MD - 04/30/25 13:41> I have personally seen and examined the patient, agree with residents assessment and plan Patient plan of care was discussed with the attending physician, Dr. Constantin Jones, PGY2 Documentation for date of: 04/26/25 Subjective Subjective Interval history: Patient seen and examined at bedside. No acute overnight events. Reports no abdominal pain, nausea, vomiting, or bloating. Had a bowel movement yesterday. NG tube remains clamped, will discuss removal with surgery. Denies chest pain or shortness of breath but crackles persist at lung bases. No edema. Voiding via PureWick without difficulty. Exam Vital Signs Temp Pulse Resp BP Pulse Ox O2 Del Method O2 Flow Rate 97.6 F 89 20 160/81 H 97 Nasal Cannula 2 04/26/25 08:00 04/26/25 10:44 04/26/25 10:44 04/26/25 08:00 04/26/25 10:44 04/26/25 08:00 04/26/25 10:44 Narrative Exam General: Awake, alert, mildly dyspneic but cooperative. Cardiac: Regular rate, regular rhythm, no murmurs. Respiratory: Bilateral crackles and coarse breath sounds at lung bases, no wheezes; productive cough with thick sputum. Abdomen: Soft, mildly distended, tenderness at incision site, no rebound or guarding. Incision dressing clean, dry, intact. Extremities: No edema, pulses palpable. Neuro: AO?3, no focal deficits. Objective Labs 04/26/25 03:13 04/26/25 16:43 Labs: Laboratory Results - last 24 hr 04/25/25 04/25/25 04/25/25 12:17 19:48 23:13 WBC RBC Hgb Hct MCV MCH MCHC RDW Std Deviation Plt Count Neut % (Auto) Lymph % (Auto) [place] % (Auto) Eos % (Auto) Baso % (Auto) Neut # (Auto) Lymph # (Auto) [place] # (Auto) Eos # (Auto) Baso # (Auto) Immature Gran # (Auto) Absolute Nucleated RBC Immature Gran % Nucleated RBC % Sodium 153 H 151 H 149 H Potassium 3.3 L Chloride 117 H Carbon Dioxide 20.3 Anion Gap 16 BUN 26 H Creatinine 1.3 Estim Creat Clear Calc 42.3 L eGFR 45 L BUN/Creatinine Ratio 20 Glucose 118 H Calculated Osmolality 309 H Lactic Acid Calcium 9.5 Corrected Calcium 9.5 Phosphorus 3.6 Magnesium Total Bilirubin AST ALT Alkaline Phosphatase Total Protein Albumin 5.2 H Globulin Albumin/Globulin Ratio Procalcitonin 04/26/25 04/26/25 04/26/25 03:13 08:21 10:15 WBC 29.9 H D RBC 3.23 L Hgb 9.4 L Hct 28.0 L MCV 87 MCH 29.1 MCHC 33.6 RDW Std Deviation 52.1 H Plt Count 426 D Neut % (Auto) 74 Lymph % (Auto) 6 L [place] % (Auto) 12 Eos % (Auto) 0 Baso % (Auto) 0 Neut # (Auto) 22.0 H Lymph # (Auto) 1.8 [place] # (Auto) 3.5 H Eos # (Auto) 0.1 Baso # (Auto) 0.0 Immature Gran # (Auto) 2.43 H Absolute Nucleated RBC 0.13 H Immature Gran % 8 H Nucleated RBC % 0 Sodium 149 H 147 H Potassium 3.3 L Chloride 115 H Carbon Dioxide 21.5 Anion Gap 13 BUN 23 Creatinine 1.3 Estim Creat Clear Calc 42.3 L eGFR 45 L BUN/Creatinine Ratio 18 Glucose 145 H Calculated Osmolality 302 H Lactic Acid 1.9 Calcium 9.2 Corrected Calcium 9.2 Phosphorus 2.7 Magnesium 1.8 Total Bilirubin 0.8 AST 15 ALT < 7 L Alkaline Phosphatase 56 Total Protein 6.0 Albumin 4.9 H Globulin 1.1 L Albumin/Globulin Ratio 4.5 H Procalcitonin 1.49 H ABG Interpretation ABG results: 04/21/25 20:40 VBG pH 7.35 VBG pCO2 38 VBG pO2 35 VBG Base Excess -5 L Quality Measures Quality Measures VTE prophylaxis Advance care planning discussed with:: patient Assessment & Plan Assessment Current Active Medications: Generic Name Dose Route Start Last Admin Trade Name Freq PRN Reason Stop Dose Admin Albuterol/Ipratropium 3 ml 04/24/25 11:00 04/26/25 10:44 Albuterol/Ipratropium (Duoneb) Rt Tonya 3 Ml Nebu INH 05/24/25 10:59 3 ml Q4HRRT JOYA Administration Amlodipine Besylate 10 mg 04/20/25 09:00 04/26/25 08:25 Amlodipine Besylate 5 Mg Tablet PO 05/20/25 08:59 Not Given QDAY JOYA Atorvastatin Calcium 10 mg 04/22/25 21:00 04/25/25 21:11 Atorvastatin Calcium 10 Mg Tablet PO 05/20/25 08:59 10 mg HS JOYA Administration Protocol Cyclobenzaprine HCl 5 mg 04/20/25 02:47 Cyclobenzaprine 5 Mg Tablet PO 05/20/25 02:46 TID PRN Muscle Spasm Duloxetine HCl 30 mg 04/20/25 09:00 04/26/25 08:26 Duloxetine Hcl 30 Mg Capsule PO 05/20/25 08:59 Not Given DAILY JOYA Hydromorphone HCl 1 mg 04/23/25 07:42 04/26/25 03:49 Hydromorphone Inj 2 Mg/Ml Vial IVP 04/26/25 17:59 1 mg Q4HR PRN Administration Pain 7-10 Metronidazole 500 mg in 100 mls @ 200 mls/hr 04/20/25 06:00 04/26/25 05:53 Flagyl 500 Mg Iv IV 04/27/25 05:59 200 mls/hr Q8HR JOYA Administration Levofloxacin/Dextrose 750 mg in 150 mls @ 100 mls/hr 04/25/25 21:00 04/25/25 21:11 Levaquin Ivpb IV 05/02/25 20:59 100 mls/hr Q48HR@2100 JOYA Administration Potassium Chloride 10 meq in 100 mls @ 100 mls/hr 04/26/25 08:10 04/26/25 10:17 Kcl Ivpb IV 04/26/25 12:09 100 mls/hr Q1H JOAY Administration Dextrose 1,000 mls @ 100 mls/hr 04/26/25 11:00 D5w IV 05/26/25 10:59 .Q10H JOYA Metoclopramide HCl 10 mg 04/24/25 13:15 04/26/25 05:53 Metoclopramide Inj 5 Mg/Ml Vial 2 Ml IVP 05/24/25 13:14 10 mg Q6HR JOYA Administration Protocol Ondansetron HCl 4 mg 04/22/25 10:41 04/25/25 10:10 Ondansetron Inj 2 Mg/Ml Inj 2 Ml IVP 05/22/25 10:40 4 mg Q6HR PRN Administration NAUSEA OR VOMITING Protocol Pantoprazole Sodium 40 mg 04/22/25 09:00 04/26/25 08:33 Pantoprazole Inj 40 Mg Vial IVP 05/22/25 08:59 40 mg QDAY JOYA Administration Plan 64F POD#4 s/p small-bowel resection for ischemia with persistent leukocytosis, improving hypernatremia, stable SARBJIT, and controlled pain. # Ischemic Small Bowel # SBO # S/p Exploratory Laparotomy # Leukocytosis POD#4. Pain controlled, afebrile, no peritonitis. SBO resolved. NGT clamped. WBC 29.9 (up from 23.4). Possible ongoing infection or inflammatory response. Plan: * Continue NPO. * Continue IV Levofloxacin 750 mg q24h for coverage of both enteric and pulmonary concerns. * Lactate and procalcitonin ordered for sepsis evaluation * Continue pain control with Dilaudid PRN. * Encourage ambulation and incentive spirometry per surgical orders. * Surgery (Dr. Francois) following for postoperative care. # Acute hypoxic respiratory failure # Pulmonary Congestion # Left Lung Pneumonia Likely due to postoperative pulmonary edema vs aspiration pneumonia. CXR shows significant left lower lobe pneumonia with pleural effusion, likely explaining O2 desaturation and crackles. Vomiting on 04/24 increases risk of aspiration. Improving on antibiotics. Plan: * Continue Levofloxacin 750 mg IV daily. * Continue OxyMask, titrate to keep SpO2 >92%. * Duoneb PRN and IS hourly for pulmonary hygiene. # Hypernatremia (resolved) Na 145 from 153 likely from dehydration / free-water deficit. Plan: * Discontinue D5W * Assess volume status; avoid rapid correction. # Hypokalemia K 3.3-> repleted IV, will repeat later today. Plan: * Recheck BMP this afternoon. * Replace as needed; monitor for infusion discomfort. # Acute Blood Loss Anemia Received 1 unit PRBC 04/24; Hgb 9.9, stable. Plan: * Repeat CBC in AM * Transfuse if Hgb <9 or symptomatic. # SARBJIT Cr improved to 1.3 (from 3.2). Etiology multifactorial; contrast-induced + prerenal. Plan: * Monitor I&O closely. * Avoid nephrotoxic medications. * Renally adjust antibiotics as appropriate. * Repeat BMP in AM. # Lactic Acidosis (resolved) Normalized to 1.8. Plan: Continue monitoring q12h; maintain adequate hydration and oxygenation. # ITP s/p Splenectomy Platelets elevated (492). Plan: * Continue to monitor CBC daily. # Raynaud?s Disease w/ Peripheral Neuropathy Reports cold, painful hands. Plan: * Discontinue Gabapentin as patient has been refusing. * Keep extremities warm; monitor IV site discomfort. # GERD Plan: Continue Pantoprazole 40 mg daily. Health Maintenance Diet: Clear liquid diet Fluids: Albumin DVT prophylaxis: Heparin SQ GI prophylaxis: Pantoprazole Code Status: Full Consults: GI (Dr. Najera), ID (Dr. Avalos), Surgery (Dr. Francois) ----- Plan discussed with attending physician Dr. Killian and senior resident Dr. Robert Ruiz MD PGY-1 Internal Medicine
[2025-04-26 13:43] LABS: Sodium 145 mMol/L (136-145)
--- NOTE | 2025-04-26 15:27 | PC.PT ---
Patient is safe to ambulate to the bathroom with a FWW and 1 staff assist or safety. RN made aware.
[2025-04-26] MEDS: ZINC SULFATE 220 MG CAPSULE PO (16:46)
[2025-04-26 17:20] LABS: Sodium 144 mMol/L (136-145)
--- NOTE | 2025-04-26 18:02 | PC.NURSE ---
This am patient sat up in chair for lunch and was able to work with physical therapy. Tolerated well.
--- NOTE | 2025-04-26 19:50 | ESPR_ITS ---
Documentation for date of: 04/26/25 Subjective Subjective Interval history: Passing flatus no bowel movement NGT is clamped On clear liquid diet Exam Vital Signs Temp Pulse Resp BP Pulse Ox O2 Del Method O2 Flow Rate 97.7 F 89 20 162/94 H 97 Nasal Cannula 3 04/26/25 16:00 04/26/25 18:24 04/26/25 18:24 04/26/25 16:00 04/26/25 18:24 04/26/25 16:00 04/26/25 18:24 Objective Labs 04/26/25 03:13 04/26/25 16:43 Labs: Laboratory Results - last 24 hr 04/25/25 04/25/25 04/26/25 19:48 23:13 03:13 WBC 29.9 H D RBC 3.23 L Hgb 9.4 L Hct 28.0 L MCV 87 MCH 29.1 MCHC 33.6 RDW Std Deviation 52.1 H Plt Count 426 D Neut % (Auto) 74 Lymph % (Auto) 6 L [place] % (Auto) 12 Eos % (Auto) 0 Baso % (Auto) 0 Neut # (Auto) 22.0 H Lymph # (Auto) 1.8 [place] # (Auto) 3.5 H Eos # (Auto) 0.1 Baso # (Auto) 0.0 Immature Gran # (Auto) 2.43 H Absolute Nucleated RBC 0.13 H Immature Gran % 8 H Nucleated RBC % 0 Sodium 151 H 149 H 149 H Potassium 3.3 L Chloride 115 H Carbon Dioxide 21.5 Anion Gap 13 BUN 23 Creatinine 1.3 Estim Creat Clear Calc 42.3 L eGFR 45 L BUN/Creatinine Ratio 18 Glucose 145 H Calculated Osmolality 302 H Lactic Acid Calcium 9.2 Corrected Calcium 9.2 Phosphorus 2.7 Magnesium 1.8 Total Bilirubin 0.8 AST 15 ALT < 7 L Alkaline Phosphatase 56 Total Protein 6.0 Albumin 4.9 H Globulin 1.1 L Albumin/Globulin Ratio 4.5 H Procalcitonin 04/26/25 04/26/25 04/26/25 08:21 10:15 13:00 WBC RBC Hgb Hct MCV MCH MCHC RDW Std Deviation Plt Count Neut % (Auto) Lymph % (Auto) [place] % (Auto) Eos % (Auto) Baso % (Auto) Neut # (Auto) Lymph # (Auto) [place] # (Auto) Eos # (Auto) Baso # (Auto) Immature Gran # (Auto) Absolute Nucleated RBC Immature Gran % Nucleated RBC % Sodium 147 H 145 Potassium Chloride Carbon Dioxide Anion Gap BUN Creatinine Estim Creat Clear Calc eGFR BUN/Creatinine Ratio Glucose Calculated Osmolality Lactic Acid 1.9 Calcium Corrected Calcium Phosphorus Magnesium Total Bilirubin AST ALT Alkaline Phosphatase Total Protein Albumin Globulin Albumin/Globulin Ratio Procalcitonin 1.49 H 04/26/25 16:43 WBC RBC Hgb Hct MCV MCH MCHC RDW Std Deviation Plt Count Neut % (Auto) Lymph % (Auto) [place] % (Auto) Eos % (Auto) Baso % (Auto) Neut # (Auto) Lymph # (Auto) [place] # (Auto) Eos # (Auto) Baso # (Auto) Immature Gran # (Auto) Absolute Nucleated RBC Immature Gran % Nucleated RBC % Sodium 144 Potassium Chloride Carbon Dioxide Anion Gap BUN Creatinine Estim Creat Clear Calc eGFR BUN/Creatinine Ratio Glucose Calculated Osmolality Lactic Acid Calcium Corrected Calcium Phosphorus Magnesium Total Bilirubin AST ALT Alkaline Phosphatase Total Protein Albumin Globulin Albumin/Globulin Ratio Procalcitonin Impressions Impression: Status post resection of the ischemic bowel Progressing postoperatively being on the clear liquid diet at the moment ABG Interpretation ABG results: 04/21/25 20:40 VBG pH 7.35 VBG pCO2 38 VBG pO2 35 VBG Base Excess -5 L Assessment & Plan A&P Narrative old tb treated yrs ago in [place] abd sx only at this time levaquin and flagyl are the same po as iv usual rx is 5d post op ( stop it trial)surgery was Sunday 04/22 so rx thru 04/27 will see again prn Time Spent With Patient Time: Total time spent is greater than 50% in coordination of care (as documented) at patient's floor/unit and/or counseling patient:
[2025-04-26] MEDS: ASCORBIC ACID 250 MG TABLET 500 MG PO (20:35)
[2025-04-26] MEDS: ATORVASTATIN CALCIUM 10 MG TABLET PO (20:35)
[2025-04-26 21:22] LABS: Sodium 144 mMol/L (136-145)
[2025-04-27] VITALS (13 sets, daily range): BP systolic 131–153; BP diastolic 64–97; PULSE 87–118; RESP 15–94; TEMP 36.3–36.8; O2SAT 93–100; BMI 13.0; BMI 15.0
[2025-04-27] MEDS: ALBUTEROL/IPRATROPIUM (Duoneb) RT SOL 3 ML NEBU INH ×6 (03:15→22:50)
[2025-04-27] MEDS: METOCLOPRAMIDE INJ 5 MG/ML VIAL 2 ML 10 MG IVP ×3 (05:29→23:06)
[2025-04-27 06:13] LABS: Basophils # (Auto) 0.2 Thou/mm3 (0.0-0.2); Basophils % (Auto) 1 % (0-2.5); Eosinophils # (Auto) 0.3 Thou/mm3 (0.0-0.5); Eosinophils % (Auto) 1 % (0-10); Hematocrit 33.0 % (36.0-46.0); Hemoglobin 10.9 g/dL (12.0-16.0); Immature Granulocytes Auto 2.30 Thou/mm3 (0.00-0.00); Lymphocytes # (Auto) 1.6 Thou/mm3 (1.0-4.8); Lymphocytes % (Auto) 7 % (10-50); Mean Corpuscular HGB Conc 33.0 g/dl (31.0-37.0); Mean Corpuscular Hemoglobin 29.4 pg (25.0-35.0); Mean Corpuscular Volume 89 fL (80-100); Monocytes # (Auto) 2.2 Thou/mm3 (0.0-0.8); Monocytes % (Auto) 9 % (0-12); Neutrophils # (Auto) 17.1 Thou/mm3 (1.8-7.7); Neutrophils % (Auto) 72 % (37-80); Nucleated Red Blood Cell # 0.17 Thou/mm3 (0.00-0.00); Nucleated Red Blood Cell % 1 /100 WBC (0); Platelet Count 390 Thou/mm3 (140-440); RDW Standard Deviation 54.6 fL (36.4-46.3); Red Blood Count 3.71 Miln/mm3 (4.00-5.20); White Blood Count 23.6 Thou/mm3 (3.6-11.0)
[2025-04-27 06:36] LABS: ANCA Screen NEGATIVE (NEGATIVE); Myeloperoxidase Ab <1.0 AI (<1.0); Proteinase-3 Ab <1.0 AI (<1.0)
[2025-04-27 06:59] LABS: Alanine Aminotransferase < 7 U/L (10-49); Albumin, Serum 4.3 gm/dL (3.4-4.8); Albumin/Globulin Ratio 3.3 (1.2-2.2); Alkaline Phosphatase 66 U/L (46-116); Anion Gap 14 (7-16); Aspartate Amino Transferase 18 U/L (0-34); BUN/Creatinine Ratio 20 Ratio (12-20); Bilirubin,Total 0.6 mg/dL (0.3-1.2); Blood Urea Nitrogen 20 mg/dL (9-23); Calcium 9.3 mg/dL (8.3-10.6); Calcium (Corrected) 9.3 mg/dL (8.5-10.1); Carbon Dioxide 20.3 mMol/L (20.0-31.0); Chloride 111 mMol/L (98-107); Creatinine (Component) 1.0 mg/dL (0.6-1.3); Estimated Creatinine Clearance 55.0 mL/min (>60); Globulin 1.3 gm/dL (2.3-3.5); Glucose 108 mg/dL (74-106); Magnesium 1.6 mg/dL (1.6-2.6); Osmolality,Calculated 292 (275-295); Phosphorous 3.0 mg/dL (2.4-5.1); Potassium 3.7 mMol/L (3.4-5.1); Sodium 145 mMol/L (136-145); Total Protein 5.6 gm/dL (5.7-8.2); eGFR > 60 See Note
[2025-04-27] MEDS: ZINC SULFATE 220 MG CAPSULE PO (08:07)
[2025-04-27] MEDS: DULoxetine HCL 30 MG CAPSULE PO (08:07)
[2025-04-27] MEDS: ASCORBIC ACID 250 MG TABLET 500 MG PO (08:07)
[2025-04-27] MEDS: Magnesium Sulfate 2 GM Ivpb 2 GM/50 ML BAG IV (09:47)
--- NOTE | 2025-04-27 11:37 | PD.SURPROG ---
Documentation for date of: 04/27/25 Subjective Subjective Narrative: Patient is seen and examined. She is resting comfortably, her pain is improving. She is tolerating clear liquids without nausea or vomiting. She has been passing flatus and had bowel movement Exam Vital Signs Temp Pulse Resp BP Pulse Ox O2 Del Method O2 Flow Rate 97.6 F 113 H 20 131/83 H 100 Nasal Cannula 2 04/27/25 08:00 04/27/25 11:00 04/27/25 11:00 04/27/25 08:07 04/27/25 11:00 04/27/25 08:00 04/27/25 08:00 Constitutional Constitutional: no acute distress Routine Abdominal Exam Comments: Abdomen is soft and very minimally distended. Incision is clean, dry and intact Assessment & Plan Assessment Additional comments: Postop day #5 status post exploratory laparotomy with partial small bowel resection. Plan Advance to full liquids and Ensure supplements. Continue IV antibiotics for pneumonia. Continue to use incentive spirometer and increase ambulation PROCEDURES: Procedures Exploratory laparotomy, partial small bowel resection with anastomosis
--- NOTE | 2025-04-27 12:48 | ESPR_ITS ---
<Statement entered by Wellington Killian MD - 05/10/25 07:55> I reviewed above note and agree with findings and plans. I have also personally examined the patient with medicine team and went over assessment and plan with medical team including internal medicine doctor and resident physician. <Statement entered by Laila Noe MD - 04/28/25 09:17> Patient was seen and examined by me personally. I have directly supervised and reviewed documentation by the team resident and agree with its findings with any exceptions or additional findings as below. Plan of care was discussed with the attending, Dr. Killian. Patient doing well, tolerating clear liquid diet, having regular bowel movements. Still has abdominal pain upon movement, but has been mobilizing with PT and able to sit in chair. Discussed hospital course and answered all questions in depth with the son and patient at bedside today. Patient is open to going to rehab after discharge as well. Will continue to advance diet and may be able to discharge in 2-3 days. Laila Noe, PGY-3 Documentation for date of: 04/27/25 Subjective Subjective Interval history: Patient is seen and examined at bedside. Doing much better overall. Denies shortness of breath, chest pain, or abdominal pain. Lungs are clear bilaterally. Tolerating liquid diet without nausea or vomiting. Had 1 bowel movement overnight. Vitals stable. Exam Vital Signs Temp Pulse Resp BP Pulse Ox O2 Del Method O2 Flow Rate 97.4 F 111 H 18 138/73 H 93 L Nasal Cannula 2 04/27/25 12:00 04/27/25 12:00 04/27/25 12:00 04/27/25 12:00 04/27/25 12:00 04/27/25 12:00 04/27/25 12:00 Narrative Exam General: Awake, alert, sitting up in bed, no acute distress. Cardiac: Regular rate and rhythm, no murmurs or gallops. Respiratory: Lungs clear to auscultation bilaterally, no wheezing or crackles. Abdomen: Soft, nondistended, nontender; incision clean/dry/intact; bowel sounds present. Extremities: No edema, warm, pulses palpable. Neuro: AO?3, no focal deficits. Objective Labs 04/27/25 05:05 04/27/25 05:05 Labs: Laboratory Results - last 24 hr 04/20/25 04/26/25 04/26/25 21:17 13:00 16:43 WBC RBC Hgb Hct MCV MCH MCHC RDW Std Deviation Plt Count Neut % (Auto) Lymph % (Auto) [place] % (Auto) Eos % (Auto) Baso % (Auto) Neut # (Auto) Lymph # (Auto) [place] # (Auto) Eos # (Auto) Baso # (Auto) Immature Gran # (Auto) Absolute Nucleated RBC Immature Gran % Nucleated RBC % Sodium 145 144 Potassium Chloride Carbon Dioxide Anion Gap BUN Creatinine Estim Creat Clear Calc eGFR BUN/Creatinine Ratio Glucose Calculated Osmolality Calcium Corrected Calcium Phosphorus Magnesium Total Bilirubin AST ALT Alkaline Phosphatase Total Protein Albumin Globulin Albumin/Globulin Ratio ANCA Screen NEGATIVE c-ANCA Titer TNP Anti-Proteinase 3 <1.0 p-ANCA Titer TNP Atypical p-ANCA Titer TNP Anti-Myeloperoxidase <1.0 04/26/25 04/27/25 20:45 05:05 WBC 23.6 H D RBC 3.71 L Hgb 10.9 L Hct 33.0 L MCV 89 MCH 29.4 MCHC 33.0 RDW Std Deviation 54.6 H Plt Count 390 D Neut % (Auto) 72 Lymph % (Auto) 7 L [place] % (Auto) 9 Eos % (Auto) 1 Baso % (Auto) 1 Neut # (Auto) 17.1 H Lymph # (Auto) 1.6 [place] # (Auto) 2.2 H Eos # (Auto) 0.3 Baso # (Auto) 0.2 Immature Gran # (Auto) 2.30 H Absolute Nucleated RBC 0.17 H Immature Gran % 10 H Nucleated RBC % 1 H Sodium 144 145 Potassium 3.7 Chloride 111 H Carbon Dioxide 20.3 Anion Gap 14 BUN 20 Creatinine 1.0 Estim Creat Clear Calc 55.0 L eGFR > 60 BUN/Creatinine Ratio 20 Glucose 108 H Calculated Osmolality 292 Calcium 9.3 Corrected Calcium 9.3 Phosphorus 3.0 Magnesium 1.6 Total Bilirubin 0.6 AST 18 ALT < 7 L Alkaline Phosphatase 66 Total Protein 5.6 L Albumin 4.3 D Globulin 1.3 L Albumin/Globulin Ratio 3.3 H ANCA Screen c-ANCA Titer Anti-Proteinase 3 p-ANCA Titer Atypical p-ANCA Titer Anti-Myeloperoxidase ABG Interpretation ABG results: 04/21/25 20:40 VBG pH 7.35 VBG pCO2 38 VBG pO2 35 VBG Base Excess -5 L Quality Measures Quality Measures VTE prophylaxis Advance care planning discussed with:: patient Assessment & Plan Assessment Current Active Medications: Generic Name Dose Route Start Last Admin Trade Name Freq PRN Reason Stop Dose Admin Albuterol/Ipratropium 3 ml 04/24/25 11:00 04/27/25 11:00 Albuterol/Ipratropium (Duoneb) Rt Tonya 3 Ml Nebu INH 05/24/25 10:59 3 ml Q4HRRT JOYA Administration Amlodipine Besylate 10 mg 04/20/25 09:00 04/27/25 08:07 Amlodipine Besylate 5 Mg Tablet PO 05/20/25 08:59 10 mg QDAY JOYA Administration Ascorbic Acid 500 mg 04/26/25 21:00 04/27/25 08:07 Ascorbic Acid 250 Mg Tablet PO 05/26/25 20:59 500 mg BID JOYA Administration Atorvastatin Calcium 10 mg 04/22/25 21:00 04/26/25 20:35 Atorvastatin Calcium 10 Mg Tablet PO 05/20/25 08:59 10 mg HS JOYA Administration Protocol Cyclobenzaprine HCl 5 mg 04/20/25 02:47 04/27/25 08:07 Cyclobenzaprine 5 Mg Tablet PO 05/20/25 02:46 5 mg TID PRN Administration Muscle Spasm Duloxetine HCl 30 mg 04/20/25 09:00 04/27/25 08:07 Duloxetine Hcl 30 Mg Capsule PO 05/20/25 08:59 30 mg DAILY JOYA Administration Levofloxacin/Dextrose 750 mg in 150 mls @ 100 mls/hr 04/25/25 21:00 04/25/25 21:11 Levaquin Ivpb IV 05/02/25 20:59 100 mls/hr Q48HR@2100 JOYA Administration Metoclopramide HCl 10 mg 04/24/25 13:15 04/27/25 05:29 Metoclopramide Inj 5 Mg/Ml Vial 2 Ml IVP 05/24/25 13:14 10 mg Q6HR JOYA Administration Protocol Ondansetron HCl 4 mg 04/22/25 10:41 04/25/25 10:10 Ondansetron Inj 2 Mg/Ml Inj 2 Ml IVP 05/22/25 10:40 4 mg Q6HR PRN Administration NAUSEA OR VOMITING Protocol Pantoprazole Sodium 40 mg 04/22/25 09:00 04/27/25 08:07 Pantoprazole Inj 40 Mg Vial IVP 05/22/25 08:59 40 mg QDAY JOYA Administration Zinc Sulfate 220 mg 04/26/25 15:45 04/27/25 08:07 Zinc Sulfate 220 Mg Capsule PO 05/26/25 15:44 220 mg QDAY JOYA Administration Plan 64F POD#5 s/p small-bowel resection for ischemic bowel, with improving leukocytosis, stable renal function, and good tolerance of diet. # Ischemic Small Bowel # SBO # S/p Exploratory Laparotomy # Leukocytosis POD#5. Pain controlled, afebrile, no peritonitis. SBO resolved. NGT removed. WBC improving 23.6 (down from 29.9). Plan: * Continue advancing diet as tolerated. * Continue IV Levofloxacin 750 mg q24h for coverage of both enteric and pulmonary concerns. * Lactate and procalcitonin ordered for sepsis evaluation * Continue pain control with Dilaudid PRN. * Encourage ambulation and incentive spirometry per surgical orders. * Surgery (Dr. Francois) following for postoperative care. # Acute hypoxic respiratory failure # Pulmonary Congestion # Left Lung Pneumonia Likely due to postoperative pulmonary edema vs aspiration pneumonia. CXR shows significant left lower lobe pneumonia with pleural effusion, likely explaining O2 desaturation and crackles. Vomiting on 04/24 increases risk of aspiration. Improving on antibiotics. Plan: * Continue Levofloxacin 750 mg IV daily. * Continue OxyMask, titrate to keep SpO2 >92%. * Duoneb PRN and IS hourly for pulmonary hygiene. # Hypernatremia (resolved) Na 145 from 153 likely from dehydration / free-water deficit. Plan: * Discontinue D5W * Assess volume status; avoid rapid correction. # Hypokalemia (resolved) K 3.7 Plan: * Recheck BMP in AM * Replace as needed; monitor for infusion discomfort. # Acute Blood Loss Anemia Received 1 unit PRBC 04/24; Hgb 9.9, stable. Plan: * Repeat CBC in AM * Transfuse if Hgb <9 or symptomatic. # SARBJIT (resolved) Cr improved to 1.0 (from 3.2). Etiology multifactorial; contrast-induced + prerenal. Plan: * Monitor I&O closely. * Avoid nephrotoxic medications. * Renally adjust antibiotics as appropriate. * Repeat BMP in AM. # Lactic Acidosis (resolved) Normalized to 1.8. Plan: Continue monitoring q12h; maintain adequate hydration and oxygenation. # ITP s/p Splenectomy Platelets elevated (492). Plan: * Continue to monitor CBC daily. # Raynaud?s Disease w/ Peripheral Neuropathy Reports cold, painful hands. Plan: * Discontinue Gabapentin as patient has been refusing. * Keep extremities warm; monitor IV site discomfort. # GERD Plan: Continue Pantoprazole 40 mg daily. Health Maintenance Diet: Clear liquid diet, will advance as tolerated DVT prophylaxis: Heparin SQ GI prophylaxis: Pantoprazole Code Status: Full Consults: GI (Dr. Najera), ID (Dr. Avalos), Surgery (Dr. Francois) ----- Plan discussed with attending physician Dr. Killian and senior resident Dr. Kusum Ruiz MD PGY-1 Internal Medicine
--- NOTE | 2025-04-27 17:07 | PD.IMPROG ---
Documentation for date of: 04/27/25 Subjective Subjective Interval history: Tolerating liquid diet Having bowel movements and passing flatus WBC count dropping from 29.0-23.6 with relatively stable hemoglobin hematocrit 10.9 and 23.0 on antibiotics for pneumonia Exam Vital Signs Temp Pulse Resp BP Pulse Ox O2 Del Method O2 Flow Rate 97.6 F 110 H 18 138/64 H 96 Nasal Cannula 2 04/27/25 16:00 04/27/25 16:00 04/27/25 16:00 04/27/25 16:00 04/27/25 16:00 04/27/25 16:00 04/27/25 16:00 Objective Labs 04/27/25 05:05 04/27/25 05:05 Labs: Laboratory Results - last 24 hr 04/20/25 04/26/25 04/26/25 21:17 16:43 20:45 WBC RBC Hgb Hct MCV MCH MCHC RDW Std Deviation Plt Count Neut % (Auto) Lymph % (Auto) [place] % (Auto) Eos % (Auto) Baso % (Auto) Neut # (Auto) Lymph # (Auto) [place] # (Auto) Eos # (Auto) Baso # (Auto) Immature Gran # (Auto) Absolute Nucleated RBC Immature Gran % Nucleated RBC % Sodium 144 144 Potassium Chloride Carbon Dioxide Anion Gap BUN Creatinine Estim Creat Clear Calc eGFR BUN/Creatinine Ratio Glucose Calculated Osmolality Calcium Corrected Calcium Phosphorus Magnesium Total Bilirubin AST ALT Alkaline Phosphatase Total Protein Albumin Globulin Albumin/Globulin Ratio ANCA Screen NEGATIVE c-ANCA Titer TNP Anti-Proteinase 3 <1.0 p-ANCA Titer TNP Atypical p-ANCA Titer TNP Anti-Myeloperoxidase <1.0 04/27/25 05:05 WBC 23.6 H D RBC 3.71 L Hgb 10.9 L Hct 33.0 L MCV 89 MCH 29.4 MCHC 33.0 RDW Std Deviation 54.6 H Plt Count 390 D Neut % (Auto) 72 Lymph % (Auto) 7 L [place] % (Auto) 9 Eos % (Auto) 1 Baso % (Auto) 1 Neut # (Auto) 17.1 H Lymph # (Auto) 1.6 [place] # (Auto) 2.2 H Eos # (Auto) 0.3 Baso # (Auto) 0.2 Immature Gran # (Auto) 2.30 H Absolute Nucleated RBC 0.17 H Immature Gran % 10 H Nucleated RBC % 1 H Sodium 145 Potassium 3.7 Chloride 111 H Carbon Dioxide 20.3 Anion Gap 14 BUN 20 Creatinine 1.0 Estim Creat Clear Calc 55.0 L eGFR > 60 BUN/Creatinine Ratio 20 Glucose 108 H Calculated Osmolality 292 Calcium 9.3 Corrected Calcium 9.3 Phosphorus 3.0 Magnesium 1.6 Total Bilirubin 0.6 AST 18 ALT < 7 L Alkaline Phosphatase 66 Total Protein 5.6 L Albumin 4.3 D Globulin 1.3 L Albumin/Globulin Ratio 3.3 H ANCA Screen c-ANCA Titer Anti-Proteinase 3 p-ANCA Titer Atypical p-ANCA Titer Anti-Myeloperoxidase Impressions Impression: # Status post small bowel resection and primary anastomosis Tolerating liquid diet # Improving leukocytosis # Relatively stable hemoglobin hematocrit ABG Interpretation ABG results: 04/21/25 20:40 VBG pH 7.35 VBG pCO2 38 VBG pO2 35 VBG Base Excess -5 L Assessment & Plan A&P Narrative old tb treated y[place] ago [place] abd sx only at this time levaquin and flagyl are the same po as iv usual rx is 5d post op ( stop it trial)surgery was Sunday 04/22 so rx thru 04/27 will see again prn Time Spent With Patient Time: Total time spent is greater than 50% in coordination of care (as documented) at patient's floor/unit and/or counseling patient:
[2025-04-27] MEDS: HYDROcodone/APAP 5/325 TABLET 1 TAB PO (17:16)
[2025-04-27] MEDS: LEVOFLOXACIN/D5W 750MG IVPB 750 MG/150 ML BAG 100 MG IV (20:26)
--- NOTE | 2025-04-27 20:36 | PC.NURSE ---
Patient refuesed 2100 Lipitor and vitamin c. Pt educated on importance of medication, but patient stated I don't care
[2025-04-27] MEDS: HYDROmorphone INJ 2 MG/ML VIAL 1 MG IVP (23:04)
[2025-04-28] VITALS (12 sets, daily range): BP systolic 115–158; BP diastolic 71–99; PULSE 92–113; RESP 16–96; TEMP 36.3–36.9; O2SAT 92–100
[2025-04-28] MEDS: ALBUTEROL/IPRATROPIUM (Duoneb) RT SOL 3 ML NEBU INH ×5 (02:42→18:59)
[2025-04-28] MEDS: METOCLOPRAMIDE INJ 5 MG/ML VIAL 2 ML 10 MG IVP ×4 (05:55→23:41)
[2025-04-28 06:39] LABS: Basophils # (Auto) 0.1 Thou/mm3 (0.0-0.2); Basophils % (Auto) 0 % (0-2.5); Eosinophils # (Auto) 0.4 Thou/mm3 (0.0-0.5); Eosinophils % (Auto) 1 % (0-10); Hematocrit 30.1 % (36.0-46.0); Hemoglobin 10.1 g/dL (12.0-16.0); Immature Granulocytes Auto 1.75 Thou/mm3 (0.00-0.00); Lymphocytes # (Auto) 1.3 Thou/mm3 (1.0-4.8); Lymphocytes % (Auto) 5 % (10-50); Mean Corpuscular HGB Conc 33.6 g/dl (31.0-37.0); Mean Corpuscular Hemoglobin 29.5 pg (25.0-35.0); Mean Corpuscular Volume 88 fL (80-100); Monocytes # (Auto) 2.5 Thou/mm3 (0.0-0.8); Monocytes % (Auto) 9 % (0-12); Neutrophils # (Auto) 21.7 Thou/mm3 (1.8-7.7); Neutrophils % (Auto) 78 % (37-80); Nucleated Red Blood Cell # 0.08 Thou/mm3 (0.00-0.00); Nucleated Red Blood Cell % 0 /100 WBC (0); Platelet Count 334 Thou/mm3 (140-440); RDW Standard Deviation 53.7 fL (36.4-46.3); Red Blood Count 3.42 Miln/mm3 (4.00-5.20); White Blood Count 27.7 Thou/mm3 (3.6-11.0)
[2025-04-28 07:25] LABS: Alanine Aminotransferase < 7 U/L (10-49); Albumin, Serum 4.1 gm/dL (3.4-4.8); Albumin/Globulin Ratio 3.7 (1.2-2.2); Alkaline Phosphatase 72 U/L (46-116); Anion Gap 13 (7-16); Aspartate Amino Transferase 16 U/L (0-34); BUN/Creatinine Ratio 21 Ratio (12-20); Bilirubin,Total 0.5 mg/dL (0.3-1.2); Blood Urea Nitrogen 21 mg/dL (9-23); Calcium 9.2 mg/dL (8.3-10.6); Calcium (Corrected) 9.2 mg/dL (8.5-10.1); Carbon Dioxide 20.5 mMol/L (20.0-31.0); Chloride 114 mMol/L (98-107); Creatinine (Component) 1.0 mg/dL (0.6-1.3); Estimated Creatinine Clearance 55.0 mL/min (>60); Globulin 1.1 gm/dL (2.3-3.5); Glucose 114 mg/dL (74-106); Magnesium 1.7 mg/dL (1.6-2.6); Osmolality,Calculated 296 (275-295); Phosphorous 3.5 mg/dL (2.4-5.1); Potassium 3.2 mMol/L (3.4-5.1); Sodium 147 mMol/L (136-145); Total Protein 5.2 gm/dL (5.7-8.2); eGFR > 60 See Note
[2025-04-28] MEDS: ACETAMINOPHEN 325 MG TABLET 650 MG PO (08:15)
[2025-04-28] MEDS: ZINC SULFATE 220 MG CAPSULE PO (08:15)
[2025-04-28] MEDS: DULoxetine HCL 30 MG CAPSULE PO (08:16)
[2025-04-28] MEDS: ASCORBIC ACID 250 MG TABLET 500 MG PO (08:16)
--- NOTE | 2025-04-28 08:21 | PD.SURPROG ---
Documentation for date of: 04/28/25 Subjective Subjective Narrative: Patient is seen and examined. Her pain is improving. She is tolerating liquid diet without nausea or vomiting and having multiple loose bowel movements Exam Vital Signs Temp Pulse Resp BP Pulse Ox O2 Del Method O2 Flow Rate 97.6 F 99 20 143/99 H 100 Nasal Cannula 2 04/28/25 04:00 04/28/25 08:16 04/28/25 06:32 04/28/25 08:16 04/28/25 06:32 04/28/25 04:00 04/28/25 04:00 Constitutional Constitutional: no acute distress Routine Abdominal Exam Comments: Abdomen is soft and nondistended. Bowel sounds are active and present. Incision is clean, dry and intact Assessment & Plan Assessment Additional comments: Postop day #6 status post exploratory laparotomy with partial small bowel resection. Plan Continue IV antibiotics. Advance to soft diet PROCEDURES: Procedures Exploratory laparotomy, partial small bowel resection with anastomosis
[2025-04-28] MEDS: LACTOBACILLUS RHAMNOSUS 1 CAP PO (08:32)
--- NOTE | 2025-04-28 11:31 | ESPR_ITS ---
<Statement entered by Wellington Killian MD - 05/10/25 07:57> I reviewed above note and agree with findings and plans. I have also personally examined the patient with medicine team and went over assessment and plan with medical team including pharmacist intern and resident physician. Documentation for date of: 04/28/25 Subjective Subjective Interval history: Patient seen and examined at bedside this morning. Reports feeling well overall, denies abdominal pain, nausea, vomiting, or bloating. States she tolerated her diet without issues. No chest pain or shortness of breath. She notes multiple loose bowel movements overnight (x7) but denies any blood or mucus in stool. No fever, chills, or dizziness. Voiding well via [employer]. Denies dysuria or urinary discomfort. Exam Vital Signs Temp Pulse Resp BP Pulse Ox O2 Del Method O2 Flow Rate 97.9 F 92 18 143/99 H 100 Nasal Cannula 2 04/28/25 08:05 04/28/25 10:35 04/28/25 10:35 04/28/25 08:16 04/28/25 10:35 04/28/25 08:05 04/28/25 08:05 Narrative Exam General: Awake, alert, sitting up in bed, no acute distress. Cardiac: Regular rate and rhythm, no murmurs or gallops. Respiratory: Lungs clear to auscultation bilaterally, no wheezing or crackles. Abdomen: Soft, nondistended, nontender; incision clean/dry/intact; bowel sounds present. Extremities: No edema, warm, pulses palpable. Neuro: AO?3, no focal deficits. Objective Labs 04/28/25 05:47 04/28/25 05:47 Labs: Laboratory Results - last 24 hr 04/28/25 05:47 WBC 27.7 H RBC 3.42 L Hgb 10.1 L Hct 30.1 L MCV 88 MCH 29.5 MCHC 33.6 RDW Std Deviation 53.7 H Plt Count 334 D Neut % (Auto) 78 Lymph % (Auto) 5 L [place] % (Auto) 9 Eos % (Auto) 1 Baso % (Auto) 0 Neut # (Auto) 21.7 H Lymph # (Auto) 1.3 [place] # (Auto) 2.5 H Eos # (Auto) 0.4 Baso # (Auto) 0.1 Immature Gran # (Auto) 1.75 H Absolute Nucleated RBC 0.08 H Immature Gran % 6 H Nucleated RBC % 0 Sodium 147 H Potassium 3.2 L D Chloride 114 H Carbon Dioxide 20.5 Anion Gap 13 BUN 21 Creatinine 1.0 Estim Creat Clear Calc 55.0 L eGFR > 60 BUN/Creatinine Ratio 21 H Glucose 114 H Calculated Osmolality 296 H Calcium 9.2 Corrected Calcium 9.2 Phosphorus 3.5 Magnesium 1.7 Total Bilirubin 0.5 AST 16 ALT < 7 L Alkaline Phosphatase 72 Total Protein 5.2 L Albumin 4.1 Globulin 1.1 L Albumin/Globulin Ratio 3.7 H ABG Interpretation ABG results: 04/21/25 20:40 VBG pH 7.35 VBG pCO2 38 VBG pO2 35 VBG Base Excess -5 L Quality Measures Quality Measures VTE prophylaxis Advance care planning discussed with:: patient Assessment & Plan Assessment Current Active Medications: Generic Name Dose Route Start Last Admin Trade Name Freq PRN Reason Stop Dose Admin Acetaminophen 650 mg 04/27/25 15:56 04/28/25 08:15 Acetaminophen 325 Mg Tablet PO 05/27/25 15:55 650 mg Q6H PRN Administration PAIN SCALE 1-3 (mild Hydrocodone Bitart/Acetaminophen 1 tab 04/27/25 16:01 04/27/25 17:16 Hydrocodone/Apap 5/325 Tablet PO 05/02/25 15:55 1 tab Q4HR PRN Administration PAIN SCALE 4-7 (Moderate Albuterol/Ipratropium 3 ml 04/24/25 11:00 04/28/25 10:33 Albuterol/Ipratropium (Duoneb) Rt Tonya 3 Ml Nebu INH 05/24/25 10:59 3 ml Q4HRRT JOYA Administration Amlodipine Besylate 10 mg 04/20/25 09:00 04/28/25 08:16 Amlodipine Besylate 5 Mg Tablet PO 05/20/25 08:59 10 mg QDAY JOYA Administration Ascorbic Acid 500 mg 04/26/25 21:00 04/28/25 08:16 Ascorbic Acid 250 Mg Tablet PO 05/26/25 20:59 500 mg BID JOYA Administration Atorvastatin Calcium 10 mg 04/22/25 21:00 04/27/25 20:36 Atorvastatin Calcium 10 Mg Tablet PO 05/20/25 08:59 Not Given HS JOYA Protocol Cyclobenzaprine HCl 5 mg 04/20/25 02:47 04/27/25 08:07 Cyclobenzaprine 5 Mg Tablet PO 05/20/25 02:46 5 mg TID PRN Administration Muscle Spasm Duloxetine HCl 30 mg 04/20/25 09:00 04/28/25 08:16 Duloxetine Hcl 30 Mg Capsule PO 05/20/25 08:59 30 mg DAILY JOYA Administration Hydromorphone HCl 1 mg 04/27/25 15:56 04/27/25 23:04 Hydromorphone Inj 2 Mg/Ml Vial IVP 05/02/25 15:55 1 mg Q2H PRN Administration Pain 8-10 Metoclopramide HCl 10 mg 04/24/25 13:15 04/28/25 05:55 Metoclopramide Inj 5 Mg/Ml Vial 2 Ml IVP 05/24/25 13:14 10 mg Q6HR JOYA Administration Protocol Ondansetron HCl 4 mg 04/22/25 10:41 04/25/25 10:10 Ondansetron Inj 2 Mg/Ml Inj 2 Ml IVP 05/22/25 10:40 4 mg Q6HR PRN Administration NAUSEA OR VOMITING Protocol Pantoprazole Sodium 40 mg 04/22/25 09:00 04/28/25 08:17 Pantoprazole Inj 40 Mg Vial IVP 05/22/25 08:59 40 mg QDAY JOYA Administration Zinc Sulfate 220 mg 04/26/25 15:45 04/28/25 08:15 Zinc Sulfate 220 Mg Capsule PO 05/26/25 15:44 220 mg QDAY JOYA Administration Plan 64-year-old female with PMH of HTN, HLD, ITP s/p splenectomy, Raynaud?s, GERD, and DCIS s/p lumpectomy, admitted for infectious enteritis with ischemic small bowel, now POD#6 s/p exploratory laparotomy with partial small bowel resection, presenting with persistent leukocytosis, improving electrolytes, and stable renal function. # Diarrhea ? likely reactive vs C. difficile # Leukocytosis WBC 27.7 from 23.6 after 7 BMs overnight. Afebrile, hemodynamically stable. Possible postoperative inflammatory response or antibiotic-associated diarrhea. Plan: * R/O C. difficile: order stool C. diff PCR and toxin assay. * Discontinue Levofloxacin and Metronidazole. * Monitor stool output and consistency. * Trend WBC; if worsening, broaden antibiotics per ID. * Maintain contact precautions until C. diff ruled out. * Encourage oral hydration and continue NS @ 85 mL/hr for fluid replacement. # Ischemic Small Bowel # SBO # S/p Exploratory Laparotomy POD#6. Pain controlled, afebrile, tolerating regular diet, no peritonitis. Plan: * Continue advancing diet as tolerated. * Continue pain control with Dilaudid PRN. * Encourage ambulation and incentive spirometry per surgical orders. * Surgery (Dr. Francois) following for postoperative care. # Acute hypoxic respiratory failure # Pulmonary Congestion # Left Lung Pneumonia Likely due to postoperative pulmonary edema vs aspiration pneumonia. CXR shows significant left lower lobe pneumonia with pleural effusion, likely explaining O2 desaturation and crackles. Vomiting on 04/24 increases risk of aspiration. Crackles improved, patient shortness of breath improved. Plan: * Continue OxyMask, titrate to keep SpO2 >92%. * Duoneb PRN and IS hourly for pulmonary hygiene. # Hypernatremia (improving) Na 147 likely from dehydration / free-water deficit. Plan: * Started NS fluids. * Assess volume status; avoid rapid correction. # Hypokalemia K 3.2 Plan: * Gave 40 oral potassium * Recheck BMP in AM * Replace as needed; monitor for infusion discomfort. # Acute Blood Loss Anemia Received 1 unit PRBC 04/24; Hgb 10.1, stable. Plan: * Repeat CBC in AM * Transfuse if Hgb <9 or symptomatic. # SARBJIT (resolved) Cr improved to 1.0 (from 3.2). Etiology multifactorial; contrast-induced + prerenal. Plan: * Monitor I&O closely. * Avoid nephrotoxic medications. * Renally adjust antibiotics as appropriate. * Repeat BMP in AM. # Lactic Acidosis (resolved) Normalized to 1.8. Plan: Continue monitoring q12h; maintain adequate hydration and oxygenation. # ITP s/p Splenectomy Platelets elevated (492). Plan: * Continue to monitor CBC daily. # Raynaud?s Disease w/ Peripheral Neuropathy Reports cold, painful hands. Plan: * Discontinue Gabapentin as patient has been refusing. * Keep extremities warm; monitor IV site discomfort. # GERD Plan: Continue Pantoprazole 40 mg daily. Health Maintenance Diet: Clear liquid diet, will advance as tolerated DVT prophylaxis: Heparin SQ GI prophylaxis: Pantoprazole Code Status: Full Consults: GI (Dr. Najera), ID (Dr. Avalos), Surgery (Dr. Francois) ----- Plan discussed with attending physician Dr. Constantin Ruiz MD PGY-1 Internal Medicine
[2025-04-28] MEDS: HYDROmorphone INJ 2 MG/ML VIAL 1 MG IVP ×2 (13:16→21:54)
[2025-04-28 15:43] LABS: Clostridium Difficile PCR Negative (Negative)
--- NOTE | 2025-04-28 17:51 | ESPR_ITS ---
Documentation for date of: 04/28/25 Subjective Subjective Interval history: Patient evaluated Having multiple bowel movements white count still elevated Exam Vital Signs Temp Pulse Resp BP Pulse Ox O2 Del Method O2 Flow Rate 97.3 F 108 H 20 115/76 95 Nasal Cannula 2 04/28/25 16:10 04/28/25 16:10 04/28/25 16:10 04/28/25 16:10 04/28/25 16:10 04/28/25 16:10 04/28/25 16:10 Objective Labs 04/28/25 05:47 04/28/25 05:47 Labs: Laboratory Results - last 24 hr 04/28/25 04/28/25 05:47 11:11 WBC 27.7 H RBC 3.42 L Hgb 10.1 L Hct 30.1 L MCV 88 MCH 29.5 MCHC 33.6 RDW Std Deviation 53.7 H Plt Count 334 D Neut % (Auto) 78 Lymph % (Auto) 5 L [place] % (Auto) 9 Eos % (Auto) 1 Baso % (Auto) 0 Neut # (Auto) 21.7 H Lymph # (Auto) 1.3 [place] # (Auto) 2.5 H Eos # (Auto) 0.4 Baso # (Auto) 0.1 Immature Gran # (Auto) 1.75 H Absolute Nucleated RBC 0.08 H Immature Gran % 6 H Nucleated RBC % 0 Sodium 147 H Potassium 3.2 L D Chloride 114 H Carbon Dioxide 20.5 Anion Gap 13 BUN 21 Creatinine 1.0 Estim Creat Clear Calc 55.0 L eGFR > 60 BUN/Creatinine Ratio 21 H Glucose 114 H Calculated Osmolality 296 H Calcium 9.2 Corrected Calcium 9.2 Phosphorus 3.5 Magnesium 1.7 Total Bilirubin 0.5 AST 16 ALT < 7 L Alkaline Phosphatase 72 Total Protein 5.2 L Albumin 4.1 Globulin 1.1 L Albumin/Globulin Ratio 3.7 H Stl C. diff Tox B Gene Negative Impressions Impression: Status post resection of the small bowel Gradually improving Advance diet ABG Interpretation ABG results: 04/21/25 20:40 VBG pH 7.35 VBG pCO2 38 VBG pO2 35 VBG Base Excess -5 L Assessment & Plan A&P Narrative old tb treated yrs ago in [place] abd sx only at this time levaquin and flagyl are the same po as iv usual rx is 5d post op ( stop it trial)surgery was Sunday 04/22 so rx thru 04/27 will see again prn Time Spent With Patient Time: Total time spent is greater than 50% in coordination of care (as documented) at patient's floor/unit and/or counseling patient:
[2025-04-29] VITALS (11 sets, daily range): BP systolic 121–152; BP diastolic 72–85; PULSE 102–112; RESP 18–97; TEMP 36.3–37.2; O2SAT 93–100
[2025-04-29] MEDS: ALBUTEROL/IPRATROPIUM (Duoneb) RT SOL 3 ML NEBU INH ×4 (00:32→19:15)
[2025-04-29] MEDS: METOCLOPRAMIDE INJ 5 MG/ML VIAL 2 ML 10 MG IVP ×4 (05:09→23:26)
[2025-04-29 05:45] LABS: Basophils # (Auto) 0.2 Thou/mm3 (0.0-0.2); Basophils % (Auto) 1 % (0-2.5); Eosinophils # (Auto) 0.4 Thou/mm3 (0.0-0.5); Eosinophils % (Auto) 1 % (0-10); Hematocrit 29.6 % (36.0-46.0); Hemoglobin 9.9 g/dL (12.0-16.0); Immature Granulocytes Auto 1.58 Thou/mm3 (0.00-0.00); Lymphocytes # (Auto) 1.6 Thou/mm3 (1.0-4.8); Lymphocytes % (Auto) 5 % (10-50); Mean Corpuscular HGB Conc 33.4 g/dl (31.0-37.0); Mean Corpuscular Hemoglobin 29.3 pg (25.0-35.0); Mean Corpuscular Volume 88 fL (80-100); Monocytes # (Auto) 2.8 Thou/mm3 (0.0-0.8); Monocytes % (Auto) 9 % (0-12); Neutrophils # (Auto) 25.0 Thou/mm3 (1.8-7.7); Neutrophils % (Auto) 79 % (37-80); Nucleated Red Blood Cell # 0.05 Thou/mm3 (0.00-0.00); Nucleated Red Blood Cell % 0 /100 WBC (0); Platelet Count 325 Thou/mm3 (140-440); RDW Standard Deviation 53.7 fL (36.4-46.3); Red Blood Count 3.38 Miln/mm3 (4.00-5.20); White Blood Count 31.5 Thou/mm3 (3.6-11.0)
[2025-04-29 06:23] LABS: Alanine Aminotransferase < 7 U/L (10-49); Albumin, Serum 4.0 gm/dL (3.4-4.8); Albumin/Globulin Ratio 3.3 (1.2-2.2); Alkaline Phosphatase 77 U/L (46-116); Anion Gap 11 (7-16); Aspartate Amino Transferase 17 U/L (0-34); BUN/Creatinine Ratio 24 Ratio (12-20); Bilirubin,Total 0.6 mg/dL (0.3-1.2); Blood Urea Nitrogen 19 mg/dL (9-23); Calcium 8.9 mg/dL (8.3-10.6); Calcium (Corrected) 8.9 mg/dL (8.5-10.1); Carbon Dioxide 21.2 mMol/L (20.0-31.0); Chloride 112 mMol/L (98-107); Creatinine (Component) 0.8 mg/dL (0.6-1.3); Estimated Creatinine Clearance 68.8 mL/min (>60); Globulin 1.2 gm/dL (2.3-3.5); Glucose 107 mg/dL (74-106); Magnesium 1.4 mg/dL (1.6-2.6); Osmolality,Calculated 289 (275-295); Phosphorous 3.3 mg/dL (2.4-5.1); Potassium 3.3 mMol/L (3.4-5.1); Sodium 144 mMol/L (136-145); Total Protein 5.2 gm/dL (5.7-8.2); eGFR > 60 See Note
[2025-04-29 08:30] LABS: Lactate (Lactic Acid) 1.3 mMol/L (0.4-2.0)
[2025-04-29] MEDS: CEFEPIME INJ 2 GM in SODIUM CHLORIDE 0.9% (Popper) 50 ML IV ×3 (08:35→21:16)
[2025-04-29] MEDS: SODIUM CHLORIDE 0.9% 1000 ML 1,000 ML 80 ML IV (08:36)
[2025-04-29] MEDS: Magnesium Sulfate 4 GM Ivpb 4 GM/50 ML BAG IV (08:53)
[2025-04-29] MEDS: HYDROmorphone INJ 2 MG/ML VIAL 1 MG IVP ×3 (08:53→19:38)
[2025-04-29 09:00] LABS: Procalcitonin 0.64 ng/ml (0.0-0.49)
[2025-04-29] MEDS: POTASSIUM CHL 10 mEq IVPB 10 MEQ/100 ML BAG 100 MEQ IV ×4 (11:16→15:55)
--- NOTE | 2025-04-29 12:24 | PD.SURPROG ---
Documentation for date of: 04/29/25 Subjective Subjective Narrative: Patient is seen and examined. Her abdominal pain is improving. She is tolerating soft diet without nausea or vomiting and continues to have bowel movements Exam Vital Signs Temp Pulse Resp BP Pulse Ox O2 Del Method O2 Flow Rate 97.5 F 112 H 19 140/84 H 96 Nasal Cannula 2 04/29/25 08:00 04/29/25 08:35 04/29/25 08:00 04/29/25 08:35 04/29/25 08:00 04/29/25 08:00 04/29/25 08:00 Constitutional Constitutional: no acute distress Routine Abdominal Exam Comments: Abdomen is soft and nondistended. Incision clean, dry and intact Assessment & Plan Assessment Additional comments: Postop day #7 status post exploratory laparotomy with partial small bowel resection. White count continues to climb most likely secondary to pneumonia Plan Agree with changing antibiotics. Continue to use incentive spirometer and increase ambulation PROCEDURES: Procedures Exploratory laparotomy, partial small bowel resection with anastomosis
--- NOTE | 2025-04-29 14:36 | PC.SS ---
Discharge rounds: Elevated WBC, on IV abx, ruling out C.diff.
--- NOTE | 2025-04-29 14:54 | ESPR_ITS ---
<Statement entered by Wellington Killian MD - 05/10/25 08:05> I reviewed above note and agree with findings and plans. I have also personally examined the patient with medicine team and went over assessment and plan with medical team including senior international tax manager and resident physician. Documentation for date of: 04/29/25 Subjective Subjective Interval history: Patient is seen and examined at bedside. No acute overnight events. Denies any other complaints. On physical examination, the abdominal tenderness remained the same and the wound is healing Labs done this morning showed uptrending WBC, 31.5, potassium 3.3, magnesium 1.4 Lactate is 1.3 and Pro-Trent is 0.64 Though patient does not have any febrile episode as the white count is continuously uptrending and also noted to have tachycardia with heart rate around 100 to 110 bpm, patient was started on cefepime 2 g IV 3 times daily. General surgeon, Dr. Francois is following the patient and he agreed with the management Exam Vital Signs Temp Pulse Resp BP Pulse Ox O2 Del Method O2 Flow Rate 97.7 F 106 H 18 137/76 H 100 Room Air 2 04/29/25 12:00 04/29/25 13:07 04/29/25 13:07 04/29/25 12:00 04/29/25 13:07 04/29/25 12:00 04/29/25 04:00 Narrative Exam General: Awake. HEENT: Normocephalic, atraumatic, mucous membranes moist. Heart: Regular rate and rhythm, no murmurs. Lungs: Clear to auscultation with no wheezing or crackles. Abdomen: Soft, nondistended, nontender, positive bowel sounds. ?No guarding or rebound tenderness. noted midline well healing scar Neurologic: Alert and oriented x3, no gross neurological deficit, and patient able to move all 4 extremities. Extremities: No edema. Skin: No rash or ecchymoses. Objective Labs 04/29/25 04:31 04/29/25 04:31 Labs: Laboratory Results - last 24 hr 04/28/25 04/29/25 04/29/25 11:11 04:31 08:14 WBC 31.5 H RBC 3.38 L Hgb 9.9 L Hct 29.6 L MCV 88 MCH 29.3 MCHC 33.4 RDW Std Deviation 53.7 H Plt Count 325 Neut % (Auto) 79 Lymph % (Auto) 5 L [place] % (Auto) 9 Eos % (Auto) 1 Baso % (Auto) 1 Neut # (Auto) 25.0 H Lymph # (Auto) 1.6 [place] # (Auto) 2.8 H Eos # (Auto) 0.4 Baso # (Auto) 0.2 Immature Gran # (Auto) 1.58 H Absolute Nucleated RBC 0.05 H Immature Gran % 5 H Nucleated RBC % 0 Sodium 144 Potassium 3.3 L Chloride 112 H Carbon Dioxide 21.2 Anion Gap 11 BUN 19 Creatinine 0.8 Estim Creat Clear Calc 68.8 eGFR > 60 BUN/Creatinine Ratio 24 H Glucose 107 H Calculated Osmolality 289 Lactic Acid 1.3 Calcium 8.9 Corrected Calcium 8.9 Phosphorus 3.3 Magnesium 1.4 L Total Bilirubin 0.6 AST 17 ALT < 7 L Alkaline Phosphatase 77 Total Protein 5.2 L Albumin 4.0 Globulin 1.2 L Albumin/Globulin Ratio 3.3 H Procalcitonin 0.64 H Stl C. diff Tox B Gene Negative ABG Interpretation ABG results: 04/21/25 20:40 VBG pH 7.35 VBG pCO2 38 VBG pO2 35 VBG Base Excess -5 L Quality Measures Quality Measures VTE prophylaxis Advance care planning discussed with:: patient Assessment & Plan Assessment Current Active Medications: Generic Name Dose Route Start Last Admin Trade Name Freq PRN Reason Stop Dose Admin Acetaminophen 650 mg 04/27/25 15:56 04/28/25 08:15 Acetaminophen 325 Mg Tablet PO 05/27/25 15:55 650 mg Q6H PRN Administration PAIN SCALE 1-3 (mild Hydrocodone Bitart/Acetaminophen 1 tab 04/27/25 16:01 04/27/25 17:16 Hydrocodone/Apap 5/325 Tablet PO 05/02/25 15:55 1 tab Q4HR PRN Administration PAIN SCALE 4-7 (Moderate Albuterol/Ipratropium 3 ml 04/29/25 01:00 04/29/25 13:06 Albuterol/Ipratropium (Duoneb) Rt Tonya 3 Ml Nebu INH 05/29/25 00:59 3 ml Q6HRRT JOYA Administration Amlodipine Besylate 10 mg 04/20/25 09:00 04/29/25 08:35 Amlodipine Besylate 5 Mg Tablet PO 05/20/25 08:59 10 mg QDAY JOYA Administration Ascorbic Acid 500 mg 04/26/25 21:00 04/29/25 08:34 Ascorbic Acid 250 Mg Tablet PO 05/26/25 20:59 Not Given BID JOYA Atorvastatin Calcium 10 mg 04/22/25 21:00 04/28/25 20:33 Atorvastatin Calcium 10 Mg Tablet PO 05/20/25 08:59 Not Given HS JOYA Protocol Cyclobenzaprine HCl 5 mg 04/20/25 02:47 04/29/25 08:35 Cyclobenzaprine 5 Mg Tablet PO 05/20/25 02:46 5 mg TID PRN Administration Muscle Spasm Duloxetine HCl 30 mg 04/20/25 09:00 04/29/25 08:34 Duloxetine Hcl 30 Mg Capsule PO 05/20/25 08:59 Not Given DAILY JOYA Hydromorphone HCl 1 mg 04/27/25 15:56 04/29/25 08:53 Hydromorphone Inj 2 Mg/Ml Vial IVP 05/02/25 15:55 1 mg Q2H PRN Administration Pain 8-10 Cefepime HCl 2 gm/ Sodium 50 mls @ 100 mls/hr 04/29/25 07:54 04/29/25 14:53 Chloride IV 05/06/25 07:53 100 mls/hr Q8HR JOYA Administration Sodium Chloride 1,000 mls @ 80 mls/hr 04/29/25 07:55 04/29/25 08:36 Ns IV 04/29/25 20:24 80 mls/hr .[id number] ONE Administration Potassium Chloride 10 meq in 100 mls @ 100 mls/hr 04/29/25 11:09 04/29/25 14:52 Kcl Ivpb IV 04/29/25 15:08 100 mls/hr Q1H JOYA Administration Metoclopramide HCl 10 mg 04/24/25 13:15 04/29/25 11:16 Metoclopramide Inj 5 Mg/Ml Vial 2 Ml IVP 05/24/25 13:14 10 mg Q6HR JOYA Administration Protocol Ondansetron HCl 4 mg 04/22/25 10:41 04/25/25 10:10 Ondansetron Inj 2 Mg/Ml Inj 2 Ml IVP 05/22/25 10:40 4 mg Q6HR PRN Administration NAUSEA OR VOMITING Protocol Zinc Sulfate 220 mg 04/26/25 15:45 04/29/25 08:35 Zinc Sulfate 220 Mg Capsule PO 05/26/25 15:44 Not Given QDAY JOYA Plan 64-year-old female with PMH of HTN, HLD, ITP s/p splenectomy, Raynaud?s, GERD, and DCIS s/p lumpectomy, admitted for infectious enteritis with ischemic small bowel, now POD#6 s/p exploratory laparotomy with partial small bowel resection, presenting with persistent leukocytosis, improving electrolytes, and stable renal function. # Diarrhea ? likely reactive vs C. difficile, Ruled out # Leukocytosis WBC 31.5 from 27.7 Afebrile, hemodynamically stable. Possible postoperative inflammatory response or antibiotic-associated diarrhea. Plan: * C. difficile: order stool C. diff PCR and toxin assay, came back negative * Discontinued Levofloxacin and Metronidazole. * Monitor stool output and consistency. * Trend WBC; Started on Cefipime 2gm every 8th hrly in view of uptrending WBC * Encouraged plenty of fluid intake # Ischemic Small Bowel # SBO - S/p Exploratory Laparotomy POD#7. Pain controlled, afebrile, tolerating regular diet, no peritonitis. Plan: * On Regular diet * Continue pain control with Dilaudid PRN. * Encourage ambulation and incentive spirometry per surgical orders. * Surgery (Dr. Francois) following for postoperative care. # Acute hypoxic respiratory failure # Pulmonary Congestion # Left Lung Pneumonia Likely due to postoperative pulmonary edema vs aspiration pneumonia. CXR shows significant left lower lobe pneumonia with pleural effusion, likely explaining O2 desaturation and crackles. Vomiting on 04/24 increases risk of aspiration. Crackles improved, patient shortness of breath improved. Plan: * Continue OxyMask, titrate to keep SpO2 >92%. * Duoneb PRN and IS hourly for pulmonary hygiene. # Hypernatremia (resolved) Na 144 as of today Plan: * will monitor electrolyte # Hypokalemia K 3.2 Plan: * Gave 40 oral potassium but patient refused to take it orally and replaced with IV potassium * Recheck BMP in AM * Replace as needed; monitor for infusion discomfort. # Acute Blood Loss Anemia Received 1 unit PRBC 04/24; Hgb 10.1, stable. Plan: * Repeat CBC in AM * Transfuse if Hgb <9 or symptomatic. # SARBJIT (resolved) Cr improved to 1.0 (from 3.2). Etiology multifactorial; contrast-induced + prerenal. Plan: * Monitor I&O closely. * Avoid nephrotoxic medications. * Renally adjust antibiotics as appropriate. * Repeat BMP in AM. # Lactic Acidosis (resolved) Normalized to 1.8. Plan: Continue monitoring q12h; maintain adequate hydration and oxygenation. # ITP s/p Splenectomy Platelets elevated (492). Plan: * Continue to monitor CBC daily. # Raynaud?s Disease w/ Peripheral Neuropathy Reports cold, painful hands. Plan: * Discontinue Gabapentin as patient has been refusing. * Keep extremities warm; monitor IV site discomfort. # GERD Plan: Continue Pantoprazole 40 mg daily. Health Maintenance Diet: Regular diet DVT prophylaxis: Heparin SQ GI prophylaxis: Pantoprazole Code Status: Full Consults: GI (Dr. Najera), ID (Dr. Avalos), Surgery (Dr. Francois) Patient plan of care was discussed with the attending physician, Dr. Constantin Jones, PGY2
--- NOTE | 2025-04-29 20:00 | ESPR_ITS ---
Documentation for date of: 04/29/25 Subjective Subjective Interval history: No nausea vomiting Having bowel movements Tolerating soft diet Exam Vital Signs Temp Pulse Resp BP Pulse Ox O2 Del Method O2 Flow Rate 97.4 F 106 H 18 152/74 H 100 Room Air 2 04/29/25 16:00 04/29/25 19:15 04/29/25 19:15 04/29/25 16:00 04/29/25 19:15 04/29/25 16:00 04/29/25 04:00 Objective Labs 04/29/25 04:31 04/29/25 04:31 Labs: Laboratory Results - last 24 hr 04/29/25 04/29/25 04:31 08:14 WBC 31.5 H RBC 3.38 L Hgb 9.9 L Hct 29.6 L MCV 88 MCH 29.3 MCHC 33.4 RDW Std Deviation 53.7 H Plt Count 325 Neut % (Auto) 79 Lymph % (Auto) 5 L [place] % (Auto) 9 Eos % (Auto) 1 Baso % (Auto) 1 Neut # (Auto) 25.0 H Lymph # (Auto) 1.6 [place] # (Auto) 2.8 H Eos # (Auto) 0.4 Baso # (Auto) 0.2 Immature Gran # (Auto) 1.58 H Absolute Nucleated RBC 0.05 H Immature Gran % 5 H Nucleated RBC % 0 Sodium 144 Potassium 3.3 L Chloride 112 H Carbon Dioxide 21.2 Anion Gap 11 BUN 19 Creatinine 0.8 Estim Creat Clear Calc 68.8 eGFR > 60 BUN/Creatinine Ratio 24 H Glucose 107 H Calculated Osmolality 289 Lactic Acid 1.3 Calcium 8.9 Corrected Calcium 8.9 Phosphorus 3.3 Magnesium 1.4 L Total Bilirubin 0.6 AST 17 ALT < 7 L Alkaline Phosphatase 77 Total Protein 5.2 L Albumin 4.0 Globulin 1.2 L Albumin/Globulin Ratio 3.3 H Procalcitonin 0.64 H Impressions Impression: Status post section of the small bowel and primary anastomosis doing well postoperatively Continue current management ABG Interpretation ABG results: 04/21/25 20:40 VBG pH 7.35 VBG pCO2 38 VBG pO2 35 VBG Base Excess -5 L Assessment & Plan A&P Narrative old tb treated y[place] ago [place] abd sx only at this time levaquin and flagyl are the same po as iv usual rx is 5d post op ( stop it trial)surgery was Sunday 04/22 so rx thru 04/27 will see again prn Time Spent With Patient Time: Total time spent is greater than 50% in coordination of care (as documented) at patient's floor/unit and/or counseling patient:
[2025-04-30] VITALS (11 sets, daily range): BP systolic 120–154; BP diastolic 72–81; PULSE 98–110; RESP 18–98; TEMP 36.3–37.4; O2SAT 92–100; BMI 15.0
[2025-04-30] MEDS: ALBUTEROL/IPRATROPIUM (Duoneb) RT SOL 3 ML NEBU INH ×4 (00:53→19:27)
[2025-04-30] MEDS: HYDROmorphone INJ 2 MG/ML VIAL 1 MG IVP ×5 (02:48→22:42)
[2025-04-30] MEDS: METOCLOPRAMIDE INJ 5 MG/ML VIAL 2 ML 10 MG IVP ×3 (05:06→17:42)
[2025-04-30] MEDS: CEFEPIME INJ 2 GM in SODIUM CHLORIDE 0.9% (Popper) 50 ML IV ×3 (05:06→21:38)
[2025-04-30 05:08] LABS: Basophils # (Auto) 0.1 Thou/mm3 (0.0-0.2); Basophils % (Auto) 0 % (0-2.5); Eosinophils # (Auto) 0.4 Thou/mm3 (0.0-0.5); Eosinophils % (Auto) 1 % (0-10); Hematocrit 28.8 % (36.0-46.0); Hemoglobin 9.6 g/dL (12.0-16.0); Immature Granulocytes Auto 1.39 Thou/mm3 (0.00-0.00); Lymphocytes # (Auto) 1.1 Thou/mm3 (1.0-4.8); Lymphocytes % (Auto) 3 % (10-50); Mean Corpuscular HGB Conc 33.3 g/dl (31.0-37.0); Mean Corpuscular Hemoglobin 29.1 pg (25.0-35.0); Mean Corpuscular Volume 87 fL (80-100); Monocytes # (Auto) 2.6 Thou/mm3 (0.0-0.8); Monocytes % (Auto) 8 % (0-12); Neutrophils # (Auto) 26.2 Thou/mm3 (1.8-7.7); Neutrophils % (Auto) 82 % (37-80); Nucleated Red Blood Cell # 0.02 Thou/mm3 (0.00-0.00); Nucleated Red Blood Cell % 0 /100 WBC (0); Platelet Count 316 Thou/mm3 (140-440); RDW Standard Deviation 53.8 fL (36.4-46.3); Red Blood Count 3.30 Miln/mm3 (4.00-5.20); White Blood Count 31.8 Thou/mm3 (3.6-11.0)
[2025-04-30 05:30] LABS: Alanine Aminotransferase 9 U/L (10-49); Albumin, Serum 3.8 gm/dL (3.4-4.8); Albumin/Globulin Ratio 3.2 (1.2-2.2); Alkaline Phosphatase 89 U/L (46-116); Anion Gap 8 (7-16); Aspartate Amino Transferase 20 U/L (0-34); BUN/Creatinine Ratio 21 Ratio (12-20); Bilirubin,Total 0.5 mg/dL (0.3-1.2); Blood Urea Nitrogen 15 mg/dL (9-23); Calcium 8.6 mg/dL (8.3-10.6); Calcium (Corrected) 8.8 mg/dL (8.5-10.1); Carbon Dioxide 21.9 mMol/L (20.0-31.0); Chloride 114 mMol/L (98-107); Creatinine (Component) 0.7 mg/dL (0.6-1.3); Estimated Creatinine Clearance 78.6 mL/min (>60); Globulin 1.2 gm/dL (2.3-3.5); Glucose 160 mg/dL (74-106); Magnesium 1.9 mg/dL (1.6-2.6); Osmolality,Calculated 290 (275-295); Phosphorous 3.1 mg/dL (2.4-5.1); Potassium 3.5 mMol/L (3.4-5.1); Sodium 144 mMol/L (136-145); Total Protein 5.0 gm/dL (5.7-8.2); eGFR > 60 See Note
--- NOTE | 2025-04-30 09:39 | PC.SS ---
Rounding: WBC elevated, on IV ABX, Alessandro following, pending reccs and imaging. DC plan home when stable
--- NOTE | 2025-04-30 09:40 | PC.NURSE ---
Patient's incision is draining. Covered with gauze. Called Dr. Francois and made aware. Dr. Francois to come see patient later today.
--- NOTE | 2025-04-30 11:47 | XR_ITS ---
EXAMINATION: AP chest single view TECHNIQUE: AP portable semiupright chest single view Date and time: April 30, 2025, 1308 hours, comparison April 24, 2025 INDICATIONS: Inpatient, pneumonia diagnosis FINDINGS: Partial clearing pneumonia left lung Subsegmental atelectasis right upper lobe Minor prominence left ventricle Prominent osteopenia IMPRESSION: Partial clearing pneumonia left lung
--- NOTE | 2025-04-30 11:48 | PD.SURPROG ---
Documentation for date of: 04/30/25 Subjective Subjective Narrative: Patient is seen and examined. Her abdominal pain continues to improve. She is tolerating soft diet and having bowel movements Exam Vital Signs Temp Pulse Resp BP Pulse Ox O2 Del Method O2 Flow Rate 97.3 F 105 H 18 150/73 H 95 Room Air 2 04/30/25 07:39 04/30/25 08:18 04/30/25 07:39 04/30/25 08:18 04/30/25 07:39 04/30/25 07:39 04/29/25 04:00 Constitutional Constitutional: no acute distress Routine Abdominal Exam Comments: Abdomen is soft and nondistended. Incision is intact, has minimal clear drainage from the mid aspect, no evidence of infection or abscess at this time Assessment & Plan Assessment Additional comments: Postop day #8 status post exploratory laparotomy with partial small bowel resection. Continues to have elevation of WBC Plan Continue IV antibiotics. Will repeat chest x-ray PROCEDURES: Procedures Exploratory laparotomy, partial small bowel resection with anastomosis
--- NOTE | 2025-04-30 14:02 | PD.IMPROG ---
Documentation for date of: 04/30/25 Subjective Subjective Interval history: Leukocytosis remain an issue on cefepime Tolerating diet Exam Vital Signs Temp Pulse Resp BP Pulse Ox O2 Del Method O2 Flow Rate 97.3 F 101 H 18 134/81 H 100 Room Air 2 04/30/25 12:00 04/30/25 13:52 04/30/25 13:52 04/30/25 12:00 04/30/25 13:52 04/30/25 12:00 04/29/25 04:00 Objective Labs 04/30/25 04:30 04/30/25 04:30 Labs: Laboratory Results - last 24 hr 04/30/25 04:30 WBC 31.8 H RBC 3.30 L Hgb 9.6 L Hct 28.8 L MCV 87 MCH 29.1 MCHC 33.3 RDW Std Deviation 53.8 H Plt Count 316 Neut % (Auto) 82 H Lymph % (Auto) 3 L [place] % (Auto) 8 Eos % (Auto) 1 Baso % (Auto) 0 Neut # (Auto) 26.2 H Lymph # (Auto) 1.1 [place] # (Auto) 2.6 H Eos # (Auto) 0.4 Baso # (Auto) 0.1 Immature Gran # (Auto) 1.39 H Absolute Nucleated RBC 0.02 H Immature Gran % 4 H Nucleated RBC % 0 Sodium 144 Potassium 3.5 Chloride 114 H Carbon Dioxide 21.9 Anion Gap 8 BUN 15 Creatinine 0.7 Estim Creat Clear Calc 78.6 eGFR > 60 BUN/Creatinine Ratio 21 H Glucose 160 H D Calculated Osmolality 290 Calcium 8.6 Corrected Calcium 8.8 Phosphorus 3.1 Magnesium 1.9 Total Bilirubin 0.5 AST 20 ALT 9 L Alkaline Phosphatase 89 Total Protein 5.0 L Albumin 3.8 Globulin 1.2 L Albumin/Globulin Ratio 3.2 H Impressions Impression: Status post exploratory laparotomy Leukocytosis Encourage ambulation Continue cefepime ABG Interpretation ABG results: 04/21/25 20:40 VBG pH 7.35 VBG pCO2 38 VBG pO2 35 VBG Base Excess -5 L Assessment & Plan A&P Narrative old tb treated yrs ago in [place] abd sx only at this time levaquin and flagyl are the same po as iv usual rx is 5d post op ( stop it trial)surgery was Sunday 04/22 so rx thru 04/27 will see again prn Time Spent With Patient Time: Total time spent is greater than 50% in coordination of care (as documented) at patient's floor/unit and/or counseling patient:
--- NOTE | 2025-04-30 16:07 | ESPR_ITS ---
<Statement entered by Wellington Killian MD - 05/14/25 15:18> I reviewed above note and agree with findings and plans. I have also personally examined the patient with medicine team and went over assessment and plan with medical team including internet specialist and resident physician. Documentation for date of: 04/30/25 Subjective Subjective Interval history: Patient is seen and examined at bedside No acute overnight event. Patient is complaining of abdomen pain but continued to have bowel movements Noted to have sinus tachycardia with heart rate around 100 to 110 bpm Labs done this morning showed WBC 31.8 despite changing the antibiotic. General surgeon, Dr. Francois is following the patient and recommended to continue the current management and repeat chest x-ray was done that showed significant improvement in lung infiltrates from the last chest x-ray Exam Vital Signs Temp Pulse Resp BP Pulse Ox O2 Del Method O2 Flow Rate 97.3 F 101 H 18 134/81 H 100 Room Air 2 04/30/25 12:00 04/30/25 13:52 04/30/25 13:52 04/30/25 12:00 04/30/25 13:52 04/30/25 12:00 04/29/25 04:00 Narrative Exam General: Awake. HEENT: Normocephalic, atraumatic, mucous membranes moist. Heart: Regular rate and rhythm, no murmurs. Lungs: Clear to auscultation with no wheezing or crackles. Abdomen: Soft, nondistended, nontender, positive bowel sounds. ?No guarding or rebound tenderness. noted midline well healing scar Neurologic: Alert and oriented x3, no gross neurological deficit, and patient able to move all 4 extremities. Extremities: No edema. Skin: No rash or ecchymoses. Objective Labs 04/30/25 04:30 04/30/25 04:30 Labs: Laboratory Results - last 24 hr 04/30/25 04:30 WBC 31.8 H RBC 3.30 L Hgb 9.6 L Hct 28.8 L MCV 87 MCH 29.1 MCHC 33.3 RDW Std Deviation 53.8 H Plt Count 316 Neut % (Auto) 82 H Lymph % (Auto) 3 L [place] % (Auto) 8 Eos % (Auto) 1 Baso % (Auto) 0 Neut # (Auto) 26.2 H Lymph # (Auto) 1.1 [place] # (Auto) 2.6 H Eos # (Auto) 0.4 Baso # (Auto) 0.1 Immature Gran # (Auto) 1.39 H Absolute Nucleated RBC 0.02 H Immature Gran % 4 H Nucleated RBC % 0 Sodium 144 Potassium 3.5 Chloride 114 H Carbon Dioxide 21.9 Anion Gap 8 BUN 15 Creatinine 0.7 Estim Creat Clear Calc 78.6 eGFR > 60 BUN/Creatinine Ratio 21 H Glucose 160 H D Calculated Osmolality 290 Calcium 8.6 Corrected Calcium 8.8 Phosphorus 3.1 Magnesium 1.9 Total Bilirubin 0.5 AST 20 ALT 9 L Alkaline Phosphatase 89 Total Protein 5.0 L Albumin 3.8 Globulin 1.2 L Albumin/Globulin Ratio 3.2 H ABG Interpretation ABG results: 04/21/25 20:40 VBG pH 7.35 VBG pCO2 38 VBG pO2 35 VBG Base Excess -5 L Quality Measures Quality Measures VTE prophylaxis Advance care planning discussed with:: patient Assessment & Plan Assessment Current Active Medications: Generic Name Dose Route Start Last Admin Trade Name Freq PRN Reason Stop Dose Admin Acetaminophen 650 mg 04/27/25 15:56 04/28/25 08:15 Acetaminophen 325 Mg Tablet PO 05/27/25 15:55 650 mg Q6H PRN Administration PAIN SCALE 1-3 (mild Hydrocodone Bitart/Acetaminophen 1 tab 04/27/25 16:01 04/27/25 17:16 Hydrocodone/Apap 5/325 Tablet PO 05/02/25 15:55 1 tab Q4HR PRN Administration PAIN SCALE 4-7 (Moderate Albuterol/Ipratropium 3 ml 04/29/25 01:00 04/30/25 13:51 Albuterol/Ipratropium (Duoneb) Rt Tonya 3 Ml Nebu INH 05/29/25 00:59 3 ml Q6HRRT JOYA Administration Amlodipine Besylate 10 mg 04/20/25 09:00 04/30/25 08:18 Amlodipine Besylate 5 Mg Tablet PO 05/20/25 08:59 10 mg QDAY JOAY Administration Ascorbic Acid 500 mg 04/26/25 21:00 04/30/25 08:15 Ascorbic Acid 250 Mg Tablet PO 05/26/25 20:59 Not Given BID JOYA Atorvastatin Calcium 10 mg 04/22/25 21:00 04/29/25 20:00 Atorvastatin Calcium 10 Mg Tablet PO 05/20/25 08:59 Not Given HS JOYA Protocol Cyclobenzaprine HCl 5 mg 04/20/25 02:47 04/29/25 08:35 Cyclobenzaprine 5 Mg Tablet PO 05/20/25 02:46 5 mg TID PRN Administration Muscle Spasm Duloxetine HCl 30 mg 04/20/25 09:00 04/30/25 08:15 Duloxetine Hcl 30 Mg Capsule PO 05/20/25 08:59 Not Given DAILY JOYA Hydromorphone HCl 1 mg 04/27/25 15:56 04/30/25 13:26 Hydromorphone Inj 2 Mg/Ml Vial IVP 05/02/25 15:55 1 mg Q2H PRN Administration Pain 8-10 Cefepime HCl 2 gm/ Sodium 50 mls @ 100 mls/hr 04/29/25 07:54 04/30/25 14:42 Chloride IV 05/06/25 07:53 100 mls/hr Q8HR JOYA Administration Metoclopramide HCl 10 mg 04/24/25 13:15 04/30/25 12:02 Metoclopramide Inj 5 Mg/Ml Vial 2 Ml IVP 05/24/25 13:14 10 mg Q6HR JOYA Administration Protocol Ondansetron HCl 4 mg 04/22/25 10:41 04/25/25 10:10 Ondansetron Inj 2 Mg/Ml Inj 2 Ml IVP 05/22/25 10:40 4 mg Q6HR PRN Administration NAUSEA OR VOMITING Protocol Zinc Sulfate 220 mg 04/26/25 15:45 04/30/25 08:15 Zinc Sulfate 220 Mg Capsule PO 05/26/25 15:44 Not Given QDAY JOYA Plan 64-year-old female with PMH of HTN, HLD, ITP s/p splenectomy, Raynaud?s, GERD, and DCIS s/p lumpectomy, admitted for infectious enteritis with ischemic small bowel, now POD#6 s/p exploratory laparotomy with partial small bowel resection, presenting with persistent leukocytosis, improving electrolytes, and stable renal function. # Diarrhea ? likely reactive vs C. difficile, Ruled out # Leukocytosis - Pneumonia Vs GI infection WBC 31.8 from 31.5 Afebrile, hemodynamically stable. Possible postoperative inflammatory response or antibiotic-associated diarrhea. Plan: * C. difficile: order stool C. diff PCR and toxin assay, came back negative * Discontinued Levofloxacin and Metronidazole. * Monitor stool output and consistency. * Trend WBC; Started on Cefipime 2gm every 8th hrly in view of uptrending WBC * Encouraged plenty of fluid intake # Ischemic Small Bowel # SBO - S/p Exploratory Laparotomy POD#8. Pain controlled, afebrile, tolerating regular diet, no peritonitis. Plan: * On Regular diet * Continue pain control with Dilaudid PRN. * Encourage ambulation and incentive spirometry per surgical orders. * Surgery (Dr. Francois) following for postoperative care. # Acute hypoxic respiratory failure # Pulmonary Congestion # Left Lung Pneumonia Likely due to postoperative pulmonary edema vs aspiration pneumonia. CXR shows significant left lower lobe pneumonia with pleural effusion, likely explaining O2 desaturation and crackles. Vomiting on 04/24 increases risk of aspiration. Crackles improved, patient shortness of breath improved. Plan: * Continue OxyMask, titrate to keep SpO2 >92%. * Duoneb PRN and IS hourly for pulmonary hygiene. # Hypernatremia (resolved) Na 144 as of today Plan: * will monitor electrolyte # Hypokalemia, improving K 3.5 as of today Plan: * Gave 40 oral potassium but patient refused to take it orally * Recheck BMP in AM * Replace as needed; monitor for infusion discomfort. # Acute Blood Loss Anemia Received 1 unit PRBC 04/24; Hgb 10.1, stable. Plan: * Repeat CBC in AM * Transfuse if Hgb <9 or symptomatic. # SARBJIT (resolved) Cr improved to 1.0 (from 3.2). Etiology multifactorial; contrast-induced + prerenal. Plan: * Monitor I&O closely. * Avoid nephrotoxic medications. * Renally adjust antibiotics as appropriate. * Repeat BMP in AM. 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 Plan: Continue monitoring q12h; maintain adequate hydration and oxygenation. # ITP s/p Splenectomy Platelets elevated (492). Plan: * Continue to monitor CBC daily. # Raynaud?s Disease w/ Peripheral Neuropathy Reports cold, painful hands. Plan: * Discontinue Gabapentin as patient has been refusing. * Keep extremities warm; monitor IV site discomfort. # GERD Plan: Continue Pantoprazole 40 mg daily. Health Maintenance Diet: Regular diet DVT prophylaxis: Heparin SQ GI prophylaxis: Pantoprazole Code Status: Full Consults: GI (Dr. Najera), ID (Dr. Avalos), Surgery (Dr. Francois) Patient plan of care was discussed with the attending physician, Dr. Constantin Jones, PGY2
[2025-04-30] MEDS: metroNIDAZOLE/NS 500 MG IVPB 500 MG/100 ML BAG 200 MG IV (19:39)
[2025-05-01] VITALS (11 sets, daily range): BP systolic 101–144; BP diastolic 65–84; PULSE 97–108; RESP 17–96; TEMP 36.3–37.5; O2SAT 94–100; BMI 28.3; BMI 15.0
[2025-05-01] MEDS: ALBUTEROL/IPRATROPIUM (Duoneb) RT SOL 3 ML NEBU INH ×3 (00:56→18:12)
[2025-05-01] MEDS: HYDROmorphone INJ 2 MG/ML VIAL 1 MG IVP ×4 (03:12→18:36)
[2025-05-01] MEDS: CEFEPIME INJ 2 GM in SODIUM CHLORIDE 0.9% (Popper) 50 ML IV ×3 (05:07→21:14)
[2025-05-01 05:28] LABS: Basophils # (Auto) 0.2 Thou/mm3 (0.0-0.2); Basophils % (Auto) 0 % (0-2.5); Eosinophils # (Auto) 0.5 Thou/mm3 (0.0-0.5); Eosinophils % (Auto) 1 % (0-10); Hematocrit 27.5 % (36.0-46.0); Hemoglobin 9.2 g/dL (12.0-16.0); Immature Granulocytes Auto 1.32 Thou/mm3 (0.00-0.00); Lymphocytes # (Auto) 1.4 Thou/mm3 (1.0-4.8); Lymphocytes % (Auto) 4 % (10-50); Mean Corpuscular HGB Conc 33.5 g/dl (31.0-37.0); Mean Corpuscular Hemoglobin 29.4 pg (25.0-35.0); Mean Corpuscular Volume 88 fL (80-100); Monocytes # (Auto) 3.3 Thou/mm3 (0.0-0.8); Monocytes % (Auto) 9 % (0-12); Neutrophils # (Auto) 28.6 Thou/mm3 (1.8-7.7); Neutrophils % (Auto) 81 % (37-80); Nucleated Red Blood Cell # 0.02 Thou/mm3 (0.00-0.00); Nucleated Red Blood Cell % 0 /100 WBC (0); Platelet Count 400 Thou/mm3 (140-440); RDW Standard Deviation 54.2 fL (36.4-46.3); Red Blood Count 3.13 Miln/mm3 (4.00-5.20)
[2025-05-01] MEDS: metroNIDAZOLE/NS 500 MG IVPB 500 MG/100 ML BAG 200 MG IV ×3 (05:50→22:31)
[2025-05-01 05:51] LABS: White Blood Count 35.2 Thou/mm3 (3.6-11.0)
[2025-05-01 05:52] LABS: Path Review Blood Smear Sent to Pathologist
[2025-05-01 05:57] LABS: Alanine Aminotransferase 12 U/L (10-49); Albumin, Serum 3.8 gm/dL (3.4-4.8); Albumin/Globulin Ratio 3.2 (1.2-2.2); Alkaline Phosphatase 104 U/L (46-116); Anion Gap 10 (7-16); Aspartate Amino Transferase 30 U/L (0-34); BUN/Creatinine Ratio 18 Ratio (12-20); Bilirubin,Total 0.5 mg/dL (0.3-1.2); Blood Urea Nitrogen 11 mg/dL (9-23); Calcium 8.7 mg/dL (8.3-10.6); Calcium (Corrected) 8.9 mg/dL (8.5-10.1); Carbon Dioxide 21.2 mMol/L (20.0-31.0); Chloride 113 mMol/L (98-107); Creatinine (Component) 0.6 mg/dL (0.6-1.3); Estimated Creatinine Clearance 91.7 mL/min (>60); Globulin 1.2 gm/dL (2.3-3.5); Glucose 121 mg/dL (74-106); Osmolality,Calculated 287 (275-295); Potassium 3.0 mMol/L (3.4-5.1); Sodium 144 mMol/L (136-145); Total Protein 5.0 gm/dL (5.7-8.2); eGFR > 60 See Note
--- NOTE | 2025-05-01 07:39 | XR_ITS ---
Examination: CT chest, without intravenous contrast. CT abdomen, without intravenous contrast. CT pelvis, without intravenous contrast. 2-D sagittal and coronal reconstructions. 3-D reconstructions. Date and time of exam: May 01, 2025, 0801 hours INDICATIONS: Post exploratory laparotomy, abnormal small bowel loops fluid-filled with edema in the mesentery on CT abdomen study April 21, 2025, leukocytosis today abdominal pain 2 days CTDI vol (mgy) 10.7 DLP (MGycm) 765 Technique: Multiple CT images, 3.0 mm slice thickness, obtained chest, abdomen, pelvis, with the high-resolution 64 slice scanner.. Sagittal and coronal 2-D reconstructions are obtained. 3-D reconstructions Low dose protocols were performed. One or more of the following dose reduction techniques were used; automated exposure control, adjustment of the mA and/or KV according to patient size, use of iterative reconstruction technique. Findings: No thoracic aortic aneurysm dilatation Pulmonary artery segments are not enlarged Mild enlargement cardiac contour 4 mm pulmonary nodule right upper lobe image 145, 5 mm pulmonary nodule right upper lobe image 182 Atelectasis in the right lung Mild pneumonia left base Mild pleural disease Liver irregular in contour Mild free fluid throughout the abdomen, moderate free fluid in the pelvis Contracted gallbladder No pancreatic or adrenal mass No hydronephrosis Diffuse edema in the mesentery Fluid air distended small bowel loops, for instance axial image 24 Surgical marjorie mid abdomen No abdominal or pelvic abscess depicted Atrophic uterus Urinary bladder intact IMPRESSION: Noncalcified pulmonary nodules as above, recommend 6-month follow-up CT chest without contrast Mild pneumonia left base Primary bowel cellular disease Mild free fluid in the abdomen and moderate free fluid in the pelvis Diffuse edema in the mesentery, clinical correlation advised Fluid air distended small bowel loops, consider postop ileus, if small bowel obstruction is a clinical consideration, consider Gastrografin small bowel series follow-up No abdominal or pelvic abscess on this noncontrast study
[2025-05-01] MEDS: POTASSIUM CHL 10 mEq IVPB 10 MEQ/100 ML BAG 100 MEQ IV ×4 (08:58→12:49)
--- NOTE | 2025-05-01 10:18 | PD.SURPROG ---
Documentation for date of: 05/01/25 Subjective Subjective Narrative: Patient is seen and examined. Her abdominal pain is improving, she is tolerating diet and having bowel movements. However her WBC continues to go up. CT scan of chest abdomen pelvis was obtained that revealed mild pneumonia and mild fluid in the abdomen, no evidence of abscess Exam Vital Signs Temp Pulse Resp BP Pulse Ox O2 Del Method O2 Flow Rate 98.3 F 102 H 18 140/76 H 96 Room Air 2 05/01/25 08:00 05/01/25 08:57 05/01/25 08:00 05/01/25 08:57 05/01/25 08:00 05/01/25 08:00 05/01/25 08:00 Constitutional Constitutional: no acute distress Routine Abdominal Exam Comments: Abdomen is soft and nondistended. Minimal erythema around the incision with some clear drainage, no evidence of abscess or infection at this time Assessment & Plan Assessment Additional comments: Postop day #9 status post exploratory laparotomy with partial small bowel resection. Continues to have elevation of WBC despite IV antibiotics. No significant findings on the CT scans to explain elevated WBC Plan Continue IV antibiotics. Consider UA, stool for C. difficile colitis PROCEDURES: Procedures Exploratory laparotomy, partial small bowel resection with anastomosis
[2025-05-01] MEDS: METOCLOPRAMIDE INJ 5 MG/ML VIAL 2 ML 10 MG IVP ×2 (11:26→17:38)
--- NOTE | 2025-05-01 13:30 | ESPR_ITS ---
Documentation for date of: 05/01/25 Subjective Subjective Interval history: Patient seen and examined at bedside. Reports mild abdominal pain, well- controlled with medications. No nausea, vomiting, or bloating. Tolerating regular diet. Passing bowel movements without blood or melena. Denies fever, chills, chest pain, or shortness of breath. States she feels better overall. No overnight events. Exam Vital Signs Temp Pulse Resp BP Pulse Ox O2 Del Method O2 Flow Rate 98.5 F 104 H 18 144/84 H 95 Room Air 2 05/01/25 12:00 05/01/25 12:00 05/01/25 12:00 05/01/25 12:00 05/01/25 12:00 05/01/25 12:00 05/01/25 12:00 Narrative Exam General: Awake. HEENT: Normocephalic, atraumatic, mucous membranes moist. Heart: Regular rate and rhythm, no murmurs. Lungs: Clear to auscultation with no wheezing or crackles. Abdomen: Soft, nondistended, nontender, positive bowel sounds. ?No guarding or rebound tenderness. noted midline well healing scar Neurologic: Alert and oriented x3, no gross neurological deficit, and patient able to move all 4 extremities. Extremities: No edema. Skin: No rash or ecchymoses. Objective Labs 05/02/25 04:00 05/02/25 04:00 Labs: Laboratory Results - last 24 hr 05/01/25 04:24 WBC 35.2 H* RBC 3.13 L Hgb 9.2 L Hct 27.5 L MCV 88 MCH 29.4 MCHC 33.5 RDW Std Deviation 54.2 H Plt Count 400 D Neut % (Auto) 81 H Lymph % (Auto) 4 L [place] % (Auto) 9 Eos % (Auto) 1 Baso % (Auto) 0 Neut # (Auto) 28.6 H Lymph # (Auto) 1.4 [place] # (Auto) 3.3 H Eos # (Auto) 0.5 Baso # (Auto) 0.2 Immature Gran # (Auto) 1.32 H Absolute Nucleated RBC 0.02 H Immature Gran % 4 H Nucleated RBC % 0 Smear Path Review Sent to Pathologist Sodium 144 Potassium 3.0 L D Chloride 113 H Carbon Dioxide 21.2 Anion Gap 10 BUN 11 Creatinine 0.6 Estim Creat Clear Calc 91.7 eGFR > 60 BUN/Creatinine Ratio 18 Glucose 121 H Calculated Osmolality 287 Calcium 8.7 Corrected Calcium 8.9 Total Bilirubin 0.5 AST 30 ALT 12 Alkaline Phosphatase 104 Total Protein 5.0 L Albumin 3.8 Globulin 1.2 L Albumin/Globulin Ratio 3.2 H ABG Interpretation ABG results: 04/21/25 20:40 VBG pH 7.35 VBG pCO2 38 VBG pO2 35 VBG Base Excess -5 L Quality Measures Quality Measures VTE prophylaxis Advance care planning discussed with:: patient Assessment & Plan Assessment Current Active Medications: Generic Name Dose Route Start Last Admin Trade Name Freq PRN Reason Stop Dose Admin Acetaminophen 650 mg 04/27/25 15:56 04/28/25 08:15 Acetaminophen 325 Mg Tablet PO 05/27/25 15:55 650 mg Q6H PRN Administration PAIN SCALE 1-3 (mild Hydrocodone Bitart/Acetaminophen 1 tab 04/27/25 16:01 04/27/25 17:16 Hydrocodone/Apap 5/325 Tablet PO 05/02/25 15:55 1 tab Q4HR PRN Administration PAIN SCALE 4-7 (Moderate Albuterol/Ipratropium 3 ml 04/29/25 01:00 05/01/25 07:46 Albuterol/Ipratropium (Duoneb) Rt Tonya 3 Ml Nebu INH 05/29/25 00:59 Not Given Q6HRRT JOYA Amlodipine Besylate 10 mg 04/20/25 09:00 05/01/25 08:57 Amlodipine Besylate 5 Mg Tablet PO 05/20/25 08:59 10 mg QDAY JOYA Administration Ascorbic Acid 500 mg 04/26/25 21:00 05/01/25 09:14 Ascorbic Acid 250 Mg Tablet PO 05/26/25 20:59 Not Given BID JOYA Atorvastatin Calcium 10 mg 04/22/25 21:00 04/30/25 21:43 Atorvastatin Calcium 10 Mg Tablet PO 05/20/25 08:59 Not Given HS JOYA Protocol Cyclobenzaprine HCl 5 mg 04/20/25 02:47 04/29/25 08:35 Cyclobenzaprine 5 Mg Tablet PO 05/20/25 02:46 5 mg TID PRN Administration Muscle Spasm Duloxetine HCl 30 mg 04/20/25 09:00 05/01/25 09:15 Duloxetine Hcl 30 Mg Capsule PO 05/20/25 08:59 Not Given DAILY JOYA Hydromorphone HCl 1 mg 04/27/25 15:56 05/01/25 11:06 Hydromorphone Inj 2 Mg/Ml Vial IVP 05/02/25 15:55 1 mg Q2H PRN Administration Pain 8-10 Cefepime HCl 2 gm/ Sodium 50 mls @ 100 mls/hr 04/29/25 07:54 05/01/25 05:07 Chloride IV 05/06/25 07:53 100 mls/hr Q8HR JOYA Administration Metronidazole 500 mg in 100 mls @ 200 mls/hr 04/30/25 19:06 05/01/25 05:50 Flagyl 500 Mg Iv IV 05/07/25 19:05 200 mls/hr Q8HR JOYA Administration Metoclopramide HCl 10 mg 04/24/25 13:15 05/01/25 11:26 Metoclopramide Inj 5 Mg/Ml Vial 2 Ml IVP 05/24/25 13:14 10 mg Q6HR JOYA Administration Protocol Ondansetron HCl 4 mg 04/22/25 10:41 04/25/25 10:10 Ondansetron Inj 2 Mg/Ml Inj 2 Ml IVP 05/22/25 10:40 4 mg Q6HR PRN Administration NAUSEA OR VOMITING Protocol Zinc Sulfate 220 mg 04/26/25 15:45 05/01/25 09:16 Zinc Sulfate 220 Mg Capsule PO 05/26/25 15:44 Not Given QDAY JOYA Plan 64-year-old female with history of HTN, HLD, ITP s/p splenectomy, Raynaud?s, GERD, and DCIS s/p lumpectomy, admitted for infectious enteritis with ischemic small bowel, now POD#9 s/p exploratory laparotomy with small-bowel resection, clinically stable, tolerating diet, passing bowel movements, afebrile, with persistent leukocytosis likely reactive/postoperative leukemoid reaction and no abscess or obstruction on CT. # Leukocytosis Likely reactive vs postoperative leukemoid reaction WBC 35.2, up from 31.8. Afebrile, hemodynamically stable, CT negative for abscess. Procalcitonin 0.64 (trending down). Plan: * Continue Cefepime 2 g IV q8h. * Monitor WBC daily. * No abscess or obstruction on imaging; favor reactive leukemoid response. * Hematology consult tomorrow if WBC continues to increase. * Maintain IV fluids and monitor stool output. # Ischemic Small Bowel # SBO - S/p Exploratory Laparotomy (resolved) POD#9. Mild abdominal tenderness, tolerating diet, having BMs, no peritonitis. Plan: * On Regular diet * Continue pain control with morphine, stopped Dilaudid * Encourage ambulation and incentive spirometry per surgical orders. * Surgery (Dr. Francois) following for postoperative care. # Acute hypoxic respiratory failure # Pulmonary Congestion # Left Lung Pneumonia Likely due to postoperative pulmonary edema vs aspiration pneumonia. CXR shows significant left lower lobe pneumonia with pleural effusion, likely explaining O2 desaturation and crackles. Vomiting on 11 increases risk of aspiration. Crackles improved, patient shortness of breath improved. Plan: * Continue OxyMask, titrate to keep SpO2 >92%. * Duoneb PRN and IS hourly for pulmonary hygiene. # Hypokalemia K 3.0 as of today Plan: * Gave 40 oral potassium and 40 IV * Recheck BMP in AM * Replace as needed; monitor for infusion discomfort. # Hypernatremia (resolved) Na 144 as of today Plan: * will monitor electrolyte # Acute Blood Loss Anemia Received 1 unit PRBC 04/24; Hgb 10.1, stable. Plan: * Repeat CBC in AM * Transfuse if Hgb <9 or symptomatic. # SARBJIT (resolved) Cr improved to 0.6 (from 3.2). Etiology multifactorial; contrast-induced + prerenal. Plan: * Monitor I&O closely. * Avoid nephrotoxic medications. * Renally adjust antibiotics as appropriate. * Repeat BMP in AM. 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 Plan: Continue monitoring q12h; maintain adequate hydration and oxygenation. # ITP s/p Splenectomy Platelets stable (400). Plan: * Continue to monitor CBC daily. # Raynaud?s Disease w/ Peripheral Neuropathy Reports cold, painful hands. Plan: * Discontinue Gabapentin as patient has been refusing. * Keep extremities warm; monitor IV site discomfort. # GERD Plan: Continue Pantoprazole 40 mg daily. Health Maintenance Diet: Regular diet DVT prophylaxis: Heparin SQ GI prophylaxis: Pantoprazole Code Status: Full Consults: GI (Dr. Najera), ID (Dr. Avalos), Surgery (Dr. Francois) ----- Plan discussed with attending physician Dr. Shivani Ruiz MD PGY-1 Internal Medicine Attending Provider Attestation/Addendum I have examined the patient, reviewed labs and imaging findings, discussed the case with the resident(s), and reviewed entered orders. I agree with the plan of care as outlined in this note, with these additional summaries/recommendations: Patient seen at bedside. No acute overnight events. Today patient endorses dysphagia. Upon further history taking it was determined that this is more chronic in nature. She is refusing her medications at this time but seems to do okay with foods. We will touch base with gastroenterology for further recommendations. Patient is postoperative day #9 status post ex lap with partial small bowel resection with anastomosis. A large amount of necrotic ileum was removed at that time. Patient has been on broad-spectrum antibiotics and despite this has had increasing leukocytosis. No evidence of abscess on repeat imaging. Cultures show no growth to date. Nurse reported patient had significantly infiltrated IV. At this time I have a lower suspicion for leukocytosis from infection. Most likely reactive versus malignancy? Patient does have a history of ITP and breast cancer status postlumpectomy. Per patient her last mammogram approximately 1 year ago was normal. Imaging on admission did reveal right lower lobe liver lesion and pulmonary nodule. We will consult hematology/oncology for recommendations. Patient has underlying Raynaud's and follows servicing rep although unsure of provider's name. Possible patient may have crest with esophageal involvement. Patient still requiring IV Dilaudid and discussed we will have to wean and patient in agreement. Will continue to de- escalate pain management as needed. Patient updated on the plan and agreement. All questions answered to satisfaction. Please see residents note for additional details and management. Dr. Shivani MD
--- NOTE | 2025-05-01 18:23 | PD.IMPROG ---
Documentation for date of: 05/01/25 Subjective Subjective Interval history: WBC count remains a major issue at the moment with a WBC count of 35.2 hemoglobin hematocrit stable at 9.[address] scan of the chest abdomen pelvis shows no abscess but pneumonia Tolerating diet and having passage of flatus and bowel movement Exam Vital Signs Temp Pulse Resp BP Pulse Ox O2 Del Method O2 Flow Rate 98.7 F 97 18 144/77 H 95 Room Air 2 05/01/25 16:00 05/01/25 16:00 05/01/25 16:00 05/01/25 16:00 05/01/25 16:00 05/01/25 16:00 05/01/25 16:00 Objective Labs 05/01/25 04:24 05/01/25 04:24 Labs: Laboratory Results - last 24 hr 05/01/25 04:24 WBC 35.2 H* RBC 3.13 L Hgb 9.2 L Hct 27.5 L MCV 88 MCH 29.4 MCHC 33.5 RDW Std Deviation 54.2 H Plt Count 400 D Neut % (Auto) 81 H Lymph % (Auto) 4 L [place] % (Auto) 9 Eos % (Auto) 1 Baso % (Auto) 0 Neut # (Auto) 28.6 H Lymph # (Auto) 1.4 [place] # (Auto) 3.3 H Eos # (Auto) 0.5 Baso # (Auto) 0.2 Immature Gran # (Auto) 1.32 H Absolute Nucleated RBC 0.02 H Immature Gran % 4 H Nucleated RBC % 0 Smear Path Review Sent to Pathologist Sodium 144 Potassium 3.0 L D Chloride 113 H Carbon Dioxide 21.2 Anion Gap 10 BUN 11 Creatinine 0.6 Estim Creat Clear Calc 91.7 eGFR > 60 BUN/Creatinine Ratio 18 Glucose 121 H Calculated Osmolality 287 Calcium 8.7 Corrected Calcium 8.9 Total Bilirubin 0.5 AST 30 ALT 12 Alkaline Phosphatase 104 Total Protein 5.0 L Albumin 3.8 Globulin 1.2 L Albumin/Globulin Ratio 3.2 H Impressions Impression: Status post exploratory laparotomy resection of the small bowel and primary anastomosis Leukocytosis although patient has pneumonia not fully explained Continue current management ABG Interpretation ABG results: 04/21/25 20:40 VBG pH 7.35 VBG pCO2 38 VBG pO2 35 VBG Base Excess -5 L Assessment & Plan A&P Narrative old tb treated yrs ago in [place] abd sx only at this time levaquin and flagyl are the same po as iv usual rx is 5d post op ( stop it trial)surgery was Sunday 04/22 so rx thru 04/27 will see again prn Time Spent With Patient Time: Total time spent is greater than 50% in coordination of care (as documented) at patient's floor/unit and/or counseling patient:
[2025-05-01] MEDS: ATORVASTATIN CALCIUM 10 MG TABLET PO (21:13)
[2025-05-01] MEDS: MORPHINE SULF INJ 4 MG/ML VIAL 2 MG IVP (22:31)
[2025-05-02] VITALS (9 sets, daily range): BP systolic 107–149; BP diastolic 70–79; PULSE 67–104; RESP 17–24; TEMP 35.9–37.4; O2SAT 94–98
[2025-05-02] MEDS: MORPHINE SULF INJ 4 MG/ML VIAL 2 MG IVP (02:30)
[2025-05-02] MEDS: HYDROcodone/APAP 5/325 TABLET 1 TAB PO ×4 (03:30→21:57)
[2025-05-02 05:42] LABS: Basophils # (Auto) 0.1 Thou/mm3 (0.0-0.2); Basophils % (Auto) 0 % (0-2.5); Eosinophils # (Auto) 0.5 Thou/mm3 (0.0-0.5); Eosinophils % (Auto) 2 % (0-10); Hematocrit 27.0 % (36.0-46.0); Hemoglobin 8.9 g/dL (12.0-16.0); Immature Granulocytes Auto 1.08 Thou/mm3 (0.00-0.00); Lymphocytes # (Auto) 1.5 Thou/mm3 (1.0-4.8); Lymphocytes % (Auto) 5 % (10-50); Mean Corpuscular HGB Conc 33.0 g/dl (31.0-37.0); Mean Corpuscular Hemoglobin 28.9 pg (25.0-35.0); Mean Corpuscular Volume 88 fL (80-100); Monocytes # (Auto) 3.2 Thou/mm3 (0.0-0.8); Monocytes % (Auto) 11 % (0-12); Neutrophils # (Auto) 22.7 Thou/mm3 (1.8-7.7); Neutrophils % (Auto) 78 % (37-80); Nucleated Red Blood Cell # 0.00 Thou/mm3 (0.00-0.00); Nucleated Red Blood Cell % 0 /100 WBC (0); Platelet Count 501 Thou/mm3 (140-440); RDW Standard Deviation 54.4 fL (36.4-46.3); Red Blood Count 3.08 Miln/mm3 (4.00-5.20); White Blood Count 29.0 Thou/mm3 (3.6-11.0)
[2025-05-02] MEDS: metroNIDAZOLE/NS 500 MG IVPB 500 MG/100 ML BAG 200 MG IV ×3 (05:59→21:57)
[2025-05-02 06:06] LABS: Alanine Aminotransferase 14 U/L (10-49); Albumin, Serum 3.8 gm/dL (3.4-4.8); Albumin/Globulin Ratio 3.2 (1.2-2.2); Alkaline Phosphatase 107 U/L (46-116); Anion Gap 12 (7-16); Aspartate Amino Transferase 31 U/L (0-34); BUN/Creatinine Ratio 13 Ratio (12-20); Bilirubin,Total 0.6 mg/dL (0.3-1.2); Blood Urea Nitrogen 8 mg/dL (9-23); Calcium 8.5 mg/dL (8.3-10.6); Calcium (Corrected) 8.7 mg/dL (8.5-10.1); Carbon Dioxide 19.9 mMol/L (20.0-31.0); Chloride 111 mMol/L (98-107); Creatinine (Component) 0.6 mg/dL (0.6-1.3); Estimated Creatinine Clearance 91.7 mL/min (>60); Globulin 1.2 gm/dL (2.3-3.5); Glucose 100 mg/dL (74-106); Magnesium 1.2 mg/dL (1.6-2.6); Osmolality,Calculated 283 (275-295); Potassium 3.0 mMol/L (3.4-5.1); Sodium 143 mMol/L (136-145); Total Protein 5.0 gm/dL (5.7-8.2); eGFR > 60 See Note
[2025-05-02] MEDS: CEFEPIME INJ 2 GM in SODIUM CHLORIDE 0.9% (Popper) 50 ML IV ×3 (06:34→21:12)
[2025-05-02] MEDS: Magnesium Sulfate 4 GM Ivpb 4 GM/50 ML BAG IV (09:09)
[2025-05-02] MEDS: KETOROLAC INJ 30 MG/ML VIAL IVP ×2 (09:09→21:04)
[2025-05-02] MEDS: POTASSIUM CHL 10 mEq IVPB 10 MEQ/100 ML BAG 100 MEQ IV ×4 (09:09→13:23)
[2025-05-02] MEDS: LACTOBACILLUS RHAMNOSUS 1 CAP PO ×2 (09:42→20:06)
[2025-05-02] MEDS: DULoxetine HCL 30 MG CAPSULE PO (09:42)
--- NOTE | 2025-05-02 11:24 | PC.SS ---
Rounding: WBC being monitored, on IV ABX for 2 more days. DC plan home.
[2025-05-02] MEDS: METOCLOPRAMIDE INJ 5 MG/ML VIAL 2 ML 10 MG IVP ×2 (11:38→17:48)
--- NOTE | 2025-05-02 12:31 | PD.SURPROG ---
Documentation for date of: 05/02/25 Subjective Subjective Narrative: Patient is seen and examined. Her abdominal pain continues to improve. She is tolerating regular diet and continues to have bowel movement. Exam Vital Signs Temp Pulse Resp BP Pulse Ox O2 Del Method O2 Flow Rate 97.8 F 99 22 H 131/73 H 97 Room Air 2 05/02/25 11:30 05/02/25 11:30 05/02/25 11:30 05/02/25 11:30 05/02/25 11:30 05/02/25 11:30 05/01/25 16:00 Constitutional Constitutional: no acute distress Routine Abdominal Exam Comments: Abdomen is soft and nondistended. Incision is intact with minimal erythema and some serous drainage Assessment & Plan Assessment Additional comments: Postop day #10 status post exploratory laparotomy with partial small bowel resection. Her WBC is improving today, she has remained hemodynamically stable and afebrile Plan Continue IV antibiotics. Will discharge home when WBC continues to improve PROCEDURES: Procedures Exploratory laparotomy, partial small bowel resection with anastomosis
--- NOTE | 2025-05-02 13:24 | ESPR_ITS ---
Documentation for date of: 05/02/25 Subjective Subjective Interval history: Patient seen and examined at bedside. Reports feeling well overall. Had two bowel movements yesterday, none overnight. Denies nausea, vomiting, or bloating. Denies any history of IBS and states bowel movements were normal before hospitalization. Reports mild abdominal discomfort, controlled with oral pain medication. Refuses to ambulate more than once but agreed to walk with PT and sit up in the chair more frequently to prepare for discharge. Patient eager to go home today. Informed her that discharge may be possible tomorrow if WBC continues to trend down and pain remains controlled on oral medications. No overnight events. Exam Vital Signs Temp Pulse Resp BP Pulse Ox O2 Del Method O2 Flow Rate 97.8 F 99 22 H 131/73 H 97 Room Air 2 05/02/25 11:05/02/25 11:30 05/02/25 11:30 05/02/25 11:05/02/25 11:30 05/02/25 11:05/01/25 16:00 Narrative Exam General: Awake. HEENT: Normocephalic, atraumatic, mucous membranes moist. Heart: Regular rate and rhythm, no murmurs. Lungs: Clear to auscultation with no wheezing or crackles. Abdomen: Soft, nondistended, nontender, positive bowel sounds. ?No guarding or rebound tenderness. noted midline well healing scar Neurologic: Alert and oriented x3, no gross neurological deficit, and patient able to move all 4 extremities. Extremities: No edema. Skin: No rash or ecchymoses. Objective Labs 05/03/25 04:28 05/03/25 04:28 Labs: Laboratory Results - last 24 hr 05/02/25 04:00 WBC 29.0 H D RBC 3.08 L Hgb 8.9 L Hct 27.0 L MCV 88 MCH 28.9 MCHC 33.0 RDW Std Deviation 54.4 H Plt Count 501 H D Neut % (Auto) 78 Lymph % (Auto) 5 L [place] % (Auto) 11 Eos % (Auto) 2 Baso % (Auto) 0 Neut # (Auto) 22.7 H Lymph # (Auto) 1.5 [place] # (Auto) 3.2 H Eos # (Auto) 0.5 Baso # (Auto) 0.1 Immature Gran # (Auto) 1.08 H Absolute Nucleated RBC 0.00 Immature Gran % 4 H Nucleated RBC % 0 Sodium 143 Potassium 3.0 L Chloride 111 H Carbon Dioxide 19.9 L Anion Gap 12 BUN 8 L Creatinine 0.6 Estim Creat Clear Calc 91.7 eGFR > 60 BUN/Creatinine Ratio 13 Glucose 100 Calculated Osmolality 283 Calcium 8.5 Corrected Calcium 8.7 Magnesium 1.2 L Total Bilirubin 0.6 AST 31 ALT 14 Alkaline Phosphatase 107 Total Protein 5.0 L Albumin 3.8 Globulin 1.2 L Albumin/Globulin Ratio 3.2 H ABG Interpretation ABG results: 04/21/25 20:40 VBG pH 7.35 VBG pCO2 38 VBG pO2 35 VBG Base Excess -5 L Quality Measures Quality Measures VTE prophylaxis Advance care planning discussed with:: patient Assessment & Plan Assessment Current Active Medications: Generic Name Dose Route Start Last Admin Trade Name Freq PRN Reason Stop Dose Admin Acetaminophen 650 mg 04/27/25 15:56 04/28/25 08:15 Acetaminophen 325 Mg Tablet PO 05/27/25 15:55 650 mg Q6H PRN Administration PAIN SCALE 1-3 (mild Hydrocodone Bitart/Acetaminophen 1 tab 05/02/25 08:59 05/02/25 09:41 Hydrocodone/Apap 5/325 Tablet PO 05/02/25 16:00 1 tab Q6H PRN Administration PAIN SCALE 7-10(Mod-Sev Albuterol/Ipratropium 3 ml 05/02/25 00:54 Albuterol/Ipratropium (Duoneb) Rt Tonya 3 Ml Nebu INH 06/01/25 01:59 Q2HR PRN wheezing Amlodipine Besylate 10 mg 04/20/25 09:00 05/02/25 09:39 Amlodipine Besylate 5 Mg Tablet PO 05/20/25 08:59 10 mg QDAY JOYA Administration Ascorbic Acid 500 mg 04/26/25 21:00 05/02/25 09:52 Ascorbic Acid 250 Mg Tablet PO 05/26/25 20:59 Not Given BID JOYA Atorvastatin Calcium 10 mg 04/22/25 21:00 05/01/25 21:13 Atorvastatin Calcium 10 Mg Tablet PO 05/20/25 08:59 10 mg HS JOYA Administration Protocol Cyclobenzaprine HCl 5 mg 04/20/25 02:47 04/29/25 08:35 Cyclobenzaprine 5 Mg Tablet PO 05/20/25 02:46 5 mg TID PRN Administration Muscle Spasm Duloxetine HCl 30 mg 04/20/25 09:00 05/02/25 09:42 Duloxetine Hcl 30 Mg Capsule PO 05/20/25 08:59 30 mg DAILY JOYA Administration Cefepime HCl 2 gm/ Sodium 50 mls @ 100 mls/hr 04/29/25 07:54 05/02/25 13:23 Chloride IV 05/06/25 07:53 100 mls/hr Q8HR JOYA Administration Metronidazole 500 mg in 100 mls @ 200 mls/hr 04/30/25 19:06 05/02/25 13:23 Flagyl 500 Mg Iv IV 05/07/25 19:05 200 mls/hr Q8HR JOYA Administration Ketorolac Tromethamine 30 mg 05/02/25 08:59 05/02/25 09:09 Ketorolac Inj 30 Mg/Ml Vial IVP 05/07/25 08:58 30 mg Q12H PRN Administration PAIN SCALE 4-6 (Moderate Lactobacillus Rhamnosus 1 cap 05/02/25 09:00 05/02/25 09:42 Lactobacillus Rhamnosus 1 Cap PO 06/01/25 08:59 1 cap BID JOYA Administration Metoclopramide HCl 10 mg 04/24/25 13:15 05/02/25 11:38 Metoclopramide Inj 5 Mg/Ml Vial 2 Ml IVP 05/24/25 13:14 10 mg Q6HR JOYA Administration Protocol Ondansetron HCl 4 mg 04/22/25 10:41 04/25/25 10:10 Ondansetron Inj 2 Mg/Ml Inj 2 Ml IVP 05/22/25 10:40 4 mg Q6HR PRN Administration NAUSEA OR VOMITING Protocol Pantoprazole Sodium 40 mg 05/01/25 16:15 05/02/25 09:10 Pantoprazole Inj 40 Mg Vial IVP 05/31/25 16:14 40 mg QDAY JOYA Administration Zinc Sulfate 220 mg 04/26/25 15:45 05/02/25 09:52 Zinc Sulfate 220 Mg Capsule PO 05/26/25 15:44 Not Given QDAY JOYA Plan 64-year-old female with HTN, HLD, ITP s/p splenectomy, Raynaud?s, GERD, and DCIS s/p lumpectomy, admitted for infectious enteritis with ischemic small bowel, now POD#10 s/p exploratory laparotomy with small-bowel resection, clinically improving, tolerating diet, with downtrending leukocytosis and improving diarrhea. # Leukocytosis Likely reactive vs postoperative leukemoid reaction WBC decreased from 35.2 -> 29.0. Afebrile, hemodynamically stable, CT negative for abscess. Procalcitonin 0.64 (trending down). Plan: * Continue Cefepime 2 g IV q8h. * Monitor WBC daily. * Hold hematology consult given improvement. * Maintain adequate hydration. * If WBC continues to downtrend and clinically stable -> plan for discharge tomorrow. # Ischemic Small Bowel # SBO - S/p Exploratory Laparotomy (resolved) POD#10. Pain minimal, tolerating diet, having bowel movements, no peritonitis. Plan: * On Regular diet * Continue pain control with IV ketorolac. Dc morphine and Dilaudid. * Encourage ambulation and incentive spirometry per surgical orders. * Surgery (Dr. Francois) following for postoperative care. # Acute hypoxic respiratory failure # Pulmonary Congestion # Left Lung Pneumonia Likely due to postoperative pulmonary edema vs aspiration pneumonia. CXR shows significant left lower lobe pneumonia with pleural effusion, likely explaining O2 desaturation and crackles. Vomiting on 11 increases risk of aspiration. Crackles improved, patient shortness of breath improved. Plan: * Continue OxyMask, titrate to keep SpO2 >92%. * Duoneb PRN and IS hourly for pulmonary hygiene. # Hypokalemia K 3.0 as of today Plan: * Gave 40 IV Potassium * Recheck BMP in AM * Replace as needed; monitor for infusion discomfort. # Hypernatremia (resolved) Na 143 as of today Plan: * will monitor electrolyte # Acute Blood Loss Anemia Received 1 unit PRBC 04/24; Hgb 10.1, stable. Plan: * Repeat CBC in AM * Transfuse if Hgb <9 or symptomatic. # SARBJIT (resolved) Cr improved to 0.6 (from 3.2). Etiology multifactorial; contrast-induced + prerenal. Plan: * Monitor I&O closely. * Avoid nephrotoxic medications. * Renally adjust antibiotics as appropriate. * Repeat BMP in AM. 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 Plan: Continue monitoring q12h; maintain adequate hydration and oxygenation. # ITP s/p Splenectomy Platelets stable (400). Plan: * Continue to monitor CBC daily. # Raynaud?s Disease w/ Peripheral Neuropathy Reports cold, painful hands. Plan: * Discontinue Gabapentin as patient has been refusing. * Keep extremities warm; monitor IV site discomfort. # GERD Plan: Continue Pantoprazole 40 mg daily. Health Maintenance Diet: Regular diet DVT prophylaxis: Heparin SQ GI prophylaxis: Pantoprazole Code Status: Full Consults: GI (Dr. Najera), ID (Dr. Avalos), Surgery (Dr. Francois) ----- Plan discussed with attending physician Dr. Parrish and senior resident Dr. Robert Ruiz MD PGY-1 Internal Medicine Attending Provider Attestation/Addendum I have examined the patient, reviewed labs and imaging findings, discussed the case with the resident(s), and reviewed entered orders. I agree with the plan of care as outlined in this note, with these additional summaries/recommendations: Patient seen at bedside. No acute overnight events. Patient is postoperative day #10 status post ex lap with partial small bowel resection and anastomosis. A large amount of necrotic ileum was removed at that time. Patient has been on broad-spectrum antibiotics and despite this has had increasing leukocytosis. Leukocytosis did downtrend today from 35.2 to 29.0. No evidence of abscess on repeat imaging. Cultures show no growth to date. Given severity of necrosis and and pneumonia, likely etiology for persistent significant leukocytosis. Lower suspicion that this is malignancy related. Patient does have a history of ITP and breast cancer status postlumpectomy. Per patient her last mammogram approximately 1 year ago was normal. Imaging on admission did reveal right lower lobe liver lesion and pulmonary nodule. Patient advised to follow-up with oncologist outpatient for liver lesion and pulmonary nodules. Patient has underlying Raynaud's and follows superintendent operating although unsure of provider's name. Possible patient may have crest with esophageal involvement. Will continue to de-escalate pain management as needed. Patient updated on the plan and agreement. All questions answered to satisfaction. Please see residents note for additional details and management. Dr. Shivani MD
--- NOTE | 2025-05-02 17:50 | ESPR_ITS ---
Documentation for date of: 05/02/25 Subjective Subjective Interval history: Patient evaluated and tolerating diet and having bowel movements Exam Vital Signs Temp Pulse Resp BP Pulse Ox O2 Del Method O2 Flow Rate 98.2 F 97 20 107/72 94 L Room Air 2 05/02/25 16:00 05/02/25 16:00 05/02/25 16:00 05/02/25 16:00 05/02/25 16:00 05/02/25 11:30 05/01/25 16:00 Objective Labs 05/02/25 04:00 05/02/25 04:00 Labs: Laboratory Results - last 24 hr 05/02/25 04:00 WBC 29.0 H D RBC 3.08 L Hgb 8.9 L Hct 27.0 L MCV 88 MCH 28.9 MCHC 33.0 RDW Std Deviation 54.4 H Plt Count 501 H D Neut % (Auto) 78 Lymph % (Auto) 5 L [place] % (Auto) 11 Eos % (Auto) 2 Baso % (Auto) 0 Neut # (Auto) 22.7 H Lymph # (Auto) 1.5 [place] # (Auto) 3.2 H Eos # (Auto) 0.5 Baso # (Auto) 0.1 Immature Gran # (Auto) 1.08 H Absolute Nucleated RBC 0.00 Immature Gran % 4 H Nucleated RBC % 0 Sodium 143 Potassium 3.0 L Chloride 111 H Carbon Dioxide 19.9 L Anion Gap 12 BUN 8 L Creatinine 0.6 Estim Creat Clear Calc 91.7 eGFR > 60 BUN/Creatinine Ratio 13 Glucose 100 Calculated Osmolality 283 Calcium 8.5 Corrected Calcium 8.7 Magnesium 1.2 L Total Bilirubin 0.6 AST 31 ALT 14 Alkaline Phosphatase 107 Total Protein 5.0 L Albumin 3.8 Globulin 1.2 L Albumin/Globulin Ratio 3.2 H Impressions Impression: Status post exploratory laparotomy continue current management ABG Interpretation ABG results: 04/21/25 20:40 VBG pH 7.35 VBG pCO2 38 VBG pO2 35 VBG Base Excess -5 L Assessment & Plan A&P Narrative old tb treated yrs ago in [place] abd sx only at this time levaquin and flagyl are the same po as iv usual rx is 5d post op ( stop it trial)surgery was Sunday 04/22 so rx thru 04/27 will see again prn Time Spent With Patient Time: Total time spent is greater than 50% in coordination of care (as documented) at patient's floor/unit and/or counseling patient:
[2025-05-02] MEDS: ATORVASTATIN CALCIUM 10 MG TABLET PO (20:06)
[2025-05-02] MEDS: MELATONIN 3 MG TABLET PO (23:27)
[2025-05-03] VITALS: BP 119/65; PULSE 83; RESP 18; TEMP 36.6; O2SAT 95
[2025-05-03] MEDS: HYDROcodone/APAP 5/325 TABLET 1 TAB PO (03:52)
[2025-05-03 04:00] VITALS: BP 135/86; PULSE 88; RESP 18; TEMP 36.5; O2SAT 96
[2025-05-03] MEDS: CEFEPIME INJ 2 GM in SODIUM CHLORIDE 0.9% (Popper) 50 ML IV (05:16)
[2025-05-03] MEDS: METOCLOPRAMIDE INJ 5 MG/ML VIAL 2 ML 10 MG IVP (06:04)
[2025-05-03 06:08] LABS: Basophils # (Auto) 0.1 Thou/mm3 (0.0-0.2); Basophils % (Auto) 1 % (0-2.5); Eosinophils # (Auto) 0.6 Thou/mm3 (0.0-0.5); Eosinophils % (Auto) 3 % (0-10); Hematocrit 28.3 % (36.0-46.0); Hemoglobin 9.2 g/dL (12.0-16.0); Immature Granulocytes Auto 0.69 Thou/mm3 (0.00-0.00); Lymphocytes # (Auto) 1.2 Thou/mm3 (1.0-4.8); Lymphocytes % (Auto) 5 % (10-50); Mean Corpuscular HGB Conc 32.5 g/dl (31.0-37.0); Mean Corpuscular Hemoglobin 28.7 pg (25.0-35.0); Mean Corpuscular Volume 88 fL (80-100); Monocytes # (Auto) 2.5 Thou/mm3 (0.0-0.8); Monocytes % (Auto) 11 % (0-12); Neutrophils # (Auto) 17.8 Thou/mm3 (1.8-7.7); Neutrophils % (Auto) 78 % (37-80); Nucleated Red Blood Cell # 0.00 Thou/mm3 (0.00-0.00); Nucleated Red Blood Cell % 0 /100 WBC (0); Platelet Count 583 Thou/mm3 (140-440); RDW Standard Deviation 55.6 fL (36.4-46.3); Red Blood Count 3.21 Miln/mm3 (4.00-5.20); White Blood Count 22.8 Thou/mm3 (3.6-11.0)
[2025-05-03] MEDS: metroNIDAZOLE/NS 500 MG IVPB 500 MG/100 ML BAG 200 MG IV (06:08)
[2025-05-03 06:40] LABS: Alanine Aminotransferase 14 U/L (10-49); Albumin, Serum 3.7 gm/dL (3.4-4.8); Albumin/Globulin Ratio 2.8 (1.2-2.2); Alkaline Phosphatase 115 U/L (46-116); Anion Gap 10 (7-16); Aspartate Amino Transferase 26 U/L (0-34); BUN/Creatinine Ratio 13 Ratio (12-20); Bilirubin,Total 0.4 mg/dL (0.3-1.2); Blood Urea Nitrogen 8 mg/dL (9-23); Calcium 8.3 mg/dL (8.3-10.6); Calcium (Corrected) 8.5 mg/dL (8.5-10.1); Carbon Dioxide 23.8 mMol/L (20.0-31.0); Chloride 112 mMol/L (98-107); Creatinine (Component) 0.6 mg/dL (0.6-1.3); Estimated Creatinine Clearance 91.7 mL/min (>60); Globulin 1.3 gm/dL (2.3-3.5); Glucose 120 mg/dL (74-106); Magnesium 1.8 mg/dL (1.6-2.6); Osmolality,Calculated 289 (275-295); Potassium 3.0 mMol/L (3.4-5.1); Sodium 146 mMol/L (136-145); Total Protein 5.0 gm/dL (5.7-8.2); eGFR > 60 See Note
[2025-05-03 07:06] VITALS: PULSE 88; RESP 18; O2SAT 95
[2025-05-03 07:39] VITALS: BP 116/69; PULSE 92; RESP 18; TEMP 36.8; O2SAT 94
[2025-05-03] MEDS: POTASSIUM CHL 10 mEq IVPB 10 MEQ/100 ML BAG 100 MEQ IV (08:13)
[2025-05-03 08:14] VITALS: BP 116/69; PULSE 92
[2025-05-03] MEDS: LACTOBACILLUS RHAMNOSUS 1 CAP PO (08:14)
[2025-05-03] MEDS: DULoxetine HCL 30 MG CAPSULE PO (08:15)
[2025-05-03] MEDS: PANTOPRAZOLE 40 MG TABLET PO (08:16)
[2025-05-03] MEDS: POTASSIUM CHL 10 mEq IVPB 10 MEQ/100 ML BAG 70 MEQ IV ×3 (09:57→13:33)
--- NOTE | 2025-05-03 11:24 | PD.SURPROG ---
Documentation for date of: 05/03/25 Subjective Subjective Narrative: Patient is seen and examined. She is feeling better. She is tolerating diet and having bowel movements Exam Vital Signs Temp Pulse Resp BP Pulse Ox O2 Del Method O2 Flow Rate 98.3 F 92 18 116/69 94 L Room Air 2 05/03/25 07:39 05/03/25 08:14 05/03/25 07:39 05/03/25 08:14 05/03/25 07:39 05/03/25 07:39 05/01/25 16:00 Constitutional Constitutional: no acute distress Routine Abdominal Exam Comments: Abdomen is soft and nondistended. Incision is intact without erythema, however has some serous drainage Assessment & Plan Assessment Additional comments: Postop day #11 status post exploratory laparotomy with partial small bowel resection. Clinically improving. WBC is trending downwards she has remained afebrile and hemodynamically stable Plan She can be discharged on oral antibiotics for 1 week. PROCEDURES: Procedures Exploratory laparotomy, partial small bowel resection with anastomosis
[2025-05-03 11:38] VITALS: BP 123/72; PULSE 93; RESP 22; TEMP 36.6; O2SAT 95
--- NOTE | 2025-05-03 11:55 | PC.SS ---
Addendum entered by Deana Major 05/03/25 13:14: [employer] Booked via [employer] Addendum entered by Deana Major 05/03/25 12:39: DME referral submitted via [employer] pending responses Original Note: SS reached out to pt son Gato Johnson [phone] to verify DC plan. Gato stated they wish for pt to return home with HH, pt has support at home for needs. Pt will need a rollator walker and 3in1 BSC for home, referral to be sent.
--- NOTE | 2025-05-03 12:04 | PC.SS ---
Bedside Commode Patient is physically incapable of utilizing regular toilet facilities because his or her diagnosis confines the patient to a single room. Patient is confined to a single level, and there is no toilet on that level; patient cannot access the toilet facilities in a timely manner due to lack of ambulation. Walkers The diagnosis creates mobility limitation that significantly impairs ability to participate in the patients activities of daily living either in their entirety, or in a reasonable time frame. Also the patient is able to safely use the walker and the patient?s mobility is sufficiently resolved with the use of the walker and cane has been ruled out.
--- NOTE | 2025-05-03 13:54 | PD.RESDS ---
Planned Discharge Date 05/03/25 DS: Providers Provider Date of admission: 04/19/25 21:46 Primary care physician: Hina Lopez NP Admitting Provider: Aliyah Balderas MD Attending Provider on Admission: Anirudh Parrish MD Consults: 04/20/25 07:13 Consult to Gastroenterology Stat Comment: Consulting Provider: Janell Najera 04/20/25 10:14 Consult to Infectious Diseases Routine Comment: history of quantiferon positive Consulting Provider: Yoni Avalos 04/21/25 13:19 Consult to General Surgery Routine Comment: Consulting Provider: Camila Francois 04/23/25 11:54 Referral Physical Therapy Routine Comment: Physician Instructions: Instructions: s/p surgery 04/24/25 09:45 Referral Registered Dietitian Routine Comment: For PPN Attending Provider on DC: Susanne Ruiz MD Discharging Provider: Susanne Ruiz MD DS: Diagnosis Problem List Completed Was Problem List Reviewed/Reconciled?: Yes Hospital Course Hospital Course Hospital course: 64-year-old female with a history of HTN, HLD, ITP s/p splenectomy, Raynaud?s, GERD, and DCIS s/p lumpectomy admitted for infectious enteritis and ischemic small bowel, s/p exploratory laparotomy with small-bowel resection. The patient was admitted on 04/20/2025 with severe abdominal pain, watery diarrhea, and an elevated WBC. Imaging revealed ischemic changes in the small bowel, and the patient was taken for an exploratory laparotomy with partial small-bowel resection on 04/22/2025. Postoperatively, she developed pneumonia, SARBJIT, and electrolyte disturbances, including hyponatremia and hypokalemia, which were managed with appropriate repletion and IV fluids. The patient was started on Cefepime and Metronidazole (starting on 04/29/2025) to cover both enteric and pulmonary concerns. Throughout her stay, she remained afebrile and clinically stable, with her WBC initially elevated (peaking at 35.2) but gradually trending down to 22.8. She had a few episodes of diarrhea, which were attributed to antibiotics, and stool studies were ordered to rule out C. difficile (all tests were negative). The NG tube was removed on 04/26/2025, and the patient transitioned to a regular diet, tolerating it well without any abdominal distention or new pain. Her SARBJIT improved, with renal function normalizing (Cr stable at 0.6). Her platelet count increased postoperatively, a common reactive response following surgery, but was monitored closely. By 05/03/2025, the patient was clinically stable, with no abdominal pain, tolerating food, and having regular bowel movements. Surgery, led by Dr. Francois, cleared her for discharge, as she had no signs of peritonitis or other complications. Diagnosis during admission: # Leukocytosis (improving) # Ischemic Small Bowel # SBO - S/p Exploratory Laparotomy (resolved) # Acute hypoxic respiratory failure # Pulmonary Congestion # Left Lung Pneumonia # Hypokalemia # Hypernatremia (resolved) # Acute Blood Loss Anemia # SARBJIT (resolved) # Right lobe liver lesion, incidental finding # Lactic Acidosis (resolved) # ITP s/p Splenectomy # Raynaud?s Disease w/ Peripheral Neuropathy # GERD Discharge Instructions: Medications Please take the following medicines at home: -Cefdinir 300 mg, take 1 capsule by mouth twice daily for 7 days. -Metronidazole (Flagyl) 500 mg, take 1 tablet by mouth three times daily for 7 days. -Potassium chloride 8 mEq, take 1 tablet by mouth daily for 7 days. -Magnesium oxide 400 mg, take 1 tablet by mouth daily for 7 days. -[place] as needed for pain . -Continue your regular home medications unless told otherwise. Activity Walk at least 3?4 times daily to help prevent blood clots and improve recovery. Sit in a chair for meals. Avoid heavy lifting (>10 lbs) until cleared by surgery. Wound Care Keep incision clean and dry. You may shower, but do not scrub the incision. Avoid soaking in baths or pools for 2?3 weeks. Watch for redness, drainage, increased pain, or fever. -Return to the emergency department immediately for fever, worsening abdominal pain, persistent vomiting, blood in stool, severe diarrhea, shortness of breath, chest pain, or signs of dehydration. Follow-Up Appointment You must schedule a follow-up visit with your surgeon next week: Dr. Francois ? General Surgery [address] [place] [address], [place] [address] Please call this number to schedule your appointment as soon as you get home. ----- Plan discussed with attending physician Dr. Shivani Ruiz MD PGY-1 Internal Medicine Time Spent with Patient Time attestation: Total time spent providing and/or coordinating discharge services: Time spent: Greater than 30 minutes Exam Vital Signs Temp Pulse Resp BP Pulse Ox O2 Del Method O2 Flow Rate 97.9 F 93 22 H 123/72 95 Room Air 2 05/03/25 11:38 05/03/25 11:38 05/03/25 11:38 05/03/25 11:38 05/03/25 11:38 05/03/25 11:38 05/01/25 16:00 Narrative Exam General: Awake. HEENT: Normocephalic, atraumatic, mucous membranes moist. Heart: Regular rate and rhythm, no murmurs. Lungs: Clear to auscultation with no wheezing or crackles. Abdomen: Soft, nondistended, nontender, positive bowel sounds. ?No guarding or rebound tenderness. noted midline well healing scar Neurologic: Alert and oriented x3, no gross neurological deficit, and patient able to move all 4 extremities. Extremities: No edema. Skin: No rash or ecchymoses. Discharge Plan Plan Patient Disposition: Home w/HOME HEALTH Patient condition on transfer: Stable Care Plan Goals: Discharge Instructions: Medications Please take the following medicines at home: -Cefdinir 300 mg, take 1 capsule by mouth twice daily for 7 days. -Metronidazole (Flagyl) 500 mg, take 1 tablet by mouth three times daily for 7 days. -Potassium chloride 8 mEq, take 1 tablet by mouth daily for 7 days. -Magnesium oxide 400 mg, take 1 tablet by mouth daily for 7 days. -[place] as needed for pain . -Continue your regular home medications unless told otherwise. Activity Walk at least 3?4 times daily to help prevent blood clots and improve recovery. Sit in a chair for meals. Avoid heavy lifting (>10 lbs) until cleared by surgery. Wound Care Keep incision clean and dry. You may shower, but do not scrub the incision. Avoid soaking in baths or pools for 2?3 weeks. Watch for redness, drainage, increased pain, or fever. Follow-Up Appointment You must schedule a follow-up visit with your surgeon next week: Dr. Francois ? General Surgery [address] [place] [address], [place] [address] Please call this number to schedule your appointment as soon as you get home. -Return to the emergency department immediately for fever, worsening abdominal pain, persistent vomiting, blood in stool, severe diarrhea, shortness of breath, chest pain, or signs of dehydration. Prescriptions/Referrals Prescriptions/Med Rec: New metronidazole 500 mg tablet 500 mg PO Q8H 7 Days Qty: 21 0RF cefdinir 300 mg capsule 300 mg PO BID 7 Days Qty: 14 0RF potassium chloride 8 mEq capsule, extended release 8 meq PO QDAY 7 Days Qty: 7 0RF magnesium oxide 400 mg magnesium capsule 400 mg PO QDAY 7 Days Qty: 7 0RF hydrocodone-acetaminophen 5-325 mg tablet 1 tab PO Q8H MDD 15 mg-975 mg PRN (Reason: pain (scale score 7-10)) 7 Days Qty: 20 0RF Continued amlodipine [Norvasc] 10 MG tablet 10 mg PO QDAY Qty: 0 pantoprazole 40 mg tablet,delayed release (DR/EC) 40 mg PO DAILY gabapentin 600 mg Tablet 600 mg PO TID cyclobenzaprine 5 mg Tablet 5 mg PO TID PRN (Reason: Muscle Spasm) Doptelet (10 tab pack) 20 mg tablet 20 mg PO QDAY duloxetine 30 mg capsule,delayed release(DR/EC) 30 mg PO QDAY simvastatin [Zocor] 20 mg tablet 20 mg PO QDAY Discontinued duloxetine [Cymbalta] 60 mg Capsule,Delayed Release(Dr/Ec) 30 mg PO DAILY Referrals: Hina Lopez, [facility] [Primary Care Provider] Patient/Caregiver Discharge Instructions Discharge Activity: activity as tolerated Education Materials: Abdominal Pain, Exploratory Laparotomy, What Is Pneumonia?, Discharge Instructions for Immune ... Print Language: Japanese Activity Restrictions/Additional Instructions: May shower. Keep incision clean, dry and covered with dry dressings. Wear abdominal binder at all times. Avoid lifting, straining, pulling or pushing for 8 weeks. May take over the counter laxatives if no bowel movement in 2 days. Follow up with Dr. Francois in 2 weeks, call [phone] for an appointment. Stand Alone Forms: [employer] Award Info., Patient Portal Info Letter Discharge Order Discharge Orders: Discharge (Routine); Ordered 05/03/25 Ordered By: Susanne Ruiz Quality Discharge Quality Measures VTE prophylaxis Attestestation Attestation I have examined the patient, reviewed labs and imaging findings, discussed the case with the resident(s), and reviewed entered orders. I agree with the plan of care as outlined in this note. Time Spent: [address] Shivani MD
--- NOTE | 2025-05-03 14:18 | PC.NURSE ---
Patient states she was told by she was leaving only want to to finish IV potassium.
--- NOTE | 2025-05-03 17:59 | PC.CM ---
Patient accepted by [facility]. Start of care date set for 05/07.
== END 2025-05-03 15:25 | disposition home health service (06) | DRG 329 ==
LOC: SERX 12:40 → SERHOLD 22:21 → S3NX 04-20 00:32
PROVIDERS: Specialist; Surgery; Admitting Provider Student in an Organized Health Care Education/Training Program; Emergency Provider Emergency Medicine; PCP Nurse Practitioner Family; Visit Provider Student in an Organized Health Care Education/Training Program
PROC: (CPT 49000; principal; 2025-04-22 11:00)
DX: K55.021 Focal (segmental) acute infarction of small intestine (principal); J18.9 Pneumonia, unspecified organism; J96.01 Acute respiratory failure with hypoxia; K56.609 Unspecified intestinal obstruction, unspecified as to partial versus complete obstruction; A09 Infectious gastroenteritis and colitis, unspecified; D69.3 Immune thrombocytopenic purpura; E87.0 Hyperosmolality and hypernatremia; E87.1 Hypo-osmolality and hyponatremia; K91.89 Other postprocedural complications and disorders of digestive system; N17.9 Acute kidney failure, unspecified; D62 Acute posthemorrhagic anemia; E87.20 Acidosis, unspecified; J91.8 Pleural effusion in other conditions classified elsewhere; K56.7 Ileus, unspecified; E87.6 Hypokalemia; K82.8 Other specified diseases of gallbladder; I73.00 Raynaud's syndrome without gangrene; R13.10 Dysphagia, unspecified; E78.5 Hyperlipidemia, unspecified; I10 Essential (primary) hypertension; K21.9 Gastro-esophageal reflux disease without esophagitis; Z86.19 Personal history of other infectious and parasitic diseases; Z85.3 Personal history of malignant neoplasm of breast; Z78.9 Other specified health status; Z79.899 Other long term (current) drug therapy; Z86.2 Personal history of diseases of the blood and blood-forming organs and certain disorders involving the immune mechanism; Z88.0 Allergy status to penicillin; Z90.81 Acquired absence of spleen; G62.9 Polyneuropathy, unspecified; Z86.000 Personal history of in-situ neoplasm of breast; Z86.11 Personal history of tuberculosis; K76.9 Liver disease, unspecified; Y83.8 Other surgical procedures as the cause of abnormal reaction of the patient, or of later complication, without mention of misadventure at the time of the procedure; K57.30 Diverticulosis of large intestine without perforation or abscess without bleeding
CPT/HCPCS: 36415; 71045; 71250; 74018; 74174; 74176; 74177; 76705; 80048; 80053; 80061; 80069; 81001; 82150; 82248; 82803; 83605; 83690; 83735; 83880; 83993; 84100; 84145; 84295; 84443; 85014; 85018; 85025; 85610; 85652; 86021; 86036; 86140; 86480; 86850; 86900; 86901; 86923; 87015; 87040; 87045; 87046; 87116; 87177; 87205; 87206; 87209; 87329; 87493; 87502; 87811; 87899; 89220; 93005; 93225; 94640; 94664; 96365; 96366; 96375; 96376; 97162; 99284; 99308; A4217; A4314; A4649; A9270; J0131; J0692; J0696; J0744; J1171; J1885; J1938; J1956; J2270; J2371; J2405; J2470; J2704; J2765; J3010; J3475; J3480; J3490; J7030; J7050; J7070; J7120; P9016; P9047; Q0162; Q9967; J1836; P0947

== ENCOUNTER 2025-05-06 12:38 | Emergency (ER) | payer OTHER, MEDICARE, MEDICAID, SELFPAY ==
[2025-05-06 12:40] VITALS: BMI 26.6
[2025-05-06 13:35] VITALS: BP 125/82; PULSE 96; RESP 20; TEMP 37.2; O2SAT 99
--- NOTE | 2025-05-06 14:06 | PD.EDNV ---
Nausea/Vomit./Diarrhea-RME/HPI General Chief complaint: Nausea/Vomiting/Diarrhea Stated complaint: DIARRHEA/DIFF BREATHING JUST DISCHARGED 4 DAYS Time Seen by Provider: 05/06/25 14:06 Arrival date/time: 05/06/25 12:38 RME / HPI RME / HPI Narrative: See [facility] for Dr. Mckee's HPI Documentation. Related Data Home Medications ?Medication ?Instructions ?Recorded ?Confirmed amlodipine 10 mg tablet (Norvasc) 10 mg PO QDAY #0 tabs 07/17/17 04/20/25 pantoprazole 40 mg tablet,delayed 40 mg PO DAILY 11/10/18 04/20/25 release gabapentin 600 mg tablet 600 mg PO TID 11/11/18 04/20/25 cyclobenzaprine 5 mg tablet 5 mg PO TID PRN Muscle Spasm 02/28/23 04/20/25 avatrombopag 20 mg tablet 20 mg PO QDAY 04/20/25 04/20/25 (Doptelet (10 tab pack)) duloxetine 30 mg capsule,delayed 30 mg PO QDAY 04/20/25 04/20/25 release simvastatin 20 mg tablet (Zocor) 20 mg PO QDAY 04/20/25 04/20/25 Previous Rx's ?Medication ?Instructions ?Recorded cefdinir 300 mg capsule 300 mg PO BID 7 days #14 caps 05/03/25 hydrocodone 5 mg-acetaminophen 325 1 tab PO Q8H PRN pain (scale score 05/03/25 mg tablet 7-10) 1 week #20 tabs magnesium oxide 400 mg PO QDAY 1 week #7 caps 05/03/25 metronidazole 500 mg tablet 500 mg PO Q8H 7 days #21 tabs 05/03/25 potassium chloride 8 mEq 8 meq PO QDAY 1 week #7 caps 05/03/25 capsule,extended release Allergies Allergy/AdvReac Type Severity Reaction Status Date / Time Penicillins Allergy Severe RASH Verified 05/06/25 12:42 Review of Systems Review of Systems Systems Reviewed: All systems reviewed, normal except as documented Past Medical History Past Medical History NEUROLOGIC: Positive Neurological Disorders, Parkinson's Disease and Peripheral Neuropathy RESPIRATORY: Positive Asthma (occasional), Bronchitis and Pneumonia GASTROINTESTINAL: Positive Gastrointestinal Disorders, Gastrointestinal Bleed, Gastroesophageal Reflux Disease and Obesity REPRODUCTIVE: Positive Breast Cancer, Pelvic Inflammatory Disease and Uterine Prolapse MUSCULOSKELETAL: Positive Musculoskeletal Disorders, Arthritis and Rheumatoid Arthritis ENT: Positive Ear Infection HEMATOLOGIC: Positive Blood Disorders, Anemia and Clotting Problems PSYCHO/SOCIAL: Positive Depression and Anxiety OTHER HISTORY: Positive Autoimmune Disease, Shingles, Blood Transfusions, Radiation Therapy, Chicken Pox and Breast Cancer Family History FAMILY HISTORY: Positive Family Gastrointestinal Problems and Family Cancer Surgical History SURGICAL: Positive Hysterectomy and Section Social History SMOKING STATUS: Never smoker SUBSTANCE USE: does not use ALCOHOL: Never ED Exam Narrative Physical exam: See [facility] for Dr. Mckee's HPI Documentation. Course Quality Measures none Orders Category Date Time Status CT Screening NOW Care 05/06/25 14:[address] Screening NOW Care 05/06/25 16:55 Active Saline [Insert IV] NOW Care 05/06/25 14:13 Active Straight [In and Out Catheter] X1 Care 05/06/25 14:[address] abdomen pelvis w con Stat Exams 05/06/25 14:[address] chest abdomen pelvis w Stat Exams 05/06/25 16:55 Ordered XR chest 1V portable Stat Exams 05/06/25 14:14 Completed Amylase Stat Lab 05/06/25 14:28 Completed BNP [B-Type Natriuretic Peptide] Stat Lab 05/06/25 14:28 Completed Beta Hydroxybutyrate Stat Lab 05/06/25 14:28 Completed Bilirubin,Direct Stat Lab 05/06/25 14:28 Completed Blood Culture (Lab) Stat Lab 05/06/25 14:28 Received CBC Stat Lab 05/06/25 14:28 Completed CMP [Comprehensive Metabolic Panel] Stat Lab 05/06/25 14:28 Completed CRP [C-Reactive Protein] Stat Lab 05/06/25 14:28 Completed Clostridium Difficile PCR Stat Lab 05/06/25 Ordered ESR [Sed Rate (ESR)] Stat Lab 05/06/25 14:28 Completed Lactate (Lactic Acid) Stat Lab 05/06/25 14:28 Completed Lipase Stat Lab 05/06/25 14:28 Completed Magnesium Stat Lab 05/06/25 14:28 Completed Procalcitonin Stat Lab 05/06/25 14:28 Completed TSH [Thyroid Stimulating Hormone] Stat Lab 05/06/25 14:28 Completed UA, C/S IF [Urinalysis, C/S if Indicated] Stat Lab 05/06/25 14:15 Ordered Magnesium Sulfate 4 GM Ivpb [Magnesium Sulfate Ivpb] Med 05/06/25 15:25 Active 4 gm in 50 ml IV X1 Morphine* Inj Med 05/06/25 14:13 Discontinued 4 mg IV X1 ONE Ondansetron Inj [Zofran Inj] Med 05/06/25 14:13 Discontinued 4 mg IVP X1 ONE POTASSIUM CHL 10 mEq IVPB [Kcl Ivpb] Med 05/06/25 15:40 Discontinued 10 meq in 100 ml IV X1 POTASSIUM CHL 10% Liq 15 ML Med 05/06/25 15:40 Discontinued 40 meq PO X1 ONE Ringers Lactated 1000 ml [Lactated Ringers] 1,000 ml Med 05/06/25 14:13 Discontinued IV 500 mls/hr Vital Signs Vital signs: Vital Signs Temperature 99 F 05/06/25 13:35 Pulse Rate 96 05/06/25 13:35 Respiratory Rate 20 05/06/25 13:35 Blood Pressure 125/82 05/06/25 13:35 Pulse Oximetry (%) 99 05/06/25 13:35 Oxygen Delivery Method Room Air 05/06/25 13:35 Nausea/Vomiting/Diarrhea MDM Narrative MDM Narrative:: This section includes all my notes and documentations, including HPI, PE, and ED course. Miki Mckee MD HPI: 64-year-old female here with continued abdominal pain and diarrhea. About 2 weeks ago (04/22/25), Dr. Francois performed exploratory laparotomy with partial small bowel resection with anastomosis due to bowel infarction. She was discharged from the hospital 3 days ago, on 05/20/2025. No vomiting. No fever. No other complaints. Physical Exam: General: Alert and oriented. Appears uncomfortable. Eyes: Conjunctivae and lids clear. ENT: No nasal congestion. Neck: Supple. Heart: RRR. Lungs: No respiratory distress. Good air movement. No rhonchi, wheezing, rales. Abdomen: Soft with tenderness, difficult to localize. Decreased bowel sounds. No distension. No rebound or guarding. Back: No CVA tenderness. Skin: Warm and dry. Neuro: Alert and oriented X 3. I reviewed all returned diagnostic test results: My interpretation of the chest x-ray is possible left base infiltrates. Blood tests remarkable for WBC 18.4, K 3.0, Mg 1.2. CT scan pending. Urine specimen pending. At this point, diagnoses include: Abdominal pain Diarrhea Hypomagnesemia Hypokalemia Treatment here from included: IVF Zofran 4 mg IV Morphine 4 mg IV Oral and IV KCl ordered MgSO4 4 gram IV At 6 PM on 05/06/2025, the care of the patient was transferred to Dr. Sanchez. Miki Mckee MD Patient data External records reviewed:: [facility] previous records Clinical information provided by:: patient Social determinants that could affect healthcare access:: none Patient has the following chronic illnesses:: History of exploratory laparotomy, partial small bowel resection with anastomosis on 04/22/[address] Francois. Hypertension. Allergies to penicillins. How is presenting disease/condition affected by chronic disease/condition?: exacerbated by Evaluation data The following diagnostics were reviewed and interpreted by me:: lab results and radiology exam(s) Lab and/or radiology exams considered but not ordered:: none Interpretation Summary: I reviewed all returned diagnostic test results: My interpretation of the chest x-ray is possible left base infiltrates. Blood tests remarkable for WBC 18.4, K 3.0, Mg 1.2. CT scan pending. Urine specimen pending. Medications / Prescriptions Medications / Prescriptions considered but not ordered:: none Medication administrations:: Medication Administration History Magnesium Sulfate (Magnesium Sulfate Ivpb) 4 gm in 50 mls @ 12.5 mls/hr IV X1 ONE Stop: 05/06/25 19:24 Last Admin: 05/06/25 16:39 Dose: 12.5 mls/hr Documented By: BD Discontinued Medications Lactated Ringer's (Lactated Ringers) 1,000 mls @ 500 mls/hr IV .Q2H ONE Stop: 05/06/25 16:12 Last Admin: 05/06/25 16:39 Dose: 500 mls/hr Documented By: BD Potassium Chloride (Kcl Ivpb) 10 meq in 100 mls @ 100 mls/hr IV X1 ONE Stop: 05/06/25 16:39 Last Admin: 05/06/25 16:39 Dose: 100 mls/hr Documented By: BD Morphine Sulfate (Morphine Sulf Inj 4 Mg/Ml Vial) 4 mg IV X1 ONE Stop: 05/06/25 14:14 Last Admin: 05/06/25 16:40 Dose: 4 mg Documented By: BD Ondansetron HCl (Ondansetron Inj 2 Mg/Ml Inj 2 Ml) 4 mg IVP X1 ONE; Protocol Stop: 05/06/25 14:14 Last Admin: 05/06/25 16:39 Dose: 4 mg Documented By: BD Potassium Chloride (Potassium Chloride 10% 20 Meq/15 Ml Udc) 40 meq PO X1 ONE Stop: 05/06/25 15:41 Last Admin: 05/06/25 16:34 Dose: Not Given Documented By: BD Non-Admin Reason: Patient Refused Treatment here from included: IVF Zofran 4 mg IV Morphine 4 mg IV Oral and IV KCl ordered MgSO4 4 gram IV Consultations Consultation(s) initiated? (list below): No Diagnosis Nausea Differential Diagnosis: traveler's diarrhea, food poisoning, gastroenteritis and other (Postoperative ileus, small bowel obstruction, and intra-abdominal infection.) Most likely diagnosis given after review of the tests above:: At this point, diagnoses include: Abdominal pain Diarrhea Hypomagnesemia Hypokalemia Admission Indicated Admission indicated?: not indicated Explain why admission is indicated or not indicated:: Complete diagnostic tests are pending. Admission Request Was there a request for admission?: No Disposition Plan Disposition Plan: other (specify) ( At 6 PM on 05/06/2025, the care of the patient was transferred to Dr. Sanchez.) Discharge Plan Prescriptions/Referrals Prescriptions/Med Rec: No Action amlodipine [Norvasc] 10 MG tablet 10 mg PO QDAY Qty: 0 pantoprazole 40 mg tablet,delayed release (DR/EC) 40 mg PO DAILY gabapentin 600 mg Tablet 600 mg PO TID cyclobenzaprine 5 mg Tablet 5 mg PO TID PRN (Reason: Muscle Spasm) Doptelet (10 tab pack) 20 mg tablet 20 mg PO QDAY duloxetine 30 mg capsule,delayed release(DR/EC) 30 mg PO QDAY simvastatin [Zocor] 20 mg tablet 20 mg PO QDAY metronidazole 500 mg tablet 500 mg PO Q8H 7 Days Qty: 21 0RF cefdinir 300 mg capsule 300 mg PO BID 7 Days Qty: 14 0RF potassium chloride 8 mEq capsule, extended release 8 meq PO QDAY 7 Days Qty: 7 0RF magnesium oxide 400 mg magnesium capsule 400 mg PO QDAY 7 Days Qty: 7 0RF hydrocodone-acetaminophen 5-325 mg tablet 1 tab PO Q8H MDD 15 mg-975 mg PRN (Reason: pain (scale score 7-10)) 7 Days Qty: 20 0RF Referrals: Hina Lopez, [facility] [Primary Care Provider] - In 1 week Problem List Clinical Impression: Abdominal pain, Diarrhea, Hypomagnesemia, Hypokalemia Patient/Caregiver Discharge Instructions Print Language: [place]ese
--- NOTE | 2025-05-06 14:14 | XR_ITS ---
EXAMINATION: AP chest single view TECHNIQUE: AP sitting portable chest single view Date and time: May 06, 2025, 1415 hours, comparison April 30, 2025 INDICATIONS: Shortness of breath today FINDINGS: Mild pneumonia left base obscuring detail left hemidiaphragm Right lung clear Normal heart size IMPRESSION: Mild pneumonia left base obscuring detail left hemidiaphragm
[2025-05-06 14:38] LABS: Lactate (Lactic Acid) 1.3 mMol/L (0.4-2.0)
[2025-05-06 14:40] LABS: Basophils # (Auto) 0.1 Thou/mm3 (0.0-0.2); Basophils % (Auto) 1 % (0-2.5); Eosinophils # (Auto) 0.2 Thou/mm3 (0.0-0.5); Eosinophils % (Auto) 1 % (0-10); Hematocrit 31.4 % (36.0-46.0); Hemoglobin 10.4 g/dL (12.0-16.0); Immature Granulocytes Auto 0.37 Thou/mm3 (0.00-0.00); Lymphocytes # (Auto) 1.8 Thou/mm3 (1.0-4.8); Lymphocytes % (Auto) 10 % (10-50); Mean Corpuscular HGB Conc 33.1 g/dl (31.0-37.0); Mean Corpuscular Hemoglobin 28.9 pg (25.0-35.0); Mean Corpuscular Volume 87 fL (80-100); Monocytes # (Auto) 1.8 Thou/mm3 (0.0-0.8); Monocytes % (Auto) 10 % (0-12); Neutrophils # (Auto) 14.1 Thou/mm3 (1.8-7.7); Neutrophils % (Auto) 77 % (37-80); Nucleated Red Blood Cell # 0.00 Thou/mm3 (0.00-0.00); Nucleated Red Blood Cell % 0 /100 WBC (0); Platelet Count 503 Thou/mm3 (140-440); RDW Standard Deviation 54.6 fL (36.4-46.3); Red Blood Count 3.60 Miln/mm3 (4.00-5.20); White Blood Count 18.4 Thou/mm3 (3.6-11.0)
[2025-05-06 14:41] LABS: Beta Hydroxybutyrate 0.4 mmol/L (<0.6)
[2025-05-06 15:00] VITALS: BP 131/87; PULSE 96; RESP 22; TEMP 36.9; O2SAT 95
[2025-05-06 15:08] LABS: Alanine Aminotransferase 16 U/L (10-49); Albumin, Serum 4.4 gm/dL (3.4-4.8); Albumin/Globulin Ratio 3.1 (1.2-2.2); Alkaline Phosphatase 144 U/L (46-116); Amylase 92 U/L (30-118); Anion Gap 14 (7-16); Aspartate Amino Transferase 25 U/L (0-34); BUN/Creatinine Ratio 8 Ratio (12-20); Bilirubin,Direct 0.2 mg/dL (0.0-0.3); Bilirubin,Total 0.4 mg/dL (0.3-1.2); Blood Urea Nitrogen < 5 mg/dL (9-23); C-Reactive Protein 7.4 mg/dL (0.0-0.9); Calcium 9.0 mg/dL (8.3-10.6); Calcium (Corrected) 9.0 mg/dL (8.5-10.1); Carbon Dioxide 22.3 mMol/L (20.0-31.0); Chloride 105 mMol/L (98-107); Creatinine (Component) 0.6 mg/dL (0.6-1.3); Estimated Creatinine Clearance 92.1 mL/min (>60); Globulin 1.4 gm/dL (2.3-3.5); Glucose 125 mg/dL (74-106); Lipase 63 U/L (12-53); Magnesium 1.2 mg/dL (1.6-2.6); Osmolality,Calculated 279 (275-295); Potassium 3.0 mMol/L (3.4-5.1); Procalcitonin 0.33 ng/ml (0.0-0.49); Sodium 141 mMol/L (136-145); Thyroid Stimulating Hormone 1.85 uIU/mL (0.55-4.78); Total Protein 5.8 gm/dL (5.7-8.2); eGFR > 60 See Note
[2025-05-06 15:09] LABS: Sed Rate (ESR) 23 mm/hr (0-30)
[2025-05-06 15:29] LABS: B-Type Natriuretic Peptide 25 pg/mL (0-100)
--- NOTE | 2025-05-06 15:50 | PC.NURSE ---
attempted to put iv pt pulled tourniquet off explained that i need it to feel vein, she said not tight, inserted iv in left hand was good and flushed pt did not want iv wanted it removed advised that it is a good and if i take out it may be difficult to get another advised take it out she dont want it take it out as she had one there and caused her problems iv was removed.
--- NOTE | 2025-05-06 16:11 | PC.NURSE ---
aisha arambula attemted iv and was successful but positional she said she did not want it there to remove it so iv was removed per pt request
[2025-05-06] MEDS: Magnesium Sulfate 4 GM Ivpb 4 GM/50 ML BAG IV (16:39)
[2025-05-06] MEDS: RINGERS LACTATED 1000 ML 1,000 ML 500 ML IV (16:39)
[2025-05-06] MEDS: POTASSIUM CHL 10 mEq IVPB 10 MEQ/100 ML BAG 100 MEQ IV (16:39)
[2025-05-06] MEDS: ONDANSETRON INJ 2 MG/ML INJ 2 ML 4 MG IVP (16:39)
[2025-05-06] MEDS: MORPHINE SULF INJ 4 MG/ML VIAL IV (16:40)
--- NOTE | 2025-05-06 16:55 | XR_ITS ---
Examination: CT chest with intravenous contrast CT abdomen with intravenous contrast CT pelvis with intravenous contrast 2-D coronal and sagittal reconstructions Time of exam: May 06, 2025, 1848 hours, comparison CT chest abdomen pelvis May 01, 2025 INDICATIONS: Chest pain shortness of breath lower abdominal pain nausea vomiting diarrhea beginning 3 weeks ago CTDI: vol (mGy) : 9.12 DLP: (mGycm): 601 Technique: Multiple axial images of the chest, abdomen and pelvis with intravenous contrast, 3.0 mm slice thickness. Images obtained post intravenous injection Isovue 370 60 cc. 2-D sagittal and coronal reconstructions. Low dose protocols were performed. One or more of the following dose reduction techniques were used; automated exposure control, adjustment of the mA and/or KV according to patient size, use of iterative reconstruction technique. Findings: No thoracic aortic aneurysmal dilatation or dissection No pulmonary artery emboli on this CTA study Noncalcified pulmonary nodule subcentimeter again depicted Mild enlargement cardiac contour Atelectasis versus mild pneumonia left base Small left pleural effusion No focal liver lesions Gallbladder wall appears mildly thickened Small bowel loops remain abnormal, fluid-filled with wall thickening 5 cm fluid collection in the anterior right abdomen most consistent with abscess Mild ascites Atrophic uterus Urinary bladder intact 13 x 3.4 cm fluid collection peripheral to the left hip posteriorly IMPRESSION: Atelectasis versus mild pneumonia left base, clinical correlation advised Recommend hepatobiliary sonography to assess and exclude gallbladder wall thickening Small bowel loops remain abnormal, fluid-filled with wall thickening, differential would include enteritis, ischemic small bowel 5 cm fluid collection in the anterior abdomen most consistent with abscess, recommend repeating the CT abdomen/pelvis study with oral Gastrografin Recommend ultrasound soft tissue posterior to the left hip to assess fluid collection
[2025-05-06 17:38] VITALS: BP 126/68; PULSE 102; RESP 18; O2SAT 97
--- NOTE | 2025-05-06 18:00 | EDNOTE_ITS ---
Emergency Room Addendum <Aminata Mata - Last Filed: 05/06/25 19:19> Addendum Narrative: 1800: Care assumed from Dr. Mckee, the previous shift emergency physician. Past medical, surgical, social and family history reviewed. Vitals and home medications reviewed. Results and treatment plan discussed. I will assume the care of the patient at this time and will follow the patient. Please refer to the emergency department record for history and examination from initial visit. RADIOLOGY RESULTS: [facility] Report Signed Patient: STACY KELLY. Record#: [id number] Birthdate: 1960 Account:: [id number] Age/Sex: 64 / F Location: [facility] Attending Dr: Ordering Physician: Miki Mckee MD Date of Service: 05/06/25 Procedure(s): CT chest abdomen pelvis w Accession Number(s): [id number] cc: Miki Mckee MD; Dov Jenkins MD; Hina Lopez NP~ Examination: CT chest with intravenous contrast CT abdomen with intravenous contrast CT pelvis with intravenous contrast 2-D coronal and sagittal reconstructions Time of exam: May 06, 2025, 1848 hours, comparison CT chest abdomen pelvis May 01, 2025 INDICATIONS: Chest pain shortness of breath lower abdominal pain nausea vomiting diarrhea beginning 3 weeks ago CTDI: vol (mGy) : 9.12 DLP: (mGycm): 601 Technique: Multiple axial images of the chest, abdomen and pelvis with intravenous contrast, 3.0 mm slice thickness. Images obtained post intravenous injection Isovue 370 60 cc. 2-D sagittal and coronal reconstructions. Low dose protocols were performed. One or more of the following dose reduction techniques were used; automated exposure control, adjustment of the mA and/or KV according to patient size, use of iterative reconstruction technique. Findings: No thoracic aortic aneurysmal dilatation or dissection No pulmonary artery emboli on this CTA study Noncalcified pulmonary nodule subcentimeter again depicted Mild enlargement cardiac contour Atelectasis versus mild pneumonia left base Small left pleural effusion No focal liver lesions Gallbladder wall appears mildly thickened Small bowel loops remain abnormal, fluid-filled with wall thickening 5 cm fluid collection in the anterior right abdomen most consistent with abscess Mild ascites Atrophic uterus Urinary bladder intact 13 x 3.4 cm fluid collection peripheral to the left hip posteriorly IMPRESSION: Atelectasis versus mild pneumonia left base, clinical correlation advised Recommend hepatobiliary sonography to assess and exclude gallbladder wall thickening Small bowel loops remain abnormal, fluid-filled with wall thickening, differential would include enteritis, ischemic small bowel 5 cm fluid collection in the anterior abdomen most consistent with abscess, recommend repeating the CT abdomen/pelvis study with oral Gastrografin Recommend ultrasound soft tissue posterior to the left hip to assess fluid collection Dictated By: Dov Jenkins MD Signed By: <Electronically signed by Dov Jenkins MD in [place]> 05/06/25 191 <Tj Sanchez, - Last Filed: 05/06/25 19:57> Addendum Narrative: 1800: Care assumed from Dr. Mckee, the previous shift emergency physician. Past medical, surgical, social and family history reviewed. Vitals and home medications reviewed. Results and treatment plan discussed. I will assume the care of the patient at this time and will follow the patient. Please refer to the emergency department record for history and examination from initial visit. RADIOLOGY RESULTS: [facility] Signed Patient: STACY KELLY [facility]. Record#: [id number] Birthdate: 1960 Account:: [id number] Age/Sex: 64 / F Location: [facility] Attending Dr: Ordering Physician: Miki Mckee MD Date of Service: 05/06/25 Procedure(s): CT chest abdomen pelvis w Accession Number(s): [id number] cc: Miki Mckee MD; Dov Jenkins MD; Hina Lopez NP~ Examination: CT chest with intravenous contrast CT abdomen with intravenous contrast CT pelvis with intravenous contrast 2-D coronal and sagittal reconstructions Time of exam: May 06, 2025, 1848 hours, comparison CT chest abdomen pelvis May 01, 2025 INDICATIONS: Chest pain shortness of breath lower abdominal pain nausea vomiting diarrhea beginning 3 weeks ago CTDI: vol (mGy) : 9.12 DLP: (mGycm): 601 Technique: Multiple axial images of the chest, abdomen and pelvis with intravenous contrast, 3.0 mm slice thickness. Images obtained post intravenous injection Isovue 370 60 cc. 2-D sagittal and coronal reconstructions. Low dose protocols were performed. One or more of the following dose reduction techniques were used; automated exposure control, adjustment of the mA and/or KV according to patient size, use of iterative reconstruction technique. Findings: No thoracic aortic aneurysmal dilatation or dissection No pulmonary artery emboli on this CTA study Noncalcified pulmonary nodule subcentimeter again depicted Mild enlargement cardiac contour Atelectasis versus mild pneumonia left base Small left pleural effusion No focal liver lesions Gallbladder wall appears mildly thickened Small bowel loops remain abnormal, fluid-filled with wall thickening 5 cm fluid collection in the anterior right abdomen most consistent with abscess Mild ascites Atrophic uterus Urinary bladder intact 13 x 3.4 cm fluid collection peripheral to the left hip posteriorly IMPRESSION: Atelectasis versus mild pneumonia left base, clinical correlation advised Recommend hepatobiliary sonography to assess and exclude gallbladder wall thickening Small bowel loops remain abnormal, fluid-filled with wall thickening, differential would include enteritis, ischemic small bowel 5 cm fluid collection in the anterior abdomen most consistent with abscess, recommend repeating the CT abdomen/pelvis study with oral Gastrografin Recommend ultrasound soft tissue posterior to the left hip to assess fluid collection Dictated By: Dov Jenkins MD Signed By: <Electronically signed by Dov Jenkins MD in [place]> Case was signed out to me awaiting CT results. Please see the fully dictated note by Dr. Mckee. CT scan came back showing no evidence of bowel obstruction but it did show the possibility of a 5 cm intra-abdominal abscess on the right. Patient currently is on Flagyl and cefdinir at home. Patient was discharged from the hospital 3 days ago. Prior to discharge the patient did have a C. difficile toxin stool sample sent which was negative. She was unable to give a stool sample here in the emergency room despite being here over 6 hours. And also despite the fact that her chief complaint was diarrhea. I went to examine the patient. Vital signs are stable. She is not tachycardic not hypotensive and afebrile. I did discuss the case with the patient's general surgeon, Dr. Francois who will follow-up the patient in his office within the next 1 to 2 days. Patient is to continue the antibiotics at this time. It was stressed to the patient that she will continue to have diarrhea until bowel inflammation has decreased. I reviewed all labs prior to discharge. Patient has received potassium and magnesium IV supplementation and was also hydrated with normal saline prior to discharge. 05/06/[id number]
[2025-05-06 18:01] LABS: Collection Type, Urine Clean Catch
[2025-05-06 18:18] LABS: Bacteria,Urine Rare; Bilirubin,Urine Negative (Negative); Blood,Urine Trace (Negative); Clarity,Urine Clear (Clear/Hazy); Color,Urine Lt-Yellow (Lt Yel-Yel); Culture Indicated,Urine Not Indicated; Glucose, Urine Negative (Negative); Ketones,Urine Negative (Negative); Leukocyte Esterase,Urine Negative (Negative); Nitrite,Urine Negative (Negative); PH,Urine 6.0 (5.0-7.0); Protein,Urine Trace (Neg - Trace); RBC,Urine 1 /hpf (0-3); Specific Gravity,Urine 1.005 (1.001-1.035); Squamous Epithelial Cell,Urine 1 /hpf (0-5); Urobilinogen,Urine Negative mg/dL (0.0-1.0); WBC,Urine 2 /hpf (0-5)
[2025-05-06 19:18] VITALS: BP 141/69; PULSE 96; RESP 18; TEMP 37; O2SAT 95
[2025-05-06 20:19] VITALS: BP 139/74; PULSE 100; RESP 14; TEMP 36.8; O2SAT 98
== END 2025-05-06 20:19 | disposition home or self-care (01) ==
PROVIDERS: Emergency Provider Emergency Medicine; PCP Nurse Practitioner Family
DX: R19.7 Diarrhea, unspecified (principal); E83.42 Hypomagnesemia; E87.6 Hypokalemia; R10.9 Unspecified abdominal pain
CPT/HCPCS: 36415; 51701; 71045; 71260; 74177; 80053; 81001; 82010; 82150; 82248; 83605; 83690; 83735; 83880; 84145; 84443; 85025; 85652; 86140; 87040; 87493; 96365; 96366; 96375; 99284; A4649; J2270; J2405; J3475; J3480; J7120; Q9967

== ENCOUNTER → 2025-06-04 | Outpatient (CLI) | payer OTHER, MEDICARE, MEDICAID, SELFPAY ==
[2025-06-04 11:13] LABS: Collection Type, Urine Clean Catch; RBC,Urine 0 /hpf (0-3)
[2025-06-04 12:37] LABS: Bacteria,Urine 2+; Bilirubin,Urine Negative (Negative); Blood,Urine Negative (Negative); Color,Urine Lt-Yellow (Lt Yel-Yel); Glucose, Urine Negative (Negative); Ketones,Urine Negative (Negative); Leukocyte Esterase,Urine Negative (Negative); Nitrite,Urine Negative (Negative); PH,Urine 6.5 (5.0-7.0); Protein,Urine Negative (Neg - Trace); Specific Gravity,Urine 1.008 (1.001-1.035); Squamous Epithelial Cell,Urine 5 /hpf (0-5); Urobilinogen,Urine Negative mg/dL (0.0-1.0); WBC,Urine 5 /hpf (0-5)
[2025-06-04 12:47] LABS: Clarity,Urine Hazy (Clear/Hazy)
== END | disposition home or self-care (01) ==
LOC: SLDO 11:08
PROVIDERS: Referring Provider Hospitalist; Visit Provider Nurse Practitioner Family
DX: N39.0 Urinary tract infection, site not specified (principal)
CPT/HCPCS: 81001; 87077; 87086; 87186